=== PATIENT | female | born 1965 | race Two or more races ===

== ENCOUNTER 2024-05-25 10:20 | Emergency (ER) | payer MEDICAID, SELFPAY ==
[2024-05-25 10:21] VITALS: BMI 48.2
[2024-05-25 10:47] VITALS: BP 123/68; PULSE 106; RESP 22; TEMP 37.1; O2SAT 95; BMI 51.4
--- NOTE | 2024-05-25 10:53 | XR_ITS ---
Examination: PA lateral chest 2 views TECHNIQUE: Upright AP lateral chest 2 views Exam date and time: 0.5 2024 1106 hours Comparison June 16, 2023 INDICATIONS: Coughing fever beginning 3 days ago. FINDINGS: Mild accentuation bronchovascular markings. Normal heart size No pneumonia or pulmonary edema IMPRESSION: Mild basilar bronchitis pattern
--- NOTE | 2024-05-25 10:55 | PD.EDURI ---
Upper Respiratory Inf. RME/HPI General Chief Complaint: Flu Like Symptoms Stated Complaint: COUGH/SORE THROAT x 3 DAYS Time Seen by Provider: 05/25/24 10:53 Source: patient Arrival date/time: 05/25/24 10:20 59-year-old female with a history of hyperlipidemia presents to the emergency room with a chief complaint of cough, congestion x 3 days Mode of arrival: ambulatory Limitations: no limitations Related Data Home Medications ?Medication ?Instructions ?Recorded ?Confirmed atorvastatin 40 mg tablet 40 mg PO QDAY 09/08/22 09/08/22 blood pressure test kit-large 09/08/22 09/08/22 ferrous sulfate 325 mg (65 mg 325 mg PO BID 09/08/22 09/08/22 iron) tablet (FeroSul) folic acid 1 mg tablet 1 mg PO QDAY 09/08/22 09/08/22 hydroxyzine pamoate 25 mg capsule See Rx Instructions .Route .COMPLEX 09/08/22 09/08/22 insulin glargine 100 unit/mL (3 50 unit subcut BIDWM 09/08/22 09/08/22 mL) subcutaneous pen (Basaglar KwikPen U-100 Insulin) insulin regular human 100 unit/mL 40 unit subcut TID 09/08/22 09/08/22 (3 mL) subcutaneous pen (Novolin R FlexPen) lancets 33 gauge (TRUEplus Lancets) 09/08/22 09/08/22 losartan 50 mg tablet 50 mg PO BID 09/08/22 09/08/22 metformin 1,000 mg tablet 1,000 mg PO BID 09/08/22 09/08/22 Held on 09/11/22. Instructions: Reconcile with Nephrology and PCP once Renal Function improves or new baseline is established omeprazole 20 mg capsule,delayed 20 mg PO QDAY 09/08/22 09/08/22 release ondansetron 8 mg disintegrating 8 mg PO Q8H PRN Nausea And Vomiting 09/08/22 09/08/22 tablet pen needle, diabetic 31 gauge x 09/08/22 09/08/22 3/16 (BD Ultra-Fine Mini Pen Needle) pen needle, diabetic 32 gauge x 09/08/22 09/08/2232 (BD Ultra-Fine Kalee Pen Needle) semaglutide 2 mg/dose (8 mg/3 mL) 2 mg subcut QWEEK 09/08/22 09/08/22 subcutaneous pen injector (Ozempic) Previous Rx's ?Medication ?Instructions ?Recorded ibuprofen 600 mg tablet 600 mg PO TID PRN pain #30 tabs 03/25/23 albuterol sulfate 90 mcg/actuation 2 puff inhalation Q6H PRN 06/16/23 aerosol inhaler (Ventolin HFA) shortness of breath or wheezing #8.5 grams benzonatate 100 mg capsule 100 mg PO TID #14 caps 06/16/23 cyclobenzaprine 10 mg tablet 10 mg PO BID PRN muscle spasm #28 10/03/23 tabs ibuprofen 200 mg tablet (Motrin IB) 800 mg (4 x 200 mg) PO Q8H PRN 10/03/23 pain #120 tabs ciprofloxacin HCl 500 mg tablet 500 mg PO BID #14 tabs 02/25/24 (Cipro) ibuprofen 800 mg tablet 800 mg PO TID PRN pain #30 tabs 02/25/24 albuterol sulfate 90 mcg/actuation 2 inh inhalation Q6H PRN shortness 05/25/24 breath activated powder inhaler of breath or wheezing #1 ea prednisone 10 mg tablet 30 mg PO BID 3 days #18 tabs 05/25/24 Allergies Allergy/AdvReac Type Severity Reaction Status Date / Time No Known Allergies Allergy Verified 05/25/24 10:23 Review of Systems Review of Systems Systems Reviewed: All systems reviewed, normal except as documented Constitutional Constitutional: Reports system reviewed and no additional complaints, except as documented, Denies fatigue, Denies fever(s), Denies headache(s) and Denies weakness Eyes Eyes: Reports system reviewed and no additional complaints, except as documented, Denies blurry vision and Denies change in vision ENT Ears, Nose, Mouth, and Throat: Reports system reviewed and no additional complaints, except as documented, Denies otalgia, Denies headache(s), Reports nasal congestion, Denies throat swelling and Denies vertigo Cardiovascular Cardiovascular: Reports system reviewed and no additional complaints, except as documented, Denies chest pain, Denies dyspnea and Denies dyspnea on exertion Respiratory Respiratory: Reports system reviewed and no additional complaints, except as documented, Reports chest congestion, Reports cough, Denies dyspnea, Denies dyspnea on exertion and Denies wheezing Gastrointestinal Gastrointestinal: Reports system reviewed and no additional complaints, except as documented, Denies abdominal pain, Denies cramping, Denies nausea and Denies vomiting Genitourinary Genitourinary: Reports system reviewed and no additional complaints, except as documented Musculoskeletal Musculoskeletal: Reports system reviewed and no additional complaints, except as documented and Denies back pain Integumentary/Breasts Skin/Breast: Reports system reviewed and no additional complaints, except as documented and Denies wounds Neurologic Neurologic: Reports system reviewed and no additional complaints, except as documented, Denies confusion, Denies headache(s), Denies lack of coordination, Denies vertigo and Denies weakness Psychiatric Psychiatric: Reports system reviewed and no additional complaints, except as documented, Denies anxiety, Denies confusion, Denies depression, Denies paranoia, Denies suicidal ideation and Denies tactile hallucinations Endocrine Endocrine: Reports system reviewed and no additional complaints, except as documented and Denies fatigue Hematologic/Lymphatic Hematologic/Lymphatic: Reports system reviewed and no additional complaints, except as documented and Denies lymphadenopathy Allergic/Immunologic Allergic/Immunologic: Reports system reviewed and no additional complaints, except as documented, Denies throat swelling, Denies urticaria and Denies wheezing Past Medical History Past Medical History NEUROLOGIC: Negative Neurological Disorders CARDIAC: Positive Cardiac Disorders, Angina, Hypercholesterolemia and Hypertension; Negative Congestive Heart Failure RESPIRATORY: Positive Pneumonia; Negative Chronic Obstructive Pulmonary Disease (COPD) or Asthma GASTROINTESTINAL: Negative Gastrointestinal Disorders GENITOURINARY: Negative Genitourinary Disorders or Renal Disease MUSCULOSKELETAL: Negative Musculoskeletal Disorders or Arthritis ENDOCRINE: Positive Endocrine Disorders, Diabetes Mellitus Type 2 and Hypothyroidism; Negative Diabetes Mellitus Type 1 HEMATOLOGIC: Negative Blood Disorders or Sickle Cell Disease OTHER HISTORY: Positive Hospitalization Family History OTHER FAMILY HX: No relevant past family medical history Surgical History SURGICAL: Positive Amputation (may 2022) OTHER SURGICAL HX: Bilateral toe amputation Social History SOCIAL: Patient is retired, lives with family, able to perform ADLs denies any recreational drug use, alcohol use or tobacco use SMOKING STATUS: Never smoker ED Exam General Limitations: Present no limitations General appearance: Present alert and in no apparent distress Head Head exam: Present atraumatic Eye Eye exam: Present normal appearance, PERRL and EOMI ENT ENT exam: Present normal exam, normal oropharynx and mucous membranes moist Neck Neck exam: Present normal inspection, full ROM and trachea midline Chest Chest inspection: Present normal inspection and symmetric chest wall rise Respiratory Respiratory exam: Present normal lung sounds bilaterally; Absent respiratory distress, wheezes, stridor, accessory muscle use or prolonged expiratory phase Cardiovascular Cardiovascular exam: Present regular rate, normal rhythm and normal heart sounds Abdominal Exam Abdominal exam: Present soft and normal bowel sounds Extremities Exam Extremities exam: Present normal inspection and full ROM Back Exam Back exam: Present normal inspection and full ROM Neurological Exam Neurological exam: Present alert, oriented X3 and CN II-XII intact Psychiatric Psychiatric exam: Present normal affect and normal mood Skin Skin exam: Present warm, dry, intact and normal color Course Quality Measures none Orders Category Date Time Status Bedside COVID-19 Antigen Test NOW Care 05/25/24 10:53 Completed Bedside Influenza A&B Antigen Test NOW Care 05/25/24 10:53 Completed XR chest 2V Stat Exams 05/25/24 10:53 Completed Vital Signs Vital signs: Vital Signs Temperature 98.7 F 05/25/24 10:47 Pulse Rate 106 H 05/25/24 10:47 Respiratory Rate 22 H 05/25/24 10:47 Blood Pressure 123/68 05/25/24 10:47 Pulse Oximetry (%) 95 05/25/24 10:47 Oxygen Delivery Method Room Air 05/25/24 10:47 O2 saturation 95% within normal limits Upper Respiratory Infection MDM Narrative MDM Narrative:: 59-year-old female with a history of hyperlipidemia presents to the emergency room with a chief complaint of cough, congestion x 3 days The patient is hemodynamically stable and in no apparent distress Lung sounds are clear bilaterally with no wheezing stridor or any abnormal breath sounds Chest x-ray was completed and shows a bronchitis pattern COVID-19 and influenza test were both negative. Patient was discharged and educated to follow-up with primary care provider and return to the emergency room for any evidence of worsening signs or symptoms Patient data External records reviewed:: [facility] previous records Clinical information provided by:: patient Social determinants that could affect healthcare access:: none Patient has the following chronic illnesses:: No chronic illness How is presenting disease/condition affected by chronic disease/condition?: no chronic disease Evaluation data The following diagnostics were reviewed and interpreted by me:: lab results and radiology exam(s) Lab and/or radiology exams considered but not ordered:: Labs and radiology exams considered and ordered Interpretation Summary: Chest [id number]: Mild accentuation bronchovascular markings. Normal heart size No pneumonia or pulmonary edema IMPRESSION: Mild basilar bronchitis pattern Medications / Prescriptions Medications or Prescriptions considered but not ordered:: Medication given Medication administrations:: Medication not given Consultations Consultation(s) initiated? (list below): No Diagnosis Upper Respiratory Differential Diagnosis: upper respiratory infection, sinusitis, viral infection, bronchitis, influenza and pharyngitis Most likely diagnosis given after review of the tests above:: Bronchitis Admission Indicated Admission indicated?: not indicated Admission Request Was there a request for admission?: No Disposition Plan Disposition Plan: Discharge Discharge Attestation Discharge Attestation: The patient and all family members were given an opportunity to ask questions and understood the discharge instructions. Discharge instructions specifically effects, indications for sooner follow up or return to the emergency department, and the expected course of current diagnosis. Patient condition: Stable Discharge Plan Plan Patient Disposition: HOME (Self Care) Disposition Comment: Stable Prescriptions/Referrals Prescriptions/Med Rec: New albuterol sulfate 90 mcg/actuation aerosol powdr breath activated 2 inh inhalation Q6H PRN (Reason: shortness of breath or wheezing) Qty: 1 0RF prednisone 10 mg tablet 30 mg PO BID 3 Days Qty: 18 0RF Taper: Prednisone Taper 20 mg DAILY for 2 Days and 0 Hour 10 mg DAILY for 2 Days and 0 Hour 5 mg DAILY for 7 Days and 0 Hour No Action ibuprofen 600 mg tablet 600 mg PO TID PRN (Reason: pain) Qty: 30 0RF benzonatate 100 mg capsule 100 mg PO TID Qty: 14 0RF albuterol sulfate [Ventolin HFA] 90 mcg/actuation HFA aerosol inhaler 2 puff inhalation Q6H PRN (Reason: shortness of breath or wheezing) Qty: 8.5 0RF ciprofloxacin HCl [Cipro] 500 mg tablet 500 mg PO BID Qty: 14 0RF ibuprofen 800 mg tablet 800 mg PO TID PRN (Reason: pain) Qty: 30 0RF losartan 50 mg tablet 50 mg PO BID Patient Comments: TAKE ONE TABLET BY MOUTH TWICE DAILY atorvastatin 40 mg tablet 40 mg PO QDAY ondansetron 8 mg tablet,disintegrating 8 mg PO Q8H PRN (Reason: Nausea And Vomiting) Patient Comments: PLACE ONE TABLET ON TONGUE ALLOW TO DISSOLVE EVERY EIGHT HOURS NEEDED Rx Instructions: PLACE ONE TABLET ON TONGUE ALLOW TO DISSOLVE EVERY EIGHT HOURS NEEDED ferrous sulfate [FeroSul] 325 mg (65 mg iron) tablet 325 mg PO BID metformin 1,000 mg tablet 1,000 mg PO BID omeprazole 20 mg capsule,delayed release(DR/EC) 20 mg PO QDAY Patient Comments: TAKE ONE CAPSULE BY MOUTH ONCE DAILY folic acid 1 mg tablet 1 mg PO QDAY hydroxyzine pamoate 25 mg capsule See Rx Instructions .ROUTE .COMPLEX Patient Comments: TAKE ONE CAPSULE BY MOUTH FOUR TIMES DAILY NEEDED, TAKE TWO CAPSULES BY MOUTH AT BEDTIME Rx Instructions: TAKE ONE CAPSULE BY MOUTH FOUR TIMES DAILY NEEDED, TAKE TWO CAPSULES BY MOUTH AT BEDTIME Novolin R FlexPen 100 unit/mL (3 mL) insulin pen 40 unit SUBCUT TID (DME) pen needle, diabetic [BD Ultra-Fine Mini Pen Needle] 31 gauge x 3/16 needle Patient Comments: use 1 needle subcutaneously once a day insulin glargine [Basaglar KwikPen U-100 Insulin] 100 unit/mL (3 mL) insulin pen 50 unit SUBCUT BIDWM Patient Comments: Inject 50 unit subcutaneously twice a day with meals (DME) blood pressure test kit-large Kit Patient Comments: DIRECTED (DME) pen needle, diabetic [BD Ultra-Fine Kalee Pen Needle] 32 gauge x 5/32 needle (DME) lancets [TRUEplus Lancets] 33 gauge misc Patient Comments: USE DIRECTED DAILY Ozempic 2 mg/dose (8 mg/3 mL) pen injector 2 mg subcut QWEEK cyclobenzaprine 10 mg tablet 10 mg PO BID PRN (Reason: muscle spasm) Qty: 28 0RF ibuprofen [Motrin IB] 200 mg tablet 800 mg PO Q8H PRN (Reason: pain) Qty: 120 0RF Problem List Clinical Impression: Bronchitis Patient/Caregiver Discharge Instructions Education Materials: ED Bronchitis, No Antibiotic (Adult) Additional Instructions: Hailee un seguimiento con haque proveedor de atenci?n primaria en las pr?ximas 24 a 48 horas. Haque radiograf?a de t?rax fue negativa para cualquier neumon?a. Tanto haque COVID-19 tara haque influenza fueron negativos. Le envi? medicamentos para ayudarle con shyla s?ntomas. Si hay evidencia de signos o s?ntomas que empeoran, regrese a la edwin de emergencias de inmediato. Print Language: Belarusian Stand Alone Forms: Elle Award Info., Patient Portal Info Letter PA/TOOTH POLISHER Supervising Physician PA/TOOTH POLISHER Supervising Physician: Dr Steward
[2024-05-25 12:04] VITALS: BP 138/73; PULSE 96; RESP 17; TEMP 36.9; O2SAT 96
== END 2024-05-25 12:08 | disposition home or self-care (01) ==
LOC: SERX 11:55
PROVIDERS: Emergency Provider Emergency Medicine; PCP Nurse Practitioner Family
DX: J40 Bronchitis, not specified as acute or chronic (principal)
CPT/HCPCS: 71046; 87400; 87811; 99283

== ENCOUNTER 2024-09-14 15:54 | Emergency (ER) | payer MEDICAID, SELFPAY ==
[2024-09-14] VITALS (7 sets, daily range): BP systolic 76–120; BP diastolic 43–68; PULSE 98–120; RESP 16–24; TEMP 37.6–38.2; O2SAT 88–97
--- NOTE | 2024-09-14 16:11 | XR_ITS ---
Examination: CT abdomen and pelvis without contrast. Coronal 3-D reconstructions. Sagittal 2-D reconstructions. Date and time of exam:September 14, 2024, 1614 hours Comparison October 03, 2023 INDICATIONS: Onset right-sided flank pain today CTDI: vol (mGy): 18.3 DLP: (mGycm): 1124 Technique: Axial images of the abdomen have been obtained, 3 mm slice thickness Intravenous contrast material has not been administered. Low dose protocols were performed. One or more of the following dose reduction techniques were used; automated exposure control, adjustment of the mA and/or KV according to patient size, use of iterative reconstruction technique. Findings: Liver is mildly irregular in contour Contracted gallbladder Spleen not enlarged. No pancreatic or adrenal mass. Moderate bilateral renal parenchymal scar formation Mild perinephric stranding. No renal or ureteral calculi Renal arterial calcification No bowel obstruction Normal appendix A few loops of distended small bowel in the anterior abdomen No pelvic mass Urinary bladder is intact Significant degenerative disc disease L5-S1, moderate narrowing hip joints IMPRESSION: Moderate bilateral renal parenchymal scar formation Minimal perinephric stranding No renal or ureteral calculi, no hydronephrosis Normal appendix No bowel obstruction or diverticulitis No bladder mass or bladder calculi
--- NOTE | 2024-09-14 16:12 | PD.EDRME ---
Rapid Medical Screening Exam RME Arrival date/time: 09/14/24 15:54 59-year-old female with a history of hyperlipidemia, iron deficiency anemia, hypertension, type 2 diabetes presents to the emergency room with a chief complaint of right sided flank pain and dysuria x 2 days I have greeted and performed a focused initial assessment of this patient. A comprehensive ED assessment and evaluation of the patient, analysis of all test results, and completion of the medical decision making process will be conducted by additional ED providers. Chief Complaint: Back Pain/Injury Time Seen by Provider: 09/14/24 16:09 Vital signs: Vital Signs Temperature 100.7 F H 09/14/24 16:06 Pulse Rate 120 H 09/14/24 16:06 Respiratory Rate 20 09/14/24 16:06 Blood Pressure 84/55 L 09/14/24 16:06 Pulse Oximetry (%) 95 09/14/24 16:06 Oxygen Delivery Method Room Air 09/14/24 16:06 Vital signs reviewed by provider: Yes
[2024-09-14] MEDS: ACETAMINOPHEN 500 MG TABLET 1000 MG PO (16:26)
[2024-09-14 16:34] LABS: Lactate (Lactic Acid) 2.5 mMol/L (0.4-2.0)
[2024-09-14 16:36] LABS: Basophils % (Auto) 0 % (0-2.5); Eosinophils % (Auto) 0 % (0-10); Hematocrit 36.2 % (36.0-46.0); Hemoglobin 11.8 g/dL (12.0-16.0); Immature Granulocytes % (Auto) 1 % (0-0); Immature Granulocytes Auto 0.12 Thou/mm3 (0.00-0.00); Lymphocytes # (Auto) 1.2 Thou/mm3 (1.0-4.8); Lymphocytes % (Auto) 8 % (10-50); Mean Corpuscular HGB Conc 32.6 g/dl (31.0-37.0); Mean Corpuscular Hemoglobin 29.7 pg (25.0-35.0); Mean Corpuscular Volume 91 fL (80-100); Monocytes # (Auto) 0.7 Thou/mm3 (0.0-0.8); Monocytes % (Auto) 4 % (0-12); Neutrophils # (Auto) 13.9 Thou/mm3 (1.8-7.7); Neutrophils % (Auto) 87 % (37-80); Nucleated Red Blood Cell % 0 /100 WBC (0); Platelet Count 189 Thou/mm3 (140-440); RDW Standard Deviation 47.8 fL (36.4-46.3); Red Blood Count 3.97 Miln/mm3 (4.00-5.20)
[2024-09-14] MEDS: SODIUM CHLORIDE 0.9% 1000 ML 1,000 ML 999 ML IV (16:49)
[2024-09-14] MEDS: KETOROLAC INJ 30 MG/ML VIAL IVP (16:57)
[2024-09-14 17:01] LABS: Alanine Aminotransferase 29 U/L (10-49); Albumin, Serum 3.9 gm/dL (3.5-5.0); Albumin/Globulin Ratio 1.7 (1.2-2.2); Alkaline Phosphatase 94 U/L (46-116); Anion Gap 12 (7-16); Aspartate Amino Transferase 21 U/L (0-34); BUN/Creatinine Ratio 21 Ratio (12-20); Bilirubin,Total 0.5 mg/dL (0.3-1.2); Blood Urea Nitrogen 30 mg/dL (9-23); Calcium 9.7 mg/dL (8.3-10.6); Calcium (Corrected) 9.8 mg/dL (8.5-10.1); Carbon Dioxide 23.8 mMol/L (20.0-31.0); Chloride 100 mMol/L (98-107); Creatinine (Component) 1.4 mg/dL (0.6-1.3); Globulin 2.3 gm/dL (2.3-3.5); Glucose 377 mg/dL (74-106); Lipase 46 U/L (12-53); Osmolality,Calculated 293 (275-295); Potassium 4.5 mMol/L (3.4-5.1); Procalcitonin 0.46 ng/ml (0.0-0.49); Sodium 136 mMol/L (136-145); Total Protein 6.2 gm/dL (5.7-8.2); eGFR 44 See Note
[2024-09-14] MEDS: cefTRIAXone/D5w 1gm IV premix 1 GM/50 ML BAG IV (17:28)
[2024-09-14 19:32] LABS: Reflex Lactate? Y
[2024-09-14 20:11] LABS: Lactic Acid, 3 HR 1.2 mMol/L (0.4-2.0)
--- NOTE | 2024-09-14 22:28 | PD.EDFMALE ---
ED Female Urogenital RME/HPI General Chief complaint: Back Pain/Injury Stated complaint: LOWER BACK PAIN X YESTERDAY Time Seen by Provider: 09/14/24 16:09 Arrival date/time: 09/14/24 15:54 RME / HPI RME / HPI Narrative: 09/14/24 15:54 59-year-old female with a history of hyperlipidemia, iron deficiency anemia, hypertension, type 2 diabetes presents to the emergency room with a chief complaint of right sided flank pain and dysuria x 2 days I have greeted and performed a focused initial assessment of this patient. A comprehensive ED assessment and evaluation of the patient, analysis of all test results, and completion of the medical decision making process will be conducted by additional ED providers. This section includes all my notes and documentations, including HPI, PE, and ED course. Dre Murray MD HPI: 59 y/o female with Hx of Type II DM presents to ED c/o bilateral flank pain and dysuria x several days. No fever. No vomiting. No other complaints. ROS: All negative except as documented in HPI. Physical Exam: General: Alert and oriented. No acute distress when remaining still. Eyes: Conjunctivae and lids clear. ENT: No nasal congestion. Neck: Supple. Heart: RRR. Lungs: No respiratory distress. Good air movement. No rhonchi, wheezing, rales. Abdomen: Soft and nontender. Normal bowel sounds. No distension. No rebound or guarding. Back: No CVA tenderness. Skin: Warm and dry. Neuro: Alert and oriented X 3. I reviewed all diagnostic test results. My review of the CT report is perinephric stranding. Blood tests remarkable for WBC 16. At this point, diagnoses include kidney infection. Treatment here included Toradol, Rocephin, IV fluid, Tylenol. Significant improvement noted. Patient requested outpatient treatment. Based on my best medical judgment, made decision no further evaluation or treatment indicated at this time. Patient understands and agrees to the discharge instructions customized and printed, see below. Discharge instructions from Dr. Murray: 1. After evaluation, you have kidney infection (see attached handout).? 2. Take cefdinir to kill the germs causing the infection.? Increase oral fluid to flush it out.? Maintain clear urine.? If dark or yellow, increase oral fluid. 3. Zofran for nausea/vomiting.? Toradol and Tylenol with codeine for pain. 4. See a private doctor next week if not completely better. 5. Seek immediate medical care with worsening, fever, or with any concerns. Dre Murray MD Related Data Home Medications ?Medication ?Instructions ?Recorded ?Confirmed atorvastatin 40 mg tablet 40 mg PO QDAY 09/08/22 09/08/22 blood pressure test kit-large 09/08/22 09/08/22 ferrous sulfate 325 mg (65 mg 325 mg PO BID 09/08/22 09/08/22 iron) tablet (FeroSul) folic acid 1 mg tablet 1 mg PO QDAY 09/08/22 09/08/22 hydroxyzine pamoate 25 mg capsule See Rx Instructions .Route .COMPLEX 09/08/22 09/08/22 insulin glargine 100 unit/mL (3 50 unit subcut BIDWM 09/08/22 09/08/22 mL) subcutaneous pen (Basaglar KwikPen U-100 Insulin) insulin regular human 100 unit/mL 40 unit subcut TID 09/08/22 09/08/22 (3 mL) subcutaneous pen (Novolin R FlexPen) lancets 33 gauge (TRUEplus Lancets) 09/08/22 09/08/22 losartan 50 mg tablet 50 mg PO BID 09/08/22 09/08/22 metformin 1,000 mg tablet 1,000 mg PO BID 09/08/22 09/08/22 Held on 09/11/22. Instructions: Reconcile with Nephrology and PCP once Renal Function improves or new baseline is established omeprazole 20 mg capsule,delayed 20 mg PO QDAY 09/08/22 09/08/22 release ondansetron 8 mg disintegrating 8 mg PO Q8H PRN Nausea And Vomiting 09/08/22 09/08/22 tablet pen needle, diabetic 31 gauge x 09/08/22 09/08/22 3/16 (BD Ultra-Fine Mini Pen Needle) pen needle, diabetic 32 gauge x 09/08/22 09/08/22 (BD Ultra-Fine Kalee Pen Needle) semaglutide 2 mg/dose (8 mg/3 mL) 2 mg subcut QWEEK 09/08/22 09/08/22 subcutaneous pen injector (Ozempic) Previous Rx's ?Medication ?Instructions ?Recorded ibuprofen 600 mg tablet 600 mg PO TID PRN pain #30 tabs 03/25/23 albuterol sulfate 90 mcg/actuation 2 puff inhalation Q6H PRN 06/16/23 aerosol inhaler (Ventolin HFA) shortness of breath or wheezing #8.5 grams benzonatate 100 mg capsule 100 mg PO TID #14 caps 06/16/23 cyclobenzaprine 10 mg tablet 10 mg PO BID PRN muscle spasm #28 10/03/23 tabs ibuprofen 200 mg tablet (Motrin IB) 800 mg (4 x 200 mg) PO Q8H PRN 10/03/23 pain #120 tabs ciprofloxacin HCl 500 mg tablet 500 mg PO BID #14 tabs 02/25/24 (Cipro) ibuprofen 800 mg tablet 800 mg PO TID PRN pain #30 tabs 02/25/24 albuterol sulfate 90 mcg/actuation 2 inh inhalation Q6H PRN shortness 05/25/24 breath activated powder inhaler of breath or wheezing #1 ea acetaminophen 300 mg-codeine 30 mg 2 tab PO Q8H PRN pain #20 tabs 09/14/24 tablet cefdinir 300 mg capsule 300 mg PO BID #14 caps 09/14/24 ketorolac 10 mg tablet 10 mg PO Q8H PRN pain 5 days #10 09/14/24 tabs ondansetron 4 mg disintegrating 4 mg PO TID PRN nausea and 09/14/24 tablet vomiting 30 days #10 tabs Allergies Allergy/AdvReac Type Severity Reaction Status Date / Time No Known Allergies Allergy Verified 09/14/24 15:57 Review of Systems Review of Systems Systems Reviewed: All systems reviewed, normal except as documented Past Medical History Past Medical History CARDIAC: Positive Cardiac Disorders, Angina, Hypercholesterolemia and Hypertension RESPIRATORY: Positive Pneumonia ENDOCRINE: Positive Endocrine Disorders, Diabetes Mellitus Type 2 and Hypothyroidism OTHER HISTORY: Positive Hospitalization Surgical History SURGICAL: Positive Amputation (may 2022) ED Exam Narrative Physical exam: Refer to HPI above Course Quality Measures none Orders Category Date Time Status Bedside Influenza A&B Antigen Test NOW Care 09/14/24 16:12 Active Insert IV STAT Care 09/14/24 16:[address] abdomen pelvis wo con Stat Exams 09/14/24 16:11 Completed Blood Culture (Lab) Stat Lab 09/14/24 16:10 Received CBC Stat Lab 09/14/24 16:10 Completed CMP [Comprehensive Metabolic Panel] Stat Lab 09/14/24 16:10 Completed Lactate (Lactic Acid) Stat Lab 09/14/24 16:17 Completed Lactic Acid, 3 HR Stat Lab 09/14/24 19:55 Completed Lipase Stat Lab 09/14/24 16:10 Completed Procalcitonin Stat Lab 09/14/24 16:10 Completed UA [Urinalysis] Stat Lab 09/14/24 16:11 Ordered Urine Culture Stat Lab 09/14/24 16:11 Ordered Acetaminophen Tab [Tylenol ES Tab] Med 09/14/24 16:13 Discontinued 1,000 mg PO X1 ONE Ketorolac Inj [Toradol Inj] Med 09/14/24 16:30 Discontinued 30 mg IVP X1 ONE Sodium Chloride 0.9% 1000 ml [Ns] 1,000 ml Med 09/14/24 16:13 Discontinued IV 999 mls/hr cefTRIAXone/D5w 1gm IV premix [Rocephin/D5w 1gm IV Med 09/14/24 16:13 Discontinued premix] 1 gm in 50 ml IV X1 Vital Signs Vital signs: Vital Signs Temperature 100.7 F H 09/14/24 16:06 Pulse Rate 120 H 09/14/24 16:06 Respiratory Rate 20 09/14/24 16:06 Blood Pressure 84/55 L 09/14/24 16:06 Pulse Oximetry (%) 95 09/14/24 16:06 Oxygen Delivery Method Room Air 09/14/24 16:06 Urogenital - Female MDM Narrative MDM Narrative:: Scribe Attestation: Roxana Castro am scribing for and in the presence of Dr. Murray. Provider Notation: Although this document has been carefully reviewed, there may still be some phonetic and other typographical errors.? These errors are purely grammatical due to imperfections in the software program and should not be construed in any way to? compromise the substance of the patient's medical care during this visit. 59 y/o female with Hx of Type II DM presents to ED c/o bilateral flank pain and dysuria x several days. No other complaints. Patient data External records reviewed:: [facility] previous records (Reviewed prior ED records from 05/25/24. Patient was seen for Bronchitis.) Clinical information provided by:: patient Social determinants that could affect healthcare access:: none Patient has the following chronic illnesses:: Angina, Hypercholesterolemia, Hypertension, Diabetes Mellitus Type 2 and Hypothyroidism How is presenting disease/condition affected by chronic disease/condition?: exacerbated by Evaluation data The following diagnostics were reviewed and interpreted by me:: lab results and radiology exam(s) Lab and/or radiology exams considered but not ordered:: None Interpretation Summary: I reviewed all diagnostic test results. My review of the CT report is perinephric stranding. Blood tests remarkable for WBC 16. Medications / Prescriptions Medications or Prescriptions considered but not ordered:: None Medication administrations:: Medication Administration History Discontinued Medications Acetaminophen (Acetaminophen 500 Mg Tablet) 1,000 mg PO X1 ONE Stop: 09/14/24 16:14 Last Admin: 09/14/24 16:26 Dose: 1,000 mg Documented By: POLINA Sodium Chloride (Ns) 1,000 mls @ 999 mls/hr IV .Q1H1M ONE Stop: 09/14/24 17:13 Last Admin: 09/14/24 16:49 Dose: 999 mls/hr Documented By: POLINA Ceftriaxone Sodium/Dextrose (Rocephin/D5w 1gm Iv Premix) 1 gm in 50 mls @ 100 mls/hr IV X1 ONE Stop: 09/14/24 16:42 Last Admin: 09/14/24 17:28 Dose: 100 mls/hr Documented By: POLINA Ketorolac Tromethamine (Ketorolac Inj 30 Mg/Ml Vial) 30 mg IVP X1 ONE Stop: 09/14/24 16:31 Last Admin: 09/14/24 16:57 Dose: 30 mg Documented By: POLINA Toradol, Rocephin, IV fluid, Tylenol Consultations Consultation(s) initiated? (list below): No Diagnosis Urogenital Female Differential Diagnosis: urinary tract infection, bacterial vaginosis, trichomoniasis, cervicitis, ovarian cyst, vaginitis, ruptured ovarian cyst, cyst of Bartholin's gland, cystitis, dysmenorrhea and other (Pyelonephritis, Renal Calculi) Most likely diagnosis given after review of the tests above:: Kidney Infection Admission Indicated Admission indicated?: not indicated Explain why admission is indicated or not indicated:: With significant improvement,there was no indication for admission.? Admission Request Was there a request for admission?: No Disposition Plan Disposition Plan: Discharge Discharge Attestation Discharge Attestation: The patient and all family members were given an opportunity to ask questions and understood the discharge instructions. Discharge instructions specifically effects, indications for sooner follow up or return to the emergency department, and the expected course of current diagnosis. Patient condition: Stable Discharge Plan Plan Patient Disposition: HOME (Self Care) Prescriptions/Referrals Prescriptions/Med Rec: New acetaminophen-codeine 300-30 mg tablet 2 tab PO Q8H MDD 6 PRN (Reason: pain) Qty: 20 0RF ketorolac 10 mg tablet 10 mg PO Q8H PRN (Reason: pain) 5 Days Qty: 10 0RF ondansetron 4 mg tablet,disintegrating 4 mg PO TID PRN (Reason: nausea and vomiting) 30 Days Qty: 10 0RF cefdinir 300 mg capsule 300 mg PO BID Qty: 14 0RF No Action ibuprofen 600 mg tablet 600 mg PO TID PRN (Reason: pain) Qty: 30 0RF benzonatate 100 mg capsule 100 mg PO TID Qty: 14 0RF albuterol sulfate [Ventolin HFA] 90 mcg/actuation HFA aerosol inhaler 2 puff inhalation Q6H PRN (Reason: shortness of breath or wheezing) Qty: 8.5 0RF ciprofloxacin HCl [Cipro] 500 mg tablet 500 mg PO BID Qty: 14 0RF ibuprofen 800 mg tablet 800 mg PO TID PRN (Reason: pain) Qty: 30 0RF losartan 50 mg tablet 50 mg PO BID Patient Comments: TAKE ONE TABLET BY MOUTH TWICE DAILY atorvastatin 40 mg tablet 40 mg PO QDAY ondansetron 8 mg tablet,disintegrating 8 mg PO Q8H PRN (Reason: Nausea And Vomiting) Patient Comments: PLACE ONE TABLET ON TONGUE ALLOW TO DISSOLVE EVERY EIGHT HOURS NEEDED Rx Instructions: PLACE ONE TABLET ON TONGUE ALLOW TO DISSOLVE EVERY EIGHT HOURS NEEDED ferrous sulfate [FeroSul] 325 mg (65 mg iron) tablet 325 mg PO BID metformin 1,000 mg tablet 1,000 mg PO BID omeprazole 20 mg capsule,delayed release(DR/EC) 20 mg PO QDAY Patient Comments: TAKE ONE CAPSULE BY MOUTH ONCE DAILY folic acid 1 mg tablet 1 mg PO QDAY hydroxyzine pamoate 25 mg capsule See Rx Instructions .ROUTE .COMPLEX Patient Comments: TAKE ONE CAPSULE BY MOUTH FOUR TIMES DAILY NEEDED, TAKE TWO CAPSULES BY MOUTH AT BEDTIME Rx Instructions: TAKE ONE CAPSULE BY MOUTH FOUR TIMES DAILY NEEDED, TAKE TWO CAPSULES BY MOUTH AT BEDTIME Novolin R FlexPen 100 unit/mL (3 mL) insulin pen 40 unit SUBCUT TID (DME) pen needle, diabetic [BD Ultra-Fine Mini Pen Needle] 31 gauge x 3/16 needle Patient Comments: use 1 needle subcutaneously once a day insulin glargine [Basaglar KwikPen U-100 Insulin] 100 unit/mL (3 mL) insulin pen 50 unit SUBCUT BIDWM Patient Comments: Inject 50 unit subcutaneously twice a day with meals (DME) blood pressure test kit-large Kit Patient Comments: DIRECTED (DME) pen needle, diabetic [BD Ultra-Fine Kalee Pen Needle] 32 gauge x 5/32 needle (DME) lancets [TRUEplus Lancets] 33 gauge misc Patient Comments: USE DIRECTED DAILY Ozempic 2 mg/dose (8 mg/3 mL) pen injector 2 mg subcut QWEEK cyclobenzaprine 10 mg tablet 10 mg PO BID PRN (Reason: muscle spasm) Qty: 28 0RF ibuprofen [Motrin IB] 200 mg tablet 800 mg PO Q8H PRN (Reason: pain) Qty: 120 0RF albuterol sulfate 90 mcg/actuation aerosol powdr breath activated 2 inh inhalation Q6H PRN (Reason: shortness of breath or wheezing) Qty: 1 0RF Referrals: Marga Jeter FNP [Primary Care Provider] - In 1 week Problem List Clinical Impression: Kidney infection Patient/Caregiver Discharge Instructions Discharge Activity: activity as tolerated Education Materials: ED Pyelonephritis, Female (Adult) Additional Instructions: Discharge instructions from Dr. Murray: 1. After evaluation, you have kidney infection (see attached handout).? 2. Take cefdinir to kill the germs causing the infection.? Increase oral fluid to flush it out.? Maintain clear urine.? If dark or yellow, increase oral fluid. 3. Zofran for nausea/vomiting.? Toradol and Tylenol with codeine for pain. 4. See a private doctor next week if not completely better. 5. Seek immediate medical care with worsening, fever, or with any concerns. Instrucciones de august del Dr. Murray: 1. Despu?s de la evaluaci?n, tiene marsha infecci?n renal (devaughn folleto adjunto). 2. [place] cefdinir para eliminar los g?rmenes que causan la infecci?n. Aumente la cantidad de l?quidos por v?a oral para eliminarlos. Mantenga la orina braydon. Si la orina es oscura o amarilla, aumente la cantidad de l?quidos por v?a oral. 3. Zofran para las n?useas y los v?mitos. Toradol y Tylenol con code?na para el dolor. 4. Consulte con un m?dico privado la pr?xima semana si no mejora por completo. 5. Busque atenci?n m?dica inmediata si la condici?n empeora, tiene fiebre o si tiene alguna inquietud. Print Language: [place] Stand Alone Forms: [employer] Award Info., Patient Portal Info Letter
== END 2024-09-14 22:49 | disposition home or self-care (01) ==
PROVIDERS: Nurse Practitioner Family; Emergency Provider Emergency Medicine; PCP Nurse Practitioner Family
DX: N15.9 Renal tubulo-interstitial disease, unspecified (principal); E11.9 Type 2 diabetes mellitus without complications; E78.5 Hyperlipidemia, unspecified; I10 Essential (primary) hypertension
CPT/HCPCS: 36415; 74176; 80053; 81001; 83605; 83690; 84145; 85025; 87040; 87077; 87086; 87186; 96361; 96365; 96375; 99284; J0696; J1885; J7030; A9270

== ENCOUNTER 2024-09-17 09:02 | Inpatient (IN) | payer MEDICAID, SELFPAY ==
[2024-09-17] VITALS (14 sets, daily range): BP systolic 93–156; BP diastolic 58–113; PULSE 99–120; RESP 16–22; TEMP 36.9–38.6; O2SAT 87–100; BMI 51.7
--- NOTE | 2024-09-17 09:31 | PD.EDRME ---
Rapid Medical Screening Exam E Arrival date/time: 09/17/24 09:02 This is a 59-year-old female that is brought in by with complaints of needing different antibiotics. Patient's was under the impression that we would give her antibiotics and send her home. Patient was recently diagnosed with a kidney infection. Patient had some perinephric stranding on CT abdomen pelvis. Looking over patient's labs it appears that patient had a blood culture that grew MRSA. Today in triage patient is lethargic and oxygen saturations ranged from 82-87 on room air. Patient has a history of diabetes, hyperlipidemia. Patient has been denies fever nausea vomiting. I have greeted and performed a focused initial assessment of this patient. Initial appropriate labs ordered at this time. A comprehensive ED assessment and evaluation of the patient and analysis of all test and completion of medical decision making process will be conducted by additional ED provider. Chief Complaint: General Adult/Misc Complain Time Seen by Provider: 09/17/24 09:10 Vital signs: Vital Signs Temperature 98.4 F 09/17/24 09:19 Pulse Rate 99 09/17/24 09:19 Respiratory Rate 22 H 09/17/24 09:19 Blood Pressure 101/61 09/17/24 09:19 Pulse Oximetry (%) 87 L 09/17/24 09:19 Oxygen Delivery Method Room Air 09/17/24 09:19
--- NOTE | 2024-09-17 09:44 | XR_ITS ---
Examination: AP chest single view Technique one AP portable semiupright chest single view Date and time: September 17, 2024 0951 hrs. Comparison May 25, 2024 Indications: Low O2 saturation shortness of breath today. Findings: Mild prominence left ventricle. No pneumonia or pulmonary edema Moderate osteopenia Impression: No pneumonia or pulmonary edema
[2024-09-17 09:53] LABS: Lactate (Lactic Acid) 3.9 mMol/L (0.4-2.0)
[2024-09-17 10:04] LABS: Basophils % (Auto) 0 % (0-2.5); Eosinophils # (Auto) 0.1 Thou/mm3 (0.0-0.5); Eosinophils % (Auto) 1 % (0-10); Hematocrit 36.2 % (36.0-46.0); Immature Granulocytes % (Auto) 1 % (0-0); Immature Granulocytes Auto 0.14 Thou/mm3 (0.00-0.00); Lymphocytes # (Auto) 1.1 Thou/mm3 (1.0-4.8); Lymphocytes % (Auto) 9 % (10-50); Mean Corpuscular HGB Conc 33.1 g/dl (31.0-37.0); Mean Corpuscular Hemoglobin 28.9 pg (25.0-35.0); Mean Corpuscular Volume 87 fL (80-100); Monocytes # (Auto) 0.8 Thou/mm3 (0.0-0.8); Monocytes % (Auto) 6 % (0-12); Neutrophils # (Auto) 10.2 Thou/mm3 (1.8-7.7); Neutrophils % (Auto) 82 % (37-80); Nucleated Red Blood Cell # 0.02 Thou/mm3 (0.00-0.00); Nucleated Red Blood Cell % 0 /100 WBC (0); Platelet Count 167 Thou/mm3 (140-440); RDW Standard Deviation 47.5 fL (36.4-46.3); Red Blood Count 4.15 Miln/mm3 (4.00-5.20); White Blood Count 12.4 Thou/mm3 (3.6-11.0)
[2024-09-17] MEDS: SODIUM CHLORIDE 0.9% 1000 ML 1,000 ML 999 ML IV (10:13)
[2024-09-17] MEDS: PIPER/TAZO 3.375 GM PREMIX 3.375 GM/50 ML BAG IV (10:13)
[2024-09-17 10:30] LABS: Alanine Aminotransferase 57 U/L (10-49); Albumin, Serum 3.9 gm/dL (3.5-5.0); Albumin/Globulin Ratio 1.4 (1.2-2.2); Alkaline Phosphatase 137 U/L (46-116); Anion Gap 15 (7-16); Aspartate Amino Transferase 43 U/L (0-34); BUN/Creatinine Ratio 20 Ratio (12-20); Bilirubin,Total 0.5 mg/dL (0.3-1.2); Blood Urea Nitrogen 34 mg/dL (9-23); Calcium 9.9 mg/dL (8.3-10.6); Chloride 99 mMol/L (98-107); Creatinine (Component) 1.7 mg/dL (0.6-1.3); Estimated Creatinine Clearance 44.6 mL/min (>60); Globulin 2.8 gm/dL (2.3-3.5); Glucose 325 mg/dL (74-106); Osmolality,Calculated 294 (275-295); Potassium 4.3 mMol/L (3.4-5.1); Procalcitonin 7.85 ng/ml (0.0-0.49); Sodium 137 mMol/L (136-145); Total Protein 6.7 gm/dL (5.7-8.2); eGFR 35 See Note
[2024-09-17] MEDS: VANCOMYCIN/NS 1 GM IVPB 200 ML IV ×2 (11:14→16:16)
--- NOTE | 2024-09-17 11:32 | PD.EDADULT ---
ED General RME/HPI General Chief complaint: General Adult/Misc Complain Stated complaint: Called back to ER for growth in cultures Time Seen by Provider: 09/17/24 09:10 Arrival date/time: 09/17/24 09:02 RME / HPI RME / HPI narrative: 09/17/24 09:02 This is a 59-year-old female that is brought in by with complaints of needing different antibiotics. Patient's was under the impression that we would give her antibiotics and send her home. Patient was recently diagnosed with a kidney infection. Patient had some perinephric stranding on CT abdomen pelvis. Looking over patient's labs it appears that patient had a blood culture that grew MRSA. Today in triage patient is lethargic and oxygen saturations ranged from 82-87 on room air. Patient has a history of diabetes, hyperlipidemia. Patient has been denies fever nausea vomiting. I have greeted and performed a focused initial assessment of this patient. Initial appropriate labs ordered at this time. A comprehensive ED assessment and evaluation of the patient and analysis of all test and completion of medical decision making process will be conducted by additional ED provider. DR. ANDRE MAIN ED EVALUATION 59 year old female with history of hypertension, diabetes, hyperlipidemia, hypothyroidism presents to the ED after being contacted regarding positive blood culture results. She was seen here 3 days ago for bilateral flank pain and dysuria. At that time, she was diagnosed with a kidney infection and discharged with prescriptions for Toradol, Zofran, and Cefdinir. Today, she received a phone call from the hospital informing her that her urine culture was positive, and she was advised to return to the ED for further evaluation and treatment. Currently, the patient feels well and reports no acute complaints. She denies fever, chills, night sweats, chest pain, cough, or shortness of breath. She also denies nausea, vomiting, diarrhea, or constipation. EMR review reveals a history of ESBL UTI in 2020. Related Data Home Medications ?Medication ?Instructions ?Recorded ?Confirmed atorvastatin 40 mg tablet 40 mg PO QDAY 09/08/22 09/08/22 blood pressure test kit-large 09/08/22 09/08/22 ferrous sulfate 325 mg (65 mg 325 mg PO BID 09/08/22 09/08/22 iron) tablet (FeroSul) folic acid 1 mg tablet 1 mg PO QDAY 09/08/22 09/08/22 hydroxyzine pamoate 25 mg capsule See Rx Instructions .Route .COMPLEX 09/08/22 09/08/22 insulin glargine 100 unit/mL (3 50 unit subcut BIDWM 09/08/22 09/08/22 mL) subcutaneous pen (Basaglar KwikPen U-100 Insulin) insulin regular human 100 unit/mL 40 unit subcut TID 09/08/22 09/08/22 (3 mL) subcutaneous pen (Novolin R FlexPen) lancets 33 gauge (TRUEplus Lancets) 09/08/22 09/08/22 losartan 50 mg tablet 50 mg PO BID 09/08/22 09/08/22 metformin 1,000 mg tablet 1,000 mg PO BID 09/08/22 09/08/22 Held on 09/11/22. Instructions: Reconcile with Nephrology and PCP once Renal Function improves or new baseline is established omeprazole 20 mg capsule,delayed 20 mg PO QDAY 09/08/22 09/08/22 release ondansetron 8 mg disintegrating 8 mg PO Q8H PRN Nausea And Vomiting 09/08/22 09/08/22 tablet pen needle, diabetic 31 gauge x 09/08/22 09/08/22 3/16 (BD Ultra-Fine Mini Pen Needle) pen needle, diabetic 32 gauge x 09/08/22 09/08/22 5/32 (BD Ultra-Fine Kalee Pen Needle) semaglutide 2 mg/dose (8 mg/3 mL) 2 mg subcut QWEEK 09/08/22 09/08/22 subcutaneous pen injector (Ozempic) Previous Rx's ?Medication ?Instructions ?Recorded ibuprofen 600 mg tablet 600 mg PO TID PRN pain #30 tabs 03/25/23 albuterol sulfate 90 mcg/actuation 2 puff inhalation Q6H PRN 06/16/23 aerosol inhaler (Ventolin HFA) shortness of breath or wheezing #8.5 grams benzonatate 100 mg capsule 100 mg PO TID #14 caps 06/16/23 cyclobenzaprine 10 mg tablet 10 mg PO BID PRN muscle spasm #28 10/03/23 tabs ibuprofen 200 mg tablet (Motrin IB) 800 mg (4 x 200 mg) PO Q8H PRN 10/03/23 pain #120 tabs ciprofloxacin HCl 500 mg tablet 500 mg PO BID #14 tabs 02/25/24 (Cipro) ibuprofen 800 mg tablet 800 mg PO TID PRN pain #30 tabs 02/25/24 albuterol sulfate 90 mcg/actuation 2 inh inhalation Q6H PRN shortness 05/25/24 breath activated powder inhaler of breath or wheezing #1 ea acetaminophen 300 mg-codeine 30 mg 2 tab PO Q8H PRN pain #20 tabs 09/14/24 tablet cefdinir 300 mg capsule 300 mg PO BID #14 caps 09/14/24 ketorolac 10 mg tablet 10 mg PO Q8H PRN pain 5 days #10 09/14/24 tabs ondansetron 4 mg disintegrating 4 mg PO TID PRN nausea and 09/14/24 tablet vomiting 30 days #10 tabs Allergies Allergy/AdvReac Type Severity Reaction Status Date / Time No Known Allergies Allergy Verified 09/17/24 09:05 Review of Systems Review of Systems Narrative Review of Systems: GEN: No fever, no chills, no weight loss EYES: No discharge, no visual changes, no pain HEENT: No ear pain, no congestion, no sore throat PULM: No shortness of breath, no cough, no congestion CV: No chest pain, no dyspnea on exertion, no palpitations GI: No nausea, no vomiting, no diarrhea, no pain, no constipation : No frequency, no urgency, no dysuria MUSC/SKEL: No joint pain, no back pain SKIN: No rash NEURO: No weakness, no headache Past Medical History Past Medical History CARDIAC: Positive Cardiac Disorders, Angina, Hypercholesterolemia and Hypertension RESPIRATORY: Positive Pneumonia ENDOCRINE: Positive Endocrine Disorders, Diabetes Mellitus Type 2 and Hypothyroidism OTHER HISTORY: Positive Hospitalization Surgical History SURGICAL: Positive Amputation Social History SMOKING STATUS: Never smoker ED Exam Narrative Physical exam: GENERAL APPEARANCE: Drowsy but is arousable, oriented x 4, well-developed, well-nourished, flushed appearing HEENT: Normocephalic, atraumatic; pupils equal, round, reactive to light; EOMI; mucous membranes pink, moist; oropharynx clear NECK: Supple LUNGS: CTABL; no wheezes, no rales, no rhonchi HEART: Regular rate, regular rhythm; normal S1, S2; no murmurs ABDOMEN: non distended; normal BS; soft, no tenderness, no guarding, no rebound; no masses, no organomegaly, no hernia BACK: no CVA tenderness EXTREMITIES: atraumatic; no edema NEUROLOGIC:Drowsy but is arousable; oriented x4; cranial nerves II-XII grossly intact; no focal sensory or motor deficits PSYCHIATRIC: appropriate mood and affect SKIN: warm, dry; no rashes Course Quality Measures none Orders Category Date Time Status XR chest 1V portable Stat Exams 09/17/24 09:44 Completed XR chest 2V Stat Exams 09/17/24 09:29 Stop Req Blood Culture (Lab) Stat Lab 09/17/24 09:48 Received CBC Stat Lab 09/17/24 09:45 Completed Comprehensive Metabolic Panel Stat Lab 09/17/24 09:45 Completed Lactate (Lactic Acid) Stat Lab 09/17/24 09:45 Results Procalcitonin Stat Lab 09/17/24 09:45 Completed Urinalysis, C/S if Indicated Stat Lab 09/17/24 10:47 Received Urine Culture Stat Lab 09/17/24 10:47 Received Piper/Tazo 3.375 gm Premix [Zosyn] Med 09/17/24 09:54 Discontinued 3.375 gm in 50 ml IV X1 Sodium Chloride 0.9% 1000 ml [Ns] 1,000 ml Med 09/17/24 10:01 Discontinued IV 999 mls/hr Vancomycin/Ns 1 gm Ivpb 200 ml Med 09/17/24 10:00 Discontinued IV X1 Oxygen Delivery NOW RT 09/17/24 09:31 Active Vital Signs Vital signs: Vital Signs Temperature 98.4 F 09/17/24 09:19 Pulse Rate 99 09/17/24 09:19 Respiratory Rate 22 H 09/17/24 09:19 Blood Pressure 101/61 09/17/24 09:19 Pulse Oximetry (%) 87 L 09/17/24 09:19 Oxygen Delivery Method Room Air 09/17/24 09:19 Critical Care Time Critical Care Time Critical Care Time: Yes Total Critical Care Time (min.): 35 Attestation: The high probability of sudden, clinically significant deterioration in the patient's condition required the highest level of my preparedness to intervene urgently. The services I provided to this patient were to treat and/or prevent clinically significant deterioration. Services included the following: chart data review, reviewing nursing notes and/or old charts, documentation time, [employer] sales consultant collaboration regarding findings and treatment options, medication orders and management, direct patient care, vital sign assessments and ordering, interpreting and reviewing diagnostic studies and lab tests. Aggregate critical care time includes only time during which I was engaged in work directly related to the patient's care, as described above, whether at bedside or elsewhere in the Emergency Department. It did not include time spent performing other reported procedures or the services of residents, students, nurses or physician assistants. Discharge Plan Plan Patient Disposition: Admit Acute Care w/in Hospital Prescriptions/Referrals Prescriptions/Med Rec: No Action ibuprofen 600 mg tablet 600 mg PO TID PRN (Reason: pain) Qty: 30 0RF benzonatate 100 mg capsule 100 mg PO TID Qty: 14 0RF albuterol sulfate [Ventolin HFA] 90 mcg/actuation HFA aerosol inhaler 2 puff inhalation Q6H PRN (Reason: shortness of breath or wheezing) Qty: 8.5 0RF ciprofloxacin HCl [Cipro] 500 mg tablet 500 mg PO BID Qty: 14 0RF ibuprofen 800 mg tablet 800 mg PO TID PRN (Reason: pain) Qty: 30 0RF losartan 50 mg tablet 50 mg PO BID Patient Comments: TAKE ONE TABLET BY MOUTH TWICE DAILY atorvastatin 40 mg tablet 40 mg PO QDAY ondansetron 8 mg tablet,disintegrating 8 mg PO Q8H PRN (Reason: Nausea And Vomiting) Patient Comments: PLACE ONE TABLET ON TONGUE ALLOW TO DISSOLVE EVERY EIGHT HOURS NEEDED Rx Instructions: PLACE ONE TABLET ON TONGUE ALLOW TO DISSOLVE EVERY EIGHT HOURS NEEDED ferrous sulfate [FeroSul] 325 mg (65 mg iron) tablet 325 mg PO BID metformin 1,000 mg tablet 1,000 mg PO BID omeprazole 20 mg capsule,delayed release(DR/EC) 20 mg PO QDAY Patient Comments: TAKE ONE CAPSULE BY MOUTH ONCE DAILY folic acid 1 mg tablet 1 mg PO QDAY hydroxyzine pamoate 25 mg capsule See Rx Instructions .ROUTE .COMPLEX Patient Comments: TAKE ONE CAPSULE BY MOUTH FOUR TIMES DAILY NEEDED, TAKE TWO CAPSULES BY MOUTH AT BEDTIME Rx Instructions: TAKE ONE CAPSULE BY MOUTH FOUR TIMES DAILY NEEDED, TAKE TWO CAPSULES BY MOUTH AT BEDTIME Novolin R FlexPen 100 unit/mL (3 mL) insulin pen 40 unit SUBCUT TID (DME) pen needle, diabetic [BD Ultra-Fine Mini Pen Needle] 31 gauge x 3/16 needle Patient Comments: use 1 needle subcutaneously once a day insulin glargine [Basaglar KwikPen U-100 Insulin] 100 unit/mL (3 mL) insulin pen 50 unit SUBCUT BIDWM Patient Comments: Inject 50 unit subcutaneously twice a day with meals (DME) blood pressure test kit-large Kit Patient Comments: DIRECTED (DME) pen needle, diabetic [BD Ultra-Fine Kalee Pen Needle] 32 gauge x 5/32 needle (DME) lancets [TRUEplus Lancets] [facility] Patient Comments: USE DIRECTED DAILY Ozempic 2 mg/dose (8 mg/3 mL) pen injector 2 mg subcut QWEEK cyclobenzaprine 10 mg tablet 10 mg PO BID PRN (Reason: muscle spasm) Qty: 28 0RF ibuprofen [Motrin IB] 200 mg tablet 800 mg PO Q8H PRN (Reason: pain) Qty: 120 0RF albuterol sulfate 90 mcg/actuation aerosol powdr breath activated 2 inh inhalation Q6H PRN (Reason: shortness of breath or wheezing) Qty: 1 0RF acetaminophen-codeine 300-30 mg tablet 2 tab PO Q8H MDD 6 PRN (Reason: pain) Qty: 20 0RF ketorolac 10 mg tablet 10 mg PO Q8H PRN (Reason: pain) 5 Days Qty: 10 0RF ondansetron 4 mg tablet,disintegrating 4 mg PO TID PRN (Reason: nausea and vomiting) 30 Days Qty: 10 0RF cefdinir 300 mg capsule 300 mg PO BID Qty: 14 0RF Referrals: Marga Jeter FNP [Primary Care Provider] - In 1 week Problem List Clinical Impression: Sepsis, Bacteremia Patient/Caregiver Discharge Instructions Print Language: Citizen Of [place] Stand Alone Forms: Elle Award Info., Patient Portal Info Letter MDM Narrative [facility] hospital course: IGloria am scribing for and in the presence of Dr. Andre. 1005: Sepsis alert initiated. Orders made at this time are congruent with ED Adult Sepsis Order List. 1100: Sepsis reassessment performed consisting of lab review, vitals, physical exam. Patient has been given 1L normal saline. Zosyn IV has been ordered and administered. Clinical Information Provided by patient Medical Records Reviewed [facility] I reviewed ED visit on 09/14/2024, diagnosed with kidney infection and prescribed Cefdinir for 7 days. Urine cultures in 2020 was positive for ESBL UTI. Meds/Rx Considered, not Ordered None Labs/Rad/Tests considered, not Ordered None Chronic Illness/Social Conditions which may negatively complicate care or outcome(s)-explain: None or not applicable Lab Interpretation Labs: interpreted by me Lab(s) interpretation(s): WBC improved from previous visit Lactic acid 3.9 Procalcitonin 7.85 Imaging Imaging interpretation: interpreted by me and see narrative above Radiology reports / interpretation(s): Ordering Physician: Elsa Andre MD Date of Service: 09/17/24 Procedure(s): XR chest 1V portable Accession Number(s): [id number] cc: Taye Palomo MD; Elsa Andre MD~ Examination: AP chest single view Technique one AP portable semiupright chest single view Date and time: September 17, 2024 0951 hrs. Comparison May 25, 2024 Indications: Low O2 saturation shortness of breath today. Findings: Mild prominence left ventricle. No pneumonia or pulmonary edema Moderate osteopenia Impression: No pneumonia or pulmonary edema Dictated By: Taye Palomo MD Signed By: <Electronically signed by Taye Palomo MD in OV> 09/17/24 1014 Medication Administration(s) Medication Administration History Discontinued Medications Piperacillin/Tazobactam/Dextrose (Zosyn) 3.375 gm in 50 mls @ 100 mls/hr IV X1 ONE Stop: 09/17/24 10:23 Last Infusion: 09/17/24 10:50 Dose: Infused Documented By: Admin: 09/17/24 10:13 Dose: 100 mls/hr Documented By: MELISSA Vancomycin/Sodium Chloride (Vancomycin/Ns 1 Gm Ivpb) 200 mls @ 120 mls/hr IV X1 ONE Stop: 09/17/24 11:39 Last Admin: 09/17/24 11:14 Dose: 120 mls/hr Documented By: JOHNNA Sodium Chloride (Ns) 1,000 mls @ 999 mls/hr IV .Q1H1M ONE Stop: 09/17/24 11:01 Last Infusion: 09/17/24 11:14 Dose: Infused Documented By: Admin: 09/17/24 10:13 Dose: 999 mls/hr Documented By: MELISSA See above Consultations/Discussions re: Management Consult #1: Date/time: 09/17/24 12:05 pm Physician, specialty, service, details: I spoke with hospitalist Dr. Segura. Discussed patients PMHx, HPI, ED course, exam findings, labs, and radiology results. The hospitalist agree to accept the patient for admission. Diagnosis Most likely dx, and/or detailed dx discussion: Sepsis Bacteremia Dispositon Disposition: Admit
[2024-09-17 12:08] LABS: Collection Type, Urine Voided
[2024-09-17 12:44] LABS: Amorphous Crystals,Urine Present (Absent); Bilirubin,Urine Negative (Negative); Blood,Urine Negative (Negative); Budding Yeast,Urine Present; Clarity,Urine Turbid (Clear/Hazy); Color,Urine Yellow (Lt Yel-Yel); Culture Indicated,Urine Contaminated; Glucose, Urine 4+ (Negative); Granular Casts,Urine 1 /hpf (0-1); Ketones,Urine Trace (Negative); Leukocyte Esterase,Urine Positive (Negative); Nitrite,Urine Negative (Negative); Protein,Urine 1+ (Neg - Trace); RBC,Urine 3 /hpf (0-3); Specific Gravity,Urine 1.028 (1.001-1.035); Squamous Epithelial Cell,Urine 31 /hpf (0-5); WBC,Urine 17 /hpf (0-5)
[2024-09-17 12:51] LABS: Reflex Lactate? Y
[2024-09-17 13:17] LABS: Lactic Acid, 3 HR 1.4 mMol/L (0.4-2.0)
--- NOTE | 2024-09-17 13:35 | XR_ITS ---
Examination: CT brain head without contrast. 2-D sagittal coronal reconstructions Date and time of exam:September 17, 2024 1400 hrs. Indications: Confusion altered mental status today CTDI: vol (mGy):58 DLP: (mGycm):1134 Technique: Multiple CT axial sections of the brain have been obtained, 5 mm slice thickness. Contrast has not been administered. 2-D sagittal, coronal reconstructions have been obtained Low dose protocols were performed. One or more of the following dose reduction techniques were used; automated exposure control, adjustment of the mA and/or KV according to patient size, use of iterative reconstruction technique. Findings: No significant ventricular enlargement. Intra-axial or extra-axial hemorrhage density is not seen. No mass effect or midline shift Basal cisterns are not remarkable. Fourth ventricle is midline. Cranial vault intact. Impression: Negative for acute hemorrhage, mass effect or midline shift
[2024-09-17] MEDS: RINGERS LACTATED 1000 ML 1,000 ML 999 ML IV ×2 (14:12→16:15)
[2024-09-17] MEDS: RINGERS LACTATED 1000 ML 1,000 ML 100 ML IV (14:13)
[2024-09-17 14:15] LABS: Ammonia < 10 uMol/L (11-32)
--- NOTE | 2024-09-17 14:24 | ESHP_ITS ---
<Statement entered by Rashi Segura MD - 09/21/24 15:46> I reviewed above note and agree with findings and plans. I have also personally examined the patient with medicine team and went over assessment and plan with medical team including real estate intern and resident physician. Documentation for date of: 09/17/24 HPI History of Present Illness Chief complaint: MRSA bacteremia History of present illness: Patient is a 59-year-old female with past medical history significant for bilateral toe amputation, hypertension, hyperlipidemia, ESBL UTI, type 2 diabetes, metabolic syndrome, hypothyroidism, peripheral neuropathy, morbid obesity who presented to the ED with MRSA bacteremia. Patient actually visited the ED 3 days ago for bilateral flank pain and dysuria x 2 days, and discharged with Toradol, cefdinir, and Zofran. Patient received a call from the ED this morning after 2 out of 2 bottles grew GPC, and MRSA grew 1 out of 2 bottles. Patient seen and examined at bedside. Patient is very lethargic, however easily aroused. Patient denies any headache, blurry vision, shortness of breath, chest pain abdominal pain or lower extremity pain at this time. ED course: Patient presented with blood pressure at 1 071/61, respiration rate 22, saturating 87% on room air. Labs significant for leukocytosis of 12.4, creatinine of 1.7, elevated LFTs, and elevated Pro-Rustam 7.85. UA positive for protein, glucose, yeast, and amorphous crystals however dirty urine sample. Patient's blood sugar today was 294. Sepsis alert was called in the ED. Patient started on IV Zosyn x 1 and vancomycin. Patient also received 3 L bolus fluids and started on 100 cc an hour. Patient admitted to telemetry for further management of MRSA bacteremia. Review of Systems Review of Systems Systems Reviewed: All systems reviewed, normal except as documented Past Medical History Past Medical History Comments PMH COMMENT: Past medical history: As mentioned above PSHx: Bilateral toe amputations Allergies: Per external chart review, NKDA Meds: Per external chart review, patient takes albuterol inhaler, atorvastatin 40 mg daily, ferrous sulfate 325 mg p.o. twice daily, folic acid 1 mg daily, ibuprofen 3 times daily as needed, insulin glargine 50 units twice daily with meals, losartan 50 mg p.o. twice daily, metformin 1000 mg p.o. twice daily, Novolin 40 units SQ 3 times daily, omeprazole 20 mg daily, Zofran, Ozempic 2 mg weekly. Social history: Patient denies any alcohol, smoking, illicit drug use Family history: Noncontributory Exam Vital Signs Temp Pulse Resp BP Pulse Ox O2 Del Method O2 Flow Rate 98.5 F 110 H 17 93/60 98 Nasal Cannula 2 09/17/24 14:13 09/17/24 14:13 09/17/24 14:13 09/17/24 14:13 09/17/24 14:13 09/17/24 14:13 09/17/24 14:13 Narrative Exam General Appearance: Pt in mild respiratory distress on nasal cannula, lethargic but easily arousable to name and sternal rub. HEENT: NC/AT, no scleral icterus, no conjunctival pallor, MMM Lungs: CTAB, no wheezes or crackles appreciated CVS: Tachycardic, S1/S2 heard, no murmurs or rubs appreciated ABD: Soft, obese, non-tender, non-distended, BS + in all 4 quadrants EXT: Patient has a gangrenous diabetic wound to his left second toe with pus around site, no erythema noted, warm to touch. B/l toe amputations. Pedal pulses felt bilaterally. SKIN: Skin exam normal without any rashes. Neuro: A&O x [address] No gross neurological deficits. Unable to assess due to patient's current mental condition. Results: Labs 09/17/24 09:45 09/17/24 09:45 Labs: Short CBC 09/17/24 Range/Units 09:45 WBC 12.4 H (3.6-11.0) Thou/mm3 Hgb 12.0 (12.0-16.0) g/dL Hct 36.2 (36.0-46.0) % Plt Count 167 (140-440) Thou/mm3 BMP 09/17/24 09:45 Sodium 137 Potassium 4.3 Chloride 99 Carbon Dioxide 23.0 BUN 34 H Creatinine 1.7 H Glucose 325 H D Calcium 9.9 Liver Function 09/17/24 Range/Units 09:45 Total Bilirubin 0.5 (0.3-1.2) mg/dL AST 43 H (0-34) U/L ALT 57 H (10-49) U/L Alkaline Phosphatase 137 H D (46-116) U/L Albumin 3.9 (3.5-5.0) gm/dL Urine 09/17/24 Range/Units 10:47 Urine Color Yellow (Lt Yel-Yel) Urine Clarity Turbid A (Clear/Hazy) Urine pH 6.0 (5.0-7.0) Ur Specific [place] 1.028 (1.001-1.035) Urine Protein 1+ A (Neg - Trace) Urine Glucose (UA) 4+ A (Negative) Quality Measures Quality Measures none Medications Home Medications and Allergies Home Medications ?Medication ?Instructions ?Recorded ?Confirmed ?Type atorvastatin 40 mg tablet 40 mg PO QDAY 09/08/2209/08 History blood pressure test kit-large 09/08/22 09/08/22 Histo ry ferrous sulfate 325 mg (65 mg 325 mg PO BID 09/08/22 0 09/08/22 History iron) tablet (FeroSul) folic acid 1 mg tablet 1 mg PO QDAY 09/08/22 History hydroxyzine pamoate 25 mg capsule See Rx Instructions .Route .COMPLEX 09/08/22 09/08/22 History insulin glargine 100 unit/mL (3 50 unit subcut BIDWM 0 09/08/22 09/08/22 History mL) subcutaneous pen (Basaglar KwikPen U-100 Insulin) insulin regular human 100 unit/mL 40 unit subcut TID 0 09/08/22 09/08/22 History (3 mL) subcutaneous pen (Novolin R FlexPen) lancets 33 gauge (TRUEplus Lancets) 09/08/22 09/08/22 History losartan 50 mg tablet 50 mg PO BID 09/08/22 History metformin 1,000 mg tablet 1,000 mg PO BID 09/08/22 History Held on 09/11/22. Instructions: Reconcile with Nephrology and PCP once Renal Function improves or new baseline is established omeprazole 20 mg capsule,delayed 20 mg PO QDAY 3 09/08/22 History release ondansetron 8 mg disintegrating 8 mg PO Q8H PRN Nausea And Vomiting 09/08/22 09/08/22 History tablet pen needle, diabetic 31 gauge x 09/08/22 09/08/22 His tory 3/16 (BD Ultra-Fine Mini Pen Needle) pen needle, diabetic 32 gauge x 09/08/22 09/08/22 His tory 5/32 (BD Ultra-Fine Kalee Pen Needle) semaglutide 2 mg/dose (8 mg/3 mL) 2 mg subcut QWEEK 09/08/22 History subcutaneous pen injector (Ozempic) Allergies Allergy/AdvReac Type Severity Reaction Status Date / Time No Known Allergies Allergy Verified 09/17/24 09:05 Visit Medications Acetaminophen (Acetaminophen 325 Mg Tablet) 650 mg PO Q6H PRN PRN Reason: Fever >100.4 or Pain 1-3 Stop: 10/17/24 13:43 Heparin Sodium (Porcine) (Heparin Sod Inj 5000 Unit/Ml Vial) 5,000 unit SC Q12HR [facility] Stop: 10/01/24 20:59 Lactated Ringer's (Lactated Ringers) 1,000 mls @ 100 mls/hr IV .Q10H [facility] Stop: 09/17/24 23:44 Last Admin: 09/17/24 14:13 Dose: 100 mls/hr Lactated Ringer's (Lactated Ringers) 1,000 mls @ 999 mls/hr IV .Q1H1M ONE Stop: 09/17/24 14:59 Last Admin: 09/17/24 14:12 Dose: 999 mls/hr Ondansetron HCl (Ondansetron Inj 2 Mg/Ml Inj 2 Ml) 4 mg IVP Q6H PRN; Protocol PRN Reason: NAUSEA OR VOMITING Stop: 10/17/24 13:43 Sennosides (Senna Tablet) 1 tab PO QDAY [facility]; Protocol Stop: 10/18/24 08:59 Discontinued Medications Piperacillin/Tazobactam/Dextrose (Zosyn) 3.375 gm in 50 mls @ 100 mls/hr IV X1 ONE Stop: 09/17/24 10:23 Last Infusion: 09/17/24 10:50 Dose: Infused Vancomycin/Sodium Chloride (Vancomycin/Ns 1 Gm Ivpb) 200 mls @ 120 mls/hr IV X1 ONE Stop: 09/17/24 11:39 Last Infusion: 09/17/24 12:58 Dose: Infused Sodium Chloride (Ns) 1,000 mls @ 999 mls/hr IV .Q1H1M ONE Stop: 09/17/24 11:01 Last Infusion: 09/17/24 11:14 Dose: Infused Assessment & Plan Plan Patient is a 59-year-old female with past medical history significant for bilateral toe amputation, hypertension, hyperlipidemia, ESBL UTI, type 2 diabetes, metabolic syndrome, hypothyroidism, peripheral neuropathy, morbid obesity who presented to the ED with MRSA bacteremia and admitted to telemetry for further management of MRSA bacteremia. #Acute hypoxic respiratory failure secondary to #MRSA bacteremia secondary to #Left gangrenous second toe Patient received a call from ED today about her blood cultures being positive for MRSA. Unsure when patient presented with gangrenous second toe wound as patient has been difficult to obtain complete history. Patient has a history of bilateral toe amputations. Patient also has a history of uncontrolled diabetes currently on Lantus and Ozempic. Blood sugar today was 300+. Pro-Rustam elevated at 7.85. Patient presented with 87% oxygen saturation on room air. Patient now placed on 2 L nasal cannula saturating well above 98%. Lactic acid initially peaked, down trended now within normal limits. Patient received 3 L bolus. - Admitted to telemetry - Started on IV vancomycin, which is sensitive on antibiogram - Consulted surgery, appreciate recommendations - Repeat blood cultures ordered - Ordered echocardiogram to rule out any vegetations - Ordered x-ray of left foot to rule out osteomyelitis - Ordered Tylenol for fevers greater than 100.4 - Pain regimen: Mild to Moderate (1-3/10) Acetaminophen 650mg Q6H PO PRN, Mod to Severe (4-6/10) Hydrocodone/APAP Q6H PO PRN , Severe (7-10/10) Dilaudid 1mg Q4H IV PRN - Continue with nasal cannula - Wean O2 as tolerated - Follow-up ABG, and if CO2 above 60+ may consider BiPAP which may help with her encephalopathy - Continue maintenance IV fluids #Acute encephalopathy On physical exam, patient is lethargic, but easily arousable. CT head negative for any acute changes. Ammonia level less than 10 - Continue neurochecks every 4 hours - Will order ABG, follow-up - Could be component of OHS/OHA, however bicarb is 23 on chemistry and less likely #Type 2 diabetes #Peripheral neuropathy Last A1c was from 2022, and was 7.3% Patient presented with a blood sugar of 300+. Patient also has a history of bilateral toe amputations most likely in setting of uncontrolled diabetes - Will order A1c in a.m. - ISS - Hypoglycemic protocol in place - Started Lantus insulin 25 mg twice daily - ACHS checks - Consider adding pain meds such as gabapentin or pregabalin if patient expresses lower extremity pain #ALLA Patient presented with a creatinine of 1.7, baseline is around 1.1. - Renally dose medications - Avoid nephrotoxins - Continue to monitor - IV maintenance fluids #Hyperlipidemia Will resume patient's home atorvastatin #Hypertension Patient takes losartan 50 mg p.o. twice daily Will hold and lieu of previous history of hypotension 3 days ago. Patient's blood pressures currently elevated due to receiving about 3 L bolus. - Consider adding an antihypertensive agent in a.m. #Hypothyroidism Ordered TSH in a.m. Unsure if patient takes any levothyroxine as not seen in external med chart review. Health Maintenance: DVT prophylaxis: Heparin subcu Diet: Cardiac Kirby: No Lines: PIV Supplemental O2: Nasal cannula CODE STATUS: Full code Disposition: Patient admitted to telemetry for the management of MRSA bacteremia. Pending echocardiogram, surgery consultation and recs. Patient on IV vancomycin pending repeat cultures. Patient's plan and care discussed with my attending, Dr. Colton Winchester MD PGY-2
[2024-09-17 15:13] LABS: B-Type Natriuretic Peptide 27 pg/mL (0-100)
--- NOTE | 2024-09-17 16:09 | PC.NURSE ---
CALLED PHARMACY TO VERIFY AN ADDITIONAL ORDER OF VANCO. PHARMACIST CLARIFIED THAT PT IS ON THE HEAVERY END AND WANTED A LOADING DOSE.
--- NOTE | 2024-09-17 16:18 | PC.NURSE ---
LEFT FOOT DRESSING CHANGED
--- NOTE | 2024-09-17 16:31 | XR_ITS ---
Examination: Foot, left, 3 views Technique: AP, oblique, lateral views foot, 3 views Date and time of exam: September 17, 2024 1813 hours INDICATIONS: Nonhealing wound this week, diabetic. FINDINGS: Nonstandard views Soft tissue swelling distal to the amputated first digit Dislocation at the second metatarsal phalangeal joint No nicole cortical bone destruction IMPRESSION: Dislocation at the second metatarsophalangeal joint
--- NOTE | 2024-09-17 18:55 | PD.SURCONS ---
HPI Consult details Consult date: 09/17/24 Reason for consultation narrative: Patient was seen in consultation because of positive MRSA and discoloration and abscess over the second toe left foot History of present illness: Patient has numerous problems with diabetes hypertension and kidney injury and hyperlipidemia. She was called back because of positive MRSA Meds Home Medications and Allergies Home Medications ?Medication ?Instructions ?Recorded ?Confirmed ?Type atorvastatin 40 mg tablet 40 mg PO QDAY 09/08/22 09/08/22 History blood pressure test kit-large 09/08/22 09/08/22 History ferrous sulfate 325 mg (65 mg 325 mg PO BID 09/08/22 09/08/22 History iron) tablet (FeroSul) folic acid 1 mg tablet 1 mg PO QDAY 09/08/22 09/08/22 History hydroxyzine pamoate 25 mg capsule See Rx Instructions .Route .COMPLEX 09/08/22 09/08/22 History insulin glargine 100 unit/mL (3 50 unit subcut BIDWM 09/08/22 09/08/22 History mL) subcutaneous pen (Basaglar KwikPen U-100 Insulin) insulin regular human 100 unit/mL 40 unit subcut TID 09/08/22 09/08/22 History (3 mL) subcutaneous pen (Novolin R FlexPen) lancets 33 gauge (TRUEplus Lancets) 09/08/22 09/08/22 History losartan 50 mg tablet 50 mg PO BID 09/08/22 09/08/22 History metformin 1,000 mg tablet 1,000 mg PO BID 09/08/22 09/08/22 History Held on 09/11/22. Instructions: Reconcile with Nephrology and PCP once Renal Function improves or new baseline is established omeprazole 20 mg capsule,delayed 20 mg PO QDAY 09/08/22 09/08/22 History release ondansetron 8 mg disintegrating 8 mg PO Q8H PRN Nausea And Vomiting 09/08/22 09/08/22 History tablet pen needle, diabetic 31 gauge x 09/08/22 09/08/22 History 3/16 (BD Ultra-Fine Mini Pen Needle) pen needle, diabetic 32 gauge x 09/08/22 09/08/22 History / (BD Ultra-Fine Kalee Pen Needle) semaglutide 2 mg/dose (8 mg/3 mL) 2 mg subcut QWEEK 09/08/22 09/08/22 History subcutaneous pen injector (Ozempic) Allergies Allergy/AdvReac Type Severity Reaction Status Date / Time No Known Allergies Allergy Verified 09/17/24 09:05 Exam Vital Signs Temp Pulse Resp BP Pulse Ox O2 Del Method O2 Flow Rate 100.1 F 120 H 19 154/91 H 98 Room Air 2 09/17/24 17:01 09/17/24 17:01 09/17/24 17:01 09/17/24 17:01 09/17/24 17:01 09/17/24 17:01 09/17/24 14:13 Narrative Exam Physical examination revealed a morbidly obese female who is 5 foot 1 inch tall weighing 274 pounds with BMI of 51.8. She is tachycardic with a heart rate around 120 temperature was 100.1 Constitutional Comments: Patient is very difficult to get history from Routine Extremities Exam Comments: Examination of the left foot revealed abscess over the base of the second toe with some cellulitis. Upon compression of the base of the second toe there is purulent material coming over the wound which is located on the dorsal aspect Results Results: Laboratory Laboratory Narrative: Laboratory results show mild leukocytosis with 12,400 Results: Imaging Imaging narrative: X-rays of the left foot revealed disarticulation of the metatarsophalangeal joints of the second toe Assessment & Plan Additional Assessment Additional comments: Impression: Abscess over the left second toe with cellulitis and ischemia Diabetes mellitus Hypertension Hyperlipidemia Morbid obesity Plan Plan: Patient will require incision and drainage and possibly amputation of the second toe left foot. Simple drainage alone will not cause complete resolution of the problem because there is necrosis over the dorsal aspect. When we get the family members consent for the procedure we will schedule her.
--- NOTE | 2024-09-17 19:30 | PC.NURSE ---
Biofuels Operations Manager assumes care of patient at this time, pt lethargic but is able to answer technical document writer questions correctly, no s/s of acute distress noted, pt on 2 L/min and tolerating well. bed in low position and locked with siderails up x 2, call light in reach
[2024-09-17 20:09] LABS: Base Excess -2 (-3-3); HCO3 24 mEq/L (20-26); Inspired Oxygen, FIO2 21 %; O2 Saturation 98 % (91-98); PCO2 46 mmHg (32.0-48.0); PO2 87 mmHg (83-108); pH, Arterial 7.33 (7.35-7.45)
[2024-09-17 20:11] LABS: Allen Test Performed/OK; Puncture Site Left Brachial
[2024-09-17] MEDS: ACETAMINOPHEN 325 MG TABLET 650 MG PO (21:54)
[2024-09-17] MEDS: ATORVASTATIN CALCIUM 20 MG TABLET 40 MG PO (21:56)
[2024-09-17] MEDS: HEPARIN SOD INJ 5000 UNIT/ML VIAL SC (21:57)
[2024-09-17] MEDS: INSULIN LISPRO (AdmeLOG) 1 UNIT/0.01 ML UNIT SC (23:08)
[2024-09-17] MEDS: INSULIN GLARGINE (Lantus) 5 UNIT/0.05 ML (PER 5 UNITS) 25 UNIT SC (23:10)
--- NOTE | 2024-09-17 23:33 | PC.NURSE ---
assisted pt with complete linen change, brief change and added purewick.
[2024-09-18] VITALS (21 sets, daily range): BP systolic 113–187; BP diastolic 55–94; PULSE 87–112; RESP 13–25; TEMP 36.2–36.9; O2SAT 95–100; BMI 51.0
--- NOTE | 2024-09-18 00:11 | PC.NURSE ---
Report given to floor nurse JUNG Castelan
--- NOTE | 2024-09-18 01:00 | PC.NURSE ---
Attempted to do med rec but patient does not know
[2024-09-18] MEDS: MORPHINE SULF INJ 10 MG/ML VIAL IVP ×2 (06:06→11:53)
[2024-09-18 06:08] LABS: Amphetamine/Methamp Scrn,U Negative (Negative); Barbiturate Screen,Urine Negative (Negative); Benzodiazepines Screen,Urine Negative (Negative); Benzoylecgonine Screen, Ur Negative (Negative); Fentanyl Screen,Urine Negative (Negative); Opiate Screen,Urine Positive (Negative); THC Screen,Urine Negative (Negative)
[2024-09-18 06:29] LABS: Basophils % (Auto) 0 % (0-2.5); Eosinophils # (Auto) 0.1 Thou/mm3 (0.0-0.5); Eosinophils % (Auto) 1 % (0-10); Hematocrit 31.4 % (36.0-46.0); Hemoglobin 10.3 g/dL (12.0-16.0); Immature Granulocytes % (Auto) 1 % (0-0); Immature Granulocytes Auto 0.15 Thou/mm3 (0.00-0.00); Lymphocytes # (Auto) 1.8 Thou/mm3 (1.0-4.8); Lymphocytes % (Auto) 15 % (10-50); Mean Corpuscular HGB Conc 32.8 g/dl (31.0-37.0); Mean Corpuscular Hemoglobin 29.5 pg (25.0-35.0); Mean Corpuscular Volume 90 fL (80-100); Monocytes # (Auto) 1.4 Thou/mm3 (0.0-0.8); Monocytes % (Auto) 12 % (0-12); Neutrophils # (Auto) 8.3 Thou/mm3 (1.8-7.7); Neutrophils % (Auto) 70 % (37-80); Nucleated Red Blood Cell % 0 /100 WBC (0); Platelet Count 126 Thou/mm3 (140-440); RDW Standard Deviation 49.7 fL (36.4-46.3); Red Blood Count 3.49 Miln/mm3 (4.00-5.20); White Blood Count 11.8 Thou/mm3 (3.6-11.0)
[2024-09-18 06:57] LABS: Glucose Estimated Average 266 mg/dL (80-131); Hemoglobin A1C 10.9 % Hgb (4.8-6.0)
[2024-09-18 07:07] LABS: Alanine Aminotransferase 40 U/L (10-49); Albumin, Serum 3.4 gm/dL (3.5-5.0); Albumin/Globulin Ratio 1.4 (1.2-2.2); Alkaline Phosphatase 157 U/L (46-116); Anion Gap 12 (7-16); Aspartate Amino Transferase 31 U/L (0-34); BUN/Creatinine Ratio 22 Ratio (12-20); Bilirubin,Total 0.6 mg/dL (0.3-1.2); Blood Urea Nitrogen 29 mg/dL (9-23); Calcium 9.3 mg/dL (8.3-10.6); Calcium (Corrected) 9.8 mg/dL (8.5-10.1); Carbon Dioxide 25.7 mMol/L (20.0-31.0); Chloride 102 mMol/L (98-107); Creatinine (Component) 1.3 mg/dL (0.6-1.3); Estimated Creatinine Clearance 57.9 mL/min (>60); Globulin 2.5 gm/dL (2.3-3.5); Glucose 355 mg/dL (74-106); Magnesium 1.7 mg/dL (1.6-2.6); Osmolality,Calculated 299 (275-295); Potassium 4.4 mMol/L (3.4-5.1); Sodium 140 mMol/L (136-145); Thyroid Stimulating Hormone 5.84 uIU/mL (0.55-4.78); Total Protein 5.9 gm/dL (5.7-8.2); eGFR 48 See Note
[2024-09-18] MEDS: INSULIN LISPRO (AdmeLOG) 1 UNIT/0.01 ML UNIT SC ×3 (07:24→21:11)
[2024-09-18] MEDS: HYDROcodone/APAP 5/325 TABLET 1 TAB PO (09:00)
[2024-09-18] MEDS: HEPARIN SOD INJ 5000 UNIT/ML VIAL SC ×2 (09:05→21:10)
[2024-09-18] MEDS: VANCOMYCIN/NS 1 GM IVPB 200 ML IV ×2 (09:13→21:10)
[2024-09-18] MEDS: SODIUM CHLORIDE 0.9% 1000 ML 1,000 ML 100 ML IV (11:33)
--- NOTE | 2024-09-18 11:52 | ESPR_ITS ---
<Statement entered by Rashi Segura MD - 09/23/24 12:36> I reviewed above note and agree with findings and plans. I have also personally examined the patient with medicine team and went over assessment and plan with medical team including event marketing intern and resident physician. Documentation for date of: 09/18/24 Subjective Subjective Interval history: Patient was examined bedside this morning, she was trying to leave AMA. Waiting for her family to come so that we can get consent for surgery. Her blood glucose was elevated today adjusted the insulin regimen. Dr. Hamm is planning to do amputation pending consent. Repeat blood culture came back positive again 1 out of 2 bottles. Will need to do source control first. We will continue to fluid for her. Exam Vital Signs Temp Pulse Resp BP Pulse Ox O2 Del Method O2 Flow Rate 97.8 F 91 16 120/55 L 95 Nasal Cannula 3 09/18/24 07:30 09/18/24 10:30 09/18/24 10:30 09/18/24 07:30 09/18/24 10:30 09/18/24 07:30 09/18/24 10:30 Narrative Exam General Appearance: Patient was in mild distress, she states he has pain HEENT: NC/AT, no scleral icterus, no conjunctival pallor, MMM Lungs: CTAB, no wheezes or crackles appreciated CVS: Tachycardic, S1/S2 heard, no murmurs or rubs appreciated ABD: Soft, obese, non-tender, non-distended, BS + in all 4 quadrants EXT: Patient has a gangrenous diabetic wound to his left second toe with pus around site, no erythema noted, warm to touch. B/l toe amputations. Pedal pulses felt bilaterally. SKIN: Skin exam normal without any rashes. Neuro: A&O x [address] No gross neurological deficits. Unable to assess due to patient's current mental condition. Objective Labs 09/18/24 05:17 09/18/24 05:17 Labs: Laboratory Results - last 24 hr 09/17/24 09/17/24 09/17/24 10:47 13:09 19:57 WBC RBC Hgb Hct MCV MCH MCHC RDW Std Deviation Plt Count Neut % (Auto) Lymph % (Auto) [place] % (Auto) Eos % (Auto) Baso % (Auto) Neut # (Auto) Lymph # (Auto) [place] # (Auto) Eos # (Auto) Baso # (Auto) Immature Gran # (Auto) Absolute Nucleated RBC Immature Gran % Nucleated RBC % Puncture Site Left Brachial ABG pH 7.33 L ABG pCO2 46 ABG pO2 87 ABG HCO3 24 ABG O2 Saturation 98 ABG Base Excess -2 FiO2 21 Sodium Potassium Chloride Carbon Dioxide Anion Gap BUN Creatinine Estim Creat Clear Calc eGFR BUN/Creatinine Ratio Glucose Estimated Ave Glu mg/dL Hemoglobin A1c Calculated Osmolality Lactic Acid 1.4 Calcium Corrected Calcium Magnesium Total Bilirubin AST ALT Alkaline Phosphatase Ammonia < 10 L B-Natriuretic Peptide 27 Total Protein Albumin Globulin Albumin/Globulin Ratio TSH Ur Collection Type Voided Urine Color Yellow Urine Clarity Turbid A Urine pH 6.0 Ur Specific Friend 1.028 Urine Protein 1+ A Urine Glucose (UA) 4+ A Urine Ketones Trace Urine Blood Negative Urine Nitrite Negative Urine Bilirubin Negative Urine Urobilinogen (Auto) 2.0 Ur Leukocyte Esterase Positive Urine RBC 3 Urine WBC 17 H Ur Squamous Epith Cells 31 H Amorphous Crystals Present A Urine Bacteria None Granular Casts 1 Urine Yeast (Budding) Present A Ur Culture Indicated? Contaminated Urine Opiates Screen Urine Fentanyl Screen Ur Barbiturates Screen U Amphetamin/Meth Scrn U Benzodiazepines Scrn U Cocaine Metab Screen U Marijuana (THC) Screen 09/18/24 09/18/24 05:17 05:30 WBC 11.8 H RBC 3.49 L Hgb 10.3 L Hct 31.4 L MCV 90 MCH 29.5 MCHC 32.8 RDW Std Deviation 49.7 H Plt Count 126 L D Neut % (Auto) 70 Lymph % (Auto) 15 [place] % (Auto) 12 Eos % (Auto) 1 Baso % (Auto) 0 Neut # (Auto) 8.3 H Lymph # (Auto) 1.8 [place] # (Auto) 1.4 H Eos # (Auto) 0.1 Baso # (Auto) 0.0 Immature Gran # (Auto) 0.15 H Absolute Nucleated RBC 0.00 Immature Gran % 1 H Nucleated RBC % 0 Puncture Site ABG pH ABG pCO2 ABG pO2 ABG HCO3 ABG O2 Saturation ABG Base Excess FiO2 Sodium 140 Potassium 4.4 Chloride 102 Carbon Dioxide 25.7 Anion Gap 12 BUN 29 H Creatinine 1.3 Estim Creat Clear Calc 57.9 L eGFR 48 L BUN/Creatinine Ratio 22 H Glucose [address] Glu mg/dL 266 H Hemoglobin A1c 10.9 H Calculated Osmolality 299 H Lactic Acid Calcium 9.3 Corrected Calcium 9.8 Magnesium 1.7 Total Bilirubin 0.6 AST 31 ALT 40 Alkaline Phosphatase 157 H D Ammonia B-Natriuretic Peptide Total Protein 5.9 Albumin 3.4 L D Globulin 2.5 Albumin/Globulin Ratio 1.4 TSH 5.84 H Ur Collection Type Urine Color Urine Clarity Urine pH Ur Specific Friend Urine Protein Urine Glucose (UA) Urine Ketones Urine Blood Urine Nitrite Urine Bilirubin Urine Urobilinogen (Auto) Ur Leukocyte Esterase Urine RBC Urine WBC Ur Squamous Epith Cells Amorphous Crystals Urine Bacteria Granular Casts Urine Yeast (Budding) Ur Culture Indicated? Urine Opiates Screen Positive A Urine Fentanyl Screen Negative Ur Barbiturates Screen Negative U Amphetamin/Meth Scrn Negative U Benzodiazepines Scrn Negative U Cocaine Metab Screen Negative U Marijuana (THC) Screen Negative ABG Interpretation ABG results: 09/17/24 19:57 ABG pH 7.33 L ABG pCO2 46 ABG pO2 87 ABG HCO3 24 ABG O2 Saturation 98 ABG Base Excess -2 Quality Measures Quality Measures none Assessment & Plan Assessment Current Active Medications: Generic Name Dose Route Start Last Admin Trade Name Freq PRN Reason Stop Dose Admin Acetaminophen 650 mg 09/17/24 13:44 09/17/24 21:54 Acetaminophen 325 Mg Tablet PO 10/17/24 13:43 650 mg Q6H PRN Administration Fever >100.4 or Pain 1-3 Hydrocodone Bitart/Acetaminophen 1 tab 09/17/24 18:21 09/18/24 09:00 Hydrocodone/Apap 5/325 Tablet PO 09/22/24 18:20 1 tab Q6HR PRN Administration Pain 4-6 Atorvastatin Calcium 40 mg 09/17/24 21:00 09/17/24 21:56 Atorvastatin Calcium 20 Mg Tablet PO 10/17/24 20:59 40 mg HS [facility] Administration Dextrose 25 ml 09/17/24 18:07 Dextrose 50%-Water Inj 50 Ml Syringe IV 10/17/24 18:06 Q15MIN PRN BG 50-70 responsive npo pt Dextrose 50 ml 09/17/24 18:07 Dextrose 50%-Water Inj 50 Ml Syringe IV 10/17/24 18:06 Q15MIN PRN BG <50 OR BG <70 & pt unresponsive Glucagon 1 mg 09/17/24 18:07 Glucagon Inj 1 Mg Vial IM Q15MIN PRN BG <70, and no IV access Heparin Sodium (Porcine) 5,000 unit 09/17/24 21:00 09/18/24 09:05 Heparin Sod Inj 5000 Unit/Ml Vial SC 10/01/24 20:59 5,000 unit Q12HR [facility] Administration Vancomycin/Sodium Chloride 200 mls @ 120 mls/hr 09/18/24 10:00 09/18/24 09:13 Vancomycin/Ns 1 Gm Ivpb IV 09/25/24 09:59 120 mls/hr Q12H [facility] Administration Sodium Chloride 1,000 mls @ 100 mls/hr 09/18/24 10:14 09/18/24 11:33 Ns IV 10/18/24 10:13 100 mls/hr .Q10H [facility] Administration Insulin Glargine 25 unit 09/17/24 21:00 09/18/24 09:04 Insulin Glargine (Lantus) 5 Unit/0.05 Ml (Per 5 Units) SC 10/17/24 20:59 Not Given BID [facility] Insulin Human Lispro 0 unit 09/17/24 21:00 09/18/24 11:42 Insulin Lispro (Admelog) 1 Unit/0.01 Ml Unit SC 10/17/24 20:59 Not Given ACHS [facility] Protocol Insulin Human Lispro 6 unit 09/18/24 08:00 09/18/24 11:43 Insulin Lispro (Admelog) 1 Unit/0.01 Ml Unit SC 10/18/24 07:59 Not Given TIDWM [facility] Morphine Sulfate 1 mg 09/17/24 18:21 09/18/24 06:06 Morphine Sulf Inj 10 Mg/Ml Vial IVP 09/22/24 18:20 1 mg Q4HR PRN Administration Pain 7-10 Ondansetron HCl 4 mg 09/17/24 13:44 Ondansetron Inj 2 Mg/Ml Inj 2 Ml IVP 10/17/24 13:43 Q6H PRN NAUSEA OR VOMITING Protocol Pharmacy Consult 1 each 09/17/24 15:45 Vancomycin Pharmacy To Dose 1 Each Each IV 10/17/24 15:44 QDAY PRN PROTOCOL Sennosides 1 tab 09/18/24 09:00 09/18/24 09:04 Senna Tablet PO 10/18/24 08:59 Not Given QDAY [facility] Protocol Plan Patient is a 59-year-old female with past medical history significant for bilateral toe amputation, hypertension, hyperlipidemia, ESBL UTI, type 2 diabetes, metabolic syndrome, hypothyroidism, peripheral neuropathy, morbid obesity who presented to the ED with MRSA bacteremia and admitted to telemetry for further management of MRSA bacteremia. #Acute hypoxic respiratory failure secondary to #MRSA bacteremia secondary to #Left gangrenous second toe # Sepsis secondary to left gangrenous second toe Patient received a call from ED today about her blood cultures being positive for MRSA. Unsure when patient presented with gangrenous second toe wound as patient has been difficult to obtain complete history. Patient has a history of bilateral toe amputations. Patient also has a history of uncontrolled diabetes currently on Lantus and Ozempic. Blood sugar today was 300+. Pro-Rustam elevated at 7.85. Patient presented with 87% oxygen saturation on room air. Patient now placed on 2 L nasal cannula saturating well above 98%. Lactic acid initially peaked, down trended now within normal limits. Patient received 3 L bolus. - Admitted to telemetry - Started on IV vancomycin, which is sensitive on antibiogram - Consulted surgery, appreciate recommendations - Repeat blood cultures ordered - Ordered echocardiogram to rule out any vegetations - Ordered x-ray of left foot to rule out osteomyelitis - Ordered Tylenol for fevers greater than 100.4 - Pain regimen: Mild to Moderate (1-3/10) Acetaminophen 650mg Q6H PO PRN, Mod to Severe (4-6/10) Hydrocodone/APAP Q6H PO PRN , Severe (7-10/10) Dilaudid 1mg Q4H IV PRN - Continue with nasal cannula - Wean O2 as tolerated - Follow-up ABG, and if CO2 above 60+ may consider BiPAP which may help with her encephalopathy - Continue maintenance IV fluids 09/18/2024:she was trying to leave AMA. Waiting for her family to come so that we can get consent for surgery. Her blood glucose was elevated today adjusted the insulin regimen. Dr. Hamm is planning to do amputation pending consent. Repeat blood culture came back positive again 1 out of 2 bottles. Will need to do source control first. We will continue to fluid for her. ID consulted appreciate recommendation #Acute encephalopathy-improving On physical exam, patient is lethargic, but easily arousable. CT head negative for any acute changes. Ammonia level less than 10 - Continue neurochecks every 4 hours - Will order ABG, follow-up - Could be component of OHS/OHA, however bicarb is 23 on chemistry and less likely #Type 2 diabetes #Peripheral neuropathy Last A1c was from 2022, and was 7.3% Patient presented with a blood sugar of 300+. Patient also has a history of bilateral toe amputations most likely in setting of uncontrolled diabetes - ISS - Hypoglycemic protocol in place - Started Lantus insulin 25 mg twice daily - ACHS checks - Consider adding pain meds such as gabapentin or pregabalin if patient expresses lower extremity pain - A1c was 10.9, readjusted her insulin regimen. #ALLA Patient presented with a creatinine of 1.7, baseline is around 1.1. - Renally dose medications - Avoid nephrotoxins - Continue to monitor - IV maintenance fluids 09/18/2024: Today his creatinine is 1.7, will continue maintenance fluids. #Hyperlipidemia Will resume patient's home atorvastatin #Hypertension Patient takes losartan 50 mg p.o. twice daily Will hold and lieu of previous history of hypotension 3 days ago. Patient's blood pressures currently elevated due to receiving about 3 L bolus. - Will continue to monitor blood pressure and add home antihypertensive as needed. #Hypothyroidism -TSH was 5.84, follow-up outpatient with PCP Health Maintenance: DVT prophylaxis: Heparin subcu Diet: Cardiac Kirby: No Lines: PIV Supplemental O2: Nasal cannula CODE STATUS: Full code Disposition: Patient admitted to telemetry for the management of MRSA bacteremia. Pending echocardiogram, surgery consultation and recs. IC reccs Patient on IV vancomycin Patient's plan and care discussed with my attending, Dr. Colton Murcia MD,PGY-3
[2024-09-18] MEDS: INSULIN HUM REGULAR 1 UNIT/0.01 ML (PER UNIT) 5 UNIT SC (13:47)
--- NOTE | 2024-09-18 14:36 | SUR.PHASEI ---
1436: Pt. wakes to name then drifts back to sleep, vitals stable, breathing unlabored, no complaint of pain or nausea, dressing to left foot CDI, no active bleed noted, report received from MD Bolaños and Jeyson FENG.
--- NOTE | 2024-09-18 14:43 | PD.SUROPNT ---
Date of Procedure 09/18/24 Pre Op Diagnosis Gangrene second toe left foot with abscess Post Op Diagnosis Same Procedure Amputation of the second toe at the base of the proximal phalanx and drainage of the abscess Findings Patient was found to have abscess at the base of the second toe close to the webspace between the 2nd and 3rd toe. She also had a gangrene on the upper portion of the second toe. Procedure Description Of the patient was brought to the operating room ankle block was given by the anesthesiologist. Wound was then washed with Betadine solution and draped in a sterile manner. Timeout was performed. Then I made a curved incision over the base of the second toe the purulent material was promptly cultured. Then using a bone cutter I divided the proximal phalanx at the midportion and then debrided some of the unhealthy necrotic tissue. Wound was then irrigated with saline solution. The wound could not be closed because of the abscess and the skin was left open and packed with 2 x 2 gauze. Anesthesia regional (Ankle block) Pathology / specimen Other (Amputated toe second) Estimated Blood Loss 30 Surgeon Margaux Saldana MD Surgical Staff Operation Date: 09/18/24 14:15 Case Staff Anesthesiologist: Conrad Bolaños
--- NOTE | 2024-09-18 14:46 | PC.SS ---
SS attempted to meet at bedside to complete initial assessment. Patient appeared confused, disoriented, and declined to meet. Patient mumbled SS to return when her spouse is at bedside. SS attempted to contact patient's spouse Bryce Correa [phone]
--- NOTE | 2024-09-18 14:49 | PC.SS ---
SS attempted to meet at bedside to complete initial assessment. Patient appeared confused, disoriented, and declined to meet. Patient mumbled SS to return when her spouse is at bedside. SS attempted to contact patient's spouse Bryce Correa [phone] to complete intial assessment. However, the [phone] belongs to an unrelated male. SS also tried to connect with patient's daughter Marga Correa [phone], SS unable to leave message. SS to re-attempt to complete initial assessment.
--- NOTE | 2024-09-18 15:02 | SUR.PHASEI ---
1502: Pt. wakes to name, answers questions, then drifts back to sleep, vitals stable, breathing unlabored, no complaint of pain or nausea, dressing to left foot CDI, no active bleed noted, pt. able to wiggle bilateral legs, bilateral posterior tibial pulses strong and regular, report given to Susie FENG prior to transfer to room 354. Family made aware of transfer to room.
--- NOTE | 2024-09-18 15:25 | PD.ANESPROG ---
Documentation for date of: 09/18/24 ANESTHESIA NOTE: Patient had regional anesthesia with L ankle block and monitored sedation for L 2nd toe amputation. Pre-op, she was lethargic and I saw her with her son at bedside. She was on NC O2, tachypneic, abdomen appeared distended which the son reported is her usual and she denied abdominal tenderness and N/V today. She had 2+ pitting edema b/l legs. She did well intra-op and in PACU. She has been tachycardic and hypertesnive pre-op and I gave her IV Metoprolol intra-op and PACU to control her HR. She also has hyperglycemia and she was given 5 units regular Insulin SC pre-op and her glucose post op was 266. Conrad Bolaños MD Anesthesia Progress Note Progress Note Most recent Vital Signs: Last Vital Signs Temp 97.8 F 09/18/24 15:00 Pulse 105 H 09/18/24 15:00 Resp 20 09/18/24 15:00 BP 157/90 H 09/18/24 15:00 Pulse Ox 100 09/18/24 15:00 O2 Del Method Nasal Cannula 09/18/24 12:00 O2 Flow Rate 3 09/18/24 15:00
[2024-09-18] MEDS: INSULIN LISPRO (AdmeLOG) 1 UNIT/0.01 ML UNIT 6 UNIT SC (17:23)
[2024-09-18] MEDS: INSULIN GLARGINE (Lantus) 5 UNIT/0.05 ML (PER 5 UNITS) 25 UNIT SC (21:10)
--- NOTE | 2024-09-18 21:34 | PC.NURSE ---
Addendum entered by Shaylee Devine RN 09/18/24 22:01: DR DAVIDSON IN TO SEE PATIENT, PT WAS ABLE TO AROUSE WITH PAINFUL STIMULI, VS T 100.2 AUX, BP 167/82, RR 28, O2 SATS94%2LNC, P112, MD WILL ORDER IV TYLENOL. WILL CONTINUE TO MONITOR PATIENT. Original Note: CALLED DR DAVIDSON TO INFORM THAT PATIENT IS LETHARGIC IS ABLE TO BE AROUSED WITH STIMULATION AND ANSWERS QUESTIONS YES/NO BUT FALLS BACK ASLEEP. WILL BE IN TO SEE PATIENT.
[2024-09-18] MEDS: ACETAMINOPHEN IVPB 1,000 MG/100 ML VIAL 250 MG IV (22:08)
[2024-09-19] VITALS (12 sets, daily range): BP systolic 146–170; BP diastolic 63–86; PULSE 81–102; RESP 18–28; TEMP 36.1–36.3; O2SAT 90–98; BMI 50.1
[2024-09-19] MEDS: SODIUM CHLORIDE 0.9% 1000 ML 1,000 ML 100 ML IV ×2 (02:58→17:00)
[2024-09-19] MEDS: HYDROcodone/APAP 5/325 TABLET 1 TAB PO ×2 (04:46→18:35)
[2024-09-19 05:37] LABS: Basophils # (Auto) 0.1 Thou/mm3 (0.0-0.2); Basophils % (Auto) 0 % (0-2.5); Eosinophils # (Auto) 0.1 Thou/mm3 (0.0-0.5); Eosinophils % (Auto) 1 % (0-10); Hematocrit 32.7 % (36.0-46.0); Hemoglobin 10.3 g/dL (12.0-16.0); Immature Granulocytes % (Auto) 2 % (0-0); Lymphocytes # (Auto) 2.1 Thou/mm3 (1.0-4.8); Lymphocytes % (Auto) 16 % (10-50); Mean Corpuscular HGB Conc 31.5 g/dl (31.0-37.0); Mean Corpuscular Hemoglobin 29.3 pg (25.0-35.0); Mean Corpuscular Volume 93 fL (80-100); Monocytes # (Auto) 1.7 Thou/mm3 (0.0-0.8); Monocytes % (Auto) 13 % (0-12); Neutrophils # (Auto) 9.2 Thou/mm3 (1.8-7.7); Neutrophils % (Auto) 68 % (37-80); Nucleated Red Blood Cell % 0 /100 WBC (0); Platelet Count 131 Thou/mm3 (140-440); RDW Standard Deviation 53.3 fL (36.4-46.3); Red Blood Count 3.52 Miln/mm3 (4.00-5.20); White Blood Count 13.4 Thou/mm3 (3.6-11.0)
[2024-09-19 06:00] LABS: Alanine Aminotransferase 40 U/L (10-49); Albumin, Serum 3.4 gm/dL (3.5-5.0); Albumin/Globulin Ratio 1.4 (1.2-2.2); Alkaline Phosphatase 196 U/L (46-116); Anion Gap 17 (7-16); Aspartate Amino Transferase 36 U/L (0-34); BUN/Creatinine Ratio 15 Ratio (12-20); Bilirubin,Total 0.7 mg/dL (0.3-1.2); Blood Urea Nitrogen 15 mg/dL (9-23); Calcium 9.5 mg/dL (8.3-10.6); Carbon Dioxide 22.4 mMol/L (20.0-31.0); Chloride 103 mMol/L (98-107); Estimated Creatinine Clearance 75.2 mL/min (>60); Globulin 2.5 gm/dL (2.3-3.5); Glucose 265 mg/dL (74-106); Magnesium 1.4 mg/dL (1.6-2.6); Osmolality,Calculated 292 (275-295); Potassium 4.3 mMol/L (3.4-5.1); Sodium 142 mMol/L (136-145); Total Protein 5.9 gm/dL (5.7-8.2); eGFR > 60 See Note
[2024-09-19] MEDS: INSULIN GLARGINE (Lantus) 5 UNIT/0.05 ML (PER 5 UNITS) 25 UNIT SC (07:49)
[2024-09-19] MEDS: HEPARIN SOD INJ 5000 UNIT/ML VIAL SC ×2 (07:50→20:32)
[2024-09-19] MEDS: INSULIN LISPRO (AdmeLOG) 1 UNIT/0.01 ML UNIT 6 UNIT SC (07:50)
[2024-09-19] MEDS: INSULIN LISPRO (AdmeLOG) 1 UNIT/0.01 ML UNIT SC ×4 (07:50→20:32)
[2024-09-19] MEDS: INSULIN GLARGINE (Lantus) 5 UNIT/0.05 ML (PER 5 UNITS) SC (09:25)
[2024-09-19] MEDS: SENNA TABLET 1 TAB PO (09:25)
[2024-09-19] MEDS: LOSARTAN POTASSIUM 25 MG TABLET 50 MG PO ×2 (09:25→20:26)
[2024-09-19] MEDS: SODIUM CHLORIDE 0.9% 500 ML 500 ML 999 ML IV (09:26)
[2024-09-19] MEDS: Magnesium Sulfate 4 GM Ivpb 4 GM/50 ML BAG IV (09:26)
[2024-09-19 10:56] LABS: Vancomycin,Trough 11.8 mcg/mL (5.0-10.0)
[2024-09-19] MEDS: INSULIN LISPRO (AdmeLOG) 1 UNIT/0.01 ML UNIT 9 UNIT SC ×2 (11:51→16:59)
[2024-09-19] MEDS: VANCOMYCIN/D5W 1,250 MG IVPB 250 ML 120 MG IV ×2 (11:59→21:55)
[2024-09-19] MEDS: ACETAMINOPHEN 325 MG TABLET 650 MG PO (12:29)
--- NOTE | 2024-09-19 14:22 | ESPR_ITS ---
<Statement entered by Rashi Segura MD - 09/23/24 14:49> I reviewed above note and agree with findings and plans. I have also personally examined the patient with medicine team and went over assessment and plan with medical team including international logistics coordinator and resident physician. Documentation for date of: 09/19/24 Subjective Subjective Interval history: Patient examined at bedside. Overnight she was given IV Tylenol due to fever 102. Patient is status postLeft foot second toe amputation. No evidence of obvious bleeding or drainage noticed through Kerlix rolls. She is somnolent but arousable. Has no complaints of pain. Continue [place] and acetaminophen. Blood sugars poorly controlled averaging above 200. Increased glargine from 25 to 30 units. Continue to titrate as needed. Leukocytosis worsened to 13. Continue IV vancomycin in setting of bacteremia. Repeat blood cultures pending. Exam Vital Signs Temp Pulse Resp BP Pulse Ox O2 Del Method O2 Flow Rate 97.0 F 87 24 H 170/86 H 93 L Room Air 1 09/19/24 12:09/19/24 12:09/19/24 12:09/19/24 12:09/19/24 12:09/19/24 12:09/19/24 08:07 Narrative Exam General: Middle age female, obese, somnolent but arousable, No acute distress, cooperative HEENT: NCAT, No JVD noted. Mucosa moist. Pupils are equal and reactive to light bilaterally Cardiovascular: Normal S1 and S2. Regular rate and rhythm. Respiratory: Lungs are clear to auscultation bilaterally. No wheezing or crackles heard. Abdomen: Soft, nontender, not distended, normal bowel sounds. Skin: Warm to touch, dry, no rashes noted Musculoskeletal: No gross injuries. Able to move all 4 extremities. No pitting edema, left toe amputated. Right foot in kerlix roll, no bleeding. Neuro: Alert and oriented x2. No focal neuro deficits. Psych: Normal affect and mood Objective Labs 09/19/24 04:30 09/19/24 04:30 Labs: Laboratory Results - last 24 hr 09/19/24 09/19/24 04:30 09:40 WBC 13.4 H RBC 3.52 L Hgb 10.3 L Hct 32.7 L MCV 93 MCH 29.3 MCHC 31.5 RDW Std Deviation 53.3 H Plt Count 131 L Neut % (Auto) 68 Lymph % (Auto) 16 [place] % (Auto) 13 H Eos % (Auto) 1 Baso % (Auto) 0 Neut # (Auto) 9.2 H Lymph # (Auto) 2.1 [place] # (Auto) 1.7 H Eos # (Auto) 0.1 Baso # (Auto) 0.1 Immature Gran # (Auto) 0.30 H Absolute Nucleated RBC 0.00 Immature Gran % 2 H Nucleated RBC % 0 Sodium 142 Potassium 4.3 Chloride 103 Carbon Dioxide 22.4 Anion Gap 17 H BUN 15 Creatinine 1.0 Estim Creat Clear Calc 75.2 eGFR > 60 BUN/Creatinine Ratio 15 Glucose 265 H D Calculated Osmolality 292 Calcium 9.5 Corrected Calcium 10.0 Magnesium 1.4 L Total Bilirubin 0.7 AST 36 H ALT 40 Alkaline Phosphatase 196 H D Total Protein 5.9 Albumin 3.4 L Globulin 2.5 Albumin/Globulin Ratio 1.4 Vancomycin Trough 11.8 H ABG Interpretation ABG results: 09/17/24 19:57 ABG pH 7.33 L ABG pCO2 46 ABG pO2 87 ABG HCO3 24 ABG O2 Saturation 98 ABG Base Excess -2 Quality Measures Quality Measures none Assessment & Plan Assessment Current Active Medications: Generic Name Dose Route Start Last Admin Trade Name Freq PRN Reason Stop Dose Admin Acetaminophen 650 mg 09/17/24 13:44 09/19/24 12:29 Acetaminophen 325 Mg Tablet PO 10/17/24 13:43 650 mg Q6H PRN Administration Fever >100.4 or Pain 1-3 Hydrocodone Bitart/Acetaminophen 1 tab 09/17/24 18:21 09/19/24 04:46 Hydrocodone/Apap 5/325 Tablet PO 09/22/24 18:20 1 tab Q6HR PRN Administration Pain 4-6 Atorvastatin Calcium 40 mg 09/17/24 21:00 09/18/24 21:53 Atorvastatin Calcium 20 Mg Tablet PO 10/17/24 20:59 Not Given HS [facility] Dextrose 25 ml 09/17/24 18:07 Dextrose 50%-Water Inj 50 Ml Syringe IV 10/17/24 18:06 Q15MIN PRN BG 50-70 responsive npo pt Dextrose 50 ml 09/17/24 18:07 Dextrose 50%-Water Inj 50 Ml Syringe IV 10/17/24 18:06 Q15MIN PRN BG <50 OR BG <70 & pt unresponsive Glucagon 1 mg 09/17/24 18:07 Glucagon Inj 1 Mg Vial IM Q15MIN PRN BG <70, and no IV access Heparin Sodium (Porcine) 5,000 unit 09/17/24 21:00 09/19/24 07:50 Heparin Sod Inj 5000 Unit/Ml Vial SC 10/01/24 20:59 5,000 unit Q12HR [facility] Administration Sodium Chloride 1,000 mls @ 100 mls/hr 09/18/24 10:14 09/19/24 02:58 Ns IV 10/18/24 10:13 100 mls/hr .Q10H [facility] Administration Vancomycin HCl/Dextrose 250 mls @ 120 mls/hr 09/19/24 11:15 09/19/24 11:59 Vancomycin/D5w 1,250 Mg Ivpb IV 09/26/24 11:14 120 mls/hr QDAY@1000,2200 [facility] Administration Insulin Glargine 30 unit 09/19/24 09:00 09/19/24 09:02 Insulin Glargine (Lantus) 5 Unit/0.05 Ml (Per 5 Units) SC 10/19/24 08:59 Not Given BID [facility] Insulin Human Lispro 0 unit 09/17/24 21:00 09/19/24 11:51 Insulin Lispro (Admelog) 1 Unit/0.01 Ml Unit SC 10/17/24 20:59 2 unit ACHS [facility] Administration Protocol Insulin Human Lispro 9 unit 09/19/24 12:00 09/19/24 11:51 Insulin Lispro (Admelog) 1 Unit/0.01 Ml Unit SC 10/19/24 11:59 9 unit TIDWM [facility] Administration Losartan Potassium 50 mg 09/18/24 21:00 09/19/24 09:25 Losartan Potassium 25 Mg Tablet PO 10/18/24 20:59 50 mg BID [facility] Administration Morphine Sulfate 1 mg 09/17/24 18:21 09/18/24 11:53 Morphine Sulf Inj 10 Mg/Ml Vial IVP 09/22/24 18:20 1 mg Q4HR PRN Administration Pain 7-10 Ondansetron HCl 4 mg 09/17/24 13:44 Ondansetron Inj 2 Mg/Ml Inj 2 Ml IVP 10/17/24 13:43 Q6H PRN NAUSEA OR VOMITING Protocol Pharmacy Consult 1 each 09/17/24 15:45 Vancomycin Pharmacy To Dose 1 Each Each IV 10/17/24 15:44 QDAY PRN PROTOCOL Sennosides 1 tab 09/18/24 09:00 09/19/24 09:25 Senna Tablet PO 10/18/24 08:59 1 tab QDAY [facility] Administration Protocol Plan Patient is a 59-year-old female with past medical history significant for bilateral toe amputation, hypertension, hyperlipidemia, ESBL UTI, type 2 diabetes, metabolic syndrome, hypothyroidism, peripheral neuropathy, morbid obesity who presented to the ED with MRSA bacteremia and admitted to telemetry for further management of MRSA bacteremia. #MRSA bacteremia #Left gangrenous second toe s/p amputation day 1 Patient received a call from ED about her blood cultures being positive for MRSA. Unsure when patient presented with gangrenous second toe wound as patient has been difficult to obtain complete history. Patient has a history of bilateral toe amputations. Patient also has a history of uncontrolled diabetes currently on Lantus and Ozempic. Blood sugar today was 300+. Pro-Rustam elevated at 7.85. Patient presented with 87% oxygen saturation on room air. Patient now placed on 2 L nasal cannula saturating well above 98%. Lactic acid initially peaked, down trended now within normal limits. Patient received 3 L bolus. - Started on IV vancomycin, which is sensitive on antibiogram - Consulted surgery, appreciate recommendations--completed Amputation of the second toe on 09/18/24 - Repeat blood cultures pending - echo to rule out any vegetations pending - Continue maintenance IV fluids #Acute encephalopathy-improving Likely metabolic in setting of hyperglycemia, infection. On physical exam, patient is lethargic, but easily arousable. CT head negative for any acute changes. Ammonia level less than 10 - Continue neurochecks every 4 hours -monitor symptoms -CBC, CMP, glucose control #Type 2 diabetes, poorly controlled #Peripheral neuropathy A1c this admission 10.9. Patient presented with a blood sugar of 300+. Patient also has a history of bilateral toe amputations most likely in setting of uncontrolled diabetes - ISS - Hypoglycemic protocol in place - increased Lantus insulin to 30 units BID - ACHS checks #Hyperlipidemia Will resume patient's home atorvastatin #Hypertension Patient takes losartan 50 mg p.o. twice daily -resume #Hypothyroidism -TSH was 5.84, follow-up outpatient with PCP #Acute hypoxic respiratory failure-resolved # Sepsis secondary to left gangrenous second toe-resolved #ALLA-resolved Health Maintenance: DVT prophylaxis: Heparin subcu Diet: Cardiac CODE STATUS: Full code Disposition: Patient admitted to telemetry for the management of MRSA bacteremia. IV vanc Patient's plan and care discussed with my attending, Dr. Colton Blue, PGY1
--- NOTE | 2024-09-19 14:28 | PC.SS ---
Rounding: Pending rpt blood cultures
[2024-09-19] MEDS: ATORVASTATIN CALCIUM 20 MG TABLET 40 MG PO (20:25)
[2024-09-19] MEDS: INSULIN GLARGINE (Lantus) 5 UNIT/0.05 ML (PER 5 UNITS) 30 UNIT SC (20:30)
[2024-09-20] VITALS (14 sets, daily range): BP systolic 131–165; BP diastolic 70–108; PULSE 79–103; RESP 16–97; TEMP 36.1–38; O2SAT 93–99; BMI 51.2
--- NOTE | 2024-09-20 03:37 | PC.NURSE ---
Dr. Armas made aware of the result of blood culture (Gram positive cocci from aerobic bottle). No new orders at this time.
[2024-09-20] MEDS: HYDROcodone/APAP 5/325 TABLET 1 TAB PO ×2 (03:41→15:44)
[2024-09-20 05:36] LABS: Basophils # (Auto) 0.1 Thou/mm3 (0.0-0.2); Basophils % (Auto) 0 % (0-2.5); Eosinophils # (Auto) 0.2 Thou/mm3 (0.0-0.5); Eosinophils % (Auto) 1 % (0-10); Hematocrit 30.6 % (36.0-46.0); Hemoglobin 9.8 g/dL (12.0-16.0); Immature Granulocytes % (Auto) 2 % (0-0); Immature Granulocytes Auto 0.32 Thou/mm3 (0.00-0.00); Lymphocytes # (Auto) 2.2 Thou/mm3 (1.0-4.8); Lymphocytes % (Auto) 16 % (10-50); Mean Corpuscular Hemoglobin 28.9 pg (25.0-35.0); Mean Corpuscular Volume 90 fL (80-100); Monocytes # (Auto) 1.6 Thou/mm3 (0.0-0.8); Monocytes % (Auto) 11 % (0-12); Neutrophils # (Auto) 9.8 Thou/mm3 (1.8-7.7); Neutrophils % (Auto) 69 % (37-80); Nucleated Red Blood Cell # 0.03 Thou/mm3 (0.00-0.00); Nucleated Red Blood Cell % 0 /100 WBC (0); Platelet Count 158 Thou/mm3 (140-440); RDW Standard Deviation 50.7 fL (36.4-46.3); Red Blood Count 3.39 Miln/mm3 (4.00-5.20); White Blood Count 14.1 Thou/mm3 (3.6-11.0)
[2024-09-20 06:05] LABS: Alanine Aminotransferase 33 U/L (10-49); Albumin, Serum 3.3 gm/dL (3.5-5.0); Albumin/Globulin Ratio 1.3 (1.2-2.2); Alkaline Phosphatase 205 U/L (46-116); Anion Gap 16 (7-16); Aspartate Amino Transferase 31 U/L (0-34); BUN/Creatinine Ratio 10 Ratio (12-20); Bilirubin,Total 0.7 mg/dL (0.3-1.2); Blood Urea Nitrogen 9 mg/dL (9-23); Calcium 9.6 mg/dL (8.3-10.6); Calcium (Corrected) 10.2 mg/dL (8.5-10.1); Carbon Dioxide 21.1 mMol/L (20.0-31.0); Chloride 99 mMol/L (98-107); Creatinine (Component) 0.9 mg/dL (0.6-1.3); Estimated Creatinine Clearance 82.6 mL/min (>60); Globulin 2.6 gm/dL (2.3-3.5); Glucose 234 mg/dL (74-106); Magnesium 1.5 mg/dL (1.6-2.6); Osmolality,Calculated 278 (275-295); Potassium 3.1 mMol/L (3.4-5.1); Sodium 136 mMol/L (136-145); Total Protein 5.9 gm/dL (5.7-8.2); eGFR > 60 See Note
--- NOTE | 2024-09-20 09:45 | PC.NURSE ---
chief ophthalmic technician called to notify of ECHO order. states she will be in to complete
[2024-09-20] MEDS: SODIUM CHLORIDE 0.9% 1000 ML 1,000 ML 100 ML IV ×2 (09:49→21:25)
[2024-09-20] MEDS: INSULIN GLARGINE (Lantus) 5 UNIT/0.05 ML (PER 5 UNITS) 35 UNIT SC ×2 (09:49→20:34)
[2024-09-20] MEDS: SENNA TABLET 1 TAB PO (09:50)
[2024-09-20] MEDS: INSULIN LISPRO (AdmeLOG) 1 UNIT/0.01 ML UNIT SC ×4 (09:50→20:33)
[2024-09-20] MEDS: HEPARIN SOD INJ 5000 UNIT/ML VIAL SC ×2 (09:50→20:35)
[2024-09-20] MEDS: POTASSIUM CHLORIDE 20 mEq TABCR 40 MEQ PO (09:51)
[2024-09-20] MEDS: LOSARTAN POTASSIUM 25 MG TABLET 50 MG PO ×2 (09:58→20:37)
[2024-09-20] MEDS: VANCOMYCIN/WATER 1250 MG IVPB 250 ML 120 MG IV (09:58)
--- NOTE | 2024-09-20 10:21 | ECHO_ITS ---
Transthoracic Echo Report Ht (in): 61 Wt (lb): 271 Exam Location: Echo Lab Status: Inpatient Degreaser Operator: Sarah Gallegos Indications: Procedure Performed: BP: 150 / 78 HR: 86 Technical Quality: Technically Difficult Due To Body Habitus MEASUREMENTS (Male / Female) Normal Values 2D ECHO LV Diastolic Diameter PLAX 5.4 cm 4.2 - 5.9 / 3.9 - 5.3 cm LV Systolic Diameter PLAX 2.9 cm IVS Diastolic Thickness 0.9 cm 0.6 - 1.0 / 0.6 - 0.9 cm LVPW Diastolic Thickness 0.9 cm 0.6 - 1.0 / 0.6 - 0.9 cm LV Relative Wall Thickness 0.3 LVOT Diameter 1.8 cm DOPPLER AV Peak Velocity 149.0 cm/s AV Peak Gradient 8.9 mmHg LVOT Peak Velocity 136.0 cm/s LVOT Peak Gradient 7.4 mmHg AV Area Cont Eq pk 2.3 cm? MV Area PHT 4.0 cm? Mitral E Point Velocity 84.9 cm/s Mitral A Point Velocity 81.5 cm/s Mitral E to A Ratio 1.0 LV E' Lateral Velocity 9.0 cm/s Mitral E to LV E' Lateral Ratio 9.4 LV E' Septal Velocity 7.0 cm/s Mitral E to LV E' Septal Ratio 12.2 PV Peak Velocity 146.0 cm/s PV Peak Gradient 8.5 mmHg FINDINGS Left Ventricle Normal left ventricular size, wall thickness, systolic function with no obvious regional wall motion abnormalities. Normal left ventricular diastolic filling pattern for age. The ejection fraction is visually estimated at 65 %. Right Ventricle The right ventricle is not well visualized. Left Atrium The left atrium is normal by two-dimensional, color flow and Doppler imaging with no structural abnormalities, no thrombus formation present. Right Atrium The right atrium is not well visualized. Atrial Septum The interatrial septum appears normal with no evidence of a shunt. Aorta The aorta is normal by two-dimensional, color flow and Doppler interrogation. Mitral Valve The mitral valve is mildly calcified with no significant regurgitation. Aortic Valve The aortic valve is mildly calcified with no significant regurgitation. Tricuspid Valve The tricuspid valve is not well visualized. There is no significant tricuspid valve regurgitation. Pulmonic Valve The pulmonic valve is not well visualized. There is no significant pulmonic valve regurgitation. Vessels The pulmonary artery appears normal. The inferior vena cava pulmonary and hepatic veins are not well visualized. Pericardium The pericardium is normal by two-dimensional imaging. There is no significant pericardial effusion. CONCLUSIONS Indications: MRSA Baceteremia No evidence of any clear valvular vegetations. TTE suboptimal and consider ADRIÁN if high clinical index of suspicion. Normal LV size and function with an estimated EF of 60-65%. Normal diastolic function. Normal RV size and function. Trace TR. RVSP could not be underestimated accurately. Mild aortic valve sclerosis without stenosis and mildly calcified mitral valve with trace MR. No pericardial effusion Philip Viramontes (Electronically Signed) Final Date: 21 September 2024 01:27
--- NOTE | 2024-09-20 11:06 | PC.SS ---
Patient Zita Danielle is a 59 Year old female admitted for MRSA Bacteremia, [facility]. SS met with patient and patient's Bryce Stevensos at bedside. Patient was was lethargic at the time. Patient's reports patient lives at home with and family. Patient's is patient's surrogate decision maker [phone]. Prior to admission patient was able to ambulate and did not utilize any source of DME to assist with ambulation. Patient was able to complete all ADL's independently. Choice of pharmacy is [facility] in [place]. PCP is Marga Larry. At time of discharge patient will discharge back home. Patient's requesting HH for patient. SS will inform patients nurse. Patient's will provide transportation at time of discharge. Next of kin: Bryce Correa Discharge plan: Home
[2024-09-20] MEDS: INSULIN LISPRO (AdmeLOG) 1 UNIT/0.01 ML UNIT 10 UNIT SC ×2 (12:17→17:30)
--- NOTE | 2024-09-20 15:03 | ESPR_ITS ---
<Statement entered by Rashi Segura MD - 09/29/24 13:29> I reviewed above note and agree with findings and plans. I have also personally examined the patient with medicine team and went over assessment and plan with medical team including internal security manager and resident physician. Documentation for date of: 09/20/24 Subjective Subjective Interval history: Patient examined at bedside. No events overnight, complains of pain in lower extremities. Blood sugars poorly controlled greater than 200. Increased Lantus to 35 BID and lispro 10 TID. Repeat blood cultures returned positive GPC. New repeat blood cultures are pending. Will continue IV vancomycin. Morning labs showed hypokalemia 3.1??repleted 40 mEq. WBC up trended 14. Echo is pending to rule out endocarditis. Family requesting HH for patient. Exam Vital Signs Temp Pulse Resp BP Pulse Ox O2 Del Method O2 Flow Rate 98 F 92 20 144/76 H 98 Room Air 1 09/20/24 12:00 09/20/24 12:09/20/24 12:09/20/24 12:09/20/24 12:09/20/24 12:09/19/24 08:07 Narrative Exam General: Middle age female, obese, somnolent but arousable, No acute distress, cooperative HEENT: NCAT, No JVD noted. Mucosa moist. Pupils are equal and reactive to light bilaterally Cardiovascular: Normal S1 and S2. Regular rate and rhythm. Respiratory: Lungs are clear to auscultation bilaterally. No wheezing or crackles heard. Abdomen: Soft, nontender, not distended, normal bowel sounds. Skin: Warm to touch, dry, no rashes noted Musculoskeletal: No gross injuries. Able to move all 4 extremities. No pitting edema, left toe amputated. Right foot in kerlix roll, no bleeding. Neuro: Alert and oriented x2. No focal neuro deficits. Psych: Normal affect and mood Objective Labs 09/20/24 04:52 09/20/24 04:52 Labs: Laboratory Results - last 24 hr 09/20/24 04:52 WBC 14.1 H RBC 3.39 L Hgb 9.8 L Hct 30.6 L MCV 90 MCH 28.9 MCHC 32.0 RDW Std Deviation 50.7 H Plt Count 158 D Neut % (Auto) 69 Lymph % (Auto) 16 Greene % (Auto) 11 Eos % (Auto) 1 Baso % (Auto) 0 Neut # (Auto) 9.8 H Lymph # (Auto) 2.2 Greene # (Auto) 1.6 H Eos # (Auto) 0.2 Baso # (Auto) 0.1 Immature Gran # (Auto) 0.32 H Absolute Nucleated RBC 0.03 H Immature Gran % 2 H Nucleated RBC % 0 Sodium 136 Potassium 3.1 L D Chloride 99 Carbon Dioxide 21.1 Anion Gap 16 BUN 9 Creatinine 0.9 Estim Creat Clear Calc 82.6 eGFR > 60 BUN/Creatinine Ratio 10 L Glucose 234 H Calculated Osmolality 278 Calcium 9.6 Corrected Calcium 10.2 H Magnesium 1.5 L Total Bilirubin 0.7 AST 31 ALT 33 Alkaline Phosphatase 205 H Total Protein 5.9 Albumin 3.3 L Globulin 2.6 Albumin/Globulin Ratio 1.3 ABG Interpretation ABG results: 09/17/24 19:57 ABG pH 7.33 L ABG pCO2 46 ABG pO2 87 ABG HCO3 24 ABG O2 Saturation 98 ABG Base Excess -2 Quality Measures Quality Measures none Assessment & Plan Assessment Current Active Medications: Generic Name Dose Route Start Last Admin Trade Name Freq PRN Reason Stop Dose Admin Acetaminophen 650 mg 09/17/24 13:44 09/19/24 12:29 Acetaminophen 325 Mg Tablet PO 10/17/24 13:43 650 mg Q6H PRN Administration Fever >100.4 or Pain 1-3 Hydrocodone Bitart/Acetaminophen 1 tab 09/17/24 18:21 09/20/24 03:41 Hydrocodone/Apap 5/325 Tablet PO 09/22/24 18:20 1 tab Q6HR PRN Administration Pain 4-6 Atorvastatin Calcium 40 mg 09/17/24 21:00 09/19/24 20:25 Atorvastatin Calcium 20 Mg Tablet PO 10/17/24 20:59 40 mg HS SHUBHAM Administration Dextrose 25 ml 09/17/24 18:07 Dextrose 50%-Water Inj 50 Ml Syringe IV 10/17/24 18:06 Q15MIN PRN BG 50-70 responsive npo pt Dextrose 50 ml 09/17/24 18:07 Dextrose 50%-Water Inj 50 Ml Syringe IV 10/17/24 18:06 Q15MIN PRN BG <50 OR BG <70 & pt unresponsive Glucagon 1 mg 09/17/24 18:07 Glucagon Inj 1 Mg Vial IM Q15MIN PRN BG <70, and no IV access Heparin Sodium (Porcine) 5,000 unit 09/17/24 21:00 09/20/24 09:50 Heparin Sod Inj 5000 Unit/Ml Vial SC 10/01/24 20:59 5,000 unit Q12HR SHUBHAM Administration Sodium Chloride 1,000 mls @ 100 mls/hr 09/18/24 10:14 09/20/24 09:49 Ns IV 10/18/24 10:13 100 mls/hr .Q10H SHUBHAM Administration Vancomycin HCl 250 mls @ 120 mls/hr 09/20/24 10:00 09/20/24 09:58 Vancomycin/Water 1250 Mg Ivpb IV 09/27/24 09:59 120 mls/hr Q12H SHUBHAM Administration Protocol Insulin Glargine 35 unit 09/20/24 09:00 09/20/24 09:49 Insulin Glargine (Lantus) 5 Unit/0.05 Ml (Per 5 Units) SC 10/20/24 08:59 35 unit BID SHUBHAM Administration Insulin Human Lispro 0 unit 09/17/24 21:00 09/20/24 12:18 Insulin Lispro (Admelog) 1 Unit/0.01 Ml Unit SC 10/17/24 20:59 2 unit ACHS SHUBHAM Administration Protocol Insulin Human Lispro 10 unit 09/20/24 12:00 09/20/24 12:17 Insulin Lispro (Admelog) 1 Unit/0.01 Ml Unit SC 10/20/24 11:59 10 unit TIDWM SHUBHAM Administration Losartan Potassium 50 mg 09/18/24 21:00 09/20/24 09:58 Losartan Potassium 25 Mg Tablet PO 10/18/24 20:59 50 mg BID SHUBHAM Administration Morphine Sulfate 1 mg 09/17/24 18:21 09/18/24 11:53 Morphine Sulf Inj 10 Mg/Ml Vial IVP 09/22/24 18:20 1 mg Q4HR PRN Administration Pain 7-10 Ondansetron HCl 4 mg 09/17/24 13:44 Ondansetron Inj 2 Mg/Ml Inj 2 Ml IVP 10/17/24 13:43 Q6H PRN NAUSEA OR VOMITING Protocol Pharmacy Consult 1 each 09/17/24 15:45 Vancomycin Pharmacy To Dose 1 Each Each IV 10/17/24 15:44 QDAY PRN PROTOCOL Sennosides 1 tab 09/18/24 09:00 09/20/24 09:50 Senna Tablet PO 10/18/24 08:59 1 tab QDAY SHUBHAM Administration Protocol Sodium Chloride 1 spray 09/19/24 18:34 Saline Nasal 45 Ml Btl NASAL 10/19/24 18:33 PRN PRN CONGESTION Plan Patient is a 59-year-old female with past medical history significant for bilateral toe amputation, hypertension, hyperlipidemia, ESBL UTI, type 2 diabetes, metabolic syndrome, hypothyroidism, peripheral neuropathy, morbid obesity who presented to the ED with MRSA bacteremia and admitted to telemetry for further management of MRSA bacteremia. #MRSA bacteremia #Left gangrenous second toe s/p amputation day 2 Patient received a call from ED about her blood cultures being positive for MRSA. Unsure when patient presented with gangrenous second toe wound as patient has been difficult to obtain complete history. Patient has a history of bilateral toe amputations. Patient also has a history of uncontrolled diabetes currently on Lantus and Ozempic. Blood sugar today was 300+. Pro-Rustam elevated at 7.85. Patient presented with 87% oxygen saturation on room air. Patient now placed on 2 L nasal cannula saturating well above 98%. Lactic acid initially peaked, down trended now within normal limits. Patient received 3 L bolus. -continue IV vancomycin, which is sensitive on antibiogram - Consulted surgery, appreciate recommendations--completed Amputation of the second toe on 09/18/24 - Repeat blood cultures pending - echo to rule out any vegetations pending - Continue maintenance IV fluids #Acute encephalopathy-improving Likely metabolic in setting of hyperglycemia, infection. On physical exam, patient is lethargic, but easily arousable. CT head negative for any acute changes. Ammonia level less than 10 - Continue neurochecks every 4 hours -monitor symptoms -CBC, CMP, glucose control #Type 2 diabetes, poorly controlled #Peripheral neuropathy A1c this admission 10.9. Patient presented with a blood sugar of 300+. Patient also has a history of bilateral toe amputations most likely in setting of uncontrolled diabetes - ISS - Hypoglycemic protocol in place - increased Lantus insulin to 35 units BID -lispro 10 TID - ACHS checks #Hyperlipidemia Will resume patient's home atorvastatin #Hypertension Patient takes losartan 50 mg p.o. twice daily -resume #Hypothyroidism -TSH was 5.84, follow-up outpatient with PCP #Acute hypoxic respiratory failure-resolved # Sepsis secondary to left gangrenous second toe-resolved #ALLA-resolved Health Maintenance: DVT prophylaxis: Heparin subcu Diet: Cardiac CODE STATUS: Full code Disposition: Patient admitted to telemetry for the management of MRSA bacteremia. IV vancomycin Patient's plan and care discussed with my attending, Dr. Colton Blue, PGY1
[2024-09-20] MEDS: Magnesium Sulfate 4 GM Ivpb 4 GM/50 ML BAG IV (15:44)
[2024-09-20] MEDS: ACETAMINOPHEN 325 MG TABLET 650 MG PO (16:20)
[2024-09-20] MEDS: ATORVASTATIN CALCIUM 20 MG TABLET 40 MG PO (20:37)
[2024-09-21] VITALS (17 sets, daily range): BP systolic 106–186; BP diastolic 47–84; PULSE 100–115; RESP 19–49; TEMP 36.1–37.7; O2SAT 3–99
--- NOTE | 2024-09-21 | XR_ITS ---
Examinations: MRI Brain without intravenous contrast. MRA brain without intravenous contrast. MRA carotids without intravenous contrast 3-D vascular reconstructions Date and time of exam: September 21, 2024 at 1712 hours Comparison March 26, 2007 INDICATIONS: Hypoxia, leukocytosis, bacteremia, altered mental status today Technique: Multiple axial and sagittal images of the brain have been obtained MRA brain carotid images without contrast obtained, including 3-D postprocessing, vascular maximum intensity projection images Findings: Sellaturcica is not enlarged. The optic chiasm and infundibular stalk are not remarkable. Prepontine and interpeduncular cisterns are not enlarged. No localized enlargement of the medulla or brittny. Fourth ventricle and cerebellar tonsils normal in position. Subacute hemorrhage is not seen. Fourth ventricle is midline. Mass in the cerebellopontine angle region is not evident. 7th and 8th nerve complexes exhibits symmetry. Globes are symmetrical with no retro-orbital mass. Increased white matter signal not significant Diffusion-weighted images demonstrate 7 mm focus restricted diffusion right cerebral convexity with signal deficit on the ADC map, diffusion image 22 Mass-effect upon the ventricular system is not identified. MRA brain images moderate cerebral arterial irregularity Impression: Findings suspicious for 7 mm acute infarct right cerebral convexity, the patient should be clinically correlated
[2024-09-21] MEDS: LABETALOL INJ 5 MG/ML VIAL 20 ML 10 MG IVP (01:39)
--- NOTE | 2024-09-21 03:26 | PC.NURSE ---
Dr. Major made aware of the preliminary results of the new repeat blood culture (Gram Positive Cocci from aerobic and anaerobic bottles). No new orders at this time.
[2024-09-21 05:37] LABS: Basophils # (Auto) 0.1 Thou/mm3 (0.0-0.2); Basophils % (Auto) 0 % (0-2.5); Eosinophils # (Auto) 0.2 Thou/mm3 (0.0-0.5); Eosinophils % (Auto) 1 % (0-10); Hematocrit 31.2 % (36.0-46.0); Hemoglobin 10.2 g/dL (12.0-16.0); Immature Granulocytes % (Auto) 2 % (0-0); Immature Granulocytes Auto 0.36 Thou/mm3 (0.00-0.00); Lymphocytes # (Auto) 2.7 Thou/mm3 (1.0-4.8); Lymphocytes % (Auto) 18 % (10-50); Mean Corpuscular HGB Conc 32.7 g/dl (31.0-37.0); Mean Corpuscular Hemoglobin 29.1 pg (25.0-35.0); Mean Corpuscular Volume 89 fL (80-100); Monocytes # (Auto) 1.6 Thou/mm3 (0.0-0.8); Monocytes % (Auto) 11 % (0-12); Neutrophils # (Auto) 10.4 Thou/mm3 (1.8-7.7); Neutrophils % (Auto) 68 % (37-80); Nucleated Red Blood Cell # 0.03 Thou/mm3 (0.00-0.00); Nucleated Red Blood Cell % 0 /100 WBC (0); Platelet Count 181 Thou/mm3 (140-440); RDW Standard Deviation 51.1 fL (36.4-46.3); White Blood Count 15.3 Thou/mm3 (3.6-11.0)
[2024-09-21 06:37] LABS: Alanine Aminotransferase 33 U/L (10-49); Albumin, Serum 3.5 gm/dL (3.5-5.0); Albumin/Globulin Ratio 1.3 (1.2-2.2); Alkaline Phosphatase 227 U/L (46-116); Anion Gap 17 (7-16); Aspartate Amino Transferase 37 U/L (0-34); BUN/Creatinine Ratio 10 Ratio (12-20); Bilirubin,Total 0.7 mg/dL (0.3-1.2); Blood Urea Nitrogen 11 mg/dL (9-23); Calcium 10.1 mg/dL (8.3-10.6); Calcium (Corrected) 10.5 mg/dL (8.5-10.1); Chloride 99 mMol/L (98-107); Creatinine (Component) 1.1 mg/dL (0.6-1.3); Estimated Creatinine Clearance 68.7 mL/min (>60); Globulin 2.7 gm/dL (2.3-3.5); Glucose 246 mg/dL (74-106); Osmolality,Calculated 277 (275-295); Potassium 3.7 mMol/L (3.4-5.1); Sodium 135 mMol/L (136-145); Total Protein 6.2 gm/dL (5.7-8.2); eGFR 58 See Note
[2024-09-21] MEDS: LOSARTAN POTASSIUM 25 MG TABLET 50 MG PO (08:29)
[2024-09-21] MEDS: SENNA TABLET 1 TAB PO (08:29)
[2024-09-21] MEDS: HEPARIN SOD INJ 5000 UNIT/ML VIAL SC ×2 (08:33→21:03)
[2024-09-21] MEDS: INSULIN GLARGINE (Lantus) 5 UNIT/0.05 ML (PER 5 UNITS) 40 UNIT SC ×2 (08:35→21:04)
[2024-09-21] MEDS: POTASSIUM CHLORIDE 20 mEq TABCR PO (08:42)
[2024-09-21 08:49] LABS: Magnesium 1.8 mg/dL (1.6-2.6)
[2024-09-21 09:52] LABS: Lactate (Lactic Acid) 1.2 mMol/L (0.4-2.0)
--- NOTE | 2024-09-21 10:14 | PC.SS ---
SS follow up note; Echo is pending, patient is on IV ABX. Patient will discharge back home when medically cleared.
[2024-09-21] MEDS: VANCOMYCIN/NS 1 GM IVPB 200 ML IV (10:17)
[2024-09-21] MEDS: RINGERS LACTATED 1000 ML 500 ML 999 ML IV (10:22)
--- NOTE | 2024-09-21 11:09 | XR_ITS ---
Examination: CT brain head without contrast. 2-D sagittal coronal reconstructions Date and time of exam:September 21, 2024, 1342 hours Comparison September 17, 2024 INDICATIONS: Altered mental status today CTDI: vol (mGy):57 DLP: (mGycm):1137 Technique: Multiple CT axial sections of the brain have been obtained, 5 mm slice thickness. Contrast has not been administered. 2-D sagittal, coronal reconstructions have been obtained Low dose protocols were performed. One or more of the following dose reduction techniques were used; automated exposure control, adjustment of the mA and/or KV according to patient size, use of iterative reconstruction technique. Findings: No significant ventricular enlargement. Intra-axial or extra-axial hemorrhage density is not seen. No mass effect or midline shift Basal cisterns are not remarkable. Fourth ventricle is midline. Cranial vault intact. Sphenoid retention cyst Significant left maxillary antral and bilateral ethmoid sinusitis Impression: Negative for acute hemorrhage, mass effect or midline shift Advise clinical correlation follow-up accordingly
[2024-09-21 11:34] LABS: Ammonia < 10 uMol/L (11-32)
[2024-09-21 11:35] LABS: Base Excess -6 (-3-3); HCO3 18 mEq/L (20-26); Inspired Oxygen, FIO2 92 %; O2 Saturation 96 % (91-98); PCO2 32 mmHg (32.0-48.0); PO2 72 mmHg (83-108); pH, Arterial 7.37 (7.35-7.45)
[2024-09-21 11:36] LABS: Allen Test Performed/OK; Puncture Site Right Brachial
[2024-09-21 11:54] LABS: Albumin, Serum 3.2 gm/dL (3.5-5.0); Anion Gap 18 (7-16); BUN/Creatinine Ratio 11 Ratio (12-20); Blood Urea Nitrogen 12 mg/dL (9-23); Calcium 9.5 mg/dL (8.3-10.6); Calcium (Corrected) 10.1 mg/dL (8.5-10.1); Carbon Dioxide 18.2 mMol/L (20.0-31.0); Chloride 99 mMol/L (98-107); Creatinine (Component) 1.1 mg/dL (0.6-1.3); Estimated Creatinine Clearance 68.7 mL/min (>60); Free T4 (Free Thyroxine) 1.15 ng/dL (0.89-1.76); Glucose 243 mg/dL (74-106); Osmolality,Calculated 277 (275-295); Phosphorous 3.3 mg/dL (2.4-5.1); Potassium 3.9 mMol/L (3.4-5.1); Sodium 135 mMol/L (136-145); eGFR 58 See Note
[2024-09-21] MEDS: INSULIN LISPRO (AdmeLOG) 1 UNIT/0.01 ML UNIT SC (12:02)
--- NOTE | 2024-09-21 12:08 | PC.NURSE ---
Patient transported to Cathlab.
[2024-09-21 13:14] LABS: Lactate (Lactic Acid) 1.1 mMol/L (0.4-2.0)
--- NOTE | 2024-09-21 13:15 | XR_ITS ---
Examination: AP chest single view Technique : AP semiupright portable chest single view Date and time: September 21, 2024 1419 hours Comparison September 17, 2024 INDICATIONS: Chest pain tachypnea today. FINDINGS: Minor prominence left ventricle Mild ectasia thoracic aorta. No pneumonia or pulmonary edema. Moderate osteopenia IMPRESSION: No pneumonia or pulmonary edema
[2024-09-21 13:17] LABS: Basophils % (Auto) 0 % (0-2.5); Eosinophils # (Auto) 0.2 Thou/mm3 (0.0-0.5); Eosinophils % (Auto) 1 % (0-10); Hematocrit 29.9 % (36.0-46.0); Hemoglobin 9.8 g/dL (12.0-16.0); Immature Granulocytes % (Auto) 3 % (0-0); Immature Granulocytes Auto 0.48 Thou/mm3 (0.00-0.00); Lymphocytes # (Auto) 2.8 Thou/mm3 (1.0-4.8); Lymphocytes % (Auto) 18 % (10-50); Mean Corpuscular HGB Conc 32.8 g/dl (31.0-37.0); Mean Corpuscular Hemoglobin 29.1 pg (25.0-35.0); Mean Corpuscular Volume 89 fL (80-100); Monocytes # (Auto) 1.7 Thou/mm3 (0.0-0.8); Monocytes % (Auto) 11 % (0-12); Neutrophils # (Auto) 10.5 Thou/mm3 (1.8-7.7); Neutrophils % (Auto) 67 % (37-80); Nucleated Red Blood Cell # 0.03 Thou/mm3 (0.00-0.00); Nucleated Red Blood Cell % 0 /100 WBC (0); Platelet Count 197 Thou/mm3 (140-440); RDW Standard Deviation 50.7 fL (36.4-46.3); Red Blood Count 3.37 Miln/mm3 (4.00-5.20); White Blood Count 15.7 Thou/mm3 (3.6-11.0)
[2024-09-21 13:18] LABS: Base Excess -6 (-3-3); HCO3 18 mEq/L (20-26); Inspired O2, VO2 Liters 3 L/min; PCO2 31 mmHg (32.0-48.0); PO2 89 mmHg (83-108); pH, Arterial 7.37 (7.35-7.45)
[2024-09-21 13:19] LABS: Allen Test Not Performed; O2 Saturation 95 % (91-98); Puncture Site Left Brachial
[2024-09-21] MEDS: INSULIN HUM REGULAR 1 UNIT/0.01 ML (PER UNIT) 10 UNIT SC (13:29)
[2024-09-21] MEDS: RINGERS LACTATED 1000 ML 1,000 ML 999 ML IV (13:29)
[2024-09-21 13:37] LABS: Alanine Aminotransferase 27 U/L (10-49); Albumin, Serum 3.2 gm/dL (3.5-5.0); Albumin/Globulin Ratio 1.2 (1.2-2.2); Alkaline Phosphatase 201 U/L (46-116); Anion Gap 16 (7-16); Aspartate Amino Transferase 31 U/L (0-34); BUN/Creatinine Ratio 11 Ratio (12-20); Bilirubin,Total 0.8 mg/dL (0.3-1.2); Blood Urea Nitrogen 13 mg/dL (9-23); Calcium 9.7 mg/dL (8.3-10.6); Calcium (Corrected) 10.3 mg/dL (8.5-10.1); Carbon Dioxide 18.8 mMol/L (20.0-31.0); Chloride 100 mMol/L (98-107); Creatinine (Component) 1.2 mg/dL (0.6-1.3); Estimated Creatinine Clearance 62.9 mL/min (>60); Globulin 2.6 gm/dL (2.3-3.5); Glucose 233 mg/dL (74-106); Osmolality,Calculated 277 (275-295); Phosphorous 3.1 mg/dL (2.4-5.1); Potassium 3.8 mMol/L (3.4-5.1); Sodium 135 mMol/L (136-145); Total Protein 5.8 gm/dL (5.7-8.2); eGFR 52 See Note
--- NOTE | 2024-09-21 14:03 | PC.NURSE ---
Rapid response called on patient per Cathlab RN related to tachypnea. Patient transferred to Telemetry floor per doctors orders.
--- NOTE | 2024-09-21 14:08 | XR_ITS ---
Examination: Left foot 2 views Technique one AP lateral left foot 2 views Date and time: September 21, 2024 1423 hours INDICATIONS: Postop indications first and second digits. FINDINGS: Postop amputation first and second digits Soft tissue vascular calcification No fractures No cortical bone destruction IMPRESSION: Postop amputation first and second digits
--- NOTE | 2024-09-21 14:38 | ESPR_ITS ---
<Statement entered by Rashi Segura MD - 09/29/24 13:33> I reviewed above note and agree with findings and plans. I have also personally examined the patient with medicine team and went over assessment and plan with medical team including pharmacy graduate intern and resident physician. Documentation for date of: 09/21/24 Subjective Subjective Interval history: Patient was seen at bedside this morning. Remains somnolent and difficult to arouse. Will grunt to sternal rub, does not open eyes. BS still >200--increased Lantus to 45 units BID. Continue to titrate to reach goal around 180. Blood cultures positive again for GPC. Repeat are pending. Echo was negative for valve vegetations, EF 60-65%. Labs showed AGMA with bicarb 19, AG 17--BHB was elevated 4.0. ABGs were normal. At 1PM today, there was RR due to tachypnea with resp rate 47. 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 BP was 106/47, HR 108, RR 47, saturating 96% on 2 L NC. Blood sugar 236. She was still somnolent and minimal response to sternal rub. ICU team was consulted. Repeat imaging included, CT head, chest x-ray, foot x- ray were repeated. Repeat labs including ABG, CBC, CMP, lactic acid. She was given 10 units regular insulin,1 bolus of LR and upgraded to telemetry. There was concern for septic emboli due to recurrent blood cultures returning positive for GPC. Full-body exam completed and any external source including wounds appear to be healing well. Will continue to closely monitor . ADRIÁN deferred. Exam Vital Signs Temp Pulse Resp BP Pulse Ox O2 Del Method O2 Flow Rate 99.8 F 108 H 47 H 106/47 L 96 Nasal Cannula 2 09/21/24 12:19 09/21/24 13:47 09/21/24 13:47 09/21/24 13:47 09/21/24 13:47 09/21/24 13:15 09/21/24 13:47 Narrative Exam General: Middle age female, obese, somnolent difficult to arouse HEENT: NCAT, No JVD noted. Mucosa dry. Pupils are equal and reactive to light bilaterally Cardiovascular: Normal S1 and S2. Regular rate and rhythm. Respiratory: Lungs are clear to auscultation bilaterally. No wheezing or crackles heard. Abdomen: Soft, nontender, not distended, normal bowel sounds. Skin: Small dark scab left inner thigh, bruising along left arm Musculoskeletal: No gross injuries. Able to move all 4 extremities. No pitting edema, left toe amputated. Right foot in kerlix roll, no bleeding. Neuro: Alert and oriented x2. No focal neuro deficits. Psych: Normal affect and mood Objective Labs 09/21/24 13:05 09/21/24 13:05 Labs: Laboratory Results - last 24 hr 09/20/24 09/21/24 09/21/24 21:20 04:38 09:46 WBC 15.3 H RBC 3.50 L Hgb 10.2 L Hct 31.2 L MCV 89 MCH 29.1 MCHC 32.7 RDW Std Deviation 51.1 H Plt Count 181 Neut % (Auto) 68 Lymph % (Auto) 18 Wilson % (Auto) 11 Eos % (Auto) 1 Baso % (Auto) 0 Neut # (Auto) 10.4 H Lymph # (Auto) 2.7 Wilson # (Auto) 1.6 H Eos # (Auto) 0.2 Baso # (Auto) 0.1 Immature Gran # (Auto) 0.36 H Absolute Nucleated RBC 0.03 H Immature Gran % 2 H Nucleated RBC % 0 Puncture Site ABG pH ABG pCO2 ABG pO2 ABG HCO3 ABG O2 Saturation ABG Base Excess Oxygen Liter Flow FiO2 Sodium 135 L Potassium 3.7 D Chloride 99 Carbon Dioxide 19.0 L Anion Gap 17 H BUN 11 Creatinine 1.1 Estim Creat Clear Calc 68.7 eGFR 58 L BUN/Creatinine Ratio 10 L Glucose 246 H Calculated Osmolality 277 Lactic Acid 1.2 Calcium 10.1 Corrected Calcium 10.5 H Phosphorus Magnesium 1.8 Total Bilirubin 0.7 AST 37 H ALT 33 Alkaline Phosphatase 227 H D Ammonia Total Protein 6.2 Albumin 3.5 Globulin 2.7 Albumin/Globulin Ratio 1.3 Beta-Hydroxybutyrate/Acetoacetate 4.0 H Free T4 Vancomycin Trough 23.0 H* 09/21/24 09/21/24 09/21/24 11:08 11:23 13:05 WBC 15.7 H RBC 3.37 L Hgb 9.8 L Hct 29.9 L MCV 89 MCH 29.1 MCHC 32.8 RDW Std Deviation 50.7 H Plt Count 197 Neut % (Auto) 67 Lymph % (Auto) 18 Wilson % (Auto) 11 Eos % (Auto) 1 Baso % (Auto) 0 Neut # (Auto) 10.5 H Lymph # (Auto) 2.8 Wilson # (Auto) 1.7 H Eos # (Auto) 0.2 Baso # (Auto) 0.0 Immature Gran # (Auto) 0.48 H Absolute Nucleated RBC 0.03 H Immature Gran % 3 H Nucleated RBC % 0 Puncture Site Right Brachial ABG pH 7.37 ABG pCO2 32 ABG pO2 72 L ABG HCO3 18 L ABG O2 Saturation 96 ABG Base Excess -6 L Oxygen Liter Flow FiO2 92 Sodium 135 L 135 L Potassium 3.9 3.8 Chloride 99 100 Carbon Dioxide 18.2 L 18.8 L Anion Gap 18 H 16 BUN 12 13 Creatinine 1.1 1.2 Estim Creat Clear Calc 68.7 62.9 eGFR 58 L 52 L BUN/Creatinine Ratio 11 L 11 L Glucose 243 H 233 H Calculated Osmolality 277 277 Lactic Acid 1.1 Calcium 9.5 9.7 Corrected Calcium 10.1 10.3 H Phosphorus 3.3 3.1 Magnesium Total Bilirubin 0.8 AST 31 ALT 27 Alkaline Phosphatase 201 H D Ammonia < 10 L Total Protein 5.8 Albumin 3.2 L 3.2 L Globulin 2.6 Albumin/Globulin Ratio 1.2 Beta-Hydroxybutyrate/Acetoacetate Free T4 1.15 Vancomycin Trough 09/21/24 13:15 WBC RBC Hgb Hct MCV MCH MCHC RDW Std Deviation Plt Count Neut % (Auto) Lymph % (Auto) Wilson % (Auto) Eos % (Auto) Baso % (Auto) Neut # (Auto) Lymph # (Auto) Wilson # (Auto) Eos # (Auto) Baso # (Auto) Immature Gran # (Auto) Absolute Nucleated RBC Immature Gran % Nucleated RBC % Puncture Site Left Brachial ABG pH 7.37 ABG pCO2 31 L ABG pO2 89 ABG HCO3 18 L ABG O2 Saturation 95 ABG Base Excess -6 L Oxygen Liter Flow 3 FiO2 Sodium Potassium Chloride Carbon Dioxide Anion Gap BUN Creatinine Estim Creat Clear Calc eGFR BUN/Creatinine Ratio Glucose Calculated Osmolality Lactic Acid Calcium Corrected Calcium Phosphorus Magnesium Total Bilirubin AST ALT Alkaline Phosphatase Ammonia Total Protein Albumin Globulin Albumin/Globulin Ratio Beta-Hydroxybutyrate/Acetoacetate Free T4 Vancomycin Trough ABG Interpretation ABG results: 09/17/24 09/21/24 09/21/24 19:57 11:23 13:15 ABG pH 7.33 L 7.37 7.37 ABG pCO2 46 32 31 L ABG pO2 87 72 L 89 ABG HCO3 24 18 L 18 L ABG O2 Saturation 98 96 95 ABG Base Excess -2 -6 L -6 L Quality Measures Quality Measures none Assessment & Plan Assessment Current Active Medications: Generic Name Dose Route Start Last Admin Trade Name Freq PRN Reason Stop Dose Admin Acetaminophen 650 mg 09/17/24 13:44 09/20/24 16:20 Acetaminophen 325 Mg Tablet PO 10/17/24 13:43 650 mg Q6H PRN Administration Fever >100.4 or Pain 1-3 Atorvastatin Calcium 40 mg 09/17/24 21:00 09/20/24 20:37 Atorvastatin Calcium 20 Mg Tablet PO 10/17/24 20:59 40 mg HS SHUBHAM Administration Dextrose 25 ml 09/17/24 18:07 Dextrose 50%-Water Inj 50 Ml Syringe IV 10/17/24 18:06 Q15MIN PRN BG 50-70 responsive npo pt Dextrose 50 ml 09/17/24 18:07 Dextrose 50%-Water Inj 50 Ml Syringe IV 10/17/24 18:06 Q15MIN PRN BG <50 OR BG <70 & pt unresponsive Glucagon 1 mg 09/17/24 18:07 Glucagon Inj 1 Mg Vial IM Q15MIN PRN BG <70, and no IV access Heparin Sodium (Porcine) 5,000 unit 09/21/24 22:00 Heparin Sod Inj 5000 Unit/Ml Vial SC 10/05/24 21:59 Q8HR SHUBHAM Sodium Chloride 1,000 mls @ 100 mls/hr 09/18/24 10:14 09/20/24 21:25 Ns IV 10/18/24 10:13 100 mls/hr .Q10H SHUBHAM Administration Vancomycin/Sodium Chloride 200 mls @ 120 mls/hr 09/21/24 10:00 09/21/24 10:17 Vancomycin/Ns 1 Gm Ivpb IV 09/28/24 09:59 120 mls/hr Q12H SHUBHAM Administration Protocol Ceftriaxone Sodium/Dextrose 2 gm in 50 mls @ 100 mls/hr 09/21/24 14:10 Rocephin/D5w 2gm IV 09/28/24 14:09 QDAY SHUBHAM Insulin Glargine 40 unit 09/21/24 09:00 09/21/24 08:35 Insulin Glargine (Lantus) 5 Unit/0.05 Ml (Per 5 Units) SC 10/21/24 08:59 40 unit BID SHUBHAM Administration Insulin Human Lispro 10 unit 09/20/24 12:00 09/21/24 11:47 Insulin Lispro (Admelog) 1 Unit/0.01 Ml Unit SC 10/20/24 11:59 Not Given TIDWM SHUBHAM Insulin Human Lispro 0 unit 09/21/24 12:00 09/21/24 12:02 Insulin Lispro (Admelog) 1 Unit/0.01 Ml Unit SC 10/21/24 11:59 3 unit Q6HR SHUBHAM Administration Protocol Losartan Potassium 50 mg 09/18/24 21:00 09/21/24 08:29 Losartan Potassium 25 Mg Tablet PO 10/18/24 20:59 50 mg BID SHUBHAM Administration Ondansetron HCl 4 mg 09/17/24 13:44 Ondansetron Inj 2 Mg/Ml Inj 2 Ml IVP 10/17/24 13:43 Q6H PRN NAUSEA OR VOMITING Protocol Pharmacy Consult 1 each 09/17/24 15:45 Vancomycin Pharmacy To Dose 1 Each Each IV 10/17/24 15:44 QDAY PRN PROTOCOL Sennosides 1 tab 09/18/24 09:00 09/21/24 08:29 Senna Tablet PO 10/18/24 08:59 1 tab QDAY SHUBHAM Administration Protocol Sodium Chloride 1 spray 09/19/24 18:34 Saline Nasal 45 Ml Btl NASAL 10/19/24 18:33 PRN PRN CONGESTION Plan Patient is a 59-year-old female with past medical history significant for bilateral toe amputation, hypertension, hyperlipidemia, ESBL UTI, type 2 diabetes, metabolic syndrome, hypothyroidism, peripheral neuropathy, morbid obesity who presented to the ED with MRSA bacteremia and admitted to telemetry for further management of MRSA bacteremia. #Acute encephalopathy Ddx: Likely metabolic in setting of hyperglycemia, bacteremia, septic emboli, medication induced CT head negative for any acute changes. Ammonia level less than 10 - Continue neurochecks every 4 hours -monitor symptoms -repeat CT head, CXR, xray foot pending -CBC, CMP, glucose control -Neurology consulted, appreciate recs #HAGMA Bicarb 19, AG 17, delta gap 1. Possibly due to DKA, elevated LA worsening bacteremia. -BHB elevated 4.0 -Lactic acid normal -escalate antibiotics #MRSA bacteremia #Left gangrenous second toe s/p amputation day 3 Patient received a call from ED about her blood cultures being positive for MRSA. Unsure when patient presented with gangrenous second toe wound as patient has been difficult to obtain complete history. Patient has a history of bilateral toe amputations. Patient also has a history of uncontrolled diabetes currently on Lantus and Ozempic. Blood sugar today was 300+. Pro-Rustam elevated at 7.85. Patient presented with 87% oxygen saturation on room air. Patient now placed on 2 L nasal cannula saturating well above 98%. Lactic acid initially peaked, down trended now within normal limits. Patient received 3 L bolus. Echo was negative for valve vegetations, EF 60-65%. -continue IV vancomycin, which is sensitive on antibiogram -start IV ceftriaxone for added coverage (09/21- - Consulted surgery, appreciate recommendations--completed Amputation of the second toe on 09/18/24 - Repeat blood cultures pending - Continue maintenance IV fluids -ADRIÁN deferred -wound care sonsulted #Type 2 diabetes, poorly controlled #Peripheral neuropathy A1c this admission 10.9. Patient presented with a blood sugar of 300+. Patient also has a history of bilateral toe amputations most likely in setting of uncontrolled diabetes - ISS - Hypoglycemic protocol in place - increased Lantus insulin to 40 units BID -lispro 10 TID - ACHS checks #Hyperlipidemia Will resume patient's home atorvastatin #Hypertension Patient takes losartan 50 mg p.o. twice daily -resume #Hypothyroidism -TSH was 5.84, follow-up outpatient with PCP #Acute hypoxic respiratory failure-resolved # Sepsis secondary to left gangrenous second toe-resolved #ALLA-resolved Health Maintenance: DVT prophylaxis: Heparin subcu Diet: Cardiac CODE STATUS: Full code Disposition: Patient admitted to telemetry for the management of MRSA bacteremia. IV vancomycin and starte IV ceftriaxone. Patient's plan and care discussed with my attending, Dr. Colton Blue, PGY1
[2024-09-21 15:10] LABS: C-Reactive Protein 39.2 mg/dL (0.0-0.9); Procalcitonin 1.54 ng/ml (0.0-0.49)
[2024-09-21 15:16] LABS: Sed Rate (ESR) 121 mm/hr (0-30)
[2024-09-21] MEDS: SODIUM CHLORIDE 0.9% 1000 ML 1,000 ML 100 ML IV (15:24)
--- NOTE | 2024-09-21 16:10 | PD.RESCONSUL ---
HPI Data of Consult Requesting Physician: Rashi Segura MD Admitting Provider: Rashi Segura MD Attending Provider: Rashi Segura MD Primary Care Provider: ZOË Muñoz Consult Narrative History of present illness: CC: altered mental status, Blood Cultures MRSA bacteremia from ER Patient is a 59-year-old female with past medical history Hypertension, Hyperlipidemia, Diabetes Mellitus type 2 insulin dependent, ESBL UTI, hypothyroidism, bilateral toe amputation, metabolic syndrome, peripheral neuropathy, morbid obesity who was admitted on 09/17/2024 after positive blood cultures collected by ER on (09/14/2024) positive for MRSA (sensitive for Vancomycin). During this admission s/p second toe left foot amputation. Wound culture MRSA (09/18/2024). Urine culture on 09/17/2024 No growth. Blood cutlures positive on 09/14/2024, 09/17/2024, 09/19/2024 ([facility]), 09/20/2024 ([facility]), and repeat 09/21/2024 Cardiology consulted for ADRIÁN given MRSA bacteremia, prior to procedure patient experienced rapid response secondary to acute altered mental status and dyspnea. 09/21/2024: Limited history as patient is alert but not orientated. NO ADRIÁN planned given altered mental status. Infectious disease, Dr. Olguin, following. PMH: Hypertension Hyperlipidemia Diabetes Mellitus type 2 insulin dependent ESBL UTI, hypothyroidism bilateral toe amputation metabolic syndrome peripheral neuropathy Past Surgical History: s/p second left foot digit amputation (09/18/2024) s/p bilateral toe amputation Past Family History: Altered, patient unable to provided information Home Medication: Atorvastatin 40 mg HS Glargine 50 units BIDWM Regular 40 units TID Glipizide 10 mg PO Qday Levothyroxine 50 mcg Lisinopril 2.5 mg PO Qday Metformin 1000 mg BID Omeprazole 20 mg PO Qday Montelukast 10 mg Qday Cefdinir 300 mg PO BID Gabapentin 600 mg TID Social History: None Allergies: None Code Status: Full Code cc:: cc: Rashi Segura MD Review of Systems Review of Systems Narrative Review of Systems: ALTERED General appearance: NO weight change, NO fatigue, NO weakness, NO fever, NO chills, NO night sweats, No cough Skin: NO rash, NO itching, NO sores, NO moles HEENT: NO Trauma, NO nausea, NO vomiting, NO visual changes, NO blurry vision, NO double vision, NO tinnitus, NO vertigo, NO ear discharge, NO rhinorrhea, NO stuffiness, NO sneezing, NO allergy, NO epistaxis. NO Hoarseness, NO sore throat, NO swollen neck. Cardiac: NO Palpitations, NO dyspnea on exertion, NO orthopnea, NO paroxysmal nocturnal dyspnea, NO edema Respiratory: NO Shortness of Breath, NO Wheezing, NO Cough, NO Sputum, NO hemoptysis GI:NO appetite, NO nausea, NO vomiting, NO dysphagia, NO changes in bowel frequency, NO stool color, NO diarrhea, NO constipation, NO hemetemesis, NO hemorrhoids, NO melena, NO hematechezia, NO abdominal pain, NO jaundice Renal: NO frequency, NO hesitancy, NO urgency, NO hematuria, NO nocturia, NO incontinence MSK: NO muscle weakness, NO gout, NO arthritis, NO muscle stiffness Neuro: NO headaches, NO tremors, NO weakness, NO paralysis, NO seizures, NO loss of consciousness, NO numbness. Hem: NO anemia, NO easy bruising/bleeding, NO petechiae, NO purpura Endo: NO heat/cold intolerance, NO excessive sweating, NO polyuria, NO polydipsia, NO polyphagia, NO thyroid problems, NO diabetes Pysch: NO mood, NO anxiety, NO depression Exam Vital Signs Temp Pulse Resp BP Pulse Ox O2 Del Method O2 Flow Rate 98.3 F 108 H 23 H 114/82 98 Nasal Cannula 3 09/21/24 14:15 09/21/24 14:15 09/21/24 14:15 09/21/24 14:15 09/21/24 14:15 09/21/24 14:15 09/21/24 14:15 Narrative Exam General Appearance: Alert & Oriented X1, obese female who is lying in bed in difficult to arouse HEENT: Skull symmetrical and atraumatic. Conjunctivae pink and moist. Pupils equal, round, reactive to light and accommodation (PERRL). External ear without lesion or discharge. Straight, nares patient, mucosa pink, no discharge. Cardio: Normal Rate and Rhythm with S1 and S2 heart sounds. No murmurs appreciated but difficult to determine given body habitus. No bruits on carotid auscultation. No peripheral edema or cyanosis. Lungs: Symmetric with good expansion. Chest and back non-tender. Breath sounds vesicular without crackles, wheezing or rhonchi Abdomen: Non-tender, Non-distended, Normal Reactive Bowel Sounds Neuro: Yes Alert, Yes cooperative, Yes oriented to person, NO place, and NO time. Speech clear. CN grossly intact. Upper motor strength 5/5 and Lower motor strength 5/5. Sensation intact. Results Labs 09/21/24 13:05 09/21/24 13:05 Labs: Short CBC 09/21/24 09/21/24 Range/Units 04:38 13:05 WBC 15.3 H 15.7 H (3.6-11.0) Thou/mm3 Hgb 10.2 L 9.8 L (12.0-16.0) g/dL Hct 31.2 L 29.9 L (36.0-46.0) % Plt Count 181 197 (140-440) Thou/mm3 BMP 09/21/24 09/21/24 09/21/24 04:38 11:08 13:05 Sodium 135 L 135 L 135 L Potassium 3.7 D 3.9 3.8 Chloride 99 99 100 Carbon Dioxide 19.0 L 18.2 L 18.8 L BUN 11 12 13 Creatinine 1.1 1.1 1.2 Glucose 246 H 243 H 233 H Calcium 10.1 9.5 9.7 Liver Function 09/21/24 09/21/24 09/21/24 Range/Units 04:38 11:08 13:05 Total Bilirubin 0.7 0.8 (0.3-1.2) mg/dL AST 37 H 31 (0-34) U/L ALT 33 27 (10-49) U/L Alkaline Phosphatase 227 H D 201 H D (46-116) U/L Albumin 3.5 3.2 L 3.2 L (3.5-5.0) gm/dL ABG Interpretation ABG results: 09/17/24 09/21/24 09/21/24 19:57 11:23 13:15 ABG pH 7.33 L 7.37 7.37 ABG pCO2 46 32 31 L ABG pO2 87 72 L 89 ABG HCO3 24 18 L 18 L ABG O2 Saturation 98 96 95 ABG Base Excess -2 -6 L -6 L Quality Measures Quality Measures none Medications Home Medications and Allergies Home Medications ?Medication ?Instructions ?Recorded ?Confirmed ?Type atorvastatin 40 mg tablet 40 mg PO QDAY 09/08/22 09/18/24 History blood pressure test kit-large 09/08/22 09/18/24 History insulin glargine 100 unit/mL (3 50 unit subcut BIDWM 09/08/22 09/18/24 History mL) subcutaneous pen (Basaglar KwikPen U-100 Insulin) insulin regular human 100 unit/mL 40 unit subcut TID 09/08/22 09/18/24 History (3 mL) subcutaneous pen (Novolin R FlexPen) lancets 33 gauge (TRUEplus Lancets) 09/08/22 09/18/24 History metformin 1,000 mg tablet 1,000 mg PO BID 09/08/22 09/18/24 History Held on 09/11/22. Instructions: Reconcile with Nephrology and PCP once Renal Function improves or new baseline is established omeprazole 20 mg capsule,delayed 20 mg PO QDAY 09/08/22 09/18/24 History release pen needle, diabetic 31 gauge x 09/08/22 09/18/24 History 3/16 (BD Ultra-Fine Mini Pen Needle) pen needle, diabetic 32 gauge x 09/08/22 09/18/24 History 5/32 (BD Ultra-Fine Kalee Pen Needle) semaglutide 2 mg/dose (8 mg/3 mL) 2 mg subcut QWEEK 09/08/22 09/18/24 History subcutaneous pen injector (Ozempic) gabapentin 300 mg capsule 600 mg PO TID 09/18/24 09/18/24 History glipizide 10 mg tablet 10 mg PO QDAY 09/18/24 09/18/24 History levothyroxine 50 mcg tablet 50 mcg PO QDAY 09/18/24 09/18/24 History (Euthyrox) lisinopril 2.5 mg tablet 2.5 mg PO QDAY 09/18/24 09/18/24 History montelukast 10 mg tablet 10 mg PO QDAY 09/18/24 09/18/24 History Allergies Allergy/AdvReac Type Severity Reaction Status Date / Time No Known Allergies Allergy Verified 09/17/24 09:05 Visit Medications Acetaminophen (Acetaminophen 325 Mg Tablet) 650 mg PO Q6H PRN PRN Reason: Fever >100.4 or Pain 1-3 Stop: 10/17/24 13:43 Last Admin: 09/20/24 16:20 Dose: 650 mg Atorvastatin Calcium (Atorvastatin Calcium 20 Mg Tablet) 40 mg PO HS [facility] Stop: 10/17/24 20:59 Last Admin: 09/20/24 20:37 Dose: 40 mg Dextrose (Dextrose 50%-Water Inj 50 Ml Syringe) 25 ml IV Q15MIN PRN PRN Reason: BG 50-70 responsive npo pt Stop: 10/17/24 18:06 Dextrose (Dextrose 50%-Water Inj 50 Ml Syringe) 50 ml IV Q15MIN PRN PRN Reason: BG <50 OR BG <70 & pt unresponsive Stop: 10/17/24 18:06 Glucagon (Glucagon Inj 1 Mg Vial) 1 mg IM Q15MIN PRN PRN Reason: BG <70, and no IV access Heparin Sodium (Porcine) (Heparin Sod Inj 5000 Unit/Ml Vial) 5,000 unit SC Q8HR [facility] Stop: 10/05/24 21:59 Sodium Chloride (Ns) 1,000 mls @ 100 mls/hr IV .Q10H [facility] Stop: 10/18/24 10:13 Last Admin: 09/21/24 15:24 Dose: 100 mls/hr Vancomycin/Sodium Chloride (Vancomycin/Ns 1 Gm Ivpb) 200 mls @ 120 mls/hr IV Q12H [facility]; Protocol Stop: 09/28/24 09:59 Last Admin: 09/21/24 10:17 Dose: 120 mls/hr Insulin Glargine (Insulin Glargine (Lantus) 5 Unit/0.05 Ml (Per 5 Units)) 40 unit SC BID [facility] Stop: 10/21/24 08:59 Last Admin: 09/21/24 08:35 Dose: 40 unit Insulin Human Lispro (Insulin Lispro (Admelog) 1 Unit/0.01 Ml Unit) 10 unit SC TIDWM [facility] Stop: 10/20/24 11:59 Last Admin: 09/21/24 11:47 Dose: Not Given Insulin Human Lispro (Insulin Lispro (Admelog) 1 Unit/0.01 Ml Unit) 0 unit SC Q6HR [facility]; Protocol Stop: 10/21/24 11:59 Last Admin: 09/21/24 12:02 Dose: 3 unit Losartan Potassium (Losartan Potassium 25 Mg Tablet) 50 mg PO BID [facility] Stop: 10/18/24 20:59 Last Admin: 09/21/24 08:29 Dose: 50 mg Ondansetron HCl (Ondansetron Inj 2 Mg/Ml Inj 2 Ml) 4 mg IVP Q6H PRN; Protocol PRN Reason: NAUSEA OR VOMITING Stop: 10/17/24 13:43 Pharmacy Consult (Vancomycin Pharmacy To Dose 1 Each Each) 1 each IV QDAY PRN PRN Reason: PROTOCOL Stop: 10/17/24 15:44 Sennosides (Senna Tablet) 1 tab PO QDAY [facility]; Protocol Stop: 10/18/24 08:59 Last Admin: 09/21/24 08:29 Dose: 1 tab Sodium Chloride (Saline Nasal 45 Ml Btl) 1 spray NASAL PRN PRN PRN Reason: CONGESTION Stop: 10/19/24 18:33 Discontinued Medications Hydrocodone Bitart/Acetaminophen (Hydrocodone/Apap 5/325 Tablet) 1 tab PO Q6HR PRN PRN Reason: Pain 4-6 Stop: 09/22/24 18:20 Last Admin: 09/20/24 03:41 Dose: 1 tab Hydrocodone Bitart/Acetaminophen (Hydrocodone/Apap 5/325 Tablet) 1 tab PO Q6HR PRN PRN Reason: Pain 6-10 Stop: 09/22/24 18:20 Last Admin: 09/20/24 15:44 Dose: 1 tab Fentanyl Citrate (Fentanyl Cit Inj 50 Mcg/Ml Amp 2ml) 50 mcg IVP Q5MIN PRN PRN Reason: PAIN SCALE 4-10(Mod-Sev Stop: 09/18/24 17:02 Heparin Sodium (Porcine) (Heparin Sod Inj 5000 Unit/Ml Vial) 5,000 unit SC Q12HR [facility] Stop: 10/01/24 20:59 Last Admin: 09/21/24 08:33 Dose: 5,000 unit Piperacillin/Tazobactam/Dextrose (Zosyn) 3.375 gm in 50 mls @ 100 mls/hr IV X1 ONE Stop: 09/17/24 10:23 Last Infusion: 09/17/24 10:50 Dose: Infused Vancomycin/Sodium Chloride (Vancomycin/Ns 1 Gm Ivpb) 200 mls @ 120 mls/hr IV X1 ONE Stop: 09/17/24 11:39 Last Infusion: 09/17/24 12:58 Dose: Infused Sodium Chloride (Ns) 1,000 mls @ 999 mls/hr IV .Q1H1M ONE Stop: 09/17/24 11:01 Last Infusion: 09/17/24 11:14 Dose: Infused Lactated Ringer's (Lactated Ringers) 1,000 mls @ 100 mls/hr IV .Q10H [facility] Stop: 09/17/24 23:44 Last Admin: 09/17/24 14:13 Dose: 100 mls/hr Lactated Ringer's (Lactated Ringers) 1,000 mls @ 999 mls/hr IV .Q1H1M ONE Stop: 09/17/24 14:59 Last Infusion: 09/17/24 16:00 Dose: Infused Lactated Ringer's (Lactated Ringers) 1,000 mls @ 999 mls/hr IV .Q1H1M ONE Stop: 09/17/24 16:35 Last Infusion: 09/17/24 17:47 Dose: Infused Vancomycin/Sodium Chloride (Vancomycin/Ns 1 Gm Ivpb) 200 mls @ 120 mls/hr IV X1 ONE Stop: 09/17/24 17:24 Last Infusion: 09/17/24 18:05 Dose: Infused Vancomycin/Sodium Chloride (Vancomycin/Ns 1 Gm Ivpb) 200 mls @ 120 mls/hr IV Q12H [facility]; Protocol Stop: 09/25/24 09:59 Last Admin: 09/19/24 11:28 Dose: Not Given Acetaminophen (Ofirmev Inj) 1,000 mg in 100 mls @ 250 mls/hr IV X1 ONE Stop: 09/18/24 22:17 Last Admin: 09/18/24 22:08 Dose: 250 mls/hr Magnesium Sulfate (Magnesium Sulfate Ivpb) 4 gm in 50 mls @ 12.5 mls/hr IV X1 ONE Stop: 09/19/24 12:36 Last Admin: 09/19/24 09:26 Dose: 12.5 mls/hr Sodium Chloride (Ns) 500 mls @ 999 mls/hr IV .Q31M ONE Stop: 09/19/24 09:08 Last Admin: 09/19/24 09:26 Dose: 999 mls/hr Vancomycin HCl/Dextrose (Vancomycin/D5w 1,250 Mg Ivpb) 250 mls @ 120 mls/hr IV QDAY@1000,2200 [facility]; Protocol Stop: 09/26/24 11:14 Last Admin: 09/19/24 21:55 Dose: 120 mls/hr Vancomycin HCl (Vancomycin/Water 1250 Mg Ivpb) 250 mls @ 120 mls/hr IV Q12H [facility]; Protocol Stop: 09/27/24 09:59 Last Admin: 09/20/24 22:05 Dose: Not Given Magnesium Sulfate (Magnesium Sulfate Ivpb) 4 gm in 50 mls @ 12.5 mls/hr IV X1 ONE Stop: 09/20/24 19:19 Last Admin: 09/20/24 15:44 Dose: 12.5 mls/hr Lactated Ringer's (Lactated Ringers) 500 mls @ 999 mls/hr IV .Q31M ONE Stop: 09/21/24 10:03 Last Admin: 09/21/24 10:27 Dose: Not Given Lactated Ringer's (Lactated Ringers) 500 mls @ 999 mls/hr IV .Q31M ONE Stop: 09/21/24 11:00 Last Admin: 09/21/24 10:22 Dose: 999 mls/hr Lactated Ringer's (Lactated Ringers) 1,000 mls @ 999 mls/hr IV .Q1H1M ONE Stop: 09/21/24 14:13 Last Admin: 09/21/24 13:29 Dose: 999 mls/hr Ceftriaxone Sodium/Dextrose (Rocephin/D5w 2gm) 2 gm in 50 mls @ 100 mls/hr IV QDAY [facility] Stop: 09/28/24 14:09 Insulin Glargine (Insulin Glargine (Lantus) 5 Unit/0.05 Ml (Per 5 Units)) 25 unit SC BID [facility] Stop: 10/17/24 20:59 Last Admin: 09/19/24 07:49 Dose: 25 unit Insulin Glargine (Insulin Glargine (Lantus) 5 Unit/0.05 Ml (Per 5 Units)) 30 unit SC BID [facility] Stop: 10/19/24 08:59 Last Admin: 09/19/24 20:30 Dose: 30 unit Insulin Glargine (Insulin Glargine (Lantus) 5 Unit/0.05 Ml (Per 5 Units)) 5 unit SC X1 ONE Stop: 09/19/24 09:05 Last Admin: 09/19/24 09:25 Dose: 5 unit Insulin Glargine (Insulin Glargine (Lantus) 5 Unit/0.05 Ml (Per 5 Units)) 35 unit SC BID [facility] Stop: 10/20/24 08:59 Last Admin: 09/20/24 20:34 Dose: 35 unit Insulin Human Lispro (Insulin Lispro (Admelog) 1 Unit/0.01 Ml Unit) 0 unit SC ACHS [facility]; Protocol Stop: 10/17/24 20:59 Last Admin: 09/21/24 11:47 Dose: Not Given Insulin Human Lispro (Insulin Lispro (Admelog) 1 Unit/0.01 Ml Unit) 6 unit SC TIDWM [facility] Stop: 10/18/24 07:59 Last Admin: 09/19/24 07:50 Dose: 6 unit Insulin Human Lispro (Insulin Lispro (Admelog) 1 Unit/0.01 Ml Unit) 9 unit SC TIDWM [facility] Stop: 10/19/24 11:59 Last Admin: 09/19/24 16:59 Dose: 9 unit Insulin Human Lispro (Insulin Lispro (Admelog) 1 Unit/0.01 Ml Unit) 10 unit SC X1 ONE Stop: 09/21/24 13:13 Insulin Human Regular (Insulin Hum Regular 1 Unit/0.01 Ml (Per Unit)) 5 unit SC X1 ONE Stop: 09/18/24 13:42 Last Admin: 09/18/24 13:47 Dose: 5 unit Insulin Human Regular (Insulin Hum Regular 1 Unit/0.01 Ml (Per Unit)) 10 unit SC X1 ONE Stop: 09/21/24 13:13 Last Admin: 09/21/24 13:29 Dose: 10 unit Labetalol HCl (Labetalol Inj 5 Mg/Ml Vial 20 Ml) 10 mg IVP X1 ONE Stop: 09/21/24 01:18 Last Admin: 09/21/24 01:39 Dose: 10 mg Metoprolol Tartrate (Metoprolol Tartrate Inj 1 Mg/Ml Amp 5 Ml) 1 mg IVP Q5MIN PRN PRN Reason: TACHYCARDIA Stop: 09/18/24 17:03 Morphine Sulfate (Morphine Sulf Inj 10 Mg/Ml Vial) 1 mg IVP Q4HR PRN PRN Reason: Pain 7-10 Stop: 09/22/24 18:20 Last Admin: 09/18/24 11:53 Dose: 1 mg Morphine Sulfate (Morphine Sulf Inj 10 Mg/Ml Vial) 1 mg IVP Q4HR PRN PRN Reason: BREAKTHROUGH PAIN (SEVERE) Stop: 09/22/24 18:20 Potassium Chloride (Potassium Chloride 20 Meq Tabcr) 40 meq PO X1 ONE Stop: 09/20/24 08:15 Last Admin: 09/20/24 09:51 Dose: 40 meq Potassium Chloride (Potassium Chloride 20 Meq Tabcr) 20 meq PO X1 ONE Stop: 09/21/24 08:30 Last Admin: 09/21/24 08:42 Dose: 20 meq Assessment & Plan Plan Patient is a 59-year-old female with past medical history Hypertension, Hyperlipidemia, Diabetes Mellitus type 2 insulin dependent, ESBL UTI, hypothyroidism, bilateral toe amputation, metabolic syndrome, peripheral neuropathy, morbid obesity who was admitted on 09/17/2024 for MRSA bacteremia, now s/p second digit left foot amputation. Cardiology consulted for ADRIÁN given MRSA bacteremia, rule out endocarditits. #MRSA bacteremia #Left gangrenous second digit s/p amputation (09/18/2024) day 3 Cardiology consulted for ADRIÁN to rule out endocarditis as repeat blood cultures positive for MRSA bacteremia. Wound culture s/p amputation of left second digit positive for MRSA. Echo (09/21/2024): No evidence of any clear valvular vegetations. TTE suboptimal and consider ADRIÁN if high clinical index of suspicion. Normal LV size and function with an estimated EF of 60-65%. Normal diastolic function. Normal RV size and function. Trace TR. RVSP could not be underestimated accurately.Mild aortic valve sclerosis without stenosis and mildly calcified mitral valve with trace MR.No pericardial effusion. Pro-Rustam elevated at 7.85 Blood cultures positive on 09/14/2024, 09/17/2024, 09/19/2024 ([facility]), 09/20/2024 ([facility]), and repeat 09/21/2024 Plan: -[id number] altered mental status -Pending Cultures -Ceftaroline 600 mg (09/21/2024--) -Daptomycin 500 mg IV (09/21/2024--) -Ceftriazone (09/21/2024/STOPPED) & Vancomycin (09/17/2024-09/21/2024) #Acute encephalopathy Ddx: Likely metabolic in setting of hyperglycemia VS bacteremia vs septic emboli CT head negative for any acute changes. Ammonia level less than 10 Plan - Continue neurochecks every 4 hours -repeat CT head, CXR, xray foot pending -Neurology consulted, appreciate recs #Metabolic Acidosis, anion gap Bicarb 19, AG 17, delta gap 1. DKA and worsened by bacteremia. -BHB elevated 4.0, Lactic Acid 1.1 Plan -Treat DKA -Monitor renal panel -Repeat BHB #Diabetes Type 2, insulin dependent A1c this admission 10.9 with glucose of 325. Patient also has a history of bilateral toe amputations likely secondary to uncontrolled hyperglycemia. Home medicaiton: Glargine 50 units BIDWM, Regular insulin 40 units TID, glipizide, and Metformin 1000 mg BID. Plan: - ISS - Lantus insulin to 40 units BID -lispro 10 TID - Hypoglycemic protocol in place - ACHS checks #Hyperlipidemia Past medical history of hyperlipidemia. Previous Lipid Panel (09/07/2022): Triglycerides 130, Cholesterol 72, LDL 14, HDL 32 Plan -Atorvastatin 40 mg PO HS #Hypertension Patient takes losartan 50 mg p.o. twice daily Plan -Consider holding Losartan given soft blood pressure and concern for shock. #Hypothyroidism -TSH was 5.84 on admission, home dose Levothyroxine 50 mcg PO Qday #History of Peripheral Neuropathy -given altered mental status hold gabepentin 600 mg PO TID (home medication) #Acute hypoxic respiratory failure-resolved #Sepsis secondary to left gangrenous second toe-resolved #ALLA-resolved Additional Plan: Patient denies any kind of swallowing problems or any kind of esophageal interventions or previous surgeries. Patient denies any kind of gastric ulcers bleeding and any other hematemesis or hematochezia. Patient denies any issues with anesthesia previously. Patient explained all the risks, benefits and alternatives of ADRIÁN including the risk of perforation, bleeding, respiratory failure secondary to sedation, injury to teeth gums esophagus and stomach. Patient understands all risks and benefits and provided consent for the procedure. We will keep him n.p.o. overnight and plan for ADRIÁN in the morning. Health Maintenance: Disp: Pt is currently admitted to floors for further management of MRSA bacteremia, awaiting ADRIÁN FEN: NPO DVT: on subQ heparin q8hr GI: None Code: Full Code - The patient's plan was discussed with attending Dr. Charlene Malhotra MD PGY1 Internal Medicine
--- NOTE | 2024-09-21 17:00 | ESCONSULT_ITS ---
<Statement entered by Alex Olguin MD - 09/23/24 09:32> pt seen with resident. all findings confirmed. HPI Data of Consult Requesting Physician: Rashi Segura MD Admitting Provider: Rashi Segura MD Attending Provider: Rashi Segura MD Primary Care Provider: ZOË Muñoz Consult Narrative History of present illness: Patient is a 59-year-old female with past medical history significant for bilateral toe amputation, hypertension, hyperlipidemia, ESBL UTI, type 2 diabetes, metabolic syndrome, hypothyroidism, peripheral neuropathy, morbid obesity who presented to the ED with MRSA bacteremia. ID consulted for management of persistent MRSA bacteremia. Patient failed ADRIÁN today due to altered mentation and dyspnea prior to procedure. Patient assessed at bedside, continues to be somnolent and somewhat lethargic. Easily arousable but will quickly fall back asleep. cc:: cc: Rashi Segura MD Exam Vital Signs Temp Pulse Resp BP Pulse Ox O2 Del Method O2 Flow Rate 98.3 F 100 23 H 114/82 98 Nasal Cannula 3 09/21/24 14:15 09/21/24 16:00 09/21/24 14:15 09/21/24 14:15 09/21/24 14:15 09/21/24 14:15 09/21/24 14:15 Narrative Exam General: Middle age female, obese, somnolent, but easy to arouse but will fall back asleep. Cardiovascular: Regular rate and rhythm. Respiratory: Lungs are clear to auscultation bilaterally. No wheezing or crackles heard. Abdomen: Obese, soft, nontender, not distended, normal bowel sounds. Skin: Small dark scab left inner thigh, bruising along left arm Musculoskeletal: No gross injuries. Able to move all 4 extremities. No pitting edema, left toe amputated. Right foot bandaged. Neuro: Alert and oriented x2. Able to move upper extremities at will. Unable to fully assess as patient is somnolent. Results Labs 09/21/24 13:05 09/21/24 13:05 Labs: Short CBC 09/21/24 09/21/24 Range/Units 04:38 13:05 WBC 15.3 H 15.7 H (3.6-11.0) Thou/mm3 Hgb 10.2 L 9.8 L (12.0-16.0) g/dL Hct 31.2 L 29.9 L (36.0-46.0) % Plt Count 181 197 (140-440) Thou/mm3 BMP 09/21/24 09/21/24 09/21/24 04:38 11:08 13:05 Sodium 135 L 135 L 135 L Potassium 3.7 D 3.9 3.8 Chloride 99 99 100 Carbon Dioxide 19.0 L 18.2 L 18.8 L BUN 11 12 13 Creatinine 1.1 1.1 1.2 Glucose 246 H 243 H 233 H Calcium 10.1 9.5 9.7 Liver Function 09/21/24 09/21/24 09/21/24 Range/Units 04:38 11:08 13:05 Total Bilirubin 0.7 0.8 (0.3-1.2) mg/dL AST 37 H 31 (0-34) U/L ALT 33 27 (10-49) U/L Alkaline Phosphatase 227 H D 201 H D (46-116) U/L Albumin 3.5 3.2 L 3.2 L (3.5-5.0) gm/dL ABG Interpretation ABG results: 09/17/24 09/21/24 09/21/24 19:57 11:23 13:15 ABG pH 7.33 L 7.37 7.37 ABG pCO2 46 32 31 L ABG pO2 87 72 L 89 ABG HCO3 24 18 L 18 L ABG O2 Saturation 98 96 95 ABG Base Excess -2 -6 L -6 L Quality Measures Quality Measures none Medications Home Medications and Allergies Home Medications ?Medication ?Instructions ?Recorded ?Confirmed ?Type atorvastatin 40 mg tablet 40 mg PO QDAY 09/08/2209/18 History blood pressure test kit-large 09/08/22 09/18/24 Histo ry insulin glargine 100 unit/mL (3 50 unit subcut BIDWM 0 09/08/22 09/18/24 History mL) subcutaneous pen (Basaglar KwikPen U-100 Insulin) insulin regular human 100 unit/mL 40 unit subcut TID 0 09/08/22 09/18/24 History (3 mL) subcutaneous pen (Novolin R FlexPen) lancets 33 gauge (TRUEplus Lancets) 09/08/22 09/18/24 History metformin 1,000 mg tablet 1,000 mg PO BID 09/08/2205/14 History Held on 09/11/22. Instructions: Reconcile with Nephrology and PCP once Renal Function improves or new baseline is established omeprazole 20 mg capsule,delayed 20 mg PO QDAY 3 09/18/24 History release pen needle, diabetic 31 gauge x 09/08/22 09/18/24 His tory 3/16 (BD Ultra-Fine Mini Pen Needle) pen needle, diabetic 32 gauge x 09/08/22 09/18/24 His tory 5/32 (BD Ultra-Fine Kalee Pen Needle) semaglutide 2 mg/dose (8 mg/3 mL) 2 mg subcut QWEEK 09/18/24 History subcutaneous pen injector (Ozempic) gabapentin 300 mg capsule 600 mg PO TID 09/18/2409/18 History glipizide 10 mg tablet 10 mg PO QDAY 09/18/2409/18 History levothyroxine 50 mcg tablet 50 mcg PO QDAY 09/18/24 History (Euthyrox) lisinopril 2.5 mg tablet 2.5 mg PO QDAY 09/18/2405/14 History montelukast 10 mg tablet 10 mg PO QDAY 09/18/2409/18 History Allergies Allergy/AdvReac Type Severity Reaction Status Date / Time No Known Allergies Allergy Verified 09/17/24 09:05 Visit Medications Acetaminophen (Acetaminophen 325 Mg Tablet) 650 mg PO Q6H PRN PRN Reason: Fever >100.4 or Pain 1-3 Stop: 10/17/24 13:43 Last Admin: 09/20/24 16:20 Dose: 650 mg Atorvastatin Calcium (Atorvastatin Calcium 20 Mg Tablet) 40 mg PO HS [facility] Stop: 10/17/24 20:59 Last Admin: 09/20/24 20:37 Dose: 40 mg Dextrose (Dextrose 50%-Water Inj 50 Ml Syringe) 25 ml IV Q15MIN PRN PRN Reason: BG 50-70 responsive npo pt Stop: 10/17/24 18:06 Dextrose (Dextrose 50%-Water Inj 50 Ml Syringe) 50 ml IV Q15MIN PRN PRN Reason: BG <50 OR BG <70 & pt unresponsive Stop: 10/17/24 18:06 Glucagon (Glucagon Inj 1 Mg Vial) 1 mg IM Q15MIN PRN PRN Reason: BG <70, and no IV access Heparin Sodium (Porcine) (Heparin Sod Inj 5000 Unit/Ml Vial) 5,000 unit SC Q8HR [facility] Stop: 10/05/24 21:59 Sodium Chloride (Ns) 1,000 mls @ 100 mls/hr IV .Q10H [facility] Stop: 10/18/24 10:13 Last Admin: 09/21/24 15:24 Dose: 100 mls/hr Vancomycin/Sodium Chloride (Vancomycin/Ns 1 Gm Ivpb) 200 mls @ 120 mls/hr IV Q12H [facility]; Protocol Stop: 09/28/24 09:59 Last Admin: 09/21/24 10:17 Dose: 120 mls/hr Insulin Glargine (Insulin Glargine (Lantus) 5 Unit/0.05 Ml (Per 5 Units)) 40 unit SC BID [facility] Stop: 10/21/24 08:59 Last Admin: 09/21/24 08:35 Dose: 40 unit Insulin Human Lispro (Insulin Lispro (Admelog) 1 Unit/0.01 Ml Unit) 10 unit SC TIDWM [facility] Stop: 10/20/24 11:59 Last Admin: 09/21/24 11:47 Dose: Not Given Insulin Human Lispro (Insulin Lispro (Admelog) 1 Unit/0.01 Ml Unit) 0 unit SC Q6HR [facility]; Protocol Stop: 10/21/24 11:59 Last Admin: 09/21/24 12:02 Dose: 3 unit Losartan Potassium (Losartan Potassium 25 Mg Tablet) 50 mg PO BID [facility] Stop: 10/18/24 20:59 Last Admin: 09/21/24 08:29 Dose: 50 mg Ondansetron HCl (Ondansetron Inj 2 Mg/Ml Inj 2 Ml) 4 mg IVP Q6H PRN; Protocol PRN Reason: NAUSEA OR VOMITING Stop: 10/17/24 13:43 Pharmacy Consult (Vancomycin Pharmacy To Dose 1 Each Each) 1 each IV QDAY PRN PRN Reason: PROTOCOL Stop: 10/17/24 15:44 Sennosides (Senna Tablet) 1 tab PO QDAY [facility]; Protocol Stop: 10/18/24 08:59 Last Admin: 09/21/24 08:29 Dose: 1 tab Sodium Chloride (Saline Nasal 45 Ml Btl) 1 spray NASAL PRN PRN PRN Reason: CONGESTION Stop: 10/19/24 18:33 Discontinued Medications Hydrocodone Bitart/Acetaminophen (Hydrocodone/Apap 5/325 Tablet) 1 tab PO Q6HR PRN PRN Reason: Pain 4-6 Stop: 09/22/24 18:20 Last Admin: 09/20/24 03:41 Dose: 1 tab Hydrocodone Bitart/Acetaminophen (Hydrocodone/Apap 5/325 Tablet) 1 tab PO Q6HR PRN PRN Reason: Pain 6-10 Stop: 09/22/24 18:20 Last Admin: 09/20/24 15:44 Dose: 1 tab Fentanyl Citrate (Fentanyl Cit Inj 50 Mcg/Ml Amp 2ml) 50 mcg IVP Q5MIN PRN PRN Reason: PAIN SCALE 4-10(Mod-Sev Stop: 09/18/24 17:02 Heparin Sodium (Porcine) (Heparin Sod Inj 5000 Unit/Ml Vial) 5,000 unit SC Q12HR [facility] Stop: 10/01/24 20:59 Last Admin: 09/21/24 08:33 Dose: 5,000 unit Piperacillin/Tazobactam/Dextrose (Zosyn) 3.375 gm in 50 mls @ 100 mls/hr IV X1 ONE Stop: 09/17/24 10:23 Last Infusion: 09/17/24 10:50 Dose: Infused Vancomycin/Sodium Chloride (Vancomycin/Ns 1 Gm Ivpb) 200 mls @ 120 mls/hr IV X1 ONE Stop: 09/17/24 11:39 Last Infusion: 09/17/24 12:58 Dose: Infused Sodium Chloride (Ns) 1,000 mls @ 999 mls/hr IV .Q1H1M ONE Stop: 09/17/24 11:01 Last Infusion: 09/17/24 11:14 Dose: Infused Lactated Ringer's (Lactated Ringers) 1,000 mls @ 100 mls/hr IV .Q10H [facility] Stop: 09/17/24 23:44 Last Admin: 09/17/24 14:13 Dose: 100 mls/hr Lactated Ringer's (Lactated Ringers) 1,000 mls @ 999 mls/hr IV .Q1H1M ONE Stop: 09/17/24 14:59 Last Infusion: 09/17/24 16:00 Dose: Infused Lactated Ringer's (Lactated Ringers) 1,000 mls @ 999 mls/hr IV .Q1H1M ONE Stop: 09/17/24 16:35 Last Infusion: 09/17/24 17:47 Dose: Infused Vancomycin/Sodium Chloride (Vancomycin/Ns 1 Gm Ivpb) 200 mls @ 120 mls/hr IV X1 ONE Stop: 09/17/24 17:24 Last Infusion: 09/17/24 18:05 Dose: Infused Vancomycin/Sodium Chloride (Vancomycin/Ns 1 Gm Ivpb) 200 mls @ 120 mls/hr IV Q12H [facility]; Protocol Stop: 09/25/24 09:59 Last Admin: 09/19/24 11:28 Dose: Not Given Acetaminophen (Ofirmev Inj) 1,000 mg in 100 mls @ 250 mls/hr IV X1 ONE Stop: 09/18/24 22:17 Last Admin: 09/18/24 22:08 Dose: 250 mls/hr Magnesium Sulfate (Magnesium Sulfate Ivpb) 4 gm in 50 mls @ 12.5 mls/hr IV X1 ONE Stop: 09/19/24 12:36 Last Admin: 09/19/24 09:26 Dose: 12.5 mls/hr Sodium Chloride (Ns) 500 mls @ 999 mls/hr IV .Q31M ONE Stop: 09/19/24 09:08 Last Admin: 09/19/24 09:26 Dose: 999 mls/hr Vancomycin HCl/Dextrose (Vancomycin/D5w 1,250 Mg Ivpb) 250 mls @ 120 mls/hr IV QDAY@1000,2200 [facility]; Protocol Stop: 09/26/24 11:14 Last Admin: 09/19/24 21:55 Dose: 120 mls/hr Vancomycin HCl (Vancomycin/Water 1250 Mg Ivpb) 250 mls @ 120 mls/hr IV Q12H [facility]; Protocol Stop: 09/27/24 09:59 Last Admin: 09/20/24 22:05 Dose: Not Given Magnesium Sulfate (Magnesium Sulfate Ivpb) 4 gm in 50 mls @ 12.5 mls/hr IV X1 ONE Stop: 09/20/24 19:19 Last Admin: 09/20/24 15:44 Dose: 12.5 mls/hr Lactated Ringer's (Lactated Ringers) 500 mls @ 999 mls/hr IV .Q31M ONE Stop: 09/21/24 10:03 Last Admin: 09/21/24 10:27 Dose: Not Given Lactated Ringer's (Lactated Ringers) 500 mls @ 999 mls/hr IV .Q31M ONE Stop: 09/21/24 11:00 Last Admin: 09/21/24 10:22 Dose: 999 mls/hr Lactated Ringer's (Lactated Ringers) 1,000 mls @ 999 mls/hr IV .Q1H1M ONE Stop: 09/21/24 14:13 Last Admin: 09/21/24 13:29 Dose: 999 mls/hr Ceftriaxone Sodium/Dextrose (Rocephin/D5w 2gm) 2 gm in 50 mls @ 100 mls/hr IV QDAY [facility] Stop: 09/28/24 14:09 Insulin Glargine (Insulin Glargine (Lantus) 5 Unit/0.05 Ml (Per 5 Units)) 25 unit SC BID [facility] Stop: 10/17/24 20:59 Last Admin: 09/19/24 07:49 Dose: 25 unit Insulin Glargine (Insulin Glargine (Lantus) 5 Unit/0.05 Ml (Per 5 Units)) 30 unit SC BID [facility] Stop: 10/19/24 08:59 Last Admin: 09/19/24 20:30 Dose: 30 unit Insulin Glargine (Insulin Glargine (Lantus) 5 Unit/0.05 Ml (Per 5 Units)) 5 unit SC X1 ONE Stop: 09/19/24 09:05 Last Admin: 09/19/24 09:25 Dose: 5 unit Insulin Glargine (Insulin Glargine (Lantus) 5 Unit/0.05 Ml (Per 5 Units)) 35 unit SC BID [facility] Stop: 10/20/24 08:59 Last Admin: 09/20/24 20:34 Dose: 35 unit Insulin Human Lispro (Insulin Lispro (Admelog) 1 Unit/0.01 Ml Unit) 0 unit SC ACHS [facility]; Protocol Stop: 10/17/24 20:59 Last Admin: 09/21/24 11:47 Dose: Not Given Insulin Human Lispro (Insulin Lispro (Admelog) 1 Unit/0.01 Ml Unit) 6 unit SC TIDWM [facility] Stop: 10/18/24 07:59 Last Admin: 09/19/24 07:50 Dose: 6 unit Insulin Human Lispro (Insulin Lispro (Admelog) 1 Unit/0.01 Ml Unit) 9 unit SC TIDWM [facility] Stop: 10/19/24 11:59 Last Admin: 09/19/24 16:59 Dose: 9 unit Insulin Human Lispro (Insulin Lispro (Admelog) 1 Unit/0.01 Ml Unit) 10 unit SC X1 ONE Stop: 09/21/24 13:13 Insulin Human Regular (Insulin Hum Regular 1 Unit/0.01 Ml (Per Unit)) 5 unit SC X1 ONE Stop: 09/18/24 13:42 Last Admin: 09/18/24 13:47 Dose: 5 unit Insulin Human Regular (Insulin Hum Regular 1 Unit/0.01 Ml (Per Unit)) 10 unit SC X1 ONE Stop: 09/21/24 13:13 Last Admin: 09/21/24 13:29 Dose: 10 unit Labetalol HCl (Labetalol Inj 5 Mg/Ml Vial 20 Ml) 10 mg IVP X1 ONE Stop: 09/21/24 01:18 Last Admin: 09/21/24 01:39 Dose: 10 mg Metoprolol Tartrate (Metoprolol Tartrate Inj 1 Mg/Ml Amp 5 Ml) 1 mg IVP Q5MIN PRN PRN Reason: TACHYCARDIA Stop: 09/18/24 17:03 Morphine Sulfate (Morphine Sulf Inj 10 Mg/Ml Vial) 1 mg IVP Q4HR PRN PRN Reason: Pain 7-10 Stop: 09/22/24 18:20 Last Admin: 09/18/24 11:53 Dose: 1 mg Morphine Sulfate (Morphine Sulf Inj 10 Mg/Ml Vial) 1 mg IVP Q4HR PRN PRN Reason: BREAKTHROUGH PAIN (SEVERE) Stop: 09/22/24 18:20 Potassium Chloride (Potassium Chloride 20 Meq Tabcr) 40 meq PO X1 ONE Stop: 09/20/24 08:15 Last Admin: 09/20/24 09:51 Dose: 40 meq Potassium Chloride (Potassium Chloride 20 Meq Tabcr) 20 meq PO X1 ONE Stop: 09/21/24 08:30 Last Admin: 09/21/24 08:42 Dose: 20 meq Assessment & Plan Plan Patient is a 59-year-old female with past medical history significant for bilateral toe amputation, hypertension, hyperlipidemia, ESBL UTI, type 2 diabetes, metabolic syndrome, hypothyroidism, peripheral neuropathy, morbid obesity who presented to the ED with MRSA bacteremia. ID consulted for management of persistent MRSA bacteremia. #MRSA bacteremia Multiple blood cultures showing MRSA bacteremia Patient on IV antibiotic vancomycin Patient to continue on vancomycin unless kidney functions worsens. Ideally patient should obtain ADRIÁN as bacterial endocarditis treatment is different from bacteremia. If patient's kidneys worsen okay to switch over to daptomycin or ceftaroline. #Acute encephalopathy #HAGMA #Left gangrenous second toe s/p amputation day 3 #Type 2 diabetes, poorly controlled #Peripheral neuropathy #Hyperlipidemia #Hypertension #Hypothyroidism Continue management per primary team Case discussed with attending Dr Sharif Yates MD PGY3
--- NOTE | 2024-09-21 17:03 | ESPR_ITS ---
Subjective Subjective Interval history: pt seen. did not do a telemed visit. system added another note for me to sign. not a great historian . heavy set. bc from this am pending. bc pos from 09/17 09/19, 09/20, and 09/21. no obvious emboli. some missing toes noted. no other source. susan cancelled with dyspnea. hx from the record. even in [place]. can not get a good history. Exam Vital Signs Temp Pulse Resp BP Pulse Ox O2 Del Method O2 Flow Rate 98.3 F 100 23 H 114/82 98 Nasal Cannula 3 09/21/24 14:15 09/21/24 16:00 09/21/24 14:15 09/21/24 14:15 09/21/24 14:15 09/21/24 14:15 09/21/24 14:15 Narrative Exam L foot wrapped. edema noted. generalized. met acidosis noted. somnolent. Objective - Internal Medicine Labs 09/21/24 13:05 09/21/24 13:05 Labs: Laboratory Results - last 24 hr 09/20/24 09/21/24 09/21/24 21:20 04:38 09:46 WBC 15.3 H RBC 3.50 L Hgb 10.2 L Hct 31.2 L MCV 89 MCH 29.1 MCHC 32.7 RDW Std Deviation 51.1 H Plt Count 181 Neut % (Auto) 68 Lymph % (Auto) 18 [place] % (Auto) 11 Eos % (Auto) 1 Baso % (Auto) 0 Neut # (Auto) 10.4 H Lymph # (Auto) 2.7 [place] # (Auto) 1.6 H Eos # (Auto) 0.2 Baso # (Auto) 0.1 Immature Gran # (Auto) 0.36 H Absolute Nucleated RBC 0.03 H Immature Gran % 2 H Nucleated RBC % 0 ESR Puncture Site ABG pH ABG pCO2 ABG pO2 ABG HCO3 ABG O2 Saturation ABG Base Excess Oxygen Liter Flow FiO2 Sodium 135 L Potassium 3.7 D Chloride 99 Carbon Dioxide 19.0 L Anion Gap 17 H BUN 11 Creatinine 1.1 Estim Creat Clear Calc 68.7 eGFR 58 L BUN/Creatinine Ratio 10 L Glucose 246 H Calculated Osmolality 277 Lactic Acid 1.2 Calcium 10.1 Corrected Calcium 10.5 H Phosphorus Magnesium 1.8 Total Bilirubin 0.7 AST 37 H ALT 33 Alkaline Phosphatase 227 H D Ammonia C-Reactive Prot, Quant Total Protein 6.2 Albumin 3.5 Globulin 2.7 Albumin/Globulin Ratio 1.3 Beta-Hydroxybutyrate/Acetoacetate 4.0 H Procalcitonin Free T4 Vancomycin Trough 23.0 H* 09/21/24 09/21/24 09/21/24 11:08 11:23 13:05 WBC 15.7 H RBC 3.37 L Hgb 9.8 L Hct 29.9 L MCV 89 MCH 29.1 MCHC 32.8 RDW Std Deviation 50.7 H Plt Count 197 Neut % (Auto) 67 Lymph % (Auto) 18 [place] % (Auto) 11 Eos % (Auto) 1 Baso % (Auto) 0 Neut # (Auto) 10.5 H Lymph # (Auto) 2.8 [place] # (Auto) 1.7 H Eos # (Auto) 0.2 Baso # (Auto) 0.0 Immature Gran # (Auto) 0.48 H Absolute Nucleated RBC 0.03 H Immature Gran % 3 H Nucleated RBC % 0 ESR 121 H Puncture Site Right Brachial ABG pH 7.37 ABG pCO2 32 ABG pO2 72 L ABG HCO3 18 L ABG O2 Saturation 96 ABG Base Excess -6 L Oxygen Liter Flow FiO2 92 Sodium 135 L 135 L Potassium 3.9 3.8 Chloride 99 100 Carbon Dioxide 18.2 L 18.8 L Anion Gap 18 H 16 BUN 12 13 Creatinine 1.1 1.2 Estim Creat Clear Calc 68.7 62.9 eGFR 58 L 52 L BUN/Creatinine Ratio 11 L 11 L Glucose 243 H 233 H Calculated Osmolality 277 277 Lactic Acid 1.1 Calcium 9.5 9.7 Corrected Calcium 10.1 10.3 H Phosphorus 3.3 3.1 Magnesium Total Bilirubin 0.8 AST 31 ALT 27 Alkaline Phosphatase 201 H D Ammonia < 10 L C-Reactive Prot, Quant 39.2 H Total Protein 5.8 Albumin 3.2 L 3.2 L Globulin 2.6 Albumin/Globulin Ratio 1.2 Beta-Hydroxybutyrate/Acetoacetate Procalcitonin 1.54 H Free T4 1.15 Vancomycin Trough 09/21/24 13:15 WBC RBC Hgb Hct MCV MCH MCHC RDW Std Deviation Plt Count Neut % (Auto) Lymph % (Auto) [place] % (Auto) Eos % (Auto) Baso % (Auto) Neut # (Auto) Lymph # (Auto) [place] # (Auto) Eos # (Auto) Baso # (Auto) Immature Gran # (Auto) Absolute Nucleated RBC Immature Gran % Nucleated RBC % ESR Puncture Site Left Brachial ABG pH 7.37 ABG pCO2 31 L ABG pO2 89 ABG HCO3 18 L ABG O2 Saturation 95 ABG Base Excess -6 L Oxygen Liter Flow 3 FiO2 Sodium Potassium Chloride Carbon Dioxide Anion Gap BUN Creatinine Estim Creat Clear Calc eGFR BUN/Creatinine Ratio Glucose Calculated Osmolality Lactic Acid Calcium Corrected Calcium Phosphorus Magnesium Total Bilirubin AST ALT Alkaline Phosphatase Ammonia C-Reactive Prot, Quant Total Protein Albumin Globulin Albumin/Globulin Ratio Beta-Hydroxybutyrate/Acetoacetate Procalcitonin Free T4 Vancomycin Trough ABG Interpretation ABG results: 09/17/24 09/21/24 09/21/24 19:57 11:23 13:15 ABG pH 7.33 L 7.37 7.37 ABG pCO2 46 32 31 L ABG pO2 87 72 L 89 ABG HCO3 24 18 L 18 L ABG O2 Saturation 98 96 95 ABG Base Excess -2 -6 L -6 L Assessment & Plan A&P Narrative persistent bacteremia with presumptive mrsa from 09/19 and 09/20 and bc from 09/21 pending abscess L foot. drained. echo may be needed to help determine duration of rx, but with persistent bacteremia, if she improves and bc clear, we can treat her for be if bc do not clear, some would change to dapto and ceftaroline and if renal function becomes impaired, ok to move to dapto if germ is s I will check in on her on thursday regardless as we need a better hx if we can get it from her Time Spent With Patient Time: Total time spent is greater than 50% in coordination of care (as documented) at patient's floor/unit and/or counseling patient:
--- NOTE | 2024-09-21 17:03 | PD.VCONSULT1 ---
Telemedicine visit statement This visit was conducted with the use of interactive audio and video telecommunications system that permits real time communication between the patient and the provider. Patient's verbal consent for virtual visit was obtained on 09/21/24 at 1703. Meds Home Medications and Allergies Home Medications ?Medication ?Instructions ?Recorded ?Confirmed ?Type atorvastatin 40 mg tablet 40 mg PO QDAY 09/08/22 09/18/24 History blood pressure test kit-large 09/08/22 09/18/24 History insulin glargine 100 unit/mL (3 50 unit subcut BIDWM 09/08/22 09/18/24 History mL) subcutaneous pen (Basaglar KwikPen U-100 Insulin) insulin regular human 100 unit/mL 40 unit subcut TID 09/08/22 09/18/24 History (3 mL) subcutaneous pen (Novolin R FlexPen) lancets 33 gauge (TRUEplus Lancets) 09/08/22 09/18/24 History metformin 1,000 mg tablet 1,000 mg PO BID 09/08/22 09/18/24 History Held on 09/11/22. Instructions: Reconcile with Nephrology and PCP once Renal Function improves or new baseline is established omeprazole 20 mg capsule,delayed 20 mg PO QDAY 09/08/22 09/18/24 History release pen needle, diabetic 31 gauge x 09/08/22 09/18/24 History 3/16 (BD Ultra-Fine Mini Pen Needle) pen needle, diabetic 32 gauge x 09/08/22 09/18/24 History 5/32 (BD Ultra-Fine Kalee Pen Needle) semaglutide 2 mg/dose (8 mg/3 mL) 2 mg subcut QWEEK 09/08/22 09/18/24 History subcutaneous pen injector (Ozempic) gabapentin 300 mg capsule 600 mg PO TID 09/18/24 09/18/24 History glipizide 10 mg tablet 10 mg PO QDAY 09/18/24 09/18/24 History levothyroxine 50 mcg tablet 50 mcg PO QDAY 09/18/24 09/18/24 History (Euthyrox) lisinopril 2.5 mg tablet 2.5 mg PO QDAY 09/18/24 09/18/24 History montelukast 10 mg tablet 10 mg PO QDAY 09/18/24 09/18/24 History Allergies Allergy/AdvReac Type Severity Reaction Status Date / Time No Known Allergies Allergy Verified 09/17/24 09:05 Virtual exam Vital Signs Temp Pulse Resp BP Pulse Ox O2 Del Method O2 Flow Rate 98.3 F 100 23 H 114/82 98 Nasal Cannula 3 09/21/24 14:15 09/21/24 16:00 09/21/24 14:15 09/21/24 14:15 09/21/24 14:15 09/21/24 14:15 09/21/24 14:15 Results Labs 09/21/24 13:05 09/21/24 13:05 Labs: Short CBC 09/21/24 09/21/24 Range/Units 04:38 13:05 WBC 15.3 H 15.7 H (3.6-11.0) Thou/mm3 Hgb 10.2 L 9.8 L (12.0-16.0) g/dL Hct 31.2 L 29.9 L (36.0-46.0) % Plt Count 181 197 (140-440) Thou/mm3 BMP 09/21/24 09/21/24 09/21/24 04:38 11:08 13:05 Sodium 135 L 135 L 135 L Potassium 3.7 D 3.9 3.8 Chloride 99 99 100 Carbon Dioxide 19.0 L 18.2 L 18.8 L BUN 11 12 13 Creatinine 1.1 1.1 1.2 Glucose 246 H 243 H 233 H Calcium 10.1 9.5 9.7 Liver Function 09/21/24 09/21/24 09/21/24 Range/Units 04:38 11:08 13:05 Total Bilirubin 0.7 0.8 (0.3-1.2) mg/dL AST 37 H 31 (0-34) U/L ALT 33 27 (10-49) U/L Alkaline Phosphatase 227 H D 201 H D (46-116) U/L Albumin 3.5 3.2 L 3.2 L (3.5-5.0) gm/dL ABG Interpretation ABG results: 09/17/24 09/21/24 09/21/24 19:57 11:23 13:15 ABG pH 7.33 L 7.37 7.37 ABG pCO2 46 32 31 L ABG pO2 87 72 L 89 ABG HCO3 24 18 L 18 L ABG O2 Saturation 98 96 95 ABG Base Excess -2 -6 L -6 L
[2024-09-21] MEDS: DAPTOMYCIN IV (19:05)
[2024-09-21] MEDS: [UNRECOGNIZED DRUG - OTHER] IV (19:05)
[2024-09-21] MEDS: SODIUM CHLORIDE 0.9% IV ×2 (19:05→21:03)
--- NOTE | 2024-09-21 19:58 | ESCONSULT_ITS ---
RE: ROSA CROOK : 1965 DATE OF CONSULTATION: 09/21/2024 REFERRING PHYSICIAN: [facility]. REASON FOR CONSULTATION: Bacteremia with MRSA, persistent despite drainage of infection on the left foot. HISTORY OF PRESENT ILLNESS: The patient is an unfortunate 59-year-old woman, who is heavyset and uncontrolled diabetic presumably. Her glucose was rather high. A1c was 10.9 on admission. She is a poor historian. Her medical problems include diabetes, recurrent respiratory failure, chronic kidney disease in the past, which she did not undergo dialysis previously, but she had renal impairment and saw Dr. Muniz. She has had prior testing for hepatitis and HIV that were negative. Her surgical history includes limited information on file. There does appear to have been some surgeries on her feet in the past and she had abscess drainage of the left foot this admission. Despite drainage of the infection, vancomycin remains on board. The patient's blood cultures remained positive for gram positive cocci. MRSA was found initially and again she is a rather big lady, so the blood cultures that are not yet identified could be quite pechanga Staph, but that is hard to say. The patient has metabolic acidosis and other problems. She is not a great historian. Allergies are limited information on file. There is no listed allergies. MEDICAL PROBLEMS: Include hyperlipidemia, diabetes, hypothyroidism, hypertension as mentioned. A1c is rather high. SURGICAL HISTORY: as listed previously. ALLERGIES: None known. IMMUNIZATIONS: Unavailable. FAMILY HISTORY: Noncontributory and unavailable. SOCIAL HISTORY: Unavailable. PHYSICAL EXAMINATION: The patient is a heavyset lady at age 59 and BMI of 51.4. HEENT, heart, and lungs were benign. The patient is unable to answer simple questions at any length of time and stay awake, long enough to answer any questions, so even in [place]. She is a [place]-speaking primarily but even with resident who tried to speak to her in [place] and was unsuccessful. My [place] did not arouse her either. ASSESSMENT: Bacteremia with MRSA, recurrent and persistent. RECOMMENDATIONS: I am going to await blood cultures from today. If they are positive, we should check sensitivity to daptomycin. I will ask for labs to do that as a precaution, but we should know whether the Staph is sensitive. If it is not MRSA, then we have to worry, but if blood cultures are negative, we are in good shape. I will look forward to seeing her on Thursday. DT: 17:16:31 TT: 18:59:00 Ref: [id number] - TID: [id number] MTDD
[2024-09-21] MEDS: CEFTAROLINE FOSAMIL IV (21:03)
[2024-09-21] MEDS: [UNRECOGNIZED DRUG - OTHER] IV (21:03)
--- NOTE | 2024-09-21 23:31 | PD.NEUROCONS ---
History of Present Illness Data of Consult Requesting Physician: Rashi Segura MD Primary Care Provider: ZOË Muñoz Consult Narrative History of present illness: Patient is a 59-year-old female with past medical history significant for bilateral toe amputation, hypertension, hyperlipidemia, ESBL UTI, type 2 diabetes, metabolic syndrome, hypothyroidism, peripheral neuropathy, morbid obesity got admitted on 09/17/24 with MRSA bacteremia. Patient actually visited the ER 3 days ago for bilateral flank pain and dysuria x 2 days, and discharged with Toradol, cefdinir, and Zofran. Patient had rapid response called today for worsening altered mental status and hypoxia. Did undergo workup including echocardiogram to rule out vegetation. ID is on board for management of sepsis. Neurology was consulted to evaluate further. No witnessed seizures or myoclonic jerks cc:: cc: Rashi Segura MD Review of Systems Review of Systems ROS Unobtainable: unobtainable due to mental status Past Medical History Past Medical History Comments PMH COMMENT: Past medical history: As mentioned above PSHx: Bilateral toe amputations Allergies: Per external chart review, NKDA Meds: Per external chart review, patient takes albuterol inhaler, atorvastatin 40 mg daily, ferrous sulfate 325 mg p.o. twice daily, folic acid 1 mg daily, ibuprofen 3 times daily as needed, insulin glargine 50 units twice daily with meals, losartan 50 mg p.o. twice daily, metformin 1000 mg p.o. twice daily, Novolin 40 units SQ 3 times daily, omeprazole 20 mg daily, Zofran, Ozempic 2 mg weekly. Social history: Patient denies any alcohol, smoking, illicit drug use Family history: Noncontributory Meds Home Medications and Allergies Home Medications ?Medication ?Instructions ?Recorded ?Confirmed ?Type atorvastatin 40 mg tablet 40 mg PO QDAY 09/08/22 09/18/24 History blood pressure test kit-large 09/08/22 09/18/24 History insulin glargine 100 unit/mL (3 50 unit subcut BIDWM 09/08/22 09/18/24 History mL) subcutaneous pen (Basaglar KwikPen U-100 Insulin) insulin regular human 100 unit/mL 40 unit subcut TID 09/08/22 09/18/24 History (3 mL) subcutaneous pen (Novolin R FlexPen) lancets 33 gauge (TRUEplus Lancets) 09/08/22 09/18/24 History metformin 1,000 mg tablet 1,000 mg PO BID 09/08/22 09/18/24 History Held on 09/11/22. Instructions: Reconcile with Nephrology and PCP once Renal Function improves or new baseline is established omeprazole 20 mg capsule,delayed 20 mg PO QDAY 09/08/22 09/18/24 History release pen needle, diabetic 31 gauge x 09/08/22 09/18/24 History 3/16 (BD Ultra-Fine Mini Pen Needle) pen needle, diabetic 32 gauge x 09/08/22 09/18/24 History 5/32 (BD Ultra-Fine Kalee Pen Needle) semaglutide 2 mg/dose (8 mg/3 mL) 2 mg subcut QWEEK 09/08/22 09/18/24 History subcutaneous pen injector (Ozempic) gabapentin 300 mg capsule 600 mg PO TID 09/18/24 09/18/24 History glipizide 10 mg tablet 10 mg PO QDAY 09/18/24 09/18/24 History levothyroxine 50 mcg tablet 50 mcg PO QDAY 09/18/24 09/18/24 History (Euthyrox) lisinopril 2.5 mg tablet 2.5 mg PO QDAY 09/18/24 09/18/24 History montelukast 10 mg tablet 10 mg PO QDAY 09/18/24 09/18/24 History Allergies Allergy/AdvReac Type Severity Reaction Status Date / Time No Known Allergies Allergy Verified 09/17/24 09:05 Exam - Neurology Vital Signs Temp Pulse Resp BP Pulse Ox O2 Del Method O2 Flow Rate 97.9 F 108 H 36 H 157/78 H 98 Nasal Cannula 3 09/21/24 20:00 09/21/24 20:00 09/21/24 20:00 09/21/24 20:00 09/21/24 20:09/21/24 20:09/21/24 20:00 Narrative Exam GENERAL APPEARANCE: Well-developed, obese built female in mild distress. HEENT: Normocephalic, atraumatic, Pupils: Equal reacting to light NECK: Supple, no JVD or bruits. CARDIOVASULAR: Heart: S1, S2 heard, regular without S3-S4 or murmur no rubs or gallops. LUNGS/CHEST: Bilateral Rales and rhonchi heard ABDOMEN: Soft, nontender, with normal bowel sounds. No pulsatile masses. No rebound, rigidity, or guarding. Normal inspection and palpation. EXTREMITIES: Normal inspection and palpation. 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 SKIN: Warm and dry without rashes. Normal inspection. MUSCULOSKELETAL: No cervical, thoracic, lumbar or midline bony tenderness. Normal inspection. NEURO: Somnolent, hard to arouse, occasional purposeful movements noted in the extremities, barely follows commands on the left upper extremity. PSYCHIATRIC: Limited Results Labs 09/22/24 04:10 09/22/24 04:10 Labs: Short CBC 09/21/24 09/21/24 Range/Units 04:38 13:05 WBC 15.3 H 15.7 H (3.6-11.0) Thou/mm3 Hgb 10.2 L 9.8 L (12.0-16.0) g/dL Hct 31.2 L 29.9 L (36.0-46.0) % Plt Count 181 197 (140-440) Thou/mm3 BMP 09/21/24 09/21/24 09/21/24 04:38 11:08 13:05 Sodium 135 L 135 L 135 L Potassium 3.7 D 3.9 3.8 Chloride 99 99 100 Carbon Dioxide 19.0 L 18.2 L 18.8 L BUN 11 12 13 Creatinine 1.1 1.1 1.2 Glucose 246 H 243 H 233 H Calcium 10.1 9.5 9.7 Liver Function 09/21/24 09/21/24 09/21/24 Range/Units 04:38 11:08 13:05 Total Bilirubin 0.7 0.8 (0.3-1.2) mg/dL AST 37 H 31 (0-34) U/L ALT 33 27 (10-49) U/L Alkaline Phosphatase 227 H D 201 H D (46-116) U/L Albumin 3.5 3.2 L 3.2 L (3.5-5.0) gm/dL ABG Interpretation ABG results: 09/17/24 09/21/24 09/21/24 19:57 11:23 13:15 ABG pH 7.33 L 7.37 7.37 ABG pCO2 46 32 31 L ABG pO2 87 72 L 89 ABG HCO3 24 18 L 18 L ABG O2 Saturation 98 96 95 ABG Base Excess -2 -6 L -6 L Assessment & Plan Assessment and plan (1) Altered mental status: Status: Acute Assessment and plan: secondary to metaolic encephalopathy FU with MRI brain if possible and EEG ordered continue to correct metabolic factors (2) Diabetes mellitus: Status: Chronic (3) ALLA (acute kidney injury): Status: Acute Assessment and plan: with underlying chronic renal failure on dialysis (4) Sepsis: Status: Acute Assessment and plan: ID on board continue with current antibiotics
[2024-09-22] VITALS (97 sets, daily range): BP systolic 87–169; BP diastolic 43–110; PULSE 82–128; RESP 11–90; TEMP 36.7–38.2; O2SAT 94–100; BMI 51.0
[2024-09-22] MEDS: SODIUM CHLORIDE 0.9% IV ×4 (05:27→21:29)
[2024-09-22] MEDS: CEFTAROLINE FOSAMIL IV ×3 (05:27→21:29)
[2024-09-22] MEDS: [UNRECOGNIZED DRUG - OTHER] IV ×3 (05:27→21:29)
[2024-09-22] MEDS: HEPARIN SOD INJ 5000 UNIT/ML VIAL SC ×2 (05:27→21:30)
[2024-09-22] MEDS: INSULIN LISPRO (AdmeLOG) 1 UNIT/0.01 ML UNIT SC ×4 (05:29→23:43)
[2024-09-22 06:43] LABS: Basophils # (Auto) 0.1 Thou/mm3 (0.0-0.2); Basophils % (Auto) 0 % (0-2.5); Eosinophils # (Auto) 0.2 Thou/mm3 (0.0-0.5); Eosinophils % (Auto) 1 % (0-10); Hematocrit 29.4 % (36.0-46.0); Hemoglobin 9.6 g/dL (12.0-16.0); Immature Granulocytes % (Auto) 3 % (0-0); Immature Granulocytes Auto 0.62 Thou/mm3 (0.00-0.00); Lymphocytes # (Auto) 2.7 Thou/mm3 (1.0-4.8); Lymphocytes % (Auto) 14 % (10-50); Mean Corpuscular HGB Conc 32.7 g/dl (31.0-37.0); Mean Corpuscular Volume 89 fL (80-100); Monocytes # (Auto) 1.7 Thou/mm3 (0.0-0.8); Monocytes % (Auto) 9 % (0-12); Neutrophils # (Auto) 13.5 Thou/mm3 (1.8-7.7); Neutrophils % (Auto) 72 % (37-80); Nucleated Red Blood Cell # 0.05 Thou/mm3 (0.00-0.00); Nucleated Red Blood Cell % 0 /100 WBC (0); Platelet Count 228 Thou/mm3 (140-440); RDW Standard Deviation 50.1 fL (36.4-46.3); Red Blood Count 3.31 Miln/mm3 (4.00-5.20); White Blood Count 18.8 Thou/mm3 (3.6-11.0)
[2024-09-22 06:51] LABS: Alanine Aminotransferase 22 U/L (10-49); Albumin, Serum 3.3 gm/dL (3.5-5.0); Albumin/Globulin Ratio 1.2 (1.2-2.2); Alkaline Phosphatase 192 U/L (46-116); Anion Gap 20 (7-16); Aspartate Amino Transferase 30 U/L (0-34); BUN/Creatinine Ratio 10 Ratio (12-20); Bilirubin,Total 0.8 mg/dL (0.3-1.2); Blood Urea Nitrogen 11 mg/dL (9-23); Calcium 9.9 mg/dL (8.3-10.6); Calcium (Corrected) 10.5 mg/dL (8.5-10.1); Carbon Dioxide 17.5 mMol/L (20.0-31.0); Chloride 100 mMol/L (98-107); Creatinine (Component) 1.1 mg/dL (0.6-1.3); Estimated Creatinine Clearance 68.4 mL/min (>60); Globulin 2.7 gm/dL (2.3-3.5); Glucose 232 mg/dL (74-106); Magnesium 1.5 mg/dL (1.6-2.6); Osmolality,Calculated 280 (275-295); Potassium 3.7 mMol/L (3.4-5.1); Sodium 137 mMol/L (136-145); eGFR 58 See Note
[2024-09-22] MEDS: RINGERS LACTATED 1000 ML 1,000 ML 999 ML IV ×2 (08:07→20:20)
--- NOTE | 2024-09-22 08:10 | EKG_ITS ---
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
[2024-09-22 08:18] LABS: Base Excess -7 (-3-3); HCO3 17 mEq/L (20-26); Inspired O2, VO2 Liters 3 L/min; O2 Saturation 98 % (91-98); PCO2 31 mmHg (32.0-48.0); PO2 90 mmHg (83-108); pH, Arterial 7.35 (7.35-7.45)
[2024-09-22 08:19] LABS: Allen Test Performed/OK; Puncture Site Right Radial
[2024-09-22 08:20] LABS: Lactate (Lactic Acid) 1.2 mMol/L (0.4-2.0)
[2024-09-22 08:37] LABS: Basophils # (Auto) 0.1 Thou/mm3 (0.0-0.2); Basophils % (Auto) 0 % (0-2.5); Eosinophils # (Auto) 0.2 Thou/mm3 (0.0-0.5); Eosinophils % (Auto) 1 % (0-10); Hematocrit 29.8 % (36.0-46.0); Hemoglobin 9.7 g/dL (12.0-16.0); Immature Granulocytes % (Auto) 3 % (0-0); Immature Granulocytes Auto 0.59 Thou/mm3 (0.00-0.00); Lymphocytes # (Auto) 2.7 Thou/mm3 (1.0-4.8); Lymphocytes % (Auto) 15 % (10-50); Mean Corpuscular HGB Conc 32.6 g/dl (31.0-37.0); Mean Corpuscular Volume 89 fL (80-100); Monocytes # (Auto) 1.8 Thou/mm3 (0.0-0.8); Monocytes % (Auto) 10 % (0-12); Neutrophils # (Auto) 12.9 Thou/mm3 (1.8-7.7); Neutrophils % (Auto) 71 % (37-80); Nucleated Red Blood Cell # 0.04 Thou/mm3 (0.00-0.00); Nucleated Red Blood Cell % 0 /100 WBC (0); Platelet Count 219 Thou/mm3 (140-440); RDW Standard Deviation 50.5 fL (36.4-46.3); Red Blood Count 3.34 Miln/mm3 (4.00-5.20); White Blood Count 18.1 Thou/mm3 (3.6-11.0)
[2024-09-22 08:42] LABS: Alanine Aminotransferase 22 U/L (10-49); Albumin, Serum 3.2 gm/dL (3.5-5.0); Albumin/Globulin Ratio 1.2 (1.2-2.2); Alkaline Phosphatase 187 U/L (46-116); Anion Gap 17 (7-16); Aspartate Amino Transferase 28 U/L (0-34); BUN/Creatinine Ratio 9 Ratio (12-20); Bilirubin,Total 0.8 mg/dL (0.3-1.2); Blood Urea Nitrogen 11 mg/dL (9-23); Calcium 9.8 mg/dL (8.3-10.6); Calcium (Corrected) 10.4 mg/dL (8.5-10.1); Carbon Dioxide 18.6 mMol/L (20.0-31.0); Chloride 101 mMol/L (98-107); Creatinine (Component) 1.2 mg/dL (0.6-1.3); Estimated Creatinine Clearance 62.7 mL/min (>60); Globulin 2.7 gm/dL (2.3-3.5); Glucose 240 mg/dL (74-106); Osmolality,Calculated 281 (275-295); Potassium 3.7 mMol/L (3.4-5.1); Sodium 137 mMol/L (136-145); Total Protein 5.9 gm/dL (5.7-8.2); eGFR 52 See Note
[2024-09-22] MEDS: ACETAMINOPHEN IVPB 1,000 MG/100 ML VIAL 250 MG IV ×2 (09:03→20:47)
[2024-09-22] MEDS: Magnesium Sulfate 4 GM Ivpb 4 GM/50 ML BAG IV (09:05)
[2024-09-22] MEDS: [UNRECOGNIZED DRUG - OTHER] IV (09:10)
[2024-09-22] MEDS: DAPTOMYCIN IV (09:10)
--- NOTE | 2024-09-22 10:36 | PD.RESCONSUL ---
HPI Data of Consult Requesting Physician: Stephania Gallardo MD Admitting Provider: Rashi Segura MD Attending Provider: Stephania Gallardo MD Primary Care Provider: ZOË Muñoz Consult Narrative Reason for consult: Worsening encephalopathy History of present illness: Chief complaint: Acute encephalopathy, concern re: ability to protect airway HPI: Ms Fuentes is a 59-year-old female who was admitted on 09/17/2024 for MRSA bacteremia. Patient was found to have positive blood cultures in the ER on 09/14/2024, cultures sensitive to Vancomycin. During this admission patient is s/p second toe left foot amputation. Wound cultures as well grew MRSA on 09/18/2024. Urine culture on 09/17/2024 showed no growth. Neurology consulted during this admission for encephalopathy who recommended stroke work up. Initial Head CT negative, but follow up MRIB showed 7mm acute RT cerebral infarct. ICU was consulted for worsening encephalopathy, concern for ability to protect airway and need for possible intubation to perform ADRIÁN safely. Past medical history: - Primary Hypertension - Hyperlipidemia - Bilateral toe amputation and peripheral neuropathy due to - Type 2 IDDM - ESBL UTI - Hypothyroidism - Metabolic syndrome w/ morbid obesity Home Medication: Atorvastatin 40 mg HS Glargine 50 units BIDWM Regular 40 units TID Glipizide 10 mg PO Qday Levothyroxine 50 mcg Lisinopril 2.5 mg PO Qday Metformin 1000 mg BID Omeprazole 20 mg PO Qday Montelukast 10 mg Qday Cefdinir 300 mg PO BID Gabapentin 600 mg TID Past Surgical History: s/p second left foot digit amputation (09/18/2024) s/p bilateral toe amputation Social history: Marital?Status:? Tobacco?Use:?Denies ETOH?Use:?Socially Drug?Note:?Denies Social?History?Note:?Lives?with? Family history: Denies any fam hx of sudden cardiac , anesthesia reactions, stroke or cancers. Positive for T2DM and HTN. cc:: cc: Stephania Gallardo MD Review of Systems Review of Systems ROS Unobtainable: unobtainable due to mental status Exam Vital Signs Temp Pulse Resp BP Pulse Ox O2 Del Method O2 Flow Rate 100.7 F H 115 H 48 H 146/72 H 97 Nasal Cannula 3 09/22/24 08:00 09/22/24 08:00 09/22/24 08:00 09/22/24 08:00 09/22/24 08:00 09/22/24 08:00 09/22/24 08:00 Narrative Exam Constitutional Oriented x2, drowsy but responsive to stimuli. Obese BMI 51 HEENT Vision grossly intact. Patent nares. Trachea midline. On 2L oxygen via NC, sats 96-98% Respiratory Chest normal on inspection and clear to auscultation bilaterally. Cardiovascular S1 and S2 audible, RRR. No murmurs or carotid bruit. No gross JVD. Abdominal Soft, distended and BS + ; non tender to palpation in all quadrants. Genitourinary No bladder tenderness, no flank pain. Normal to palpation. Musculoskeletal Extremities tone within normal limits. No LE edema. Left toe amputated. Right foot bandaged. Neurological CN II - XII grossly intact. Extremities grossly intact, unable to fully assess function as patient is somnolent. Skin Warm, dry and intact. No apparent lesions. LT phalanx healed amputation scar. Psychiatric Patient has a good affect, is cooperative. Results Labs 09/23/24 04:44 09/23/24 04:44 Labs: Short CBC 09/21/24 09/22/24 09/22/24 Range/Units 13:05 04:10 08:10 WBC 15.7 H 18.8 H 18.1 H (3.6-11.0) Thou/mm3 Hgb 9.8 L 9.6 L 9.7 L (12.0-16.0) g/dL Hct 29.9 L 29.4 L 29.8 L (36.0-46.0) % Plt Count 197 228 D 219 (140-440) Thou/mm3 [facility] 09/21/24 09/21/24 09/22/24 11:08 13:05 04:10 Sodium 135 L 135 L 137 Potassium 3.9 3.8 3.7 Chloride 99 100 100 Carbon Dioxide 18.2 L 18.8 L 17.5 L BUN 12 13 11 Creatinine 1.1 1.2 1.1 Glucose 243 H 233 H 232 H Calcium 9.5 9.7 9.9 09/22/24 08:10 Sodium 137 Potassium 3.7 Chloride 101 Carbon Dioxide 18.6 L BUN 11 Creatinine 1.2 Glucose 240 H Calcium 9.8 Liver Function 09/21/24 09/21/24 09/22/24 Range/Units 11:08 13:05 04:10 Total Bilirubin 0.8 0.8 (0.3-1.2) mg/dL AST 31 30 (0-34) U/L ALT 27 22 (10-49) U/L Alkaline Phosphatase 201 H D 192 H (46-116) U/L Albumin 3.2 L 3.2 L 3.3 L (3.5-5.0) gm/dL 09/22/24 Range/Units 08:10 Total Bilirubin 0.8 (0.3-1.2) mg/dL AST 28 (0-34) U/L ALT 22 (10-49) U/L Alkaline Phosphatase 187 H (46-116) U/L Albumin 3.2 L (3.5-5.0) gm/dL ABG Interpretation ABG results: 09/17/24 09/21/24 09/21/24 19:57 11:23 13:15 ABG pH 7.33 L 7.37 7.37 ABG pCO2 46 32 31 L ABG pO2 87 72 L 89 ABG HCO3 24 18 L 18 L ABG O2 Saturation 98 96 95 ABG Base Excess -2 -6 L -6 L 09/22/24 08:05 ABG pH 7.35 ABG pCO2 31 L ABG pO2 90 ABG HCO3 17 L ABG O2 Saturation 98 ABG Base Excess -7 L Quality Measures Quality Measures none Medications Home Medications and Allergies Home Medications ?Medication ?Instructions ?Recorded ?Confirmed ?Type atorvastatin 40 mg tablet 40 mg PO QDAY 09/08/22 09/18/24 History blood pressure test kit-large 09/08/22 09/18/24 History insulin glargine 100 unit/mL (3 50 unit subcut BIDWM 09/08/22 09/18/24 History mL) subcutaneous pen (Basaglar KwikPen U-100 Insulin) insulin regular human 100 unit/mL 40 unit subcut TID 09/08/22 09/18/24 History (3 mL) subcutaneous pen (Novolin R FlexPen) lancets 33 gauge (TRUEplus Lancets) 09/08/22 09/18/24 History metformin 1,000 mg tablet 1,000 mg PO BID 09/08/22 09/18/24 History Held on 09/11/22. Instructions: Reconcile with Nephrology and PCP once Renal Function improves or new baseline is established omeprazole 20 mg capsule,delayed 20 mg PO QDAY 09/08/22 09/18/24 History release pen needle, diabetic 31 gauge x 09/08/22 09/18/24 History 3/16 (BD Ultra-Fine Mini Pen Needle) pen needle, diabetic 32 gauge x 09/08/22 09/18/24 History 5/32 (BD Ultra-Fine Kalee Pen Needle) semaglutide 2 mg/dose (8 mg/3 mL) 2 mg subcut QWEEK 09/08/22 09/18/24 History subcutaneous pen injector (Ozempic) gabapentin 300 mg capsule 600 mg PO TID 09/18/24 09/18/24 History glipizide 10 mg tablet 10 mg PO QDAY 09/18/24 09/18/24 History levothyroxine 50 mcg tablet 50 mcg PO QDAY 09/18/24 09/18/24 History (Euthyrox) lisinopril 2.5 mg tablet 2.5 mg PO QDAY 09/18/24 09/18/24 History montelukast 10 mg tablet 10 mg PO QDAY 09/18/24 09/18/24 History Allergies Allergy/AdvReac Type Severity Reaction Status Date / Time No Known Allergies Allergy Verified 09/17/24 09:05 Visit Medications Acetaminophen (Acetaminophen 325 Mg Tablet) 650 mg PO Q6H PRN PRN Reason: Fever >100.4 or Pain 1-3 Stop: 10/17/24 13:43 Last Admin: 09/20/24 16:20 Dose: 650 mg Atorvastatin Calcium (Atorvastatin Calcium 20 Mg Tablet) 40 mg PO HS [place] Stop: 10/17/24 20:59 Last Admin: 09/21/24 23:12 Dose: Not Given Dextrose (Dextrose 50%-Water Inj 50 Ml Syringe) 25 ml IV Q15MIN PRN PRN Reason: BG 50-70 responsive npo pt Stop: 10/17/24 18:06 Dextrose (Dextrose 50%-Water Inj 50 Ml Syringe) 50 ml IV Q15MIN PRN PRN Reason: BG <50 OR BG <70 & pt unresponsive Stop: 10/17/24 18:06 Glucagon (Glucagon Inj 1 Mg Vial) 1 mg IM Q15MIN PRN PRN Reason: BG <70, and no IV access Heparin Sodium (Porcine) (Heparin Sod Inj 5000 Unit/Ml Vial) 5,000 unit SC Q8HR [place] Stop: 10/05/24 21:59 Last Admin: 09/22/24 05:27 Dose: 5,000 unit Sodium Chloride (Ns) 1,000 mls @ 100 mls/hr IV .Q10H [facility] Stop: 10/18/24 10:13 Last Admin: 09/21/24 21:24 Dose: Not Given Daptomycin 500 mg/ Sodium Chloride 10 ml/ Sodium Chloride 60 mls @ 120 mls/hr IV QDAY [facility] Stop: 09/28/24 17:44 Last Admin: 09/22/24 09:10 Dose: 120 mls/hr Ceftaroline Fosamil 600 mg/Sodium Chloride 20 ml/ Sodium Chloride 120 mls @ 120 mls/hr IV Q8HR [facility] Stop: 09/28/24 21:59 Last Admin: 09/22/24 05:27 Dose: 120 mls/hr Magnesium Sulfate (Magnesium Sulfate Ivpb) 4 gm in 50 mls @ 12.5 mls/hr IV X1 ONE Stop: 09/22/24 11:32 Last Admin: 09/22/24 09:05 Dose: 12.5 mls/hr Acetaminophen (Ofirmev Inj) 1,000 mg in 100 mls @ 250 mls/hr IV Q6H [facility] Stop: 09/23/24 02:23 Last Admin: 09/22/24 09:03 Dose: 250 mls/hr Norepinephrine/Dextrose (Levophed In D5w 8mg/250ml) 8 mg in 250 mls @ 11.482 mls/hr IV .[id number] PRN; Protocol PRN Reason: PER PROTOCOL Stop: 10/22/24 09:53 Lactated Ringer's (Lactated Ringers) 1,000 mls @ 999 mls/hr IV .Q1H1M ONE Stop: 09/22/24 10:55 Propofol (Diprivan Ivpb) 1,000 mg in 100 mls @ 3.674 mls/hr IV .Q24H PRN; Protocol PRN Reason: PER PROTOCOL Stop: 10/22/24 09:56 Fentanyl Citrate (Sublimaze Inj 2,500 Mcg/250 Ml Bag) 2,500 mcg in 250 mls @ 2.5 mls/hr IV .Q24H PRN; Protocol PRN Reason: PER PROTOCOL Stop: 09/27/24 09:56 Dexmedetomidine/Sodium Chloride (Precedex Ivpb) 400 mcg in 100 mls @ 6.124 mls/hr IV .[id number] PRN; Protocol PRN Reason: Per PROTOCOL Stop: 10/22/24 10:21 Insulin Glargine (Insulin Glargine (Lantus) 5 Unit/0.05 Ml (Per 5 Units)) 40 unit SC BID [facility] Stop: 10/21/24 08:59 Last Admin: 09/21/24 21:04 Dose: 40 unit Insulin Human Lispro (Insulin Lispro (Admelog) 1 Unit/0.01 Ml Unit) 10 unit SC TIDWM [facility] Stop: 10/20/24 11:59 Last Admin: 09/22/24 08:41 Dose: Not Given Insulin Human Lispro (Insulin Lispro (Admelog) 1 Unit/0.01 Ml Unit) 0 unit SC Q6HR [facility]; Protocol Stop: 10/21/24 11:59 Last Admin: 09/22/24 05:29 Dose: 2 unit Losartan Potassium (Losartan Potassium 25 Mg Tablet) 50 mg PO BID [facility] Stop: 10/18/24 20:59 Last Admin: 09/22/24 10:29 Dose: Not Given Ondansetron HCl (Ondansetron Inj 2 Mg/Ml Inj 2 Ml) 4 mg IVP Q6H PRN; Protocol PRN Reason: NAUSEA OR VOMITING Stop: 10/17/24 13:43 Sennosides (Senna Tablet) 1 tab PO QDAY [facility]; Protocol Stop: 10/18/24 08:59 Last Admin: 09/22/24 10:29 Dose: Not Given Sodium Chloride (Saline Nasal 45 Ml Btl) 1 spray NASAL PRN PRN PRN Reason: CONGESTION Stop: 10/19/24 18:33 Discontinued Medications Hydrocodone Bitart/Acetaminophen (Hydrocodone/Apap 5/325 Tablet) 1 tab PO Q6HR PRN PRN Reason: Pain 4-6 Stop: 09/22/24 18:20 Last Admin: 09/20/24 03:41 Dose: 1 tab Hydrocodone Bitart/Acetaminophen (Hydrocodone/Apap 5/325 Tablet) 1 tab PO Q6HR PRN PRN Reason: Pain 6-10 Stop: 09/22/24 18:20 Last Admin: 09/20/24 15:44 Dose: 1 tab Fentanyl Citrate (Fentanyl Cit Inj 50 Mcg/Ml Amp 2ml) 50 mcg IVP Q5MIN PRN PRN Reason: PAIN SCALE 4-10(Mod-Sev Stop: 09/18/24 17:02 Fentanyl Citrate (Fentanyl Cit Inj 50 Mcg/Ml Amp 2ml) 100 mcg IVP X1 ONE Stop: 09/22/24 09:53 Heparin Sodium (Porcine) (Heparin Sod Inj 5000 Unit/Ml Vial) 5,000 unit SC Q12HR [facility] Stop: 10/01/24 20:59 Last Admin: 09/21/24 08:33 Dose: 5,000 unit Piperacillin/Tazobactam/Dextrose (Zosyn) 3.375 gm in 50 mls @ 100 mls/hr IV X1 ONE Stop: 09/17/24 10:23 Last Infusion: 09/17/24 10:50 Dose: Infused Vancomycin/Sodium Chloride (Vancomycin/Ns 1 Gm Ivpb) 200 mls @ 120 mls/hr IV X1 ONE Stop: 09/17/24 11:39 Last Infusion: 09/17/24 12:58 Dose: Infused Sodium Chloride (Ns) 1,000 mls @ 999 mls/hr IV .Q1H1M ONE Stop: 09/17/24 11:01 Last Infusion: 09/17/24 11:14 Dose: Infused Lactated Ringer's (Lactated Ringers) 1,000 mls @ 100 mls/hr IV .Q10H [facility] Stop: 09/17/24 23:44 Last Admin: 09/17/24 14:13 Dose: 100 mls/hr Lactated Ringer's (Lactated Ringers) 1,000 mls @ 999 mls/hr IV .Q1H1M ONE Stop: 09/17/24 14:59 Last Infusion: 09/17/24 16:00 Dose: Infused Lactated Ringer's (Lactated Ringers) 1,000 mls @ 999 mls/hr IV .Q1H1M ONE Stop: 09/17/24 16:35 Last Infusion: 09/17/24 17:47 Dose: Infused Vancomycin/Sodium Chloride (Vancomycin/Ns 1 Gm Ivpb) 200 mls @ 120 mls/hr IV X1 ONE Stop: 09/17/24 17:24 Last Infusion: 09/17/24 18:05 Dose: Infused Vancomycin/Sodium Chloride (Vancomycin/Ns 1 Gm Ivpb) 200 mls @ 120 mls/hr IV Q12H [facility]; Protocol Stop: 09/25/24 09:59 Last Admin: 09/19/24 11:28 Dose: Not Given Acetaminophen (Ofirmev Inj) 1,000 mg in 100 mls @ 250 mls/hr IV X1 ONE Stop: 09/18/24 22:17 Last Admin: 09/18/24 22:08 Dose: 250 mls/hr Magnesium Sulfate (Magnesium Sulfate Ivpb) 4 gm in 50 mls @ 12.5 mls/hr IV X1 ONE Stop: 09/19/24 12:36 Last Admin: 09/19/24 09:26 Dose: 12.5 mls/hr Sodium Chloride (Ns) 500 mls @ 999 mls/hr IV .Q31M ONE Stop: 09/19/24 09:08 Last Admin: 09/19/24 09:26 Dose: 999 mls/hr Vancomycin HCl/Dextrose (Vancomycin/D5w 1,250 Mg Ivpb) 250 mls @ 120 mls/hr IV QDAY@1000,2200 [place]; Protocol Stop: 09/26/24 11:14 Last Admin: 09/19/24 21:55 Dose: 120 mls/hr Vancomycin HCl (Vancomycin/Water 1250 Mg Ivpb) 250 mls @ 120 mls/hr IV Q12H [facility]; Protocol Stop: 09/27/24 09:59 Last Admin: 09/20/24 22:05 Dose: Not Given Magnesium Sulfate (Magnesium Sulfate Ivpb) 4 gm in 50 mls @ 12.5 mls/hr IV X1 ONE Stop: 09/20/24 19:19 Last Admin: 09/20/24 15:44 Dose: 12.5 mls/hr Vancomycin/Sodium Chloride (Vancomycin/Ns 1 Gm Ivpb) 200 mls @ 120 mls/hr IV Q12H [facility]; Protocol Stop: 09/28/24 09:59 Last Admin: 09/21/24 10:17 Dose: 120 mls/hr Lactated Ringer's (Lactated Ringers) 500 mls @ 999 mls/hr IV .Q31M ONE Stop: 09/21/24 10:03 Last Admin: 09/21/24 10:27 Dose: Not Given Lactated Ringer's (Lactated Ringers) 500 mls @ 999 mls/hr IV .Q31M ONE Stop: 09/21/24 11:00 Last Admin: 09/21/24 10:22 Dose: 999 mls/hr Lactated Ringer's (Lactated Ringers) 1,000 mls @ 999 mls/hr IV .Q1H1M ONE Stop: 09/21/24 14:13 Last Admin: 09/21/24 13:29 Dose: 999 mls/hr Ceftriaxone Sodium/Dextrose (Rocephin/D5w 2gm) 2 gm in 50 mls @ 100 mls/hr IV QDAY [facility] Stop: 09/28/24 14:09 Ceftaroline Fosamil 600 mg/ (Sodium Chloride) 250 mls @ 250 mls/hr IV Q8HR [facility] Stop: 09/28/24 21:59 Lactated Ringer's (Lactated Ringers) 500 mls @ 999 mls/hr IV .Q31M ONE Stop: 09/22/24 08:35 Last Admin: 09/22/24 09:12 Dose: Not Given Lactated Ringer's (Lactated Ringers) 1,000 mls @ 999 mls/hr IV .Q1H1M ONE Stop: 09/22/24 09:06 Last Admin: 09/22/24 08:07 Dose: 999 mls/hr Insulin Glargine (Insulin Glargine (Lantus) 5 Unit/0.05 Ml (Per 5 Units)) 25 unit SC BID [facility] Stop: 10/17/24 20:59 Last Admin: 09/19/24 07:49 Dose: 25 unit Insulin Glargine (Insulin Glargine (Lantus) 5 Unit/0.05 Ml (Per 5 Units)) 30 unit SC BID [facility] Stop: 10/19/24 08:59 Last Admin: 09/19/24 20:30 Dose: 30 unit Insulin Glargine (Insulin Glargine (Lantus) 5 Unit/0.05 Ml (Per 5 Units)) 5 unit SC X1 ONE Stop: 09/19/24 09:05 Last Admin: 09/19/24 09:25 Dose: 5 unit Insulin Glargine (Insulin Glargine (Lantus) 5 Unit/0.05 Ml (Per 5 Units)) 35 unit SC BID [facility] Stop: 10/20/24 08:59 Last Admin: 09/20/24 20:34 Dose: 35 unit Insulin Human Lispro (Insulin Lispro (Admelog) 1 Unit/0.01 Ml Unit) 0 unit SC ACHS [facility]; Protocol Stop: 10/17/24 20:59 Last Admin: 09/21/24 11:47 Dose: Not Given Insulin Human Lispro (Insulin Lispro (Admelog) 1 Unit/0.01 Ml Unit) 6 unit SC TIDWM [facility] Stop: 10/18/24 07:59 Last Admin: 09/19/24 07:50 Dose: 6 unit Insulin Human Lispro (Insulin Lispro (Admelog) 1 Unit/0.01 Ml Unit) 9 unit SC TIDWM [facility] Stop: 10/19/24 11:59 Last Admin: 09/19/24 16:59 Dose: 9 unit Insulin Human Lispro (Insulin Lispro (Admelog) 1 Unit/0.01 Ml Unit) 10 unit SC X1 ONE Stop: 09/21/24 13:13 Insulin Human Regular (Insulin Hum Regular 1 Unit/0.01 Ml (Per Unit)) 5 unit SC X1 ONE Stop: 09/18/24 13:42 Last Admin: 09/18/24 13:47 Dose: 5 unit Insulin Human Regular (Insulin Hum Regular 1 Unit/0.01 Ml (Per Unit)) 10 unit SC X1 ONE Stop: 09/21/24 13:13 Last Admin: 09/21/24 13:29 Dose: 10 unit Labetalol HCl (Labetalol Inj 5 Mg/Ml Vial 20 Ml) 10 mg IVP X1 ONE Stop: 09/21/24 01:18 Last Admin: 09/21/24 01:39 Dose: 10 mg Lorazepam (Lorazepam 2 Mg/Ml Vial) 4 mg IVP X1 ONE Stop: 09/22/24 09:53 Metoprolol Tartrate (Metoprolol Tartrate Inj 1 Mg/Ml Amp 5 Ml) 1 mg IVP Q5MIN PRN PRN Reason: TACHYCARDIA Stop: 09/18/24 17:03 Morphine Sulfate (Morphine Sulf Inj 10 Mg/Ml Vial) 1 mg IVP Q4HR PRN PRN Reason: Pain 7-10 Stop: 09/22/24 18:20 Last Admin: 09/18/24 11:53 Dose: 1 mg Morphine Sulfate (Morphine Sulf Inj 10 Mg/Ml Vial) 1 mg IVP Q4HR PRN PRN Reason: BREAKTHROUGH PAIN (SEVERE) Stop: 09/22/24 18:20 Pharmacy Consult (Vancomycin Pharmacy To Dose 1 Each Each) 1 each IV QDAY PRN PRN Reason: PROTOCOL Stop: 10/17/24 15:44 Potassium Chloride (Potassium Chloride 20 Meq Tabcr) 40 meq PO X1 ONE Stop: 09/20/24 08:15 Last Admin: 09/20/24 09:51 Dose: 40 meq Potassium Chloride (Potassium Chloride 20 Meq Tabcr) 20 meq PO X1 ONE Stop: 09/21/24 08:30 Last Admin: 09/21/24 08:42 Dose: 20 meq Rocuronium [place] (Rocuronium Inj 10 Mg/Ml Vial 10 Ml) 120 mg IV X1 ONE Stop: 09/22/24 09:53 Assessment & Plan Plan Ms Leroy is a 59-year-old female with past medical history significant for bilateral toe amputation, hypertension, hyperlipidemia, ESBL UTI, type 2 diabetes, metabolic syndrome, hypothyroidism, peripheral neuropathy, morbid obesity who presented to the ED with MRSA bacteremia and admitted to telemetry for further management of MRSA bacteremia and acute stroke. NEURO Acute encephalopathy CVA - Acute RT cerebral infarct Dx: metabolic in setting of bacteremia, septic emboli and new ischemic stroke - CT head : negative for any acute changes. - Ammonia <10 - MRIB : 7mm acute RT cerebral infarct Rx: - Neurology consulted, appreciate recs - Continue neuro checks every 4 hours - Neuro recommended IR Lumbar puncture. Will perform in ICU - EEG to follow, as per Neurologist's request CVS MRSA bacteremia Possible Infective Endocarditis, pending r/o Dx: - Echo was negative for valve vegetations, EF 60-65%. Rx: - Initially on IV vancomycin, sensitive on antibiogram - Switched to Daptomycin + Ceftaroline (09/22 - - Transferred from medical floors to ICU - Cardiology consulted, appreciate input. ADRIÁN will be scheduled for later today. PULM Acute respiratory distress, risk of not maintaining airway patency Possible need for intubation if worsening encephalopathy Dx: DDx: Patient presented with 87% oxygen saturation on room air. Patient now placed on 2 L nasal cannula saturating well above 98%. Rx: - Maintaining airway patency at this time, sats wnl - Will intubate in ICU if needed GI/Hep No active problems RENAL AGMA Hx of UTI Dx: Bicarb 17.5, AG 20 --> Biacarb 18.6, AG 17, Co2 31 and pH 7.35 DDx: due to DKA, and elevated LA consistent with worsening bacteremia. - BHB elevated 4.0 - Lactic acid normal - escalate antibiotics Rx: - AG closing alowly - Daily CMP - anticipate improvement with hyperglycemia treatment and IV antibiotics HEME/ONC Leukocytosis Dx: WBC 15.7 --> 18.1 Rx: - On IV antibiotics for bacteremia - Daily CBC ENDO T2 IDDM, uncontrolled Dx: A1c this admission 10.9. Patient presented with a blood sugar of 300+. Patient also has a history of bilateral toe amputations most likely in setting of uncontrolled diabetes Rx: - ISS - Hypoglycemic protocol in place - Increased Lantus insulin to 40 units BID - AC Lispro 10 TID - ACHS checks HLD Dx: chronic Rx: - Lipid panel : TG wnl, low cholesterol and HDL - Continue home statin Hypothyroidism - TSH was 5.84 Rx Follow-up outpatient with PCP INFECTIOUS DISEASE MRSA bacteremia Left gangrenous second toe s/p amputation day 4 Dx: - Blood cultures : positive for MRSA - history of bilateral toe amputations. - history of uncontrolled diabetes currently on Lantus and Ozempic. - Blood sugar on admission >300 - Lactic acid initially peaked, down trended now within normal limits. Patient received 3 L bolus. DDx: Rx: - Consulted surgery, appreciate recommendations - s/p Amputation of the second toe on 09/18/24 - Pro-Rustam elevated at 7.85 --> 1.54 (09/22) ICU Health maintenance: Dispo: Admit to ICU for worsening encephalopathy in the setting of CVA and MRSA bacteremia Diet: Cardiac DVT ppx: Heparin 5000 q8H currently. Will transition to Enoxaparin 40mg SC daily post ADRIÁN GI ppx: Famotidine 20mg q12H Sedation: Yes, Precedex 0.2 mch/kg/hr PRN IV lines: 2 pIV Kirby: Yes (started 06/18/23 - Code status: FULL CODE Plan of care discussed with chemistry intern Dr Gallardo and (PGY3) Dr Phillip, Sukh Vu MD PGY 2 This document was compiled using speech recognition software. Any formal questions or concerns about the content of this body of dictation should be directly addressed to the provider. Attending Provider Attestation/Addendum pt seen and examined, d/w resident team. in brief this is a 59yo F with MRSA bacteremia who has had fluctuating mental status. On eval in tele pt had a GCS of 9 and the decision was made to transfer to ICU for intubation for airway protection however on arrival to the ICU she was awake and knew her name and able to respond to simple questions like pain. Intubation was held and the pt monitored. On exam she had a GCS of 11, LCTAB, HRRR, PERRL, abd s/nt/bs+. LP had been requested by neuro and attempt was made for LP however this was unsuccessful. A ADRIÁN was performed which did not show any vegetations or perivalvular abscess. A CT with IV contrast was then ordered to eval for occult abscess. pts abx were changed per ID recs. case d/w ICU team' labs, imaging, records reviewed ~65min required for eval, exam, review, intervention, discussion and formulation of POC for this complex pt at risk for ongoing decompensation
[2024-09-22] MEDS: DEXMEDETOMIDINE 400 MCG IVPB 400 MCG/100 ML BAG 6.124 MCG IV (10:55)
[2024-09-22] MEDS: INSULIN LISPRO (AdmeLOG) 1 UNIT/0.01 ML UNIT 10 UNIT SC ×2 (11:38→18:09)
--- NOTE | 2024-09-22 12:20 | ESOP_ITS ---
Procedures Procedure Date / Time 09/22/24 1221 Procedural Time Out Time out performed: Yes Lumbar Puncture Indication(s): Rule out meningitis Informed consent obtained: obtained from surrogate decision maker Time out done, and the following verified: correct patient, side and site, procedure and patient position Patient position: left lateral decubitus Skin prep: Povidone-Iodine 1% Local anesthetic used: Lidocaine 1% Amount of anesthesia used (mL): 5 Spinal needle gauge: 22G Interspace used: L4-L5 Fluid initially obtained: other (None) EBL(ml): 1 Complications: unable to obtain CSF Additional comments: Attempted x 3. Patient unable to fully flex her spine and access was limited. Procedure was supervised by my attending physician Dr. Sami Mcclain MD PGY 1 Disclaimer: This note was dictated by speech recognition. Minor errors in machine stoppage frequency checker may be present due to voice recognition software.
[2024-09-22 13:02] LABS: Amphetamine/Methamp Scrn,U Negative (Negative); Barbiturate Screen,Urine Negative (Negative); Benzodiazepines Screen,Urine Negative (Negative); Benzoylecgonine Screen, Ur Negative (Negative); Fentanyl Screen,Urine Negative (Negative); Opiate Screen,Urine Positive (Negative); THC Screen,Urine Negative (Negative)
--- NOTE | 2024-09-22 14:38 | PD.RESEVENT ---
Documentation for date of: 09/22/24 Event Note Event Note: Patient was seen and examined at bedside this morning after rapid response was called due to tachypnea with rate in 40s. This morning she had temperature of 100.7 was on 3 L NC saturating 90-92%. Continues to be somnolent but arousable some improvement fromyesterday. WBCs this morning showed worsening leukocytosis of 18, hemoglobin stable 9?10, magnesium 1.5 (repleated with 4g). Yesterday imaging including brain MRI that showed new 7 mm acute infarct of the right cerebrum. Cause of patient's acute encephalopathy unknown at this time. However, high suspicion of septic emboli versus stroke as she continues to grow GPC in blood culture. Antibiotics were changed to ceftaroline and daptomycin from IV vancomycin. ICU was consulted for worsening encephalopathy, concern for ability to protect airway and need for possible intubation to perform ADRIÁN safely.
--- NOTE | 2024-09-22 15:13 | PCS.ST ---
DC speech referral. Pt transferred to ICU. Await new orders as needed.
--- NOTE | 2024-09-22 15:17 | ECHO_ITS ---
Transesophageal Echo Report Ht (in): 61 Wt (lb): 269 Exam Location: Echo Lab Status: Inpatient Fiber Optics Engineer: Sarah Gallegos Indications: Procedure Performed: BP: 120 / 70 HR: 65 Technical Quality: Adequate FINDINGS Left Ventricle Normal left ventricular size and function. Estimated EF at 60&. Right Ventricle The right ventricle is normal in size and systolic function. Left Atrium The left atrium is normal by two-dimensional, color flow and Doppler imaging with no structural abnormalities, no thrombus formation present. Right Atrium The right atrium is normal by two-dimensional imaging, color flow and Doppler imaging with no structural abnormalities, no thrombus formation present. Atrial Appendages The left atrial appendage appears normal with no evidence for thrombus. Atrial Septum The interatrial septum appears normal with no evidence of a shunt. Agitated saline bubble study negative for PFO/ASD. Aorta The aorta is normal by two-dimensional, color flow and Doppler interrogation. Mitral Valve The mitral valve is normal by two-dimensional, color flow and Doppler interrogation. There is mild mitral regurgitation. Aortic Valve The aortic valve is trileaflet and normal by two-dimensional, color flow and Doppler interrogation. There is no significant aortic valve regurgitation. Tricuspid Valve The tricuspid valve is normal by two-dimensional, color flow and Doppler interrogation. There is trace TR. Pulmonic Valve The pulmonic valve is normal by two-dimensional, color flow and Doppler interrogation. There is no significant pulmonic valve regurgitation. Vessels The pulmonary artery appears normal. The inferior vena cava pulmonary and hepatic veins appear normal. Pericardium The pericardium is normal by two-dimensional imaging. There is no significant pericardial effusion. CONCLUSIONS Indications: MRSA Bacteremia No evidence of any valvular vegetation or endocarditis. Bubble study negative for PFO and ASD. No LA or TOMEKA thrombus Normal LV size and function with an EF of around 60 to 65%. Normal RV size and function. Trace MR, TR and PI No pericardial effusion Philip Viramontes (Electronically Signed) Final Date: 22 September 2024 18:20
--- NOTE | 2024-09-22 15:47 | ESPR_ITS ---
Documentation for date of: 09/22/24 Subjective Subjective Interval history: CC: altered mental status, Blood Cultures MRSA bacteremia from ER Patient is a 59-year-old female with past medical history Hypertension, Hyperlipidemia, Diabetes Mellitus type 2 insulin dependent, ESBL UTI, hypothyroidism, bilateral toe amputation, metabolic syndrome, peripheral neuropathy, morbid obesity who was admitted on 09/17/2024 after positive blood cultures collected by ER on (09/14/2024) positive for MRSA (sensitive for Vancomycin). During this admission s/p second toe left foot amputation. Wound culture MRSA (09/18/2024). Urine culture on 09/17/2024 No growth. Blood cutlures positive on 09/14/2024, 09/17/2024, 09/19/2024 ([facility]), 09/20/2024 ([facility]), and repeat 09/21/2024 Cardiology consulted for ADRIÁN given MRSA bacteremia, prior to procedure patient experienced rapid response secondary to acute altered mental status and dyspnea. 09/21/2024: Limited history as patient is alert but not orientated. NO ADRIÁN planned given altered mental status. Infectious disease, Dr. Olguin, following. 09/22/2024: Patient examined at bedside. GCS 9. MRI ischemic stroke. ADRIÁN: Negative for endocarditis and NO PFO. Exam Vital Signs Temp Pulse Resp BP Pulse Ox O2 Del Method O2 Flow Rate 100.7 F H 99 32 H 129/50 L 99 Nasal Cannula 3 09/22/24 08:00 09/22/24 15:15 09/22/24 15:15 09/22/24 15:15 09/22/24 15:15 09/22/24 08:00 09/22/24 08:00 Narrative Exam General Appearance: Alert & Oriented X1, obese female who is lying in bed in difficult to arouse. GCS 10. HEENT: Skull symmetrical and atraumatic. Conjunctivae pink and moist. Pupils equal, round, reactive to light and accommodation (PERRL). External ear without lesion or discharge. Straight, nares patient, mucosa pink, no discharge. Cardio: Normal Rate and Rhythm with S1 and S2 heart sounds. No murmurs appreciated but difficult to determine given body habitus. No bruits on carotid auscultation. No peripheral edema or cyanosis. Lungs: Symmetric with good expansion. Chest and back non-tender. Breath sounds vesicular without crackles, wheezing or rhonchi Abdomen: Non-tender, Non-distended, Normal Reactive Bowel Sounds Neuro: Yes Alert, Yes cooperative, Yes oriented to person, NO place, and NO time. Speech clear. CN grossly intact. Upper motor strength 5/5 and Lower motor strength 5/5. Sensation intact. Objective Labs 09/23/24 04:44 09/23/24 04:44 Labs: Laboratory Results - last 24 hr 09/22/24 09/22/24 09/22/24 04:10 07:59 08:05 WBC 18.8 H RBC 3.31 L Hgb 9.6 L Hct 29.4 L MCV 89 MCH 29.0 MCHC 32.7 RDW Std Deviation 50.1 H Plt Count 228 D Neut % (Auto) 72 Lymph % (Auto) 14 [place] % (Auto) 9 Eos % (Auto) 1 Baso % (Auto) 0 Neut # (Auto) 13.5 H Lymph # (Auto) 2.7 [place] # (Auto) 1.7 H Eos # (Auto) 0.2 Baso # (Auto) 0.1 Immature Gran # (Auto) 0.62 H Absolute Nucleated RBC 0.05 H Immature Gran % 3 H Nucleated RBC % 0 Puncture Site Right Radial ABG pH 7.35 ABG pCO2 31 L ABG pO2 90 ABG HCO3 17 L ABG O2 Saturation 98 ABG Base Excess -7 L Oxygen Liter Flow 3 Sodium 137 Potassium 3.7 Chloride 100 Carbon Dioxide 17.5 L Anion Gap 20 H BUN 11 Creatinine 1.1 Estim Creat Clear Calc 68.4 eGFR 58 L BUN/Creatinine Ratio 10 L Glucose 232 H Calculated Osmolality 280 Lactic Acid 1.2 Calcium 9.9 Corrected Calcium 10.5 H Phosphorus 3.0 Magnesium 1.5 L Total Bilirubin 0.8 AST 30 ALT 22 Alkaline Phosphatase 192 H Total Protein 6.0 Albumin 3.3 L Globulin 2.7 Albumin/Globulin Ratio 1.2 Urine Opiates Screen Urine Fentanyl Screen Ur Barbiturates Screen U Amphetamin/Meth Scrn U Benzodiazepines Scrn U Cocaine Metab Screen U Marijuana (THC) Screen 09/22/24 09/22/24 08:10 11:25 WBC 18.1 H RBC 3.34 L Hgb 9.7 L Hct 29.8 L MCV 89 MCH 29.0 MCHC 32.6 RDW Std Deviation 50.5 H Plt Count 219 Neut % (Auto) 71 Lymph % (Auto) 15 [place] % (Auto) 10 Eos % (Auto) 1 Baso % (Auto) 0 Neut # (Auto) 12.9 H Lymph # (Auto) 2.7 [place] # (Auto) 1.8 H Eos # (Auto) 0.2 Baso # (Auto) 0.1 Immature Gran # (Auto) 0.59 H Absolute Nucleated RBC 0.04 H Immature Gran % 3 H Nucleated RBC % 0 Puncture Site ABG pH ABG pCO2 ABG pO2 ABG HCO3 ABG O2 Saturation ABG Base Excess Oxygen Liter Flow Sodium 137 Potassium 3.7 Chloride 101 Carbon Dioxide 18.6 L Anion Gap 17 H BUN 11 Creatinine 1.2 Estim Creat Clear Calc 62.7 eGFR 52 L BUN/Creatinine Ratio 9 L Glucose 240 H Calculated Osmolality 281 Lactic Acid Calcium 9.8 Corrected Calcium 10.4 H Phosphorus Magnesium Total Bilirubin 0.8 AST 28 ALT 22 Alkaline Phosphatase 187 H Total Protein 5.9 Albumin 3.2 L Globulin 2.7 Albumin/Globulin Ratio 1.2 Urine Opiates Screen Positive A Urine Fentanyl Screen Negative Ur Barbiturates Screen Negative U Amphetamin/Meth Scrn Negative U Benzodiazepines Scrn Negative U Cocaine Metab Screen Negative U Marijuana (THC) Screen Negative ABG Interpretation ABG results: 09/17/24 09/21/24 09/21/24 19:57 11:23 13:15 ABG pH 7.33 L 7.37 7.37 ABG pCO2 46 32 31 L ABG pO2 87 72 L 89 ABG HCO3 24 18 L 18 L ABG O2 Saturation 98 96 95 ABG Base Excess -2 -6 L -6 L 09/22/24 08:05 ABG pH 7.35 ABG pCO2 31 L ABG pO2 90 ABG HCO3 17 L ABG O2 Saturation 98 ABG Base Excess -7 L Quality Measures Quality Measures none Assessment & Plan Assessment Current Active Medications: Generic Name Dose Route Start Last Admin Trade Name Freq PRN Reason Stop Dose Admin Acetaminophen 650 mg 09/17/24 13:44 09/20/24 16:20 Acetaminophen 325 Mg Tablet PO 10/17/24 13:43 650 mg Q6H PRN Administration Fever >100.4 or Pain 1-3 Atorvastatin Calcium 40 mg 09/17/24 21:00 09/21/24 23:12 Atorvastatin Calcium 20 Mg Tablet PO 10/17/24 20:59 Not Given HS SHUBHAM Dextrose 25 ml 09/17/24 18:07 Dextrose 50%-Water Inj 50 Ml Syringe IV 10/17/24 18:06 Q15MIN PRN BG 50-70 responsive npo pt Dextrose 50 ml 09/17/24 18:07 Dextrose 50%-Water Inj 50 Ml Syringe IV 10/17/24 18:06 Q15MIN PRN BG <50 OR BG <70 & pt unresponsive Glucagon 1 mg 09/17/24 18:07 Glucagon Inj 1 Mg Vial IM Q15MIN PRN BG <70, and no IV access Heparin Sodium (Porcine) 5,000 unit 09/21/24 22:00 09/22/24 15:05 Heparin Sod Inj 5000 Unit/Ml Vial SC 10/05/24 21:59 Not Given Q8HR SHUBHAM Sodium Chloride 1,000 mls @ 100 mls/hr 09/18/24 10:14 09/22/24 14:57 Ns IV 10/18/24 10:13 Not Given .Q10H SHUBHAM Daptomycin 500 mg/ Sodium 60 mls @ 120 mls/hr 09/21/24 17:45 09/22/24 09:10 Chloride 10 ml/ Sodium IV 09/28/24 17:44 120 mls/hr Chloride QDAY SHUBHAM Administration Ceftaroline Fosamil 600 mg/ 120 mls @ 120 mls/hr 09/21/24 22:00 09/22/24 15:05 Sodium Chloride 20 ml/ Sodium IV 09/28/24 21:59 120 mls/hr Chloride Q8HR SHUBHAM Administration Acetaminophen 1,000 mg in 100 mls @ 250 mls/hr 09/22/24 08:00 09/22/24 14:53 Ofirmev Inj IV 09/23/24 02:23 Not Given Q6H SHUBHAM Norepinephrine/Dextrose 8 mg in 250 mls @ 11.482 mls/hr 09/22/24 09:54 Levophed In D5w 8mg/250ml IV 10/22/24 09:53 .[id number] PRN PER PROTOCOL Protocol 0.05 MCG/KG/MIN Propofol 1,000 mg in 100 mls @ 3.674 mls/hr 09/22/24 09:57 Diprivan Ivpb IV 10/22/24 09:56 .Q24H PRN PER PROTOCOL Protocol 5 MCG/KG/MIN Fentanyl Citrate 2,500 mcg in 250 mls @ 2.5 mls/hr 09/22/24 09:57 Sublimaze Inj 2,500 Mcg/250 Ml Bag IV 09/27/24 09:56 .Q24H PRN PER PROTOCOL Protocol 25 MCG/HR Dexmedetomidine/Sodium Chloride 400 mcg in 100 mls @ 6.124 mls/hr 09/22/24 10:22 09/22/24 13:00 Precedex Ivpb IV 10/22/24 10:21 0 mcg/kg/hr .[id number] PRN 0 mls/hr Per PROTOCOL Titration Protocol 0.2 MCG/KG/HR Insulin Glargine 40 unit 09/21/24 09:00 09/22/24 11:05 Insulin Glargine (Lantus) 5 Unit/0.05 Ml (Per 5 Units) SC 10/21/24 08:59 Not Given BID SHUBHAM Insulin Human Lispro 10 unit 09/20/24 12:00 09/22/24 11:38 Insulin Lispro (Admelog) 1 Unit/0.01 Ml Unit SC 10/20/24 11:59 10 unit TIDWM SHUBHAM Administration Insulin Human Lispro 0 unit 09/21/24 12:00 09/22/24 11:39 Insulin Lispro (Admelog) 1 Unit/0.01 Ml Unit SC 10/21/24 11:59 2 unit Q6HR SHUBHAM Administration Protocol Losartan Potassium 50 mg 09/18/24 21:00 09/22/24 10:29 Losartan Potassium 25 Mg Tablet PO 10/18/24 20:59 Not Given BID SHUBHAM Ondansetron HCl 4 mg 09/17/24 13:44 Ondansetron Inj 2 Mg/Ml Inj 2 Ml IVP 10/17/24 13:43 Q6H PRN NAUSEA OR VOMITING Protocol Sennosides 1 tab 09/18/24 09:00 09/22/24 10:29 Senna Tablet PO 10/18/24 08:59 Not Given QDAY [facility] Protocol Sodium Chloride 1 spray 09/19/24 18:34 Saline Nasal 45 Ml Btl NASAL 10/19/24 18:33 PRN PRN CONGESTION Plan Patient is a 59-year-old female with past medical history Hypertension, Hyperlipidemia, Diabetes Mellitus type 2 insulin dependent, ESBL UTI, hypothyroidism, bilateral toe amputation, metabolic syndrome, peripheral neuropathy, morbid obesity who was admitted on 09/17/2024 for MRSA bacteremia, now s/p second digit left foot amputation. Cardiology consulted for ADRIÁN given MRSA bacteremia, rule out endocarditits. #MRSA bacteremia #Left gangrenous second digit s/p amputation (09/18/2024) day 4 Cardiology consulted for ADRIÁN to rule out endocarditis as repeat blood cultures positive for MRSA bacteremia. Wound culture s/p amputation of left second digit positive for MRSA. Infective Endocarditis unlikely source of MRSA as no evidence on ADRIÁN. (09/22/2024). Echo (09/21/2024): No evidence of any clear valvular vegetations. TTE suboptimal and consider ADRIÁN if high clinical index of suspicion. Normal LV size and function with an estimated EF of 60-65%. Normal diastolic function. Normal RV size and function. Trace TR. RVSP could not be underestimated accurately.Mild aortic valve sclerosis without stenosis and mildly calcified mitral valve with trace MR.No pericardial effusion. Pro-Rustam elevated at 7.85 Blood cultures positive on 09/14/2024, 09/17/2024, 09/19/2024 (MRSA positive), 09/20/2024 ([facility]), and repeat 09/21/2024 09/22/2024: ADRIÁN Negative for endocarditis and NO PFO noted. No complications. Fentanyl 125 mcg and Versed 1 mg IVP. Plan: -ADRIÁN Negative -Pending Cultures -Ceftaroline 600 mg (09/21/2024--) -Daptomycin 500 mg IV (09/21/2024--) -Ceftriazone (09/21/2024/STOPPED) & Vancomycin (09/17/2024-09/21/2024) #Acute encephalopathy, likely secondary to ischemic infarct Ddx: Likely metabolic in setting of stroke vs hyperglycemia VS bacteremia CT head negative for any acute changes. Ammonia level less than 10 MRI: Findings suspicious for 7 mm acute infarct right cerebral convexity, the patient should be clinically correlated Plan -Neurology consulted, appreciate recs #Metabolic Acidosis, anion gap, improving Bicarb 19, AG 17, delta gap 1. DKA and worsened by bacteremia. -BHB elevated 4.0, Lactic Acid 1.2 Plan -Treat DKA -Monitor renal panel -Repeat BHB #Diabetes Type 2, insulin dependent A1c this admission 10.9 with glucose of 325. Patient also has a history of bilateral toe amputations likely secondary to uncontrolled hyperglycemia. Home medicaiton: Glargine 50 units BIDWM, Regular insulin 40 units TID, glipizide, and Metformin 1000 mg BID. Plan: - ISS - Lantus insulin to 40 units BID -lispro 10 TID - Hypoglycemic protocol in place - ACHS checks #Hyperlipidemia Past medical history of hyperlipidemia. Previous Lipid Panel (09/07/2022): Triglycerides 130, Cholesterol 72, LDL 14, HDL 32 Plan -Atorvastatin 40 mg PO HS #Hypertension Patient takes losartan 50 mg p.o. twice daily Plan -Consider holding Losartan given soft blood pressure and concern for shock. #Hypothyroidism -TSH was 5.84 on admission, home dose Levothyroxine 50 mcg PO Qday #History of Peripheral Neuropathy -given altered mental status hold gabepentin 600 mg PO TID (home medication) #Acute hypoxic respiratory failure-resolved #Sepsis secondary to left gangrenous second toe-resolved #ALLA-resolved Health Maintenance: Disp: Pt is currently admitted to floors for further management of MRSA bacteremia, cardiology will continue to follow. FEN: NPO DVT: on subQ heparin q8hr GI: None Code: Full Code - The patient's plan was discussed with attending Dr. Charlene Malhotra MD PGY1 Internal Medicine Additional Plan: Patient denies any kind of swallowing problems or any kind of esophageal interventions or previous surgeries. Patient denies any kind of gastric ulcers bleeding and any other hematemesis or hematochezia. Patient denies any issues with anesthesia previously. Patient explained all the risks, benefits and alternatives of ADRIÁN including the risk of perforation, bleeding, respiratory failure secondary to sedation, injury to teeth gums esophagus and stomach. Patient understands all risks and benefits and provided consent for the procedure. We will keep him n.p.o. overnight and plan for ADRIÁN in the morning.
[2024-09-22] MEDS: MIDAZOLAM INJ 1 MG/ML VIAL 2 ML IVP (16:02)
[2024-09-22] MEDS: fentaNYL CIT INJ 50 mCg/ML AMP 2ML 125 MCG IVP (16:02)
--- NOTE | 2024-09-22 16:25 | PD.RESEVENT ---
Documentation for date of: 09/22/24 Event Note Event Note: ADRIÁN by [employer] Creasing Machine Operator Dr Viramontes at 1600 hours Patient was given 1mg versed and 125mcg fentanyl around 4:10 pm Successful ADRIÁN performed. No PFO observed. Will follow up report once uploaded. - Sukh Vu M.D. PGY2 Disclaimer: Minor errors in loss prevention associate may be present as this note was dictated using voice recognition software.
[2024-09-22] MEDS: BENZOCAINE 20% (Hurricaine) SPRAY 1 DOSE TOP (16:32)
[2024-09-22 20:39] LABS: Glucose,CSF 116 mg/dL (40-70); Protein Total,CSF 214 mg/dL (8-32)
[2024-09-22 20:40] LABS: CSF Cell Count Tube # Tube #2; CSF Color Colorless (Colorless)
[2024-09-22 20:41] LABS: CSF Mononuclear 23 %; CSF Polynuclear WBC 77 %; CSF Red Blood Cell 1000 /cmm; CSF White Blood Cell 1283 /cmm; CSF, Appearance Hazy (Clear)
[2024-09-22 20:48] LABS: Lactate (Lactic Acid) 1.6 mMol/L (0.4-2.0)
[2024-09-22 21:15] LABS: Ag, Group B Strep Negative (Negative); Ag, H Influenza B Negative (Negative); Ag, N Mening B/Ecoli K1 Negative (Negative); Ag, N Meningitidis ACY W135 Negative (Negative); Ag, Strep Pneumonia Negative (Negative)
[2024-09-22 21:23] LABS: Alanine Aminotransferase 19 U/L (10-49); Albumin, Serum 3.1 gm/dL (3.5-5.0); Albumin/Globulin Ratio 1.3 (1.2-2.2); Alkaline Phosphatase 181 U/L (46-116); Anion Gap 14 (7-16); Aspartate Amino Transferase 29 U/L (0-34); BUN/Creatinine Ratio 8 Ratio (12-20); Bilirubin,Total 0.6 mg/dL (0.3-1.2); Blood Urea Nitrogen 11 mg/dL (9-23); Calcium 10.6 mg/dL (8.3-10.6); Calcium (Corrected) 11.3 mg/dL (8.5-10.1); Carbon Dioxide 20.2 mMol/L (20.0-31.0); Chloride 102 mMol/L (98-107); Creatinine (Component) 1.3 mg/dL (0.6-1.3); Estimated Creatinine Clearance 57.8 mL/min (>60); Globulin 2.3 gm/dL (2.3-3.5); Glucose 242 mg/dL (74-106); Osmolality,Calculated 279 (275-295); Potassium 3.4 mMol/L (3.4-5.1); Sodium 136 mMol/L (136-145); Total Protein 5.4 gm/dL (5.7-8.2); eGFR 48 See Note
[2024-09-22] MEDS: INSULIN GLARGINE (Lantus) 5 UNIT/0.05 ML (PER 5 UNITS) 40 UNIT SC (21:29)
[2024-09-22] MEDS: POTASSIUM CHL 10 mEq IVPB 10 MEQ/100 ML BAG 100 MEQ IV ×2 (21:45→22:38)
[2024-09-22 22:07] LABS: Vancomycin,Trough 8.6 mcg/mL (5.0-10.0)
--- NOTE | 2024-09-22 23:17 | PD.NEUROPROG ---
Documentation for date of: 09/22/24 Subjective Subjective Interval history: Patient is a 59-year-old female with past medical history significant for bilateral toe amputation, hypertension, hyperlipidemia, ESBL UTI, type 2 diabetes, metabolic syndrome, hypothyroidism, peripheral neuropathy, morbid obesity got admitted on 09/17/24 with MRSA bacteremia. Patient actually visited the ER 3 days ago for bilateral flank pain and dysuria x 2 days, and discharged with Toradol, cefdinir, and Zofran. Patient had rapid response called today for worsening altered mental status and hypoxia. Did undergo workup including echocardiogram to rule out vegetation. ID is on board for management of sepsis. Neurology was consulted to evaluate further. No witnessed seizures or myoclonic jerks. Rapid response was called again today and patient was transferred to ICU for further close monitoring and management. LP was attempted but was unsuccessful. Patient did have the MRI brain that showed an insignificant infarction which does not explain her mental status changes Exam - Neurology Vital Signs Temp Pulse Resp BP Pulse Ox O2 Del Method O2 Flow Rate 99.2 F 102 H 21 H 112/77 96 Nasal Cannula 2 09/22/24 21:01 09/22/24 22:45 09/22/24 22:45 09/22/24 22:45 09/22/24 22:45 09/22/24 18:01 09/22/24 18:01 Narrative Exam GENERAL APPEARANCE: Well-developed, obese built female in mild distress. HEENT: Normocephalic, atraumatic, Pupils: Equal reacting to light NECK: Supple, no JVD or bruits. CARDIOVASULAR: Heart: S1, S2 heard, regular without S3-S4 or murmur no rubs or gallops. LUNGS/CHEST: Bilateral Rales and rhonchi heard ABDOMEN: Soft, nontender, with normal bowel sounds. No pulsatile masses. No rebound, rigidity, or guarding. Normal inspection and palpation. EXTREMITIES: Normal inspection and palpation. 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 SKIN: Warm and dry without rashes. Normal inspection. MUSCULOSKELETAL: No cervical, thoracic, lumbar or midline bony tenderness. Normal inspection. NEURO: Somnolent, hard to arouse, purposeful movements noted in the extremities, barely follows commands on the left upper extremity. PSYCHIATRIC: Limited Objective Labs 09/23/24 04:44 09/23/24 04:44 Labs: Laboratory Results - last 24 hr 09/22/24 09/22/24 09/22/24 04:10 07:59 08:05 WBC 18.8 H RBC 3.31 L Hgb 9.6 L Hct 29.4 L MCV 89 MCH 29.0 MCHC 32.7 RDW Std Deviation 50.1 H Plt Count 228 D Neut % (Auto) 72 Lymph % (Auto) 14 [place] % (Auto) 9 Eos % (Auto) 1 Baso % (Auto) 0 Neut # (Auto) 13.5 H Lymph # (Auto) 2.7 [place] # (Auto) 1.7 H Eos # (Auto) 0.2 Baso # (Auto) 0.1 Immature Gran # (Auto) 0.62 H Absolute Nucleated RBC 0.05 H Immature Gran % 3 H Nucleated RBC % 0 Puncture Site Right Radial ABG pH 7.35 ABG pCO2 31 L ABG pO2 90 ABG HCO3 17 L ABG O2 Saturation 98 ABG Base Excess -7 L Oxygen Liter Flow 3 Sodium 137 Potassium 3.7 Chloride 100 Carbon Dioxide 17.5 L Anion Gap 20 H BUN 11 Creatinine 1.1 Estim Creat Clear Calc 68.4 eGFR 58 L BUN/Creatinine Ratio 10 L Glucose 232 H Calculated Osmolality 280 Lactic Acid 1.2 Calcium 9.9 Corrected Calcium 10.5 H Phosphorus 3.0 Magnesium 1.5 L Total Bilirubin 0.8 AST 30 ALT 22 Alkaline Phosphatase 192 H Total Protein 6.0 Albumin 3.3 L Globulin 2.7 Albumin/Globulin Ratio 1.2 CSF Appearance CSF Color CSF WBC CSF RBC CSF Cell Count Tube # CSF Mononuclear WBCs CSF Polynuclear WBCs CSF Glucose CSF Total Protein CSF H.influenzae B Ag CSF N.meningit ACY/W135 CSF N.mening B/E.coli K1 CSF Strep B Antigen CSF Strep pneumoniae Ag Vancomycin Trough Urine Opiates Screen Urine Fentanyl Screen Ur Barbiturates Screen U Amphetamin/Meth Scrn U Benzodiazepines Scrn U Cocaine Metab Screen U Marijuana (THC) Screen 09/22/24 09/22/24 09/22/24 08:10 11:25 19:55 WBC 18.1 H RBC 3.34 L Hgb 9.7 L Hct 29.8 L MCV 89 MCH 29.0 MCHC 32.6 RDW Std Deviation 50.5 H Plt Count 219 Neut % (Auto) 71 Lymph % (Auto) 15 [place] % (Auto) 10 Eos % (Auto) 1 Baso % (Auto) 0 Neut # (Auto) 12.9 H Lymph # (Auto) 2.7 [place] # (Auto) 1.8 H Eos # (Auto) 0.2 Baso # (Auto) 0.1 Immature Gran # (Auto) 0.59 H Absolute Nucleated RBC 0.04 H Immature Gran % 3 H Nucleated RBC % 0 Puncture Site ABG pH ABG pCO2 ABG pO2 ABG HCO3 ABG O2 Saturation ABG Base Excess Oxygen Liter Flow Sodium 137 Potassium 3.7 Chloride 101 Carbon Dioxide 18.6 L Anion Gap 17 H BUN 11 Creatinine 1.2 Estim Creat Clear Calc 62.7 eGFR 52 L BUN/Creatinine Ratio 9 L Glucose 240 H Calculated Osmolality 281 Lactic Acid Calcium 9.8 Corrected Calcium 10.4 H Phosphorus Magnesium Total Bilirubin 0.8 AST 28 ALT 22 Alkaline Phosphatase 187 H Total Protein 5.9 Albumin 3.2 L Globulin 2.7 Albumin/Globulin Ratio 1.2 CSF Appearance Hazy A CSF Color Colorless CSF WBC 1283 CSF RBC 1000 CSF Cell Count Tube # Tube #2 CSF Mononuclear WBCs 23 CSF Polynuclear WBCs 77 CSF Glucose 116 H CSF Total Protein 214 H CSF H.influenzae B Ag Negative CSF N.meningit ACY/W135 Negative CSF N.mening B/E.coli K1 Negative CSF Strep B Antigen Negative CSF Strep pneumoniae Ag Negative Vancomycin Trough Urine Opiates Screen Positive A Urine Fentanyl Screen Negative Ur Barbiturates Screen Negative U Amphetamin/Meth Scrn Negative U Benzodiazepines Scrn Negative U Cocaine Metab Screen Negative U Marijuana (THC) Screen Negative 09/22/24 20:31 WBC RBC Hgb Hct MCV MCH MCHC RDW Std Deviation Plt Count Neut % (Auto) Lymph % (Auto) [place] % (Auto) Eos % (Auto) Baso % (Auto) Neut # (Auto) Lymph # (Auto) [place] # (Auto) Eos # (Auto) Baso # (Auto) Immature Gran # (Auto) Absolute Nucleated RBC Immature Gran % Nucleated RBC % Puncture Site ABG pH ABG pCO2 ABG pO2 ABG HCO3 ABG O2 Saturation ABG Base Excess Oxygen Liter Flow Sodium 136 Potassium 3.4 Chloride 102 Carbon Dioxide 20.2 Anion Gap 14 BUN 11 Creatinine 1.3 Estim Creat Clear Calc 57.8 L eGFR 48 L BUN/Creatinine Ratio 8 L Glucose 242 H Calculated Osmolality 279 Lactic Acid 1.6 Calcium 10.6 Corrected Calcium 11.3 H Phosphorus Magnesium Total Bilirubin 0.6 AST 29 ALT 19 Alkaline Phosphatase 181 H Total Protein 5.4 L Albumin 3.1 L Globulin 2.3 Albumin/Globulin Ratio 1.3 CSF Appearance CSF Color CSF WBC CSF RBC CSF Cell Count Tube # CSF Mononuclear WBCs CSF Polynuclear WBCs CSF Glucose CSF Total Protein CSF H.influenzae B Ag CSF N.meningit ACY/W135 CSF N.mening B/E.coli K1 CSF Strep B Antigen CSF Strep pneumoniae Ag Vancomycin Trough 8.6 Urine Opiates Screen Urine Fentanyl Screen Ur Barbiturates Screen U Amphetamin/Meth Scrn U Benzodiazepines Scrn U Cocaine Metab Screen U Marijuana (THC) Screen ABG Interpretation ABG results: 09/17/24 09/21/24 09/21/24 19:57 11:23 13:15 ABG pH 7.33 L 7.37 7.37 ABG pCO2 46 32 31 L ABG pO2 87 72 L 89 ABG HCO3 24 18 L 18 L ABG O2 Saturation 98 96 95 ABG Base Excess -2 -6 L -6 L 09/22/24 08:05 ABG pH 7.35 ABG pCO2 31 L ABG pO2 90 ABG HCO3 17 L ABG O2 Saturation 98 ABG Base Excess -7 L Assessment & Plan Assessment and plan (1) Altered mental status: Status: Acute Assessment and plan: secondary to metaolic encephalopathy FU with EEG LP by interventional radiology (2) Diabetes mellitus: Status: Chronic (3) ALLA (acute kidney injury): Status: Acute Assessment and plan: with underlying chronic renal failure on dialysis (4) Sepsis: Status: Acute Assessment and plan: ID on board continue with current antibiotics
[2024-09-22] MEDS: KETOROLAC INJ 30 MG/ML VIAL 15 MG IVP (23:19)
[2024-09-22] MEDS: Magnesium Sulfate 2 GM Ivpb 2 GM/50 ML BAG IV (23:20)
[2024-09-22] MEDS: SODIUM CHLORIDE 0.9% 1000 ML 1,000 ML 100 ML IV (23:44)
[2024-09-23] VITALS (126 sets, daily range): BP systolic 44–181; BP diastolic 26–87; PULSE 46–146; RESP 13–38; TEMP 36.2–40.1; O2SAT 89–100; BMI 50.3
[2024-09-23] MEDS: ACETAMINOPHEN IVPB 1,000 MG/100 ML VIAL 250 MG IV (02:14)
--- NOTE | 2024-09-23 02:30 | PC.NURSE ---
Called CT to verify that they know about pt requiring CT. integrated pest management technician clarified that she knows but is currently very busy with ED patient and will call when ready for patient. MD and non acoustic operator made aware
[2024-09-23] MEDS: INSULIN LISPRO (AdmeLOG) 1 UNIT/0.01 ML UNIT SC ×2 (05:27→12:48)
[2024-09-23] MEDS: HEPARIN SOD INJ 5000 UNIT/ML VIAL SC (05:27)
[2024-09-23] MEDS: SODIUM CHLORIDE 0.9% IV ×5 (05:28→23:00)
[2024-09-23] MEDS: CEFTAROLINE FOSAMIL IV ×3 (05:28→21:31)
[2024-09-23] MEDS: [UNRECOGNIZED DRUG - OTHER] IV ×3 (05:28→21:31)
[2024-09-23 05:40] LABS: Basophils # (Auto) 0.1 Thou/mm3 (0.0-0.2); Basophils % (Auto) 0 % (0-2.5); Eosinophils # (Auto) 0.2 Thou/mm3 (0.0-0.5); Eosinophils % (Auto) 1 % (0-10); Hematocrit 28.5 % (36.0-46.0); Immature Granulocytes % (Auto) 4 % (0-0); Lymphocytes # (Auto) 1.9 Thou/mm3 (1.0-4.8); Lymphocytes % (Auto) 11 % (10-50); Mean Corpuscular HGB Conc 30.9 g/dl (31.0-37.0); Mean Corpuscular Volume 94 fL (80-100); Monocytes # (Auto) 1.5 Thou/mm3 (0.0-0.8); Monocytes % (Auto) 9 % (0-12); Neutrophils # (Auto) 13.1 Thou/mm3 (1.8-7.7); Neutrophils % (Auto) 75 % (37-80); Nucleated Red Blood Cell # 0.04 Thou/mm3 (0.00-0.00); Nucleated Red Blood Cell % 0 /100 WBC (0); Platelet Count 219 Thou/mm3 (140-440); RDW Standard Deviation 53.5 fL (36.4-46.3); Red Blood Count 3.03 Miln/mm3 (4.00-5.20); White Blood Count 17.4 Thou/mm3 (3.6-11.0)
[2024-09-23 05:46] LABS: Hemoglobin 8.8 g/dL (12.0-16.0)
[2024-09-23 06:06] LABS: Alanine Aminotransferase 18 U/L (10-49); Albumin, Serum 2.9 gm/dL (3.5-5.0); Albumin/Globulin Ratio 1.3 (1.2-2.2); Alkaline Phosphatase 175 U/L (46-116); Anion Gap 13 (7-16); Aspartate Amino Transferase 23 U/L (0-34); BUN/Creatinine Ratio 10 Ratio (12-20); Bilirubin,Total 0.6 mg/dL (0.3-1.2); Blood Urea Nitrogen 12 mg/dL (9-23); Calcium 10.6 mg/dL (8.3-10.6); Calcium (Corrected) 11.5 mg/dL (8.5-10.1); Carbon Dioxide 19.6 mMol/L (20.0-31.0); Chloride 102 mMol/L (98-107); Creatine Kinase 80 U/L (34-171); Creatinine (Component) 1.2 mg/dL (0.6-1.3); Estimated Creatinine Clearance 62.1 mL/min (>60); Globulin 2.2 gm/dL (2.3-3.5); Glucose 256 mg/dL (74-106); Osmolality,Calculated 278 (275-295); Potassium 3.5 mMol/L (3.4-5.1); Sodium 135 mMol/L (136-145); Total Protein 5.1 gm/dL (5.7-8.2); eGFR 52 See Note
--- NOTE | 2024-09-23 07:07 | PD.EVENT ---
Documentation for date of: 09/22/24 Date of procedure: 09/22/24 Pre-op diagnosis: Altered mental status to rule out encephalitis Post-op diagnosis: Same Consent signed by: Family Position: lateral decubitus Prep: betadine Anesthesia: 1 % Lidocaine Sedation: none Needle size: 22ga Needle length: other (5) Interspace: L3-4 Number of attempts: 5 Opening pressure: # cm H2O (27) Fluids mLs collected: 4 Fluid description: cloudy Complications: No Procedure performed by: Wilton Winchester Condition: Stable
[2024-09-23] MEDS: INSULIN GLARGINE (Lantus) 5 UNIT/0.05 ML (PER 5 UNITS) 40 UNIT SC ×2 (08:25→21:33)
[2024-09-23] MEDS: INSULIN LISPRO (AdmeLOG) 1 UNIT/0.01 ML UNIT 10 UNIT SC ×2 (08:29→12:47)
[2024-09-23] MEDS: bisacodyL 10 MG SUPP PR (09:25)
--- NOTE | 2024-09-23 09:36 | XR_ITS ---
Examination: CT chest with intravenous contrast CT abdomen with intravenous contrast CT pelvis with intravenous contrast 2-D coronal and sagittal reconstructions Time of exam: September 23, 2024 1154 hours INDICATIONS: Bacteremia, today unknown site, shortness of breath chest and abdominal pain type 2 diabetes CTDI: vol (mGy) : 18.3 DLP: (mGycm): 1357 Technique: Multiple axial images of the chest, abdomen and pelvis with intravenous contrast, 3.0 mm slice thickness. Images obtained post intravenous injection Isovue 370 60 cc. 2-D sagittal and coronal reconstructions. Low dose protocols were performed. One or more of the following dose reduction techniques were used; automated exposure control, adjustment of the mA and/or KV according to patient size, use of iterative reconstruction technique. Findings: No thoracic aortic aneurysm dilatation No pulmonary artery filling defects on this non-CTA study No paratracheal tracheobronchial or bronchopulmonary adenopathy No pneumonia or pulmonary edema or pleural disease Diffuse fatty infiltration throughout the liver no focal liver or splenic lesions Suspicious for gallbladder sludge No pancreatic or adrenal mass Perinephric stranding Moderate renal parenchymal scar formation No hydronephrosis or ureteral calculi Aorta normal size No bowel obstruction Trace free fluid in the pelvis Normal appendix Atrophic anteverted uterus No diverticulitis Urinary bladder contracted around a Kirby catheter No perianal abscess Advanced disc narrowing L5-S1 IMPRESSION: No pneumonia or pulmonary edema Diffuse fatty infiltration throughout the liver Recommend hepatobiliary sonography follow-up to exclude gallbladder sludge Moderate renal parenchymal scar formation with perinephric stranding, consider urinary tract infection Normal appendix No bowel obstruction or diverticulitis No abdominal or pelvic abscess
[2024-09-23] MEDS: [UNRECOGNIZED DRUG - OTHER] IV (09:40)
[2024-09-23] MEDS: DAPTOMYCIN IV (09:40)
--- NOTE | 2024-09-23 09:40 | PD.IDPROG ---
Subjective Subjective Interval history: repeat bc neg. csf benign. she may have viral csf process so tests pending there. but may have dementia too. she is 59 yoa Exam Vital Signs Temp Pulse Resp BP Pulse Ox O2 Del Method O2 Flow Rate 97.4 F 79 33 H 124/63 98 Nasal Cannula 2 09/23/24 04:01 09/23/24 08:23 09/23/24 06:00 09/23/24 08:23 09/23/24 06:00 09/22/24 18:01 09/22/24 19:00 Narrative Exam moved to icu. met acidosis more or less static. may move out of icu. having eeg at the moment Objective - Internal Medicine Labs 09/23/24 04:44 09/23/24 04:44 Labs: Laboratory Results - last 24 hr 09/22/24 09/22/24 09/22/24 11:25 19:55 20:31 WBC RBC Hgb Hct MCV MCH MCHC RDW Std Deviation Plt Count Neut % (Auto) Lymph % (Auto) [place] % (Auto) Eos % (Auto) Baso % (Auto) Neut # (Auto) Lymph # (Auto) [place] # (Auto) Eos # (Auto) Baso # (Auto) Immature Gran # (Auto) Absolute Nucleated RBC Immature Gran % Nucleated RBC % Sodium 136 Potassium 3.4 Chloride 102 Carbon Dioxide 20.2 Anion Gap 14 BUN 11 Creatinine 1.3 Estim Creat Clear Calc 57.8 L eGFR 48 L BUN/Creatinine Ratio 8 L Glucose 242 H Calculated Osmolality 279 Lactic Acid 1.6 Calcium 10.6 Corrected Calcium 11.3 H Total Bilirubin 0.6 AST 29 ALT 19 Alkaline Phosphatase 181 H Total Creatine Kinase Total Protein 5.4 L Albumin 3.1 L Globulin 2.3 Albumin/Globulin Ratio 1.3 CSF Appearance Hazy A CSF Color Colorless CSF WBC 1283 CSF RBC 1000 CSF Cell Count Tube # Tube #2 CSF Mononuclear WBCs 23 CSF Polynuclear WBCs 77 CSF Glucose 116 H CSF Total Protein 214 H CSF H.influenzae B Ag Negative CSF N.meningit ACY/W135 Negative CSF N.mening B/E.coli K1 Negative CSF Strep B Antigen Negative CSF Strep pneumoniae Ag Negative Vancomycin Trough 8.6 Urine Opiates Screen Positive A Urine Fentanyl Screen Negative Ur Barbiturates Screen Negative U Amphetamin/Meth Scrn Negative U Benzodiazepines Scrn Negative U Cocaine Metab Screen Negative U Marijuana (THC) Screen Negative 06/06/25 04:44 WBC 17.4 H RBC 3.03 L Hgb 8.8 L Hct 28.5 L MCV 94 MCH 29.0 MCHC 30.9 L RDW Std Deviation 53.5 H Plt Count 219 Neut % (Auto) 75 Lymph % (Auto) 11 [place] % (Auto) 9 Eos % (Auto) 1 Baso % (Auto) 0 Neut # (Auto) 13.1 H Lymph # (Auto) 1.9 [place] # (Auto) 1.5 H Eos # (Auto) 0.2 Baso # (Auto) 0.1 Immature Gran # (Auto) 0.70 H Absolute Nucleated RBC 0.04 H Immature Gran % 4 H Nucleated RBC % 0 Sodium 135 L Potassium 3.5 Chloride 102 Carbon Dioxide 19.6 L Anion Gap 13 BUN 12 Creatinine 1.2 Estim Creat Clear Calc 62.1 eGFR 52 L BUN/Creatinine Ratio 10 L Glucose 256 H Calculated Osmolality 278 Lactic Acid Calcium 10.6 Corrected Calcium 11.5 H Total Bilirubin 0.6 AST 23 ALT 18 Alkaline Phosphatase 175 H Total Creatine Kinase 80 Total Protein 5.1 L Albumin 2.9 L Globulin 2.2 L Albumin/Globulin Ratio 1.3 CSF Appearance CSF Color CSF WBC CSF RBC CSF Cell Count Tube # CSF Mononuclear WBCs CSF Polynuclear WBCs CSF Glucose CSF Total Protein CSF H.influenzae B Ag CSF N.meningit ACY/W135 CSF N.mening B/E.coli K1 CSF Strep B Antigen CSF Strep pneumoniae Ag Vancomycin Trough Urine Opiates Screen Urine Fentanyl Screen Ur Barbiturates Screen U Amphetamin/Meth Scrn U Benzodiazepines Scrn U Cocaine Metab Screen U Marijuana (THC) Screen ABG Interpretation ABG results: 09/17/24 09/21/24 09/21/24 19:57 11:23 13:15 ABG pH 7.33 L 7.37 7.37 ABG pCO2 46 32 31 L ABG pO2 87 72 L 89 ABG HCO3 24 18 L 18 L ABG O2 Saturation 98 96 95 ABG Base Excess -2 -6 L -6 L 09/22/24 08:05 ABG pH 7.35 ABG pCO2 31 L ABG pO2 90 ABG HCO3 17 L ABG O2 Saturation 98 ABG Base Excess -7 L Assessment & Plan A&P Narrative persistent bacteremia with presumptive mrsa from 09/19 and 09/20 and 09/21 bc from 09/23 pending neg so far abscess L foot. drained. echo noted. susan neg dapto and ceftaroline ok and if renal function becomes impaired, ok to move to dapto if germ is s (and it is) will see again on Thursday no new hx as eeg underway. Time Spent With Patient Time: Total time spent is greater than 50% in coordination of care (as documented) at patient's floor/unit and/or counseling patient:
--- NOTE | 2024-09-23 09:48 | PD.RESPRO ---
Documentation for date of: 09/23/24 Subjective Subjective Interval history: CC: altered mental status, Blood Cultures MRSA bacteremia from ER Patient is a 59-year-old female with past medical history Hypertension, Hyperlipidemia, Diabetes Mellitus type 2 insulin dependent, ESBL UTI, hypothyroidism, bilateral toe amputation, metabolic syndrome, peripheral neuropathy, morbid obesity who was admitted on 09/17/2024 after positive blood cultures collected by ER on (09/14/2024) positive for MRSA (sensitive for Vancomycin). During this admission s/p second toe left foot amputation. Wound culture MRSA (09/18/2024). Urine culture on 09/17/2024 No growth. Blood cutlures positive on 09/14/2024, 09/17/2024, 09/19/2024 ([facility]), 09/20/2024 ([facility]), and repeat 09/21/2024 Cardiology consulted for ADRIÁN given MRSA bacteremia, prior to procedure patient experienced rapid response secondary to acute altered mental status and dyspnea. 09/21/2024: Limited history as patient is alert but not orientated. NO ADRIÁN planned given altered mental status. Infectious disease, Dr. Olguin, following. 09/22/2024: Patient examined at bedside. GCS 9. MRI ischemic stroke. ADRIÁN: Negative for endocarditis and NO PFO. 09/23/2024: Patient examined at bedside. Alert but NOT orientated X3. Per nursing staff, patinet has been waxing and waning overnight. GCS 12. Patient able to follow commands. Exam Vital Signs Temp Pulse Resp BP Pulse Ox O2 Del Method O2 Flow Rate 97.4 F 79 33 H 124/63 98 Nasal Cannula 2 09/23/24 04:01 09/23/24 08:23 09/23/24 06:00 09/23/24 08:23 09/23/24 06:00 09/22/24 18:01 09/22/24 19:00 Narrative Exam General Appearance: Alert & Oriented X1, obese female who is lying in bed in difficult to arouse. GCS 10. HEENT: Skull symmetrical and atraumatic. Conjunctivae pink and moist. Pupils equal, round, reactive to light and accommodation (PERRL). Oral cavity dry. Cardio: Normal Rate and Rhythm with S1 and S2 heart sounds. . No bruits on carotid auscultation. No peripheral edema or cyanosis. Lungs: Symmetric with good expansion. Chest and back non-tender. Breath sounds vesicular without crackles, wheezing or rhonchi Abdomen: Non-tender, Non-distended, Normal Reactive Bowel Sounds Neuro: Yes Alert, Yes cooperative, Yes oriented to person, NO place, and NO time. Speech NOT clear. Upper motor strength 4/5 and Lower motor strength 2/5. Sensation intact. Objective Labs 09/23/24 04:44 09/23/24 04:44 Labs: Laboratory Results - last 24 hr 09/22/24 09/22/24 09/22/24 11:25 19:55 20:31 WBC RBC Hgb Hct MCV MCH MCHC RDW Std Deviation Plt Count Neut % (Auto) Lymph % (Auto) [place] % (Auto) Eos % (Auto) Baso % (Auto) Neut # (Auto) Lymph # (Auto) [place] # (Auto) Eos # (Auto) Baso # (Auto) Immature Gran # (Auto) Absolute Nucleated RBC Immature Gran % Nucleated RBC % Sodium 136 Potassium 3.4 Chloride 102 Carbon Dioxide 20.2 Anion Gap 14 BUN 11 Creatinine 1.3 Estim Creat Clear Calc 57.8 L eGFR 48 L BUN/Creatinine Ratio 8 L Glucose 242 H Calculated Osmolality 279 Lactic Acid 1.6 Calcium 10.6 Corrected Calcium 11.3 H Total Bilirubin 0.6 AST 29 ALT 19 Alkaline Phosphatase 181 H Total Creatine Kinase Total Protein 5.4 L Albumin 3.1 L Globulin 2.3 Albumin/Globulin Ratio 1.3 CSF Appearance Hazy A CSF Color Colorless CSF WBC 1283 CSF RBC 1000 CSF Cell Count Tube # Tube #2 CSF Mononuclear WBCs 23 CSF Polynuclear WBCs 77 CSF Glucose 116 H CSF Total Protein 214 H CSF H.influenzae B Ag Negative CSF N.meningit ACY/W135 Negative CSF N.mening B/E.coli K1 Negative CSF Strep B Antigen Negative CSF Strep pneumoniae Ag Negative Vancomycin Trough 8.6 Urine Opiates Screen Positive A Urine Fentanyl Screen Negative Ur Barbiturates Screen Negative U Amphetamin/Meth Scrn Negative U Benzodiazepines Scrn Negative U Cocaine Metab Screen Negative U Marijuana (THC) Screen Negative 09/23/24 04:44 WBC 17.4 H RBC 3.03 L Hgb 8.8 L Hct 28.5 L MCV 94 MCH 29.0 MCHC 30.9 L RDW Std Deviation 53.5 H Plt Count 219 Neut % (Auto) 75 Lymph % (Auto) 11 [place] % (Auto) 9 Eos % (Auto) 1 Baso % (Auto) 0 Neut # (Auto) 13.1 H Lymph # (Auto) 1.9 [place] # (Auto) 1.5 H Eos # (Auto) 0.2 Baso # (Auto) 0.1 Immature Gran # (Auto) 0.70 H Absolute Nucleated RBC 0.04 H Immature Gran % 4 H Nucleated RBC % 0 Sodium 135 L Potassium 3.5 Chloride 102 Carbon Dioxide 19.6 L Anion Gap 13 BUN 12 Creatinine 1.2 Estim Creat Clear Calc 62.1 eGFR 52 L BUN/Creatinine Ratio 10 L Glucose 256 H Calculated Osmolality 278 Lactic Acid Calcium 10.6 Corrected Calcium 11.5 H Total Bilirubin 0.6 AST 23 ALT 18 Alkaline Phosphatase 175 H Total Creatine Kinase 80 Total Protein 5.1 L Albumin 2.9 L Globulin 2.2 L Albumin/Globulin Ratio 1.3 CSF Appearance CSF Color CSF WBC CSF RBC CSF Cell Count Tube # CSF Mononuclear WBCs CSF Polynuclear WBCs CSF Glucose CSF Total Protein CSF H.influenzae B Ag CSF N.meningit ACY/W135 CSF N.mening B/E.coli K1 CSF Strep B Antigen CSF Strep pneumoniae Ag Vancomycin Trough Urine Opiates Screen Urine Fentanyl Screen Ur Barbiturates Screen U Amphetamin/Meth Scrn U Benzodiazepines Scrn U Cocaine Metab Screen U Marijuana (THC) Screen ABG Interpretation ABG results: 09/17/24 09/21/24 09/21/24 19:57 11:23 13:15 ABG pH 7.33 L 7.37 7.37 ABG pCO2 46 32 31 L ABG pO2 87 72 L 89 ABG HCO3 24 18 L 18 L ABG O2 Saturation 98 96 95 ABG Base Excess -2 -6 L -6 L 09/22/24 08:05 ABG pH 7.35 ABG pCO2 31 L ABG pO2 90 ABG HCO3 17 L ABG O2 Saturation 98 ABG Base Excess -7 L Quality Measures Quality Measures none Assessment & Plan Assessment Current Active Medications: Generic Name Dose Route Start Last Admin Trade Name Freq PRN Reason Stop Dose Admin Acetaminophen 650 mg 09/17/24 13:44 09/20/24 16:20 Acetaminophen 325 Mg Tablet PO 10/17/24 13:43 650 mg Q6H PRN Administration Fever >100.4 or Pain 1-3 Atorvastatin Calcium 40 mg 09/17/24 21:00 09/22/24 21:40 Atorvastatin Calcium 20 Mg Tablet PO 10/17/24 20:59 Not Given HS SHUBHAM Bisacodyl 10 mg 09/23/24 08:22 09/23/24 09:25 Bisacodyl 10 Mg Supp VA 10/23/24 08:21 10 mg QDAY PRN Administration CONSTIPATION Protocol Dextrose 25 ml 09/17/24 18:07 Dextrose 50%-Water Inj 50 Ml Syringe IV 10/17/24 18:06 Q15MIN PRN BG 50-70 responsive npo pt Dextrose 50 ml 09/17/24 18:07 Dextrose 50%-Water Inj 50 Ml Syringe IV 10/17/24 18:06 Q15MIN PRN BG <50 OR BG <70 & pt unresponsive Glucagon 1 mg 09/17/24 18:07 Glucagon Inj 1 Mg Vial IM Q15MIN PRN BG <70, and no IV access Heparin Sodium (Porcine) 5,000 unit 09/21/24 22:00 09/23/24 05:27 Heparin Sod Inj 5000 Unit/Ml Vial SC 10/05/24 21:59 5,000 unit Q8HR SHUBHAM Administration Daptomycin 500 mg/ Sodium 60 mls @ 120 mls/hr 09/21/24 17:45 09/23/24 09:40 Chloride 10 ml/ Sodium IV 09/28/24 17:44 120 mls/hr Chloride QDAY SHUBHAM Administration Ceftaroline Fosamil 600 mg/ 120 mls @ 120 mls/hr 09/21/24 22:00 09/23/24 05:28 Sodium Chloride 20 ml/ Sodium IV 09/28/24 21:59 120 mls/hr Chloride Q8HR SHUBHAM Administration Norepinephrine/Dextrose 8 mg in 250 mls @ 11.482 mls/hr 09/22/24 09:54 Levophed In D5w 8mg/250ml IV 10/22/24 09:53 .[id number] PRN PER PROTOCOL Protocol 0.05 MCG/KG/MIN Propofol 1,000 mg in 100 mls @ 3.674 mls/hr 09/22/24 09:57 Diprivan Ivpb IV 10/22/24 09:56 .Q24H PRN PER PROTOCOL Protocol 5 MCG/KG/MIN Fentanyl Citrate 2,500 mcg in 250 mls @ 2.5 mls/hr 09/22/24 09:57 Sublimaze Inj 2,500 Mcg/250 Ml Bag IV 09/27/24 09:56 .Q24H PRN PER PROTOCOL Protocol 25 MCG/HR Dexmedetomidine/Sodium Chloride 400 mcg in 100 mls @ 6.124 mls/hr 09/22/24 10:22 09/22/24 13:00 Precedex Ivpb IV 10/22/24 10:21 0 mcg/kg/hr .[id number] PRN 0 mls/hr Per PROTOCOL Titration Protocol 0.2 MCG/KG/HR Insulin Glargine 40 unit 09/21/24 09:00 09/23/24 08:25 Insulin Glargine (Lantus) 5 Unit/0.05 Ml (Per 5 Units) SC 10/21/24 08:59 40 unit BID SHUBHAM Administration Insulin Human Lispro 10 unit 09/20/24 12:00 09/23/24 08:29 Insulin Lispro (Admelog) 1 Unit/0.01 Ml Unit SC 10/20/24 11:59 10 unit TIDWM SHUBHAM Administration Insulin Human Lispro 0 unit 09/21/24 12:00 09/23/24 05:27 Insulin Lispro (Admelog) 1 Unit/0.01 Ml Unit SC 10/21/24 11:59 3 unit Q6HR SHUBHAM Administration Protocol Losartan Potassium 50 mg 09/18/24 21:00 09/23/24 08:23 Losartan Potassium 25 Mg Tablet PO 10/18/24 20:59 Not Given BID SHUBHAM Ondansetron HCl 4 mg 09/17/24 13:44 Ondansetron Inj 2 Mg/Ml Inj 2 Ml IVP 10/17/24 13:43 Q6H PRN NAUSEA OR VOMITING Protocol Sennosides 1 tab 09/18/24 09:00 09/23/24 08:24 Senna Tablet PO 10/18/24 08:59 Not Given QDAY SHUBHAM Protocol Sodium Chloride 1 spray 09/19/24 18:34 Saline Nasal 45 Ml Btl NASAL 10/19/24 18:33 PRN PRN CONGESTION Plan Patient is a 59-year-old female with past medical history Hypertension, Hyperlipidemia, Diabetes Mellitus type 2 insulin dependent, ESBL UTI, hypothyroidism, bilateral toe amputation, metabolic syndrome, peripheral neuropathy, morbid obesity who was admitted on 09/17/2024 for MRSA bacteremia, now s/p second digit left foot amputation. Cardiology consulted for ADRIÁN given MRSA bacteremia, rule out endocarditits. #MRSA bacteremia #Left gangrenous second digit s/p amputation (09/18/2024) day 5 Cardiology consulted for ADRIÁN to rule out endocarditis as repeat blood cultures positive for MRSA bacteremia. Wound culture s/p amputation of left second digit positive for MRSA. Infective Endocarditis unlikely source of MRSA as no evidence on ADRIÁN. (09/22/2024). Echo (09/21/2024): No evidence of any clear valvular vegetations. TTE suboptimal and consider ADRIÁN if high clinical index of suspicion. Normal LV size and function with an estimated EF of 60-65%. Normal diastolic function. Normal RV size and function. Trace TR. RVSP could not be underestimated accurately.Mild aortic valve sclerosis without stenosis and mildly calcified mitral valve with trace MR.No pericardial effusion. Pro-Rustam elevated at 7.85 Blood cultures positive on 09/14/2024, 09/17/2024, 09/19/2024 (MRSA positive), 09/20/2024 ([facility]), 09/21/2024 (pending), REPEAT 09/22/2024 09/22/2024: ADRIÁN Negative for endocarditis and NO PFO noted. No complications. Fentanyl 125 mcg and Versed 1 mg IVP. 09/23/2024: Patient continues to be altered. WBC downtrending. Plan: -ADRIÁN Negative -Pending Cultures -Ceftaroline 600 mg (09/21/2024--) -Daptomycin 500 mg IV (09/21/2024--) -Ceftriazone (09/21/2024/STOPPED) & Vancomycin (09/17/2024-09/21/2024) #Acute encephalopathy, likely secondary to ischemic infarct Ddx: Likely metabolic in setting of stroke vs hyperglycemia VS bacteremia CT head negative for any acute changes. Ammonia level less than 10 MRI: Findings suspicious for 7 mm acute infarct right cerebral convexity, the patient should be clinically correlated CSF Gram Stain No organism and CSF Culture Pending CSF: Hazy, WBC 1283, RBC 1000, CSF mononuclear WBC 23, Glucose 116, Total Protein 214, penidng remaining serology Plan -Neurology consulted, appreciate recs #Diabetes Type 2, insulin dependent A1c this admission 10.9 with glucose of 325. Patient also has a history of bilateral toe amputations likely secondary to uncontrolled hyperglycemia. Home medicaiton: Glargine 50 units BIDWM, Regular insulin 40 units TID, glipizide, and Metformin 1000 mg BID. Plan: - ISS - Lantus insulin to 40 units BID -lispro 10 TID - Hypoglycemic protocol in place - ACHS checks #Hyperlipidemia Past medical history of hyperlipidemia. Previous Lipid Panel (09/07/2022): Triglycerides 130, Cholesterol 72, LDL 14, HDL 32 Plan -Atorvastatin 40 mg PO HS #Hypertension Patient takes losartan 50 mg p.o. twice daily Plan -Consider holding Losartan given soft blood pressure and concern for shock. #Hypothyroidism -TSH was 5.84 on admission, home dose Levothyroxine 50 mcg PO Qday #History of Peripheral Neuropathy -given altered mental status hold gabepentin 600 mg PO TID (home medication) #Acute hypoxic respiratory failure-resolved #Sepsis secondary to left gangrenous second toe-resolved #ALLA-resolved #Metabolic Acidosis, anion gap, resolved. Health Maintenance: Disp: Pt is currently admitted to floors for further management of MRSA bacteremia, cardiology signing off, no further recommendations. FEN: NPO DVT: on subQ heparin q8hr GI: None Code: Full Code - The patient's plan was discussed with attending Dr. Charlene Malhotra MD PGY1 Internal Medicine Attending Provider Attestation/Addendum I have personally seen and examined the patient separately on the above date of service and discussed the plan of care with the resident. I reviewed the resident Dr. Nettie Malhotra consultation progress note and agree with the resident findings and plan in the note above and have also edited the documentation to reflect my findings and plan. Philip Viramontes M.D. Interventional Cardiology
--- NOTE | 2024-09-23 10:12 | PD.RESPRO ---
Documentation for date of: 09/23/24 Subjective Subjective Interval history: Ms Fuentes is a 59-year-old female who was admitted on 09/17/2024 for MRSA bacteremia. Patient was found to have positive blood cultures in the ER on 09/14/2024, cultures sensitive to Vancomycin. During this admission patient is s/p second toe left foot amputation. Wound cultures as well grew MRSA on 09/18/2024. Urine culture on 09/17/2024 showed no growth. Neurology consulted during this admission for encephalopathy who recommended stroke work up. Initial Head CT negative, but follow up MRIB showed 7mm acute RT cerebral infarct. ICU was consulted for worsening encephalopathy, concern for ability to protect airway and need for possible intubation to perform ADRIÁN safely. 09/23/2024: Patient was seen and examined at bedside this AM. Continues to be intermittently lethargic, but is responsive to stimulus. Successful ADRIÁN on 09/[address] Viramontes, no PFO or ASD noted, infective endocarditis ruled out. Overnight, patient underwent LP by Dr Winchester, she also got IV Keterolac 15mg x1 for back pain. Patient has good urine output, but garry consumed meals when alert, blood glucose continues to trend >240. Consider NGT for tube feeding if unable to have PO intake. Dulcolax given, no BM in >72 hours. Exam Vital Signs Temp Pulse Resp BP Pulse Ox O2 Del Method O2 Flow Rate 97.1 F 94 26 H 115/58 L 96 Nasal Cannula 2 09/23/24 08:00 09/23/24 10:01 09/23/24 10:01 09/23/24 10:09/23/24 10:09/23/24 08:00 09/23/24 08:00 Narrative Exam Constitutional Oriented x2, drowsy but responsive to stimuli. Obese BMI 51 HEENT Vision grossly intact. Patent nares. Trachea midline. On 2L oxygen via NC, sats 96-98% Respiratory Chest normal on inspection and clear to auscultation bilaterally. Cardiovascular S1 and S2 audible, RRR. No murmurs or carotid bruit. No gross JVD. Abdominal Soft, distended and BS + ; RUQ mildly tender to palpation. Stool palpable on the LT side. Genitourinary No bladder tenderness, no flank pain. Normal to palpation. Musculoskeletal Extremities tone within normal limits. No LE edema. Left toe amputated. Right foot bandaged. Neurological CN II - XII grossly intact. Extremities grossly intact, unable to fully assess function as patient is somnolent. Skin Warm, dry and intact. No apparent lesions. LT phalanx healed amputation scar. Psychiatric Patient has a good affect, is cooperative. Objective Labs 09/23/24 04:44 09/23/24 04:44 Labs: Laboratory Results - last 24 hr 09/22/24 09/22/24 09/22/24 11:25 19:55 20:31 WBC RBC Hgb Hct MCV MCH MCHC RDW Std Deviation Plt Count Neut % (Auto) Lymph % (Auto) [place] % (Auto) Eos % (Auto) Baso % (Auto) Neut # (Auto) Lymph # (Auto) [place] # (Auto) Eos # (Auto) Baso # (Auto) Immature Gran # (Auto) Absolute Nucleated RBC Immature Gran % Nucleated RBC % Sodium 136 Potassium 3.4 Chloride 102 Carbon Dioxide 20.2 Anion Gap 14 BUN 11 Creatinine 1.3 Estim Creat Clear Calc 57.8 L eGFR 48 L BUN/Creatinine Ratio 8 L Glucose 242 H Calculated Osmolality 279 Lactic Acid 1.6 Calcium 10.6 Corrected Calcium 11.3 H Total Bilirubin 0.6 AST 29 ALT 19 Alkaline Phosphatase 181 H Total Creatine Kinase Total Protein 5.4 L Albumin 3.1 L Globulin 2.3 Albumin/Globulin Ratio 1.3 CSF Appearance Hazy A CSF Color Colorless CSF WBC 1283 CSF RBC 1000 CSF Cell Count Tube # Tube #2 CSF Mononuclear WBCs 23 CSF Polynuclear WBCs 77 CSF Glucose 116 H CSF Total Protein 214 H CSF H.influenzae B Ag Negative CSF N.meningit ACY/W135 Negative CSF N.mening B/E.coli K1 Negative CSF Strep B Antigen Negative CSF Strep pneumoniae Ag Negative Vancomycin Trough 8.6 Urine Opiates Screen Positive A Urine Fentanyl Screen Negative Ur Barbiturates Screen Negative U Amphetamin/Meth Scrn Negative U Benzodiazepines Scrn Negative U Cocaine Metab Screen Negative U Marijuana (THC) Screen Negative 09/23/24 04:44 WBC 17.4 H RBC 3.03 L Hgb 8.8 L Hct 28.5 L MCV 94 MCH 29.0 MCHC 30.9 L RDW Std Deviation 53.5 H Plt Count 219 Neut % (Auto) 75 Lymph % (Auto) 11 [place] % (Auto) 9 Eos % (Auto) 1 Baso % (Auto) 0 Neut # (Auto) 13.1 H Lymph # (Auto) 1.9 [place] # (Auto) 1.5 H Eos # (Auto) 0.2 Baso # (Auto) 0.1 Immature Gran # (Auto) 0.70 H Absolute Nucleated RBC 0.04 H Immature Gran % 4 H Nucleated RBC % 0 Sodium 135 L Potassium 3.5 Chloride 102 Carbon Dioxide 19.6 L Anion Gap 13 BUN 12 Creatinine 1.2 Estim Creat Clear Calc 62.1 eGFR 52 L BUN/Creatinine Ratio 10 L Glucose 256 H Calculated Osmolality 278 Lactic Acid Calcium 10.6 Corrected Calcium 11.5 H Total Bilirubin 0.6 AST 23 ALT 18 Alkaline Phosphatase 175 H Total Creatine Kinase 80 Total Protein 5.1 L Albumin 2.9 L Globulin 2.2 L Albumin/Globulin Ratio 1.3 CSF Appearance CSF Color CSF WBC CSF RBC CSF Cell Count Tube # CSF Mononuclear WBCs CSF Polynuclear WBCs CSF Glucose CSF Total Protein CSF H.influenzae B Ag CSF N.meningit ACY/W135 CSF N.mening B/E.coli K1 CSF Strep B Antigen CSF Strep pneumoniae Ag Vancomycin Trough Urine Opiates Screen Urine Fentanyl Screen Ur Barbiturates Screen U Amphetamin/Meth Scrn U Benzodiazepines Scrn U Cocaine Metab Screen U Marijuana (THC) Screen ABG Interpretation ABG results: 09/17/24 09/21/24 09/21/24 19:57 11:23 13:15 ABG pH 7.33 L 7.37 7.37 ABG pCO2 46 32 31 L ABG pO2 87 72 L 89 ABG HCO3 24 18 L 18 L ABG O2 Saturation 98 96 95 ABG Base Excess -2 -6 L -6 L 09/22/24 08:05 ABG pH 7.35 ABG pCO2 31 L ABG pO2 90 ABG HCO3 17 L ABG O2 Saturation 98 ABG Base Excess -7 L Quality Measures Quality Measures none Assessment & Plan Assessment Current Active Medications: Generic Name Dose Route Start Last Admin Trade Name Freq PRN Reason Stop Dose Admin Acetaminophen 650 mg 09/17/24 13:44 09/20/24 16:20 Acetaminophen 325 Mg Tablet PO 10/17/24 13:43 650 mg Q6H PRN Administration Fever >100.4 or Pain 1-3 Atorvastatin Calcium 40 mg 09/17/24 21:00 09/22/24 21:40 Atorvastatin Calcium 20 Mg Tablet PO 10/17/24 20:59 Not Given HS SHUBHAM Bisacodyl 10 mg 09/23/24 08:22 09/23/24 09:25 Bisacodyl 10 Mg Supp AR 10/23/24 08:21 10 mg QDAY PRN Administration CONSTIPATION Protocol Dextrose 25 ml 09/17/24 18:07 Dextrose 50%-Water Inj 50 Ml Syringe IV 10/17/24 18:06 Q15MIN PRN BG 50-70 responsive npo pt Dextrose 50 ml 09/17/24 18:07 Dextrose 50%-Water Inj 50 Ml Syringe IV 10/17/24 18:06 Q15MIN PRN BG <50 OR BG <70 & pt unresponsive Enoxaparin Sodium 40 mg 09/23/24 10:00 Enoxaparin Sod Inj 40 Mg/0.4 Ml Syringe SC 10/07/24 09:59 BID SHUBHAM Glucagon 1 mg 09/17/24 18:07 Glucagon Inj 1 Mg Vial IM Q15MIN PRN BG <70, and no IV access Daptomycin 500 mg/ Sodium 60 mls @ 120 mls/hr 09/21/24 17:45 09/23/24 09:40 Chloride 10 ml/ Sodium IV 09/28/24 17:44 120 mls/hr Chloride QDAY SHUBHAM Administration Ceftaroline Fosamil 600 mg/ 120 mls @ 120 mls/hr 09/21/24 22:00 09/23/24 05:28 Sodium Chloride 20 ml/ Sodium IV 09/28/24 21:59 120 mls/hr Chloride Q8HR SHUBHAM Administration Norepinephrine/Dextrose 8 mg in 250 mls @ 11.482 mls/hr 09/22/24 09:54 Levophed In D5w 8mg/250ml IV 10/22/24 09:53 .[id number] PRN PER PROTOCOL Protocol 0.05 MCG/KG/MIN Propofol 1,000 mg in 100 mls @ 3.674 mls/hr 09/22/24 09:57 Diprivan Ivpb IV 10/22/24 09:56 .Q24H PRN PER PROTOCOL Protocol 5 MCG/KG/MIN Fentanyl Citrate 2,500 mcg in 250 mls @ 2.5 mls/hr 09/22/24 09:57 Sublimaze Inj 2,500 Mcg/250 Ml Bag IV 09/27/24 09:56 .Q24H PRN PER PROTOCOL Protocol 25 MCG/HR Dexmedetomidine/Sodium Chloride 400 mcg in 100 mls @ 6.124 mls/hr 09/22/24 10:22 09/22/24 13:00 Precedex Ivpb IV 10/22/24 10:21 0 mcg/kg/hr .[id number] PRN 0 mls/hr Per PROTOCOL Titration Protocol 0.2 MCG/KG/HR Insulin Glargine 40 unit 09/21/24 09:00 09/23/24 08:25 Insulin Glargine (Lantus) 5 Unit/0.05 Ml (Per 5 Units) SC 10/21/24 08:59 40 unit BID SHUBHAM Administration Insulin Human Lispro 10 unit 09/20/24 12:00 09/23/24 08:29 Insulin Lispro (Admelog) 1 Unit/0.01 Ml Unit SC 10/20/24 11:59 10 unit TIDWM SHUBHAM Administration Insulin Human Lispro 0 unit 09/21/24 12:00 09/23/24 05:27 Insulin Lispro (Admelog) 1 Unit/0.01 Ml Unit SC 10/21/24 11:59 3 unit Q6HR SHUBHAM Administration Protocol Losartan Potassium 50 mg 09/18/24 21:00 09/23/24 08:23 Losartan Potassium 25 Mg Tablet PO 10/18/24 20:59 Not Given BID SHUBHAM Ondansetron HCl 4 mg 09/17/24 13:44 Ondansetron Inj 2 Mg/Ml Inj 2 Ml IVP 10/17/24 13:43 Q6H PRN NAUSEA OR VOMITING Protocol Sennosides 1 tab 09/18/24 09:00 09/23/24 08:24 Senna Tablet PO 10/18/24 08:59 Not Given QDAY SHUBHAM Protocol Sodium Chloride 1 spray 09/19/24 18:34 Saline Nasal 45 Ml Btl NASAL 10/19/24 18:33 PRN PRN CONGESTION Plan Ms Leroy is a 59-year-old female with past medical history significant for bilateral toe amputation, hypertension, hyperlipidemia, ESBL UTI, type 2 diabetes, metabolic syndrome, hypothyroidism, peripheral neuropathy, morbid obesity who presented to the ED with MRSA bacteremia and admitted to telemetry for further management of MRSA bacteremia and acute stroke. NEURO Acute encephalopathy CVA - Acute RT cerebral infarct Dx: metabolic in setting of bacteremia, septic emboli and new ischemic stroke - CT head : negative for any acute changes. - Ammonia <10 - MRIB : 7mm acute RT cerebral infarct - CSF : Hazy, elevated glucose (116) and elevated protein (214) Rx: - Neurology consulted, appreciate recs - Continue neuro checks every 4 hours - Neuro recommended IR Lumbar puncture - 05/23 of CSF : serum glucose <0.4, consider bacterial - EEG to follow, as per Neurologist's request - Pending CSF infectious panel results CVS No active problems. Infective Endocarditis, ruled out on ADRIÁN. PULM No active problems. Oxygen sats >95% on NC. Unlikely to require intubation at this time. GI/Hep RUQ tenderness Constipation - Abdomen exam showed palpable LT sided stools - 09/14 CT A/P : contracted GB Rx: - Consider RUQ US. Patient is NPO, possible stasis - Patient is obese, may have fatty infiltrates or other etiology for pain - Ordered Dulcolax suppository AR x1 - Consider NGT if no PO intake - Feather Separator consult for TF recs, consider concentrated TF as risk of aspiration remains. RENAL No active problems. AGMA resolved. HEME/ONC Leukocytosis Dx: WBC 15.7 --> 18.1 --> 17 Rx: - On IV antibiotics for bacteremia - Daily CBC ENDO T2 IDDM, uncontrolled Dx: A1c this admission 10.9. Patient presented with a blood sugar of 300+. Patient also has a history of bilateral toe amputations most likely in setting of uncontrolled diabetes Rx: - ISS w/ Lispro q6H while NPO - Hypoglycemic protocol in place - Lantus 40 units BID - Lispro 10 TIDWM HLD Dx: chronic Rx: - Lipid panel : TG wnl, low cholesterol and HDL - Continue home statin Hypothyroidism - TSH was 5.84 Rx Follow-up outpatient with PCP INFECTIOUS DISEASE MRSA bacteremia Left gangrenous second toe s/p amputation day 4 Elevated pro-disha Dx: - Blood cultures : positive for MRSA - s/p Amputation of the second toe on 09/18/24 - history of uncontrolled diabetes currently on Lantus and Ozempic. - Blood sugar on admission >300 - Lactic acid initially peaked, down trended after 3 L bolus - Pro-Disha elevated at 7.85 --> 1.54 (09/22) Rx: - Consulted surgery, appreciate recommendations - Abs switched to Daptomycin + Ceftaroline (09/22 - - Diana CT ordered to locate source of MRSA bacteremia. Follow up results. ICU Health maintenance: Dispo: Admit to ICU for worsening encephalopathy s/p LP --> downgrade back to medical floors on 09/23/2024 Diet: NPO DVT ppx: Enoxaparin 40mg SC BID GI ppx: Famotidine 20mg q12H IV lines: 4 pIVs Kirby: Yes Code status: FULL CODE Plan of care discussed with new car sales manager Dr Gallardo and (PGY3) Dr Phillip, Sukh Vu MD PGY 1 This document was compiled using speech recognition software. Any formal questions or concerns about the content of this body of dictation should be directly addressed to the provider.
[2024-09-23 10:26] LABS: Parathyroid Hormone Intact 2.8 pg/ml (18.5-88.0)
--- NOTE | 2024-09-23 10:27 | ESPR_ITS ---
Documentation for date of: 09/23/24 Subjective Subjective Interval history: This is a 59-year-old female admitted to the hospital 17 September. She has had MRSA bacteremia with multiple positive blood cultures. She has had a mental status that waxes and wanes. On 21 September she had a rapid response called and Oceanography Professor for altered mentation. She was being evaluated for endocarditis but due to the rep response was unable to get her ADRIÁN done at that moment in time. An MRI was obtained she was found to have an acute stroke. On the fifth in the morning she had another rapid response and there was concern for altered mentation once more. She was seen and evaluated by the ICU team and she appeared to have a GCS of around 8. Decision was made to transfer to the ICU for intubation and airway protection. The ADRIÁN could also be performed. However on arrival to the ICU she was awake and talking therefore plans for intubation were aborted. 09/23-no acute overnight events, patient's mentation continues to fluctuate. A bedside LP was attempted yesterday at around noon was unsuccessful. Neurology came by in the evening and successfully completed an LP for the patient. A ADRIÁN was also performed without any evidence of vegetations or perivalvular abscess noted. The patient received a liter bolus of fluids overnight. She has a good urinary output. Critical Care Note Critical care time (min.): 0 Exam Vital Signs Temp Pulse Resp BP Pulse Ox O2 Del Method O2 Flow Rate 97.1 F 94 26 H 115/58 L 96 Nasal Cannula 2 09/23/24 08:00 09/23/24 10:01 09/23/24 10:01 09/23/24 10:01 09/23/24 10:01 09/23/24 08:00 09/23/24 08:00 Narrative Exam General-no acute distress, encephalopathic, GCS 11, obese HEENT- NC/AT, mucosa dry, sclera anicteric, PERRL Chest- LCTAB, diminished, HRRR, no increase in WOB Abd- obese, s/nt/bs+ Ext- no edema, pulses palp, no clubbig, no mottling, dressing in place over LLE to cover recent surgical resection of toe Physical Exam Completion Physical Exam Complete?: Yes Objective - Laundry Or Dry Cleaners Counter Clerk Labs 09/24/24 04:46 09/24/24 04:46 Labs: Laboratory Results - last 24 hr 09/22/24 09/22/24 09/22/24 11:25 19:55 20:31 WBC RBC Hgb Hct MCV MCH MCHC RDW Std Deviation Plt Count Neut % (Auto) Lymph % (Auto) [place] % (Auto) Eos % (Auto) Baso % (Auto) Neut # (Auto) Lymph # (Auto) [place] # (Auto) Eos # (Auto) Baso # (Auto) Immature Gran # (Auto) Absolute Nucleated RBC Immature Gran % Nucleated RBC % Sodium 136 Potassium 3.4 Chloride 102 Carbon Dioxide 20.2 Anion Gap 14 BUN 11 Creatinine 1.3 Estim Creat Clear Calc 57.8 L eGFR 48 L BUN/Creatinine Ratio 8 L Glucose 242 H Calculated Osmolality 279 Lactic Acid 1.6 Calcium 10.6 Corrected Calcium 11.3 H Total Bilirubin 0.6 AST 29 ALT 19 Alkaline Phosphatase 181 H Total Creatine Kinase Total Protein 5.4 L Albumin 3.1 L Globulin 2.3 Albumin/Globulin Ratio 1.3 PTH Intact CSF Appearance Hazy A CSF Color Colorless CSF WBC 1283 CSF RBC 1000 CSF Cell Count Tube # Tube #2 CSF Mononuclear WBCs 23 CSF Polynuclear WBCs 77 CSF Glucose 116 H CSF Total Protein 214 H CSF H.influenzae B Ag Negative CSF N.meningit ACY/W135 Negative CSF N.mening B/E.coli K1 Negative CSF Strep B Antigen Negative CSF Strep pneumoniae Ag Negative Vancomycin Trough 8.6 Urine Opiates Screen Positive A Urine Fentanyl Screen Negative Ur Barbiturates Screen Negative U Amphetamin/Meth Scrn Negative U Benzodiazepines Scrn Negative U Cocaine Metab Screen Negative U Marijuana (THC) Screen Negative 09/23/24 04:44 WBC 17.4 H RBC 3.03 L Hgb 8.8 L Hct 28.5 L MCV 94 MCH 29.0 MCHC 30.9 L RDW Std Deviation 53.5 H Plt Count 219 Neut % (Auto) 75 Lymph % (Auto) 11 [place] % (Auto) 9 Eos % (Auto) 1 Baso % (Auto) 0 Neut # (Auto) 13.1 H Lymph # (Auto) 1.9 [place] # (Auto) 1.5 H Eos # (Auto) 0.2 Baso # (Auto) 0.1 Immature Gran # (Auto) 0.70 H Absolute Nucleated RBC 0.04 H Immature Gran % 4 H Nucleated RBC % 0 Sodium 135 L Potassium 3.5 Chloride 102 Carbon Dioxide 19.6 L Anion Gap 13 BUN 12 Creatinine 1.2 Estim Creat Clear Calc 62.1 eGFR 52 L BUN/Creatinine Ratio 10 L Glucose 256 H Calculated Osmolality 278 Lactic Acid Calcium 10.6 Corrected Calcium 11.5 H Total Bilirubin 0.6 AST 23 ALT 18 Alkaline Phosphatase 175 H Total Creatine Kinase 80 Total Protein 5.1 L Albumin 2.9 L Globulin 2.2 L Albumin/Globulin Ratio 1.3 PTH Intact 2.8 L CSF Appearance CSF Color CSF WBC CSF RBC CSF Cell Count Tube # CSF Mononuclear WBCs CSF Polynuclear WBCs CSF Glucose CSF Total Protein CSF H.influenzae B Ag CSF N.meningit ACY/W135 CSF N.mening B/E.coli K1 CSF Strep B Antigen CSF Strep pneumoniae Ag Vancomycin Trough Urine Opiates Screen Urine Fentanyl Screen Ur Barbiturates Screen U Amphetamin/Meth Scrn U Benzodiazepines Scrn U Cocaine Metab Screen U Marijuana (THC) Screen Assessment & Plan Problem List (1) Altered mental status: Status: Acute (2) Diabetes mellitus: Status: Chronic (3) ALLA (acute kidney injury): Status: Acute (4) Sepsis: Status: Acute Additional Plan Additional Plan: In summary this is a 59-year-old female with MRSA bacteremia and sepsis admitted to the ICU for encephalopathy and concern for airway protection 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 embolic and related to her MRSA bacteremia CV stable Resp stable Renal Hyponatremia- mild, monitor Hypercalcemia- PTH checked and noted to be low metabolic acidosis with respiratory compensation noted on ABG GI Nutrition- NGT to be placed Endo DM- on SSI and lantus Heme Anemia- no active bleeding, h/h stable - small decrease, given IVF overnight ? dilutional Leukocytosis- 2/2 MRSA bacteremia ID MRSA bacteremia-this has been persistent with multiple positive blood cultures. Patient's blood cultures from yesterday continued to show GPC's in both bottles. Patient had a ADRIÁN performed on September 22 which was negative for any vegetations or perivalvular abscess. Unclear where patient's primary sources. She will have a chest abdomen pelvis CT performed today with contrast to evaluate for an occult abscess. case d/w ICU team ok to return to floor team labs, imaging, records reviewed ~39min required for eval, exam, review, intervention, discussion and formulation of POC for this pt Provider Notation Provider Notation: Although this document has been carefully reviewed, there may still be some phonetic and other typographical errors. These errors are purely grammatical due to imperfections in the software program and should not be construed in any way to compromise the substance of the patient's medical care during this visit. Thank you for the opportunity and privilege in assisting you with this patient's care and management.
--- NOTE | 2024-09-23 10:49 | RESP.EEG ---
eeg completed and ready for review. will let t know
[2024-09-23] MEDS: ENOXAPARIN SOD INJ 40 MG/0.4 ML SYRINGE SC (13:28)
--- NOTE | 2024-09-23 14:44 | EKG_ITS ---
[facility] Test Date: 2024-09-23 Pat Name: ROSA CROOKDepartment: Room: [facility] Gender: Female Inside Sales Assistant: HUMAIRA : 1965 Requested By: Navid Phillip Order Number: [id number] Reading MD: Navid Phillip Measurements Intervals [place] Rate: 131 P: 92 IL: 203 QRS: 29 QRSD: 82 T: 42 QT: 348 QTc: 515 Interpretive Statements SINUS TACHYCARDIA NONSPECIFIC ST & T-WAVE ABNORMALITY ABNORMAL RHYTHM ECG Compared to ECG 09/22/2024 08:14:17 T-wave abnormality now present /store/S0/[id number]
--- NOTE | 2024-09-23 15:02 | ESPR_ITS ---
<Statement entered by Rashi Segura MD - 10/07/24 14:03> I reviewed above note and agree with findings and plans. I have also personally examined the patient with medicine team and went over assessment and plan with medical team including direct marketing intern and resident physician. Documentation for date of: 09/23/24 Subjective Subjective Interval history: Patient has been admitted since 09/17/24 for MRSA bacteremia. During this admission patient is s/p second toe left foot amputation. Wound cultures as well grew MRSA on 09/18/2024. Urine culture on 09/17/2024 showed no growth. Neurology consulted during this admission for encephalopathy who recommended stroke work up. Initial Head CT negative, but follow up MRI brain showed 7mm acute RT cerebral infarct. ICU was consulted for worsening encephalopathy, concern for ability to protect airway and need for possible intubation to perform ADRIÁN safely. Intubation deferred as patient was able to protect airway. ADRIÁN on 09/[address] Viramontes, no PFO or ASD noted, infective endocarditis ruled out. Patient also underwent LP by Dr Winchester and had NG tube placed. LP showed WBCs 1200, RBC 1000 glucose elevated 116, elevated protein to 14. CSF culture pending. She was downgraded from ICU today. Exam Vital Signs Temp Pulse Resp BP Pulse Ox O2 Del Method O2 Flow Rate 97.1 F 102 H 33 H 143/60 H 98 Nasal Cannula 1 09/23/24 12:08 09/23/24 13:01 09/23/24 13:01 09/23/24 13:01 09/23/24 13:01 09/23/24 12:08 09/23/24 12:08 Narrative Exam General: Middle age female, obese, somnolent difficult to arouse HEENT: NCAT, No JVD noted. Mucosa dry. NG tube. Pupils are equal and reactive to light bilaterally Cardiovascular: Normal S1 and S2. Regular rate and rhythm. Respiratory: Lungs are clear to auscultation bilaterally. No wheezing or crackles heard. Abdomen: Soft, nontender, not distended, normal bowel sounds. Skin: Small dark scab left inner thigh, bruising along left arm Musculoskeletal: No gross injuries. Able to move all 4 extremities. No pitting edema, left toe amputated. Right foot in kerlix roll, no bleeding. Neuro: Alert and oriented x2. No focal neuro deficits. Psych: Normal affect and mood Objective Labs 09/23/24 04:44 09/23/24 04:44 Labs: Laboratory Results - last 24 hr 09/22/24 09/22/24 09/23/24 19:55 20:31 04:44 WBC 17.4 H RBC 3.03 L Hgb 8.8 L Hct 28.5 L MCV 94 MCH 29.0 MCHC 30.9 L RDW Std Deviation 53.5 H Plt Count 219 Neut % (Auto) 75 Lymph % (Auto) 11 Miller % (Auto) 9 Eos % (Auto) 1 Baso % (Auto) 0 Neut # (Auto) 13.1 H Lymph # (Auto) 1.9 Miller # (Auto) 1.5 H Eos # (Auto) 0.2 Baso # (Auto) 0.1 Immature Gran # (Auto) 0.70 H Absolute Nucleated RBC 0.04 H Immature Gran % 4 H Nucleated RBC % 0 Sodium 136 135 L Potassium 3.4 3.5 Chloride 102 102 Carbon Dioxide 20.2 19.6 L Anion Gap 14 13 BUN 11 12 Creatinine 1.3 1.2 Estim Creat Clear Calc 57.8 L 62.1 eGFR 48 L 52 L BUN/Creatinine Ratio 8 L 10 L Glucose 242 H 256 H Calculated Osmolality 279 278 Lactic Acid 1.6 Calcium 10.6 10.6 Corrected Calcium 11.3 H 11.5 H Total Bilirubin 0.6 0.6 AST 29 23 ALT 19 18 Alkaline Phosphatase 181 H 175 H Total Creatine Kinase 80 Total Protein 5.4 L 5.1 L Albumin 3.1 L 2.9 L Globulin 2.3 2.2 L Albumin/Globulin Ratio 1.3 1.3 PTH Intact 2.8 L CSF Appearance Hazy A CSF Color Colorless CSF WBC 1283 CSF RBC 1000 CSF Cell Count Tube # Tube #2 CSF Mononuclear WBCs 23 CSF Polynuclear WBCs 77 CSF Glucose 116 H CSF Total Protein 214 H CSF H.influenzae B Ag Negative CSF N.meningit ACY/W135 Negative CSF N.mening B/E.coli K1 Negative CSF Strep B Antigen Negative CSF Strep pneumoniae Ag Negative Vancomycin Trough 8.6 ABG Interpretation ABG results: 09/17/24 09/21/24 09/21/24 19:57 11:23 13:15 ABG pH 7.33 L 7.37 7.37 ABG pCO2 46 32 31 L ABG pO2 87 72 L 89 ABG HCO3 24 18 L 18 L ABG O2 Saturation 98 96 95 ABG Base Excess -2 -6 L -6 L 09/22/24 08:05 ABG pH 7.35 ABG pCO2 31 L ABG pO2 90 ABG HCO3 17 L ABG O2 Saturation 98 ABG Base Excess -7 L Quality Measures Quality Measures none Assessment & Plan Assessment Current Active Medications: Generic Name Dose Route Start Last Admin Trade Name Freq PRN Reason Stop Dose Admin Atorvastatin Calcium 40 mg 09/17/24 21:00 09/22/24 21:40 Atorvastatin Calcium 20 Mg Tablet PO 10/17/24 20:59 Not Given HS SHUBHAM Bisacodyl 10 mg 09/23/24 08:22 09/23/24 09:25 Bisacodyl 10 Mg Supp NV 10/23/24 08:21 10 mg QDAY PRN Administration CONSTIPATION Protocol Dextrose 25 ml 09/17/24 18:07 Dextrose 50%-Water Inj 50 Ml Syringe IV 10/17/24 18:06 Q15MIN PRN BG 50-70 responsive npo pt Dextrose 50 ml 09/17/24 18:07 Dextrose 50%-Water Inj 50 Ml Syringe IV 10/17/24 18:06 Q15MIN PRN BG <50 OR BG <70 & pt unresponsive Enoxaparin Sodium 40 mg 09/23/24 13:15 09/23/24 13:28 Enoxaparin Sod Inj 40 Mg/0.4 Ml Syringe SC 10/07/24 13:14 40 mg BID SHUBHAM Administration Glucagon 1 mg 09/17/24 18:07 Glucagon Inj 1 Mg Vial IM Q15MIN PRN BG <70, and no IV access Daptomycin 500 mg/ Sodium 60 mls @ 120 mls/hr 09/21/24 17:45 09/23/24 09:40 Chloride 10 ml/ Sodium IV 09/28/24 17:44 120 mls/hr Chloride QDAY SHUBHAM Administration Ceftaroline Fosamil 600 mg/ 120 mls @ 120 mls/hr 09/21/24 22:00 09/23/24 14:34 Sodium Chloride 20 ml/ Sodium IV 09/28/24 21:59 120 mls/hr Chloride Q8HR SHUBHAM Administration Insulin Glargine 40 unit 09/21/24 09:00 09/23/24 08:25 Insulin Glargine (Lantus) 5 Unit/0.05 Ml (Per 5 Units) SC 10/21/24 08:59 40 unit BID SHUBHAM Administration Insulin Human Lispro 10 unit 09/20/24 12:00 09/23/24 12:47 Insulin Lispro (Admelog) 1 Unit/0.01 Ml Unit SC 10/20/24 11:59 10 unit TIDWM SHUBHAM Administration Insulin Human Lispro 0 unit 09/21/24 12:00 09/23/24 12:48 Insulin Lispro (Admelog) 1 Unit/0.01 Ml Unit SC 10/21/24 11:59 2 unit Q6HR SHUBHAM Administration Protocol Losartan Potassium 50 mg 09/18/24 21:00 09/23/24 08:23 Losartan Potassium 25 Mg Tablet PO 10/18/24 20:59 Not Given BID SHUBHAM Ondansetron HCl 4 mg 09/17/24 13:44 Ondansetron Inj 2 Mg/Ml Inj 2 Ml IVP 10/17/24 13:43 Q6H PRN NAUSEA OR VOMITING Protocol Sennosides 1 tab 09/18/24 09:00 09/23/24 08:24 Senna Tablet PO 10/18/24 08:59 Not Given QDAY SHUBHAM Protocol Sodium Chloride 1 spray 09/19/24 18:34 Saline Nasal 45 Ml Btl NASAL 10/19/24 18:33 PRN PRN CONGESTION Plan Patient is a 59-year-old female with past medical history significant for bilateral toe amputation, hypertension, hyperlipidemia, ESBL UTI, type 2 diabetes, metabolic syndrome, hypothyroidism, peripheral neuropathy, morbid obesity who presented to the ED with MRSA bacteremia and admitted to telemetry for further management of MRSA bacteremia. #Acute encephalopathy Ddx: Likely metabolic in setting of hyperglycemia, bacteremia, septic emboli, medication induced CT head negative for any acute changes. MRI brain showed 7mm acute RT cerebral infarct. ADRIÁN on 09/22 no PFO or ASD noted, infective endocarditis ruled out. LP LP showed WBCs 1200, RBC 1000 glucose elevated 116, elevated protein to 14. Ammonia level less than 10 - Continue neurochecks every 4 hours -monitor symptoms -CBC, CMP, glucose control -Neurology consulted, appreciate recs -LP culture pending #MRSA bacteremia #Left gangrenous second toe s/p amputation Patient received a call from ED about her blood cultures being positive for MRSA. Unsure when patient presented with gangrenous second toe wound as patient has been difficult to obtain complete history. Patient has a history of bilateral toe amputations. Patient also has a history of uncontrolled diabetes currently on Lantus and Ozempic. Blood sugar today was 300+. Pro-Rustam elevated at 7.85. Patient presented with 87% oxygen saturation on room air. Patient now placed on 2 L nasal cannula saturating well above 98%. Lactic acid initially peaked, down trended now within normal limits. Patient received 3 L bolus. Echo was negative for valve vegetations, EF 60-65%. ADRIÁN negative. -continue IV vancomycin, which is sensitive on antibiogram -start IV ceftriaxone for added coverage (09/21- - Consulted surgery, appreciate recommendations--completed Amputation of the second toe on 09/18/24 - Repeat blood cultures pending - Continue maintenance IV fluids -wound care consulted #JANKI Bicarb 19, AG 17 Possibly due to DKA, elevated LA worsening bacteremia. -BHB elevated 4.0 -Lactic acid normal -continue antibiotics -daily CMP #Type 2 diabetes, poorly controlled #Peripheral neuropathy A1c this admission 10.9. Patient presented with a blood sugar of 300+. Patient also has a history of bilateral toe amputations most likely in setting of uncontrolled diabetes - ISS - Hypoglycemic protocol in place - increased Lantus insulin to 40 units BID -lispro 10 TID - ACHS checks #Hyperlipidemia Will resume patient's home atorvastatin #Hypertension Patient takes losartan 50 mg p.o. twice daily -resume #Hypothyroidism -TSH was 5.84, follow-up outpatient with PCP #Acute hypoxic respiratory failure-resolved # Sepsis secondary to left gangrenous second toe-resolved #ALLA-resolved Health Maintenance: DVT prophylaxis: Lovenox 40 BID Diet: Cardiac CODE STATUS: Full code Disposition: Patient admitted to telemetry for the management of MRSA bacteremia and AE. Patient's plan and care discussed with my attending, Dr. Colton Blue, PGY1
--- NOTE | 2024-09-23 15:07 | PC.NURSE ---
Addendum entered by Mary Earl RN 09/23/24 19:29: tachycardic in 110's, respiratory rate at 42 at this time Original Note: at 1430, pt began throwing up, Antoinette Fraga and made aware, per Dr. Gallardo, NG set to Low Intermit. suction, at 1445, pt more lethargic and incompressible noise with sternal rub, tachycardic, tachypenic, temp 98.5 pupils Bebeto DOUGLAS, CN at bedside, Dr. Curry made aware. order for EKG and ABG received and completed.
--- NOTE | 2024-09-23 15:12 | PC.SS ---
Rounding note: Patient had a chest abdomen pelvis CT performed today. Patient continues in the ICU.
[2024-09-23 15:50] LABS: Base Excess -3 (-3-3); HCO3 22 mEq/L (20-26); Inspired O2, VO2 Liters 1 L/min; Inspired Oxygen, FIO2 21 %; O2 Saturation 96 % (91-98); PCO2 35 mmHg (32.0-48.0); PO2 68 mmHg (83-108)
[2024-09-23 15:51] LABS: Allen Test Performed/OK; Puncture Site Right Brachial
[2024-09-23] MEDS: LACTULOSE SYRUP 20 GM/30 ML UDC NG ×2 (15:54→21:31)
--- NOTE | 2024-09-23 17:37 | PC.NURSE ---
Addendum entered by Mary Earl RN 09/23/24 19:35: incorrect time of 1530, Dr. Marshall notified at 1730, at this time suction turned off for about 15 seconds for MRI, pt had no vomiting from mouth, clear breath sounds, Dr. Marshall at bedside at 1800 Original Note: at 1530 Dr. Marshall notified of patient tachypenic at 42, and vomiting clear yellow, B, and patient solemnt, only grunts to sternal rub, suction still set to LIS, also notified of MRI, suction turned off to go to MRI and patient dry heaving, oxygen desaturating to 90%, per Dr. Marshall, hold on MRI and continue LIS to NG, no other orders received at this time
[2024-09-23] MEDS: Norepinephrine/D5W 8mg/250ml 8 MG/250 ML BAG 11.325 MG IV (18:10)
--- NOTE | 2024-09-23 18:14 | XR_ITS ---
Examination: AP chest single view TECHNIQUE: AP portable supine chest single view Date and time: September 23, 2024 1838 hours Comparison September 21, 2024 INDICATIONS: Hypoxic respiratory failure, postintubation FINDINGS: Normal heart size No lobar pneumonia or pulmonary edema. Endotracheal tube tip 5.3 cm above gabriel The orogastric tube is in the stomach, the tip is below the level of the film IMPRESSION: Negative for aspiration pneumonia Endotracheal tube tip 5.3 cm above Gabriel
--- NOTE | 2024-09-23 18:14 | XR_ITS ---
Examination: CT brain head without contrast. 2-D sagittal coronal reconstructions Date and time of exam:September 23, 2024 1154 hrs. Comparison September 21, 2024 Indications: Bacteremia, hypoxia Technique: Multiple CT axial sections of the brain have been obtained, 5 mm slice thickness. Contrast has not been administered. 2-D sagittal, coronal reconstructions have been obtained Low dose protocols were performed. One or more of the following dose reduction techniques were used; automated exposure control, adjustment of the mA and/or KV according to patient size, use of iterative reconstruction technique. Findings: Low density throughout the brain consistent with severe generalized cerebral edema Ventricles are small with no definite midline shift Cranial vault intact No cranial vault fracture Cerebellar tonsils are poorly visualized on the lateral view Impression: Severe generalized cerebral edema
[2024-09-23] MEDS: fentaNYL 2,500 MCG/250 ML BAG 2,500 MCG/250 ML BAG IV (18:30)
[2024-09-23] MEDS: ACETAMINOPHEN SOL 325 MG/10 ML UDC 1000 MG PO (18:58)
[2024-09-23] MEDS: MIDAZOLAM INJ 1 MG/ML VIAL 2 ML 4 MG IVP (18:59)
[2024-09-23] MEDS: Magnesium Sulfate 2 GM Ivpb 2 GM/50 ML BAG IV (18:59)
[2024-09-23] MEDS: POTASSIUM CHL 10 mEq IVPB 10 MEQ/100 ML BAG 100 MEQ IV ×3 (19:00→22:40)
[2024-09-23 19:04] LABS: Basophils # (Auto) 0.1 Thou/mm3 (0.0-0.2); Basophils % (Auto) 0 % (0-2.5); Eosinophils # (Auto) 0.2 Thou/mm3 (0.0-0.5); Eosinophils % (Auto) 1 % (0-10); Hematocrit 26.8 % (36.0-46.0); Immature Granulocytes % (Auto) 6 % (0-0); Lymphocytes % (Auto) 37 % (10-50); Mean Corpuscular HGB Conc 31.7 g/dl (31.0-37.0); Mean Corpuscular Hemoglobin 28.7 pg (25.0-35.0); Mean Corpuscular Volume 91 fL (80-100); Monocytes # (Auto) 1.7 Thou/mm3 (0.0-0.8); Monocytes % (Auto) 8 % (0-12); Neutrophils # (Auto) 10.3 Thou/mm3 (1.8-7.7); Neutrophils % (Auto) 48 % (37-80); Nucleated Red Blood Cell # 0.36 Thou/mm3 (0.00-0.00); Nucleated Red Blood Cell % 2 /100 WBC (0); Platelet Count 248 Thou/mm3 (140-440); Red Blood Count 2.96 Miln/mm3 (4.00-5.20); White Blood Count 21.6 Thou/mm3 (3.6-11.0)
[2024-09-23] MEDS: DEXMEDETOMIDINE 400 MCG IVPB 400 MCG/100 ML BAG 6.04 MCG IV (19:04)
[2024-09-23 19:15] LABS: Alanine Aminotransferase 25 U/L (10-49); Albumin, Serum 2.7 gm/dL (3.5-5.0); Albumin/Globulin Ratio 1.1 (1.2-2.2); Alkaline Phosphatase 162 U/L (46-116); Anion Gap 16 (7-16); BUN/Creatinine Ratio 8 Ratio (12-20); Bilirubin,Total 0.4 mg/dL (0.3-1.2); Blood Urea Nitrogen 14 mg/dL (9-23); Calcium 10.4 mg/dL (8.3-10.6); Calcium (Corrected) 11.4 mg/dL (8.5-10.1); Carbon Dioxide 21.8 mMol/L (20.0-31.0); Chloride 105 mMol/L (98-107); Creatinine (Component) 1.8 mg/dL (0.6-1.3); Estimated Creatinine Clearance 41.4 mL/min (>60); Globulin 2.4 gm/dL (2.3-3.5); Glucose 215 mg/dL (74-106); Osmolality,Calculated 291 (275-295); Potassium 3.3 mMol/L (3.4-5.1); Sodium 143 mMol/L (136-145); Total Protein 5.1 gm/dL (5.7-8.2); Troponin I < 0.020 ng/mL (0.0-0.045); eGFR 32 See Note
[2024-09-23 19:23] LABS: Hemoglobin 8.5 g/dL (12.0-16.0)
[2024-09-23] MEDS: PROPOFOL 1,000 MG IVPB 1,000 MG/100 ML VIAL 3.624 MG IV (19:30)
--- NOTE | 2024-09-23 19:35 | PD.RESEVENT ---
Documentation for date of: 09/24/24 Event Note Event Note: CODE BLUE: Approximately 6:00 nurse at bedside started to notice patient becoming hypoxic and bradycardic in the 50s. Once I went at bedside and examined the patient patient was not protecting her airway did not have a gag reflex. RT was called at bedside. We called the ER doctor for RSI. Dr. Daugherty came from the ED in a rapidly fashion. Patient was given etomidate 20 mg. Patient had a GCS score of 3 at the time. Patient was intubated successfully. After intubation positive telemetry was done. Bilateral breath sounds were present. Her respiratory effort is improved and her heart rate improved. Chest x-ray show confirmed good placement ET tube with OG tube. Her blood pressure also improved however 2 minutes afterwards patient started to become bradycardic again afterwards she developed PEA no pulse CODE BLUE was started. Patient was given epinephrine 1 mg, 1 of bicarb. After 2 minutes of chest compressions and pulse checked patient went into ventricular tachycardia polymorphic. Patient was shocked 150 J and received 150 amiodarone heart rate went down to the 120s. EKG was done shows sinus tach. Started cooling measures since the patient had a fever of 104. Labs were taken. Family was notified at bedside. We started a norepinephrine drip, sedation with fentanyl and propofol. - Patient's care was discussed with my attending physician, Dr. Kenji Phillip MD Internal Medicine PGY-3
--- NOTE | 2024-09-23 19:44 | PC.NURSE ---
at 1440, Dr. Phillip at bedside and notified of patient respiratory rate and lethargy and pt dry heaving, order received for ABG and EKG no other orders at this time
--- NOTE | 2024-09-23 20:05 | XR_ITS ---
Examination: AP chest single view TECHNIQUE: Portable supine AP chest single view Date and time: September 23, 20242024 hours Comparison September 23, 2024 INDICATIONS: Post central line placement FINDINGS: Right internal central line tip right atrium No pneumothorax Endotracheal tube tip 5 cm above gabriel On this study suspicious for mild pneumonia left base Orogastric tube in the stomach IMPRESSION: Right internal jugular central line tip right atrium, no pneumothorax Suspicious for mild pneumonia left base
--- NOTE | 2024-09-23 20:09 | PC.NURSE ---
1950 ER Doc called for Central line placement
--- NOTE | 2024-09-23 20:21 | PD.EDADDENDU ---
Emergency Room Addendum Addendum Narrative: 1950: I was called to ICU room 256 for placement of central line. Arrived to room at 1955 to supervise successful placement of central line by resident. Refer to resident's note for full procedure details.
[2024-09-23 20:49] LABS: Lactate (Lactic Acid) 4.3 mMol/L (0.4-2.0)
[2024-09-23] MEDS: RINGERS LACTATED 1000 ML 1,000 ML 999 ML IV (21:00)
--- NOTE | 2024-09-23 21:11 | PD.NEUROPROG ---
Documentation for date of: 09/23/24 Subjective Subjective Interval history: Patient was seen in Icu at the bedside. continues to be lethargic with no response to verbal commands unlike this morning. Exam - Neurology Vital Signs Temp Pulse Resp BP Pulse Ox O2 Del Method O2 Flow Rate 104.1 F H 115 H 33 H 122/64 98 Nasal Cannula 1 09/23/24 18:58 09/23/24 19:20 09/23/24 19:20 09/23/24 19:20 09/23/24 19:20 09/23/24 16:01 09/23/24 16:01 Narrative Exam GENERAL APPEARANCE: Well-developed, obese built female in mild distress. HEENT: Normocephalic, atraumatic, Pupils: Equal reacting to light NECK: Supple, no JVD or bruits. CARDIOVASULAR: Heart: S1, S2 heard, regular without S3-S4 or murmur no rubs or gallops. LUNGS/CHEST: Bilateral Rales and rhonchi heard ABDOMEN: Soft, nontender, with normal bowel sounds. No pulsatile masses. No rebound, rigidity, or guarding. Normal inspection and palpation. EXTREMITIES: Normal inspection and palpation. 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 SKIN: Warm and dry without rashes. Normal inspection. MUSCULOSKELETAL: No cervical, thoracic, lumbar or midline bony tenderness. Normal inspection. NEURO: Somnolent, hard to arouse, occasional purposeful movements noted in the extremities PSYCHIATRIC: Limited Objective Labs 09/25/24 05:04 09/25/24 17:41 Labs: Laboratory Results - last 24 hr 09/22/24 09/22/24 09/23/24 19:55 20:31 04:44 WBC 17.4 H RBC 3.03 L Hgb 8.8 L Hct 28.5 L MCV 94 MCH 29.0 MCHC 30.9 L RDW Std Deviation 53.5 H Plt Count 219 Neut % (Auto) 75 Lymph % (Auto) 11 Glasscock % (Auto) 9 Eos % (Auto) 1 Baso % (Auto) 0 Neut # (Auto) 13.1 H Lymph # (Auto) 1.9 Glasscock # (Auto) 1.5 H Eos # (Auto) 0.2 Baso # (Auto) 0.1 Immature Gran # (Auto) 0.70 H Absolute Nucleated RBC 0.04 H Immature Gran % 4 H Nucleated RBC % 0 Puncture Site ABG pH ABG pCO2 ABG pO2 ABG HCO3 ABG O2 Saturation ABG Base Excess Oxygen Liter Flow FiO2 Sodium 136 135 L Potassium 3.4 3.5 Chloride 102 102 Carbon Dioxide 20.2 19.6 L Anion Gap 14 13 BUN 11 12 Creatinine 1.3 1.2 Estim Creat Clear Calc 57.8 L 62.1 eGFR 48 L 52 L BUN/Creatinine Ratio 8 L 10 L Glucose 242 H 256 H Calculated Osmolality 279 278 Lactic Acid Calcium 10.6 10.6 Corrected Calcium 11.3 H 11.5 H Total Bilirubin 0.6 0.6 AST 29 23 ALT 19 18 Alkaline Phosphatase 181 H 175 H Total Creatine Kinase 80 Troponin I Total Protein 5.4 L 5.1 L Albumin 3.1 L 2.9 L Globulin 2.3 2.2 L Albumin/Globulin Ratio 1.3 1.3 PTH Intact 2.8 L CSF H.influenzae B Ag Negative CSF N.meningit ACY/W135 Negative CSF N.mening B/E.coli K1 Negative CSF Strep B Antigen Negative CSF Strep pneumoniae Ag Negative Vancomycin Trough 8.6 09/23/24 09/23/24 09/23/24 15:40 18:36 20:31 WBC 21.6 H RBC 2.96 L Hgb 8.5 L Hct 26.8 L MCV 91 MCH 28.7 MCHC 31.7 RDW Std Deviation 52.0 H Plt Count 248 Neut % (Auto) 48 Lymph % (Auto) 37 Glasscock % (Auto) 8 Eos % (Auto) 1 Baso % (Auto) 0 Neut # (Auto) 10.3 H Lymph # (Auto) 8.0 H Glasscock # (Auto) 1.7 H Eos # (Auto) 0.2 Baso # (Auto) 0.1 Immature Gran # (Auto) 1.30 H Absolute Nucleated RBC 0.36 H Immature Gran % 6 H Nucleated RBC % 2 H Puncture Site Right Brachial ABG pH 7.40 ABG pCO2 35 ABG pO2 68 L D ABG HCO3 22 ABG O2 Saturation 96 ABG Base Excess -3 Oxygen Liter Flow 1 FiO2 21 Sodium 143 Potassium 3.3 L Chloride 105 Carbon Dioxide 21.8 Anion Gap 16 BUN 14 Creatinine 1.8 H D Estim Creat Clear Calc 41.4 L eGFR 32 L BUN/Creatinine Ratio 8 L Glucose 215 H Calculated Osmolality 291 Lactic Acid 4.3 H* Calcium 10.4 Corrected Calcium 11.4 H Total Bilirubin 0.4 AST ALT 25 Alkaline Phosphatase 162 H Total Creatine Kinase Troponin I < 0.020 Total Protein 5.1 L Albumin 2.7 L Globulin 2.4 Albumin/Globulin Ratio 1.1 L PTH Intact CSF H.influenzae B Ag CSF N.meningit ACY/W135 CSF N.mening B/E.coli K1 CSF Strep B Antigen CSF Strep pneumoniae Ag Vancomycin Trough ABG Interpretation ABG results: 09/17/24 09/21/24 09/21/24 19:57 11:23 13:15 ABG pH 7.33 L 7.37 7.37 ABG pCO2 46 32 31 L ABG pO2 87 72 L 89 ABG HCO3 24 18 L 18 L ABG O2 Saturation 98 96 95 ABG Base Excess -2 -6 L -6 L 09/22/24 09/23/24 08:05 15:40 ABG pH 7.35 7.40 ABG pCO2 31 L 35 ABG pO2 90 68 L D ABG HCO3 17 L 22 ABG O2 Saturation 98 96 ABG Base Excess -7 L -3 Assessment & Plan Assessment and plan (1) Altered mental status: Status: Acute Assessment and plan: secondary to metaolic encephalopathy EEG showed diffuse slowing CSF analysis: showed leucocytosis, PMN, with RBCs. Gram stain negative. Add Acyclovir and check HSV serology and PCR (2) Diabetes mellitus: Status: Chronic Assessment and plan: continue with FSG Checking and follow sliding scale insulin per protocol (3) ALLA (acute kidney injury): Status: Acute Assessment and plan: with underlying chronic renal failure on dialysis (4) Sepsis: Status: Acute Assessment and plan: ID on board continue with current antibiotics (5) MRSA bacteremia: Status: Acute Assessment and plan: continue with antibiotics and contract precautions
[2024-09-23 21:12] LABS: Allen Test Not Performed; Base Excess -4 (-3-3); HCO3 21 mEq/L (20-26); Inspired Oxygen, FIO2 21 %; O2 Saturation 100 % (91-98); PCO2 38 mmHg (32.0-48.0); PO2 206 mmHg (83-108); Puncture Site Arterial Line; pH, Arterial 7.35 (7.35-7.45)
--- NOTE | 2024-09-23 21:14 | EVENTNT_ITS ---
Documentation for date of: 09/23/24
--- NOTE | 2024-09-23 21:14 | PD.RESEVENT ---
Documentation for date of: 09/23/24
[2024-09-23] MEDS: ATORVASTATIN CALCIUM 20 MG TABLET 40 MG PO (21:30)
--- NOTE | 2024-09-23 22:18 | PD.RESPROC ---
Procedures Procedure Date / Time 09/23/24 5051 Central Line Placement Right IJ: Indication(s): shock and poor, or inadequate peripheral venous access Informed consent obtained: obtained from surrogate decision maker and procedure done urgently Time out done, and the following verified: correct patient, side and site, procedure, patient position and implants and/or equipment Patient placed on monitor/pulse ox: Yes Hand Hygiene: soap & water and alcohol-based hand rub Max Sterile Barrier Techniques used: cap, mask, sterile gown, sterile gloves and sterile full body drape Central line prep: Chlorhexidine scrub Local anesthesia used: lidocaine 1% Amount of anesthesia used (mL): 5 Ultrasound used for placement: Yes Sterile Technique if Ultrasound used, including sterile gel: yes Central line lumen inserted: triple Post procedure: sutured in place, good blood return, all ports aspirated, flushed, capped and sterile dressing applied Post procedure x-ray: tip of catheter in good position Patient tolerated procedure: well EBL(ml): 0 Complications: none
[2024-09-23] MEDS: ACYCLOVIR IV (23:00)
[2024-09-23] MEDS: VASOPRESSIN IN NS IVPB 20 UNIT/100 ML BAG 9 UNIT IV (23:22)
[2024-09-23] MEDS: Norepinephrine/D5W 8mg/250ml 8 MG/250 ML BAG 61.155 MG IV (23:39)
[2024-09-23] MEDS: HYDROCORTISONE SOD SUCC INJ 100 MG VIAL IV (23:42)
[2024-09-23 23:45] LABS: Reflex Lactate? Y
[2024-09-24] VITALS (124 sets, daily range): BP systolic 44–270; BP diastolic 37–256; PULSE 60–138; RESP 0–32; TEMP 37.4–38.2; O2SAT 88–100; BMI 51.5
[2024-09-24] MEDS: Norepinephrine/NS 16mg/250ml 16 MG/250 ML BAG 48.698 MG IV (02:50)
--- NOTE | 2024-09-24 03:54 | PD.RESPROC ---
Procedures Procedure Date / Time 09/24/24 0126 Arterial Line Indication(s): inability to monitor non-invasive BP Informed consent obtained: obtained from surrogate decision maker Time out done, and the following verified: correct patient, side and site, procedure, patient position and implants and/or equipment Technique used: guide wire technique Post-Procedure: line sutured into place and dry sterile dressing placed Patient tolerated procedure: well and no complications EBL(ml): 10 Complications: none Site: left and radial Procedure comment: Procedure was performed under supervision of Dr. Mims. Gaston Mckinney MD, PGY 2. Disclaimer: This note was dictated by speech recognition. Minor errors in clerical clerk may be present due to voice recognition software.
[2024-09-24 04:52] LABS: Base Excess -10 (-3-3); HCO3 18 mEq/L (20-26); Inspired Oxygen, FIO2 60 %; O2 Saturation 93 % (91-98); PCO2 47 mmHg (32.0-48.0); PO2 74 mmHg (83-108)
[2024-09-24 04:54] LABS: pH, Arterial 7.19 (7.35-7.45)
[2024-09-24 04:55] LABS: Allen Test Not Performed; Puncture Site Arterial Line
[2024-09-24] MEDS: Sodium Bicarb Inj 8.4% SYR 50 ML SYRINGE IV (05:13)
[2024-09-24] MEDS: SODIUM CHLORIDE 0.9% IV ×6 (05:37→21:40)
[2024-09-24] MEDS: HYDROCORTISONE SOD SUCC INJ 100 MG VIAL 50 MG IV ×3 (05:37→18:31)
[2024-09-24] MEDS: CEFTAROLINE FOSAMIL IV ×3 (05:37→21:40)
[2024-09-24] MEDS: LACTULOSE SYRUP 20 GM/30 ML UDC NG ×3 (05:37→21:40)
[2024-09-24] MEDS: [UNRECOGNIZED DRUG - OTHER] IV ×3 (05:37→21:40)
[2024-09-24 05:42] LABS: Lactate (Lactic Acid) 2.4 mMol/L (0.4-2.0)
[2024-09-24] MEDS: INSULIN LISPRO (AdmeLOG) 1 UNIT/0.01 ML UNIT SC ×3 (05:45→18:33)
[2024-09-24 05:49] LABS: Basophils # (Auto) 0.1 Thou/mm3 (0.0-0.2); Basophils % (Auto) 0 % (0-2.5); Eosinophils % (Auto) 0 % (0-10); Hematocrit 30.9 % (36.0-46.0); Hemoglobin 9.6 g/dL (12.0-16.0); Immature Granulocytes % (Auto) 9 % (0-0); Immature Granulocytes Auto 2.95 Thou/mm3 (0.00-0.00); Lymphocytes # (Auto) 3.2 Thou/mm3 (1.0-4.8); Lymphocytes % (Auto) 9 % (10-50); Mean Corpuscular HGB Conc 31.1 g/dl (31.0-37.0); Mean Corpuscular Hemoglobin 29.5 pg (25.0-35.0); Mean Corpuscular Volume 95 fL (80-100); Monocytes # (Auto) 1.3 Thou/mm3 (0.0-0.8); Monocytes % (Auto) 4 % (0-12); Neutrophils # (Auto) 26.9 Thou/mm3 (1.8-7.7); Neutrophils % (Auto) 78 % (37-80); Nucleated Red Blood Cell # 0.42 Thou/mm3 (0.00-0.00); Nucleated Red Blood Cell % 1 /100 WBC (0); Platelet Count 358 Thou/mm3 (140-440); Red Blood Count 3.25 Miln/mm3 (4.00-5.20); White Blood Count 34.4 Thou/mm3 (3.6-11.0)
[2024-09-24] MEDS: ACYCLOVIR IV ×2 (06:34→21:37)
[2024-09-24 06:37] LABS: Alanine Aminotransferase 31 U/L (10-49); Albumin, Serum 3.1 gm/dL (3.5-5.0); Albumin/Globulin Ratio 1.1 (1.2-2.2); Alkaline Phosphatase 198 U/L (46-116); Anion Gap 17 (7-16); BUN/Creatinine Ratio 7 Ratio (12-20); Bilirubin,Total 0.5 mg/dL (0.3-1.2); Blood Urea Nitrogen 15 mg/dL (9-23); Calcium 10.7 mg/dL (8.3-10.6); Calcium (Corrected) 11.4 mg/dL (8.5-10.1); Carbon Dioxide 16.9 mMol/L (20.0-31.0); Chloride 99 mMol/L (98-107); Creatinine (Component) 2.3 mg/dL (0.6-1.3); Estimated Creatinine Clearance 32.9 mL/min (>60); Globulin 2.7 gm/dL (2.3-3.5); Glucose 392 mg/dL (74-106); Osmolality,Calculated 283 (275-295); Potassium 4.6 mMol/L (3.4-5.1); Sodium 133 mMol/L (136-145); Total Protein 5.8 gm/dL (5.7-8.2); eGFR 24 See Note
[2024-09-24 06:43] LABS: Base Excess -10 (-3-3); HCO3 17 mEq/L (20-26); Inspired Oxygen, FIO2 70 %; O2 Saturation 98 % (91-98); PCO2 39 mmHg (32.0-48.0); PO2 100 mmHg (83-108); pH, Arterial 7.24 (7.35-7.45)
[2024-09-24 06:45] LABS: Allen Test Not Performed; Puncture Site Arterial Line
[2024-09-24 07:18] LABS: Syphilis Nonreactive (Nonreactive)
[2024-09-24] MEDS: Norepinephrine/NS 16mg/250ml 16 MG/250 ML BAG 46.433 MG IV (08:14)
[2024-09-24 08:42] LABS: Reflex Lactate? Y
[2024-09-24 09:53] LABS: Lactic Acid, 3 HR 2.3 mMol/L (0.4-2.0)
--- NOTE | 2024-09-24 09:55 | PD.INTPROG ---
Documentation for date of: 09/24/24 Subjective Subjective Interval history: This is a 59-year-old female admitted to the hospital 17 September. She has had MRSA bacteremia with multiple positive blood cultures. She has had a mental status that waxes and wanes. On 21 September she had a rapid response called and Brand Representative for altered mentation. She was being evaluated for endocarditis but due to the rep response was unable to get her ADRIÁN done at that moment in time. An MRI was obtained she was found to have an acute stroke. On the fifth in the morning she had another rapid response and there was concern for altered mentation once more. She was seen and evaluated by the ICU team and she appeared to have a GCS of around 8. Decision was made to transfer to the ICU for intubation and airway protection. The ADRIÁN could also be performed. However on arrival to the ICU she was awake and talking therefore plans for intubation were aborted. 09/23-no acute overnight events, patient's mentation continues to fluctuate. A bedside LP was attempted yesterday at around noon was unsuccessful. Neurology came by in the evening and successfully completed an LP for the patient. A ADRIÁN was also performed without any evidence of vegetations or perivalvular abscess noted. The patient received a liter bolus of fluids overnight. She has a good urinary output. 09/24- pt coded overnight and ROSC was achieved, she was started on fent/prop, she was febrile to 104, net pos overnight, she was hypotensive and started on vasopressors, she was given IVF and volume status was rechecked throughout the night. I discussed the case several times over the night with the resident team and adjustments made to vent and management. She was started on hydrocortisone for refractory septic shock when vasopressin was added Critical Care Note Critical care time (min.): 45 Exam Vital Signs Temp Pulse Resp BP Pulse Ox O2 Del Method O2 Flow Rate 99.4 F 128 H 30 H 118/47 L 91 L Mechanical Ventilation 1 09/24/24 04:01 09/24/24 08:14 09/24/24 07:30 09/24/24 08:14 09/24/24 07:30 09/23/24 20:00 09/23/24 16:01 FiO2 70 09/24/24 06:23 Narrative Exam Gen- NAD, intubated, off sedation from 730am, GCS 3T, morbidly obese HEENT- NC/AT, mucosa hydrated, sclera anicteric, pupils fixed and midsize, ETT/OGT in place, no cough, no gag, no corneal reflex Chest- LCTAB, HRRR, no increase in WOB (no spontaneous resp effort when vent dialled down to RR 5) Abd- s/nt/bs+, obese Ext- mult bruises, pulses palp, no clubbing, L foot with gauze over surgical site, no withdrawal to pain Vent AC VC Drips levo vaso Physical Exam Completion Physical Exam Complete?: Yes Objective - Field Applications Specialist Labs 09/24/24 04:46 09/24/24 04:46 Labs: Laboratory Results - last 24 hr 09/23/24 09/23/24 09/23/24 04:44 15:40 18:36 WBC 21.6 H RBC 2.96 L Hgb 8.5 L Hct 26.8 L MCV 91 MCH 28.7 MCHC 31.7 RDW Std Deviation 52.0 H Plt Count 248 Neut % (Auto) 48 Lymph % (Auto) 37 [place] % (Auto) 8 Eos % (Auto) 1 Baso % (Auto) 0 Neut # (Auto) 10.3 H Lymph # (Auto) 8.0 H [place] # (Auto) 1.7 H Eos # (Auto) 0.2 Baso # (Auto) 0.1 Immature Gran # (Auto) 1.30 H Absolute Nucleated RBC 0.36 H Immature Gran % 6 H Nucleated RBC % 2 H Puncture Site Right Brachial ABG pH 7.40 ABG pCO2 35 ABG pO2 68 L D ABG HCO3 22 ABG O2 Saturation 96 ABG Base Excess -3 Oxygen Liter Flow 1 FiO2 21 Sodium 143 Potassium 3.3 L Chloride 105 Carbon Dioxide 21.8 Anion Gap 16 BUN 14 Creatinine 1.8 H D Estim Creat Clear Calc 41.4 L eGFR 32 L BUN/Creatinine Ratio 8 L Glucose 215 H Calculated Osmolality 291 Lactic Acid Calcium 10.4 Corrected Calcium 11.4 H Total Bilirubin 0.4 ALT 25 Alkaline Phosphatase 162 H Troponin I < 0.020 Total Protein 5.1 L Albumin 2.7 L Globulin 2.4 Albumin/Globulin Ratio 1.1 L PTH Intact 2.8 L Syphilis Serology 09/23/24 09/23/24 09/24/24 20:31 21:04 00:01 WBC RBC Hgb Hct MCV MCH MCHC RDW Std Deviation Plt Count Neut % (Auto) Lymph % (Auto) [place] % (Auto) Eos % (Auto) Baso % (Auto) Neut # (Auto) Lymph # (Auto) [place] # (Auto) Eos # (Auto) Baso # (Auto) Immature Gran # (Auto) Absolute Nucleated RBC Immature Gran % Nucleated RBC % Puncture Site Arterial Line ABG pH 7.35 ABG pCO2 38 ABG pO2 206 H D ABG HCO3 21 ABG O2 Saturation 100 H ABG Base Excess -4 L Oxygen Liter Flow FiO2 21 Sodium Potassium Chloride Carbon Dioxide Anion Gap BUN Creatinine Estim Creat Clear Calc eGFR BUN/Creatinine Ratio Glucose Calculated Osmolality Lactic Acid 4.3 H* 5.0 H* Calcium Corrected Calcium Total Bilirubin ALT Alkaline Phosphatase Troponin I Total Protein Albumin Globulin Albumin/Globulin Ratio PTH Intact Syphilis Serology 09/24/24 09/24/24 09/24/24 04:35 04:46 05:35 WBC 34.4 H D RBC 3.25 L Hgb 9.6 L Hct 30.9 L MCV 95 MCH 29.5 MCHC 31.1 RDW Std Deviation 55.0 H Plt Count 358 D Neut % (Auto) 78 Lymph % (Auto) 9 L [place] % (Auto) 4 Eos % (Auto) 0 Baso % (Auto) 0 Neut # (Auto) 26.9 H Lymph # (Auto) 3.2 [place] # (Auto) 1.3 H Eos # (Auto) 0.0 Baso # (Auto) 0.1 Immature Gran # (Auto) 2.95 H Absolute Nucleated RBC 0.42 H Immature Gran % 9 H Nucleated RBC % 1 H Puncture Site Arterial Line ABG pH 7.19 L* D ABG pCO2 47 ABG pO2 74 L D ABG HCO3 18 L ABG O2 Saturation 93 ABG Base Excess -10 L Oxygen Liter Flow FiO2 60 Sodium 133 L D Potassium 4.6 D Chloride 99 Carbon Dioxide 16.9 L Anion Gap 17 H BUN 15 Creatinine 2.3 H D Estim Creat Clear Calc 32.9 L eGFR 24 L BUN/Creatinine Ratio 7 L Glucose 392 H D Calculated Osmolality 283 Lactic Acid 2.4 H Calcium 10.7 H Corrected Calcium 11.4 H Total Bilirubin 0.5 ALT 31 Alkaline Phosphatase 198 H D Troponin I Total Protein 5.8 Albumin 3.1 L Globulin 2.7 Albumin/Globulin Ratio 1.1 L PTH Intact Syphilis Serology Nonreactive 09/24/24 06:33 WBC RBC Hgb Hct MCV MCH MCHC RDW Std Deviation Plt Count Neut % (Auto) Lymph % (Auto) [place] % (Auto) Eos % (Auto) Baso % (Auto) Neut # (Auto) Lymph # (Auto) [place] # (Auto) Eos # (Auto) Baso # (Auto) Immature Gran # (Auto) Absolute Nucleated RBC Immature Gran % Nucleated RBC % Puncture Site Arterial Line ABG pH 7.24 L ABG pCO2 39 ABG pO2 100 D ABG HCO3 17 L ABG O2 Saturation 98 ABG Base Excess -10 L Oxygen Liter Flow FiO2 70 Sodium Potassium Chloride Carbon Dioxide Anion Gap BUN Creatinine Estim Creat Clear Calc eGFR BUN/Creatinine Ratio Glucose Calculated Osmolality Lactic Acid Calcium Corrected Calcium Total Bilirubin ALT Alkaline Phosphatase Troponin I Total Protein Albumin Globulin Albumin/Globulin Ratio PTH Intact Syphilis Serology Assessment & Plan Problem List (1) Altered mental status: Status: Acute (2) Diabetes mellitus: Status: Chronic (3) ALLA (acute kidney injury): Status: Acute (4) Sepsis: Status: Acute Additional Plan Additional Plan: In summary this is a 59-year-old female with MRSA bacteremia and sepsis admitted to the ICU for encephalopathy and concern for airway protection a/p THERAPY MANAGER Encephalopathy- seen by neuro - EEG done on 09/23 shows diffuse slowing - LP done 09/22 and CSF shows abundant WBCs - today pt is unresponsive to noxious stimuli with a GCS of 3 and a prelim clinical exam suggestive of brain - Head CT checked this AM shows diffuse global cerebral edema however official read is still pending - started on HTS 250cc bolus with 40cc/hr gtt - Na checks q4hr Meningitis- CSF shows 1200 WBC and 1000 RBC with an elevated total protein - gram stain was neg - seen by neuro - on abx - viral studies sent on CSF Acute stroke-MRI performed on September 21 showed a 7 mm right cerebral infarct - ? embolic and related to her MRSA bacteremia CV Shock- pt developed septic shock after code yesterday evening, given IVF and started on vasopressors along with hydrocortisone. a central line and a line were placed overnight. bedside US showed collapsable IVC. she remains on abx. LA now trending back down Resp Acute hypoxic resp failure- intubated and on MV, fu with ABG and CXR - adjust as needed, resp acidosis with metabolic acidosis noted on ABG this AM Renal Hyponatremia- started on HTS for cerebral edema ALLA- worsening post code - cont with good UOP GI Nutrition- NPO Endo DM- on SSI and lantus Heme Anemia- no active bleeding, h/h stable - small decrease, given IVF overnight ? dilutional Leukocytosis- 2/2 MRSA bacteremia - increasing ID MRSA bacteremia-this has been persistent with multiple positive blood cultures. Patient's blood cultures from yesterday continued to show GPC's in both bottles. Patient had a ADRIÁN performed on September 22 which was negative for any vegetations or perivalvular abscess. Unclear where patient's primary sources. - CT chest/abd/pelvis did not show source of bacteremia - Bcx remain positive case d/w ICU team and family at bedside labs, imaging, records reviewed ~45ccmin required for eval, exam, review, intervention, discussion and formulation of POC for this critically ill pt with resp failure and shock at high risk for further and ongoing decompensation Provider Notation Provider Notation: Although this document has been carefully reviewed, there may still be some phonetic and other typographical errors. These errors are purely grammatical due to imperfections in the software program and should not be construed in any way to compromise the substance of the patient's medical care during this visit. Thank you for the opportunity and privilege in assisting you with this patient's care and management.
[2024-09-24] MEDS: INSULIN LISPRO (AdmeLOG) 1 UNIT/0.01 ML UNIT 10 UNIT SC ×3 (10:06→18:32)
[2024-09-24] MEDS: INSULIN GLARGINE (Lantus) 5 UNIT/0.05 ML (PER 5 UNITS) 40 UNIT SC ×2 (10:06→21:47)
[2024-09-24] MEDS: DAPTOMYCIN IV (10:59)
[2024-09-24] MEDS: [UNRECOGNIZED DRUG - OTHER] IV (10:59)
[2024-09-24] MEDS: Norepinephrine/NS 16mg/250ml 16 MG/250 ML BAG 52.095 MG IV ×2 (11:57→15:58)
[2024-09-24] MEDS: VASOPRESSIN IN NS IVPB 20 UNIT/100 ML BAG 9 UNIT IV ×2 (11:58→20:35)
[2024-09-24 12:30] LABS: Sodium 140 mMol/L (136-145)
[2024-09-24] MEDS: ACETAMINOPHEN SOL 325 MG/10 ML UDC 975 MG PO (13:23)
[2024-09-24 14:15] LABS: Sodium 141 mMol/L (136-145)
[2024-09-24] MEDS: Norepinephrine/NS 16mg/250ml 16 MG/250 ML BAG 47.565 MG IV (20:35)
[2024-09-24] MEDS: ATORVASTATIN CALCIUM 20 MG TABLET 40 MG PO (21:37)
[2024-09-24] MEDS: ENOXAPARIN SOD INJ 40 MG/0.4 ML SYRINGE SC (21:46)
[2024-09-25] VITALS (151 sets, daily range): BP systolic 69–137; BP diastolic 33–78; PULSE 117–135; RESP 0–53; TEMP 36.4–37.5; O2SAT 93–97; BMI 54.3
[2024-09-25] MEDS: HYDROCORTISONE SOD SUCC INJ 100 MG VIAL 50 MG IV ×2 (00:36→05:56)
[2024-09-25] MEDS: INSULIN LISPRO (AdmeLOG) 1 UNIT/0.01 ML UNIT SC ×3 (00:37→11:23)
[2024-09-25] MEDS: Norepinephrine/NS 16mg/250ml 16 MG/250 ML BAG 47.565 MG IV (01:56)
[2024-09-25 04:11] LABS: Base Excess -20 (-3-3); HCO3 9 mEq/L (20-26); Inspired Oxygen, FIO2 65 %; O2 Saturation 97 % (91-98); PCO2 37 mmHg (32.0-48.0); PO2 93 mmHg (83-108)
[2024-09-25 04:14] LABS: Allen Test Not Performed; Puncture Site Arterial Line; pH, Arterial 7.02 (7.35-7.45)
[2024-09-25] MEDS: Sodium Bicarb Inj 8.4% SYR 50 ML SYRINGE IV ×2 (04:30→04:38)
[2024-09-25 05:25] LABS: Basophils % (Auto) 0 % (0-2.5); Eosinophils % (Auto) 0 % (0-10); Hematocrit 29.3 % (36.0-46.0); Hemoglobin 8.7 g/dL (12.0-16.0); Immature Granulocytes % (Auto) 8 % (0-0); Immature Granulocytes Auto 2.72 Thou/mm3 (0.00-0.00); Lymphocytes # (Auto) 2.7 Thou/mm3 (1.0-4.8); Lymphocytes % (Auto) 8 % (10-50); Mean Corpuscular HGB Conc 29.7 g/dl (31.0-37.0); Mean Corpuscular Hemoglobin 29.1 pg (25.0-35.0); Mean Corpuscular Volume 98 fL (80-100); Monocytes # (Auto) 1.8 Thou/mm3 (0.0-0.8); Monocytes % (Auto) 5 % (0-12); Neutrophils # (Auto) 27.8 Thou/mm3 (1.8-7.7); Neutrophils % (Auto) 79 % (37-80); Nucleated Red Blood Cell # 0.28 Thou/mm3 (0.00-0.00); Nucleated Red Blood Cell % 1 /100 WBC (0); Platelet Count 338 Thou/mm3 (140-440); RDW Standard Deviation 60.4 fL (36.4-46.3); Red Blood Count 2.99 Miln/mm3 (4.00-5.20)
[2024-09-25] MEDS: SODIUM CHLORIDE 0.9% IV ×4 (05:54→14:17)
[2024-09-25] MEDS: [UNRECOGNIZED DRUG - OTHER] IV ×2 (05:54→14:17)
[2024-09-25] MEDS: LACTULOSE SYRUP 20 GM/30 ML UDC NG (05:54)
[2024-09-25] MEDS: CEFTAROLINE FOSAMIL IV ×2 (05:54→14:17)
[2024-09-25 06:00] LABS: Path Review Blood Smear Sent to Pathologist
[2024-09-25] MEDS: Norepinephrine/NS 16mg/250ml 16 MG/250 ML BAG 49.83 MG IV (07:12)
--- NOTE | 2024-09-25 07:46 | ESPR_ITS ---
Subjective Subjective Interval history: csf with lots of rbc's as well as wbc's. make note of that. on rx in case this is hsv. note that rpr and hiv are neg as is hep c. Exam Vital Signs Temp Pulse Resp BP Pulse Ox O2 Del Method O2 Flow Rate 98.4 F 119 H 30 H 122/62 97 Mechanical Ventilation 1 09/25/24 04:00 09/25/24 07:24 09/25/24 07:15 09/25/24 07:24 09/25/24 07:24 09/24/24 16:00 09/23/24 16:01 FiO2 55 09/25/24 07:24 Narrative Exam it is early summer, so ev and wnv less likely. the abundance of rbc's notedin csf I am away at a graduation so will see her in person on thu Objective - Internal Medicine Labs 09/25/24 05:04 09/24/24 13:50 Labs: Laboratory Results - last 24 hr 09/24/24 09/24/24 09/24/24 09:25 12:05 13:50 WBC RBC Hgb Hct MCV MCH MCHC RDW Std Deviation Plt Count Neut % (Auto) Lymph % (Auto) [place] % (Auto) Eos % (Auto) Baso % (Auto) Neut # (Auto) Lymph # (Auto) [place] # (Auto) Eos # (Auto) Baso # (Auto) Immature Gran # (Auto) Absolute Nucleated RBC Immature Gran % Nucleated RBC % Smear Path Review Puncture Site ABG pH ABG pCO2 ABG pO2 ABG HCO3 ABG O2 Saturation ABG Base Excess FiO2 Sodium 140 141 Lactic Acid 2.3 H 09/25/24 09/25/24 04:00 05:04 WBC 35.0 H RBC 2.99 L Hgb 8.7 L Hct 29.3 L MCV 98 MCH 29.1 MCHC 29.7 L RDW Std Deviation 60.4 H Plt Count 338 Neut % (Auto) 79 Lymph % (Auto) 8 L [place] % (Auto) 5 Eos % (Auto) 0 Baso % (Auto) 0 Neut # (Auto) 27.8 H Lymph # (Auto) 2.7 [place] # (Auto) 1.8 H Eos # (Auto) 0.0 Baso # (Auto) 0.0 Immature Gran # (Auto) 2.72 H Absolute Nucleated RBC 0.28 H Immature Gran % 8 H Nucleated RBC % 1 H Smear Path Review Sent to Pathologist Puncture Site Arterial Line ABG pH 7.02 L* D ABG pCO2 37 ABG pO2 93 ABG HCO3 9 L* ABG O2 Saturation 97 ABG Base Excess -20 L FiO2 65 Sodium Lactic Acid ABG Interpretation ABG results: 09/17/24 09/21/24 09/21/24 19:57 11:23 13:15 ABG pH 7.33 L 7.37 7.37 ABG pCO2 46 32 31 L ABG pO2 87 72 L 89 ABG HCO3 24 18 L 18 L ABG O2 Saturation 98 96 95 ABG Base Excess -2 -6 L -6 L 09/22/24 09/23/24 09/23/24 08:05 15:40 21:04 ABG pH 7.35 7.40 7.35 ABG pCO2 31 L 35 38 ABG pO2 90 68 L D 206 H D ABG HCO3 17 L 22 21 ABG O2 Saturation 98 96 100 H ABG Base Excess -7 L -3 -4 L 09/24/24 09/24/24 09/25/24 04:35 06:33 04:00 ABG pH 7.19 L* D 7.24 L 7.02 L* D ABG pCO2 47 39 37 ABG pO2 74 L D 100 D 93 ABG HCO3 18 L 17 L 9 L* ABG O2 Saturation 93 98 97 ABG Base Excess -10 L -10 L -20 L Assessment & Plan A&P Narrative persistent bacteremia with presumptive mrsa from 09/19 and 09/20 and 09/21 bc from 09/23 pending neg so far abscess L foot. drained. echo noted. susan neg dapto and ceftaroline ok and if renal function becomes impaired, ok to move to dapto if germ is s (and it is) will see again on Thursday no new hx as eeg underway. Time Spent With Patient Time: Total time spent is greater than 50% in coordination of care (as documented) at patient's floor/unit and/or counseling patient:
[2024-09-25] MEDS: VASOPRESSIN IN NS IVPB 20 UNIT/100 ML BAG 9 UNIT IV (07:54)
[2024-09-25 07:55] LABS: Alanine Aminotransferase 27 U/L (10-49); Albumin, Serum 2.9 gm/dL (3.5-5.0); Albumin/Globulin Ratio 1.1 (1.2-2.2); Alkaline Phosphatase 182 U/L (46-116); Anion Gap 30 (7-16); BUN/Creatinine Ratio 9 Ratio (12-20); Bilirubin,Total 0.3 mg/dL (0.3-1.2); Blood Urea Nitrogen 24 mg/dL (9-23); Calcium 10.2 mg/dL (8.3-10.6); Calcium (Corrected) 11.1 mg/dL (8.5-10.1); Chloride 107 mMol/L (98-107); Creatinine (Component) 2.6 mg/dL (0.6-1.3); Estimated Creatinine Clearance 30.1 mL/min (>60); Globulin 2.7 gm/dL (2.3-3.5); Osmolality,Calculated 322 (275-295); Potassium 5.1 mMol/L (3.4-5.1); Sodium 147 mMol/L (136-145); Total Protein 5.6 gm/dL (5.7-8.2); eGFR 21 See Note
[2024-09-25 08:16] LABS: Carbon Dioxide < 10.0 mMol/L (20.0-31.0); Glucose 562 mg/dL (74-106)
[2024-09-25] MEDS: INSULIN LISPRO (AdmeLOG) 1 UNIT/0.01 ML UNIT 25 UNIT SC (09:05)
[2024-09-25] MEDS: ACYCLOVIR IV (09:06)
[2024-09-25] MEDS: [UNRECOGNIZED DRUG - OTHER] IV (09:09)
[2024-09-25] MEDS: DAPTOMYCIN IV (09:09)
[2024-09-25] MEDS: ENOXAPARIN SOD INJ 40 MG/0.4 ML SYRINGE SC (09:09)
[2024-09-25 09:11] LABS: Base Excess -21 (-3-3); HCO3 8 mEq/L (20-26); Inspired Oxygen, FIO2 50 %; O2 Saturation 95 % (91-98); PCO2 32 mmHg (32.0-48.0); PO2 80 mmHg (83-108)
[2024-09-25] MEDS: INSULIN GLARGINE (Lantus) 5 UNIT/0.05 ML (PER 5 UNITS) 40 UNIT SC (09:11)
[2024-09-25 09:12] LABS: pH, Arterial 7.02 (7.35-7.45)
[2024-09-25 09:13] LABS: Allen Test Performed/OK; Puncture Site Arterial Line
--- NOTE | 2024-09-25 10:03 | PD.INTPROG ---
Documentation for date of: 09/25/24 Subjective Subjective Interval history: This is a 59-year-old female admitted to the hospital 17 September. She has had MRSA bacteremia with multiple positive blood cultures. She has had a mental status that waxes and wanes. On 21 September she had a rapid response called and Content Curator for altered mentation. She was being evaluated for endocarditis but due to the rep response was unable to get her ADRIÁN done at that moment in time. An MRI was obtained she was found to have an acute stroke. On the fifth in the morning she had another rapid response and there was concern for altered mentation once more. She was seen and evaluated by the ICU team and she appeared to have a GCS of around 8. Decision was made to transfer to the ICU for intubation and airway protection. The ADRIÁN could also be performed. However on arrival to the ICU she was awake and talking therefore plans for intubation were aborted. 09/23-no acute overnight events, patient's mentation continues to fluctuate. A bedside LP was attempted yesterday at around noon was unsuccessful. Neurology came by in the evening and successfully completed an LP for the patient. A ADRIÁN was also performed without any evidence of vegetations or perivalvular abscess noted. The patient received a liter bolus of fluids overnight. She has a good urinary output. 09/24- pt coded overnight and ROSC was achieved, she was started on fent/prop, she was febrile to 104, net pos overnight, she was hypotensive and started on vasopressors, she was given IVF and volume status was rechecked throughout the night. I discussed the case several times over the night with the resident team and adjustments made to vent and management. She was started on hydrocortisone for refractory septic shock when vasopressin was added 09/25- yesterday pt appears to have progressed to brain , sedation was stopped at 730am. has had increasing needs on vasopressors, UOP at ~100cc/hr overnight however has started to decline this AM, on a cooling blanket and is euthermic this AM Critical Care Note Critical care time (min.): 47 Exam Vital Signs Temp Pulse Resp BP Pulse Ox O2 Del Method O2 Flow Rate 98.4 F 119 H 30 H 122/62 97 Mechanical Ventilation 1 09/25/24 04:00 09/25/24 07:24 09/25/24 07:15 09/25/24 07:24 09/25/24 07:24 09/24/24 16:00 09/23/24 16:01 FiO2 55 09/25/24 07:24 Narrative Exam Gen- intubated, off sedation, GCS 3T, morbidly obese HEENT- NC/AT, mucosa hydrated, sclera anicteric, pupils fixed and non reactive, ETT in place no cough, OGT in place no gag, no corneal reflex Chest- LCTAB, HRRR, no increase in WOB Abd- s/nt/bs+ Ext- min edema, pulses palp, no clubbing, no mottling, mult bruises, no movement to noxious stimuli Drips levo vaso Vent AC VC Brain exam: 0812hrs HCT with massive cerebral edema EEG- read as isoelectric pt is unresponsive to verbal and noxious stimuli, off of sedation for 24hrs GCS3T no cough reflex with suction no gag reflex with suction no corneal reflex pupils are fixed and non reactive to light cold caloric produced no reflex no movement of the eyes Oculocephalic reflex absent Physical Exam Completion Physical Exam Complete?: Yes Objective - Experience Planning Strategist Labs 09/25/24 05:04 09/25/24 12:00 Labs: Laboratory Results - last 24 hr 09/24/24 09/24/24 09/24/24 09:25 12:05 13:50 WBC RBC Hgb Hct MCV MCH MCHC RDW Std Deviation Plt Count Neut % (Auto) Lymph % (Auto) [place] % (Auto) Eos % (Auto) Baso % (Auto) Neut # (Auto) Lymph # (Auto) [place] # (Auto) Eos # (Auto) Baso # (Auto) Immature Gran # (Auto) Absolute Nucleated RBC Immature Gran % Nucleated RBC % Smear Path Review Puncture Site ABG pH ABG pCO2 ABG pO2 ABG HCO3 ABG O2 Saturation ABG Base Excess FiO2 Sodium 140 141 Potassium Chloride Carbon Dioxide Anion Gap BUN Creatinine Estim Creat Clear Calc eGFR BUN/Creatinine Ratio Glucose Calculated Osmolality Lactic Acid 2.3 H Calcium Corrected Calcium Total Bilirubin ALT Alkaline Phosphatase Total Protein Albumin Globulin Albumin/Globulin Ratio 09/25/24 09/25/24 09/25/24 04:00 05:04 09:01 WBC 35.0 H RBC 2.99 L Hgb 8.7 L Hct 29.3 L MCV 98 MCH 29.1 MCHC 29.7 L RDW Std Deviation 60.4 H Plt Count 338 Neut % (Auto) 79 Lymph % (Auto) 8 L [place] % (Auto) 5 Eos % (Auto) 0 Baso % (Auto) 0 Neut # (Auto) 27.8 H Lymph # (Auto) 2.7 [place] # (Auto) 1.8 H Eos # (Auto) 0.0 Baso # (Auto) 0.0 Immature Gran # (Auto) 2.72 H Absolute Nucleated RBC 0.28 H Immature Gran % 8 H Nucleated RBC % 1 H Smear Path Review Sent to Pathologist Puncture Site Arterial Line Arterial Line ABG pH 7.02 L* D 7.02 L* ABG pCO2 37 32 ABG pO2 93 80 L ABG HCO3 9 L* 8 L* ABG O2 Saturation 97 95 ABG Base Excess -20 L -21 L FiO2 65 50 Sodium 147 H Potassium 5.1 D Chloride 107 Carbon Dioxide < 10.0 L* Anion Gap 30 H BUN 24 H Creatinine 2.6 H Estim Creat Clear Calc 30.1 L eGFR 21 L BUN/Creatinine Ratio 9 L Glucose 562 H* D Calculated Osmolality 322 H Lactic Acid Calcium 10.2 Corrected Calcium 11.1 H Total Bilirubin 0.3 ALT 27 Alkaline Phosphatase 182 H Total Protein 5.6 L Albumin 2.9 L Globulin 2.7 Albumin/Globulin Ratio 1.1 L Assessment & Plan Problem List (1) Altered mental status: Status: Acute (2) Diabetes mellitus: Status: Chronic (3) ALLA (acute kidney injury): Status: Acute (4) Sepsis: Status: Acute Additional Plan Additional Plan: In summary this is a 59-year-old female with MRSA bacteremia and sepsis admitted to the ICU for encephalopathy and concern for airway protection 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 FOOD 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 Encephalopathy- d/w neuro - EEG done on 09/23 shows diffuse slowing - LP done 09/22 and CSF shows abundant WBCs - today pt is unresponsive to noxious stimuli with a GCS of 3 and a prelim clinical exam suggestive of brain - Head CT checked this AM shows diffuse global cerebral edema however official read is still pending - started on HTS 250cc bolus with 40cc/hr gtt - Na checks q4hr - HTS fell off overnight and is restarted - EEG from 09/24 shows an isoelectric line - brain exam performed at 0812hr today Meningitis- CSF shows 1200 WBC and 1000 RBC with an elevated total protein - gram stain was neg - seen by neuro - on abx - viral studies sent on CSF Acute stroke-MRI performed on September 21 showed a 7 mm right cerebral infarct - ? embolic and related to her MRSA bacteremia CV Shock- pt developed septic shock after code 09/23 , given IVF and started on vasopressors along with hydrocortisone. a central line and a line were placed overnight. bedside US showed collapsable IVC. she remains on abx. LA now trending back down - today her requirements are increasing once more - give bolus IVF - check PPV Resp Acute hypoxic resp failure- intubated and on MV, fu with ABG and CXR - mixed acidosis noted on ABG - vent adjusted Renal HyperNa- cont HTS ALLA- worsening post code - cont with good UOP AGMA- check a LA and beta hydroxy -> AG up to 30 today HyperCa- IVF GI Nutrition- NPO Endo DM- on SSI and lantus - uncontrolled - increased lispro and lantus - steroids stopped Heme Anemia- no active bleeding, h/h stable - small decrease, given IVF overnight ? dilutional Leukocytosis- 2/2 MRSA bacteremia - increasing ID MRSA bacteremia-this has been persistent with multiple positive blood cultures. Patient's blood cultures from yesterday continued to show GPC's in both bottles. Patient had a ADRIÁN performed on September 22 which was negative for any vegetations or perivalvular abscess. Unclear where patient's primary sources. - CT chest/abd/pelvis did not show source of bacteremia - Bcx remain positive case d/w ICU team and family at bedside d/w neurology pt will need 2nd brain exam later today d/w family resulted in change of code status to DNR, discussion held by resident team pt has progressed to brain labs, imaging, records reviewed ~47ccmin required for eval, exam, review, intervention, discussion and formulation of POC for this critically ill pt with resp failure and shock at high risk for further and ongoing decompensation Provider Notation Provider Notation: Although this document has been carefully reviewed, there may still be some phonetic and other typographical errors. These errors are purely grammatical due to imperfections in the software program and should not be construed in any way to compromise the substance of the patient's medical care during this visit. Thank you for the opportunity and privilege in assisting you with this patient's care and management.
--- NOTE | 2024-09-25 10:43 | PD.RESPRO ---
Documentation for date of: 09/25/24 Subjective Subjective Interval history: This is a 59-year-old female admitted to the hospital 17 September. She has had MRSA bacteremia with multiple positive blood cultures. She has had a mental status that waxes and wanes. On 21 September she had a rapid response called and Hematology Specialist for altered mentation. She was being evaluated for endocarditis but due to the rep response was unable to get her ADRIÁN done at that moment in time. An MRI was obtained she was found to have an acute stroke. On the fifth in the morning she had another rapid response and there was concern for altered mentation once more. She was seen and evaluated by the ICU team and she appeared to have a GCS of around 8. Decision was made to transfer to the ICU for intubation and airway protection. The ADRIÁN could also be performed. However on arrival to the ICU she was awake and talking therefore plans for intubation were aborted. 09/23-no acute overnight events, patient's mentation continues to fluctuate. A bedside LP was attempted yesterday at around noon was unsuccessful. Neurology came by in the evening and successfully completed an LP for the patient. A ADRIÁN was also performed without any evidence of vegetations or perivalvular abscess noted. The patient received a liter bolus of fluids overnight. She has a good urinary output. 09/24- pt coded overnight and ROSC was achieved, she was started on fent/prop, she was febrile to 104, net pos overnight, she was hypotensive and started on vasopressors, she was given IVF and volume status was rechecked throughout the night. I discussed the case several times over the night with the resident team and adjustments made to vent and management. She was started on hydrocortisone for refractory septic shock when vasopressin was added 09/25 -overnight patient received hypertonic saline, 2 ampoules of bicarb and vasopressin and saline. This a.m. patient intubated, and mechanically ventilated. GCS 3 T. pH 6.98, CO2 32, PO290, bicarb 8, NA 146, BUN 24, CR 2.6, glucose 562, Hb 8.7 and WBC 35. Lactic acid decreased to 1.7 from 2.3. Sedation stopped at 7:30 AM and no sign of brainstem reflexes. Patient to be assessed by neurologist at 6 PM today to confirm brain . Exam Vital Signs Temp Pulse Resp BP Pulse Ox O2 Del Method O2 Flow Rate 97.6 F 129 H 36 H 115/69 93 L Mechanical Ventilation 1 09/25/24 08:00 09/25/24 10:25 09/25/24 10:25 09/25/24 10:25 09/25/24 10:25 09/25/24 08:00 09/23/24 16:01 FiO2 50 09/25/24 10:18 Narrative Exam Constitutional Intubated and mechanically ventilated. Obese female Neurological GCS E1, V1T, M1. Pupils fixed, mid dilated, absent corneal reflexes. Unresponsive to noxious stimuli. Babinski not present HEENT ETT and OG tube in situ, minimal secretions in ETT and OG clamped. Neck Short and fat, trachea midline. No signs of subcutaneous emphysema Respiratory Chest normal on inspection and mechanical ventilated breath sounds auscultated Cardiovascular S1 and S2 audible, RRR. No murmurs carotid bruit. No gross JVD. Abdominal Soft, obese and nontender in all quadrants. Abdominal striae present. Bowel sounds not auscultated Genitourinary No bladder tenderness, no flank pain. Normal to palpation Musculoskeletal Extremities tone within normal limits. 2+ lower extremity edema up to knees bilaterally Skin Warm, dry and intact. Multiple ecchymosis on bilateral upper limbs. Left foot wrapped in bandage, clean and dry. 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 Objective Labs 09/25/24 05:04 09/25/24 16:19 Labs: Laboratory Results - last 24 hr 09/24/24 09/24/24 09/25/24 12:05 13:50 04:00 WBC RBC Hgb Hct MCV MCH MCHC RDW Std Deviation Plt Count Neut % (Auto) Lymph % (Auto) [place] % (Auto) Eos % (Auto) Baso % (Auto) Neut # (Auto) Lymph # (Auto) [place] # (Auto) Eos # (Auto) Baso # (Auto) Immature Gran # (Auto) Absolute Nucleated RBC Immature Gran % Nucleated RBC % Smear Path Review Puncture Site Arterial Line ABG pH 7.02 L* D ABG pCO2 37 ABG pO2 93 ABG HCO3 9 L* ABG O2 Saturation 97 ABG Base Excess -20 L FiO2 65 Sodium 140 141 Potassium Chloride Carbon Dioxide Anion Gap BUN Creatinine Estim Creat Clear Calc eGFR BUN/Creatinine Ratio Glucose Calculated Osmolality Calcium Corrected Calcium Total Bilirubin ALT Alkaline Phosphatase Total Protein Albumin Globulin Albumin/Globulin Ratio 09/25/24 09/25/24 05:04 09:01 WBC 35.0 H RBC 2.99 L Hgb 8.7 L Hct 29.3 L MCV 98 MCH 29.1 MCHC 29.7 L RDW Std Deviation 60.4 H Plt Count 338 Neut % (Auto) 79 Lymph % (Auto) 8 L [place] % (Auto) 5 Eos % (Auto) 0 Baso % (Auto) 0 Neut # (Auto) 27.8 H Lymph # (Auto) 2.7 [place] # (Auto) 1.8 H Eos # (Auto) 0.0 Baso # (Auto) 0.0 Immature Gran # (Auto) 2.72 H Absolute Nucleated RBC 0.28 H Immature Gran % 8 H Nucleated RBC % 1 H Smear Path Review Sent to Pathologist Puncture Site Arterial Line ABG pH 7.02 L* ABG pCO2 32 ABG pO2 80 L ABG HCO3 8 L* ABG O2 Saturation 95 ABG Base Excess -21 L FiO2 50 Sodium 147 H Potassium 5.1 D Chloride 107 Carbon Dioxide < 10.0 L* Anion Gap 30 H BUN 24 H Creatinine 2.6 H Estim Creat Clear Calc 30.1 L eGFR 21 L BUN/Creatinine Ratio 9 L Glucose 562 H* D Calculated Osmolality 322 H Calcium 10.2 Corrected Calcium 11.1 H Total Bilirubin 0.3 ALT 27 Alkaline Phosphatase 182 H Total Protein 5.6 L Albumin 2.9 L Globulin 2.7 Albumin/Globulin Ratio 1.1 L ABG Interpretation ABG results: 09/17/24 09/21/24 09/21/24 19:57 11:23 13:15 ABG pH 7.33 L 7.37 7.37 ABG pCO2 46 32 31 L ABG pO2 87 72 L 89 ABG HCO3 24 18 L 18 L ABG O2 Saturation 98 96 95 ABG Base Excess -2 -6 L -6 L 09/22/24 09/23/24 09/23/24 08:05 15:40 21:04 ABG pH 7.35 7.40 7.35 ABG pCO2 31 L 35 38 ABG pO2 90 68 L D 206 H D ABG HCO3 17 L 22 21 ABG O2 Saturation 98 96 100 H ABG Base Excess -7 L -3 -4 L 09/24/24 09/24/24 09/25/24 04:35 06:33 04:00 ABG pH 7.19 L* D 7.24 L 7.02 L* D ABG pCO2 47 39 37 ABG pO2 74 L D 100 D 93 ABG HCO3 18 L 17 L 9 L* ABG O2 Saturation 93 98 97 ABG Base Excess -10 L -10 L -20 L 09/25/24 09:01 ABG pH 7.02 L* ABG pCO2 32 ABG pO2 80 L ABG HCO3 8 L* ABG O2 Saturation 95 ABG Base Excess -21 L Quality Measures Quality Measures none Assessment & Plan Assessment Current Active Medications: Generic Name Dose Route Start Last Admin Trade Name Freq PRN Reason Stop Dose Admin Acetaminophen 975 mg 09/24/24 08:42 09/24/24 13:23 Acetaminophen Elise 325 Mg/10 Ml Udc PO 10/23/24 18:50 975 mg Q6HR PRN Administration Pain Or Fever > 99.9 Atorvastatin Calcium 40 mg 09/17/24 21:00 09/24/24 21:37 Atorvastatin Calcium 20 Mg Tablet PO 10/17/24 20:59 40 mg HS SHUBHAM Administration Bisacodyl 10 mg 09/23/24 08:22 09/23/24 09:25 Bisacodyl 10 Mg Supp HI 10/23/24 08:21 10 mg QDAY PRN Administration CONSTIPATION Protocol Dextrose 25 ml 09/17/24 18:07 Dextrose 50%-Water Inj 50 Ml Syringe IV 10/17/24 18:06 Q15MIN PRN BG 50-70 responsive npo pt Dextrose 50 ml 09/17/24 18:07 Dextrose 50%-Water Inj 50 Ml Syringe IV 10/17/24 18:06 Q15MIN PRN BG <50 OR BG <70 & pt unresponsive Enoxaparin Sodium 40 mg 09/23/24 13:15 09/25/24 09:09 Enoxaparin Sod Inj 40 Mg/0.4 Ml Syringe SC 10/07/24 13:14 40 mg BID SHUBHAM Administration Glucagon 1 mg 09/17/24 18:07 Glucagon Inj 1 Mg Vial IM Q15MIN PRN BG <70, and no IV access Daptomycin 500 mg/ Sodium 60 mls @ 120 mls/hr 09/21/24 17:45 09/25/24 09:09 Chloride 10 ml/ Sodium IV 09/28/24 17:44 120 mls/hr Chloride QDAY SHUBHAM Administration Ceftaroline Fosamil 600 mg/ 120 mls @ 120 mls/hr 09/21/24 22:00 09/25/24 05:54 Sodium Chloride 20 ml/ Sodium IV 09/28/24 21:59 120 mls/hr Chloride Q8HR SHUBHAM Administration Propofol 1,000 mg in 100 mls @ 3.624 mls/hr 09/23/24 19:20 09/24/24 00:15 Diprivan Ivpb IV 10/23/24 19:19 0 mcg/kg/min .Q24H PRN 0 mls/hr PER PROTOCOL Titration Protocol 5 MCG/KG/MIN Fentanyl Citrate 2,500 mcg in 250 mls @ 2.5 mls/hr 09/23/24 19:20 09/24/24 07:36 Sublimaze Inj 2,500 Mcg/250 Ml Bag IV 09/28/24 19:19 0 mcg/hr .Q24H PRN 0 mls/hr PER PROTOCOL Titration Protocol 25 MCG/HR Vasopressin/Sodium Chloride 20 unit in 100 mls @ 9 mls/hr 09/23/24 23:22 09/25/24 07:54 Vasostrict/Ns Ivpb IV 10/23/24 23:21 0.03 unit/min .Q11H7M PRN 9 mls/hr PER PROTOCOL Administration Protocol 0.03 UNIT/MIN Norepinephrine Bitartrate 16 mg in 250 mls @ 5.663 mls/hr 09/24/24 02:14 09/25/24 09:53 Levophed In Ns 16mg/250ml IV 10/24/24 02:13 0.52 mcg/kg/min .Q24H PRN 58.89 mls/hr PER PROTOCOL Titration Protocol 0.05 MCG/KG/MIN Acyclovir Sodium 780 mg/ 115.6 mls @ 115.6 mls/hr 09/24/24 21:00 09/25/24 09:06 Sodium Chloride IV 10/01/24 20:59 115.6 mls/hr Q12HR SHUBHAM Administration Protocol Sodium Chloride 500 mls @ 40 mls/hr 09/25/24 10:15 Hypertonic Saline 3% IV 09/26/24 10:14 .[id number] SHUBHAM Sodium Chloride 1,000 mls @ 999 mls/hr 09/25/24 10:26 Ns IV 09/25/24 11:26 .Q1H1M ONE Insulin Glargine 40 unit 09/21/24 09:00 09/25/24 09:11 Insulin Glargine (Lantus) 5 Unit/0.05 Ml (Per 5 Units) SC 10/21/24 08:59 40 unit BID SHUBHAM Administration Insulin Human Lispro 10 unit 09/20/24 12:00 09/25/24 08:17 Insulin Lispro (Admelog) 1 Unit/0.01 Ml Unit SC 10/20/24 11:59 Not Given TIDWM SHUBHAM Insulin Human Lispro 0 unit 09/21/24 12:00 09/25/24 05:59 Insulin Lispro (Admelog) 1 Unit/0.01 Ml Unit SC 10/21/24 11:59 4 unit Q6HR SHUBHAM Administration Protocol Lactulose 20 gm 09/23/24 15:15 09/25/24 05:54 Lactulose Syrup 20 Gm/30 Ml Udc NG 10/23/24 15:14 20 gm TID SHUBHAM Administration Protocol Ondansetron HCl 4 mg 09/17/24 13:44 Ondansetron Inj 2 Mg/Ml Inj 2 Ml IVP 10/17/24 13:43 Q6H PRN NAUSEA OR VOMITING Protocol Sodium Chloride 1 spray 09/19/24 18:34 Saline Nasal 45 Ml Btl NASAL 10/19/24 18:33 PRN PRN CONGESTION Plan Patient is a 59-year-old female with MRSA bacteremia and sepsis admitted to the ICU for encephalopathy and concern for airway protection requiring 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 secondary to sepsis now progressed to brain - EEG done on 09/23 shows diffuse slowing - LP done 09/22 and CSF shows abundant WBCs - today pt is unresponsive to noxious stimuli with a GCS of 3 and a prelim clinical exam suggestive of brain - Head CT checked this AM shows diffuse global cerebral edema however official read is still pending - started on HTS 250cc bolus with 40cc/hr gtt - Na checks q4hr - HTS fell off overnight and is restarted - EEG from 09/24 shows an isoelectric line - brain exam performed at 0812hr today Likely bacterial meningitis - CSF shows 1200 WBC and 1000 RBC with an elevated total protein - gram stain was neg - seen by neuro - on abx - viral studies sent on CSF Acute stroke-MRI performed on September 21 showed a 7 mm right cerebral infarct - ? embolic and related to her MRSA bacteremia CVS Septic shock - pt developed septic shock after code 09/23 , given IVF and started on vasopressors along with hydrocortisone. a central line and a line were placed overnight. bedside US showed collapsable IVC. she remains on abx. LA now trending back down - today her requirements are increasing once more - PPV 3, patient not volume responsive Resp Acute hypoxic resp failure secondary to cardiac arrest, post ROSC - intubated and on MV, fu with ABG and CXR - mixed acidosis noted on ABG - vent adjusted Renal HyperNa - cont HTS ALLA- worsening post code - cont with good UOP Mixed AGMA and respiratory acidosis - check a LA and beta hydroxy -> AG up to 30 today HyperCa- IVF GI Nutrition- NPO Endo DM- on SSI and lantus - uncontrolled - increased lispro and lantus - steroids stopped Heme Anemia- no active bleeding, h/h stable - small decrease, given IVF overnight ? dilutional Leukocytosis- 2/2 MRSA bacteremia - increasing ID MRSA bacteremia -this has been persistent with multiple positive blood cultures. Patient's blood cultures from yesterday continued to show GPC's in both bottles. Patient had a ADRIÁN performed on September 22 which was negative for any vegetations or perivalvular abscess. Unclear where patient's primary sources. - CT chest/abd/pelvis did not show source of bacteremia - Bcx remain positive ICU Health maintenance: Dispo: Admit to ICU for mechanical ventilation. For 2 physician confirmation of braindeath and comfort care after Diet: NPO DVT ppx: None GI ppx: Protonix 40mg qD Mechanical ventilattion: Yes, Mode: ACVC Sedation: Yes, Fentanyl (RAAS - 1) IV lines: 2 pIV, Central line: RIJ Arterial line: Yes Kirby: Yes Code status: DNR, Comfort Plan of care discussed with Attending Dr. Gallardo and PGY 3 Dr. Kenji Mcclain MD PGY 1 Disclaimer: This note was dictated by speech recognition. Minor errors in technical training coordinator may be present due to voice recognition software.
[2024-09-25] MEDS: SODIUM CHLORIDE 0.9% 1000 ML 1,000 ML 999 ML IV (10:44)
[2024-09-25] MEDS: INSULIN GLARGINE (Lantus) 5 UNIT/0.05 ML (PER 5 UNITS) 20 UNIT SC (11:06)
[2024-09-25 11:12] LABS: Base Excess -23 (-3-3); HCO3 8 mEq/L (20-26); O2 Saturation 95 % (91-98); PCO2 32 mmHg (32.0-48.0); PO2 90 mmHg (83-108)
[2024-09-25 11:13] LABS: Inspired Oxygen, FIO2 50 %; Lactate (Lactic Acid) 1.7 mMol/L (0.4-2.0)
[2024-09-25 11:15] LABS: Allen Test Not Performed; Puncture Site Arterial Line; pH, Arterial 6.98 (7.35-7.45)
[2024-09-25] MEDS: Norepinephrine/NS 16mg/250ml 16 MG/250 ML BAG 61.155 MG IV (11:16)
[2024-09-25 11:20] LABS: Beta Hydroxybutyrate 5.5 mmol/L (<0.6)
[2024-09-25] MEDS: INSULIN LISPRO (AdmeLOG) 1 UNIT/0.01 ML UNIT 10 UNIT SC (11:23)
--- NOTE | 2024-09-25 11:26 | EVENTNT_ITS ---
<Statement entered by Navid Phillip MD - 09/27/24 12:07> Event note open on error. Please discard. -Navid Phillip MD
[2024-09-25] MEDS: Sodium Bicarb Inj 8.4% SYR 50 ML SYRINGE 100 ML IV (11:37)
[2024-09-25 11:56] LABS: Sodium 146 mMol/L (136-145)
--- NOTE | 2024-09-25 13:02 | PC.NURSE ---
at 1000, Dr. Gallardo notified of ART line waveform, per Dr. Gallardo utilize manual BP cuff
[2024-09-25 14:39] LABS: Sodium 150 mMol/L (136-145)
[2024-09-25] MEDS: Norepinephrine/NS 16mg/250ml 16 MG/250 ML BAG 65.685 MG IV (14:52)
[2024-09-25 16:39] LABS: Sodium 150 mMol/L (136-145)
--- NOTE | 2024-09-25 16:51 | PC.NURSE ---
at 1000, Dr. Raya speaking with family about goals of care, code status changed to DNR
--- NOTE | 2024-09-25 17:00 | PC.NURSE ---
at 1206, DNW called, spoke with Suzie, patient not a candidate for organ donation at this time, OPA#
--- NOTE | 2024-09-25 18:29 | DES_ITS ---
Documentation for date of: 09/25/24 Summary Date and Time Date of admission: 09/17/24 13:44 Date of : 09/25/24 Time of : 18:28 Summary Hospital Course: This is a 59-year-old female admitted to the hospital 17 September. She has had MRSA bacteremia with multiple positive blood cultures. She has had a mental status that waxes and wanes. On 21 September she had a rapid response called and Credit Control Manager for altered mentation. She was being evaluated for endocarditis but due to the rep response was unable to get her ADRIÁN done at that moment in time. An MRI was obtained she was found to have an acute stroke. On the fifth in the morning she had another rapid response and there was concern for altered mentation once more. She was seen and evaluated by the ICU team and she appeared to have a GCS of around 8. Decision was made to transfer to the ICU for intubation and airway protection. The ADRIÁN could also be performed. However on arrival to the ICU she was awake and talking therefore plans for intubation were aborted. Patient was being treated with acyclovir, ceftriaxone, ceftaroline and daptomycin for bacteremia and meningitis. Patient's condition improved and she was downgraded to the floor on 09/23, however GCS declined and patient was unable to protect her airway and subsequently went into cardiac arrest. ROSC was achieved and patient was intubated and placed on mechanical ventilation. Subsequently CT brain showed diffuse cerebral edema and EEG showed flatline confirming brain . Neurologist, Dr. Winchester also examined the patient and confirmed diagnosis of brain . Mechanical ventilator was disconnected and patient's family was at bedside to say final goodbyes. Patient's time of was 1827. Discharge diagnoses: 1. Metabolic encephalopathy secondary to sepsis now progressed to brain 2. Meningitis 3. Septic shock 4. Acute hypoxic respiratory failure secondary to cardiac arrest, post ROSC, 5. Hypernatremia 6. Diffuse cerebral edema 7. Mixed anion gap metabolic acidosis and respiratory acidosis 8. Insulin-dependent diabetes mellitus type 2 9. Normocytic anemia 10. Leukocytosis 11. MRSA bacteremia Discharge plan: ? Informed family ? Informed attending Plan of care discussed with Attending Dr. Gallardo and PGY 3 Dr. Kenji Mcclain MD PGY 1 Disclaimer: This note was dictated by speech recognition. Minor errors in senior receptionist may be present due to voice recognition software. Additional Data Confirmation of as documented by pronouncing clinician: no pulse, no respirations, no heart sounds and pupils fixed and dilated Family: at bedside Additional persons at bedside: other (Nurse) Attending/PCP notified?: Yes Attending physician: Stephania Gallardo MD Was code activated?: No Autopsy requested?: No cloth colors examiner notified?: No Organ bank notified?: No Advance directives: No Hospice patient?: No Visit Providers Provider Primary care physician: ZOË Muñoz Consults: 09/17/24 18:31 Consult to General Surgery Routine Comment: gangrenous 2nd left toe Consulting Provider: Margaux Saldana 09/18/24 10:12 Consult to Infectious Diseases Routine Comment: Consulting Provider: Alex Olguin 09/21/24 10:40 Consult to Cardiology Routine Comment: MRSA bacteremia, consulting for ADRIÁN Consulting Provider: Philip Viramontes 09/21/24 13:46 Consult to Neurology / Tele-Neurology Stat Comment: Consulting Provider: Wilton Winchester 09/21/24 14:54 Referral Wound Care Routine Comment: Diagnosis PCOD Cause of : Brain Contributing Factors (1) Cardiac arrest: (2) Septic shock: (3) MRSA bacteremia: (4) Sepsis: (5) Altered mental status: (6) Diabetes mellitus: (7) ALLA (acute kidney injury): Discharge Plan Plan Patient Disposition: Prescriptions/Referrals Referrals: Marga Jeter FNP [Primary Care Provider] - Patient/Caregiver Discharge Instructions Print Language: Kyrgyz
[2024-09-25 18:37] LABS: Sodium 152 mMol/L (136-145)
--- NOTE | 2024-09-25 21:35 | DES_ITS ---
Documentation for date of: 09/25/24 Pronouncement Note Date and Time of Date of : 09/25/24 Time of : 18:28 Contributing Factors (1) Cardiac arrest: (2) Septic shock: (3) MRSA bacteremia: (4) Sepsis: (5) Altered mental status: (6) Diabetes mellitus: (7) ALLA (acute kidney injury): Summary Additional details: 59 year old admitted to ICU due to septic shock secondary to MRSA bacteremia from L foot ostemyelitis had a cardiac arrest on Thursday09/23/2024 likely secondary to bacterial mengitis causing respiratory arrest leading to cardiac arrest, we were able to establish rosc. However, the following day patient was off sedation and had not corneal, gag or pupillary response. We ordered a CT head which showed severe cerebral edema. EEG performed yesterday showed no sign of brain activity. After physical examination of ICU attending and attending neurologist, also the patient has been of sedation for more than 24 hours the patient had no reflexes such as corneal, gag, or vesiculo ocular reflex. We turned out the ventilator to see if the patient spontenous breaths, the patient did not. Further on today patient's become more hemodynamically unstalbe with levophed and vasopressin, patietn abg continued to worsen. Neurologist had a conversation regarding the findings, stating breath is very likely. We explained this to the family. They had verbal understanding. We recommended comfort care. They agreed. Time of was at 1828. Patient was surrounded by loving members of her family. Additional Data Confirmation of : no pulse, no respirations, no heart sounds and pupils fixed and dilated Family: at bedside Additional persons at bedside: grey stock recorder Attending/PCP notified?: Yes Attending physician: Stephania Gallardo MD Was code activated?: No Autopsy requested?: No cigarette making examiner notified?: No Organ bank notified?: Yes Advance directives: No
--- NOTE | 2024-09-25 23:55 | ESPR_ITS ---
Documentation for date of: 09/25/24 Subjective Subjective Interval history: Patient was seen in [facility] with family at the bedside, noted she had a cardiorespiratory arrest, quickly [facility] intub[facility]. Patient has been nonresponsive with no brainstem function since midmorning. No sz or myoclonic jerks reported. She had a repeat CT head that showed cerebral edema yesterday, and is being managed appropriately. Exam - Neurology Vital Signs Temp Pulse Resp BP Pulse Ox O2 Del Method O2 Flow Rate 98.8 F 126 H 26 H 96/49 L 95 Mechanical Ventilation 1 09/25/24 16:00 09/25/24 18:16 09/25/24 18:16 09/25/24 18:16 09/25/24 18:16 09/25/24 16:00 09/23/24 16:01 FiO2 50 09/25/24 16:00 Narrative Exam GENERAL APPEARANCE: Well-developed, obese built female intubated and [facility] HEENT: Normocephalic, atraumatic, Pupils: dilated and fixed, not reactive NECK: Supple, no JVD or bruits. CARDIOVASULAR: Heart: S1, S2 heard, regular without S3-S4 or murmur no rubs or gallops. LUNGS/CHEST: Bilateral Rales and rhonchi heard ABDOMEN: Soft, nontender, with normal bowel sounds. No pulsatile masses. No rebound, rigidity, or guarding. Normal inspection and palpation. EXTREMITIES: Normal inspection and palpation. 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 SKIN: Warm and dry without rashes. Normal inspection. MUSCULOSKELETAL: No cervical, thoracic, lumbar or midline bony tenderness. Normal inspection. NEURO: GCS: 3t, absent corneal, pupillary reaction, dolls eye, gag and cough reflex. No additional respiration beyond vent set up rate. PSYCHIATRIC: Limited Objective Labs 09/25/24 05:04 09/25/24 17:41 Labs: Laboratory Results - last 24 hr 09/25/24 09/25/24 09/25/24 04:00 05:04 09:01 WBC 35.0 H RBC 2.99 L Hgb 8.7 L Hct 29.3 L MCV 98 MCH 29.1 MCHC 29.7 L RDW Std Deviation 60.4 H Plt Count 338 Neut % (Auto) 79 Lymph % (Auto) 8 L Edmunds % (Auto) 5 Eos % (Auto) 0 Baso % (Auto) 0 Neut # (Auto) 27.8 H Lymph # (Auto) 2.7 Edmunds # (Auto) 1.8 H Eos # (Auto) 0.0 Baso # (Auto) 0.0 Immature Gran # (Auto) 2.72 H Absolute Nucleated RBC 0.28 H Immature Gran % 8 H Nucleated RBC % 1 H Smear Path Review Sent to Pathologist Puncture Site Arterial Line Arterial Line ABG pH 7.02 L* D 7.02 L* ABG pCO2 37 32 ABG pO2 93 80 L ABG HCO3 9 L* 8 L* ABG O2 Saturation 97 95 ABG Base Excess -20 L -21 L FiO2 65 50 Sodium 147 H Potassium 5.1 D Chloride 107 Carbon Dioxide < 10.0 L* Anion Gap 30 H BUN 24 H Creatinine 2.6 H Estim Creat Clear Calc 30.1 L eGFR 21 L BUN/Creatinine Ratio 9 L Glucose 562 H* D Calculated Osmolality 322 H Lactic Acid Calcium 10.2 Corrected Calcium 11.1 H Total Bilirubin 0.3 ALT 27 Alkaline Phosphatase 182 H Total Protein 5.6 L Albumin 2.9 L Globulin 2.7 Albumin/Globulin Ratio 1.1 L Beta-Hydroxybutyrate/Acetoacetate 09/25/24 09/25/24 09/25/24 10:56 12:00 14:15 WBC RBC Hgb Hct MCV MCH MCHC RDW Std Deviation Plt Count Neut % (Auto) Lymph % (Auto) Edmunds % (Auto) Eos % (Auto) Baso % (Auto) Neut # (Auto) Lymph # (Auto) Edmunds # (Auto) Eos # (Auto) Baso # (Auto) Immature Gran # (Auto) Absolute Nucleated RBC Immature Gran % Nucleated RBC % Smear Path Review Puncture Site Arterial Line ABG pH 6.98 L* ABG pCO2 32 ABG pO2 90 ABG HCO3 8 L* ABG O2 Saturation 95 ABG Base Excess -23 L FiO2 50 Sodium 146 H 150 H Potassium Chloride Carbon Dioxide Anion Gap BUN Creatinine Estim Creat Clear Calc eGFR BUN/Creatinine Ratio Glucose Calculated Osmolality Lactic Acid 1.7 Calcium Corrected Calcium Total Bilirubin ALT Alkaline Phosphatase Total Protein Albumin Globulin Albumin/Globulin Ratio Beta-Hydroxybutyrate/Acetoacetate 5.5 H 09/25/24 09/25/24 16:19 17:41 WBC RBC Hgb Hct MCV MCH MCHC RDW Std Deviation Plt Count Neut % (Auto) Lymph % (Auto) Edmunds % (Auto) Eos % (Auto) Baso % (Auto) Neut # (Auto) Lymph # (Auto) Edmunds # (Auto) Eos # (Auto) Baso # (Auto) Immature Gran # (Auto) Absolute Nucleated RBC Immature Gran % Nucleated RBC % Smear Path Review Puncture Site ABG pH ABG pCO2 ABG pO2 ABG HCO3 ABG O2 Saturation ABG Base Excess FiO2 Sodium 150 H 152 H Potassium Chloride Carbon Dioxide Anion Gap BUN Creatinine Estim Creat Clear Calc eGFR BUN/Creatinine Ratio Glucose Calculated Osmolality Lactic Acid Calcium Corrected Calcium Total Bilirubin ALT Alkaline Phosphatase Total Protein Albumin Globulin Albumin/Globulin Ratio Beta-Hydroxybutyrate/Acetoacetate ABG Interpretation ABG results: 09/17/24 09/21/24 09/21/24 19:57 11:23 13:15 ABG pH 7.33 L 7.37 7.37 ABG pCO2 46 32 31 L ABG pO2 87 72 L 89 ABG HCO3 24 18 L 18 L ABG O2 Saturation 98 96 95 ABG Base Excess -2 -6 L -6 L 09/22/24 09/23/24 09/23/24 08:05 15:40 21:04 ABG pH 7.35 7.40 7.35 ABG pCO2 31 L 35 38 ABG pO2 90 68 L D 206 H D ABG HCO3 17 L 22 21 ABG O2 Saturation 98 96 100 H ABG Base Excess -7 L -3 -4 L 09/24/24 09/24/24 09/25/24 04:35 06:33 04:00 ABG pH 7.19 L* D 7.24 L 7.02 L* D ABG pCO2 47 39 37 ABG pO2 74 L D 100 D 93 ABG HCO3 18 L 17 L 9 L* ABG O2 Saturation 93 98 97 ABG Base Excess -10 L -10 L -20 L 09/25/24 09/25/24 09:01 10:56 ABG pH 7.02 L* 6.98 L* ABG pCO2 32 32 ABG pO2 80 L 90 ABG HCO3 8 L* 8 L* ABG O2 Saturation 95 95 ABG Base Excess -21 L -23 L Assessment & Plan Assessment and plan (1) Cardiac arrest: Status: Acute Assessment and plan: CT head showed diffuse cerebral edema. EEG showed isoelectric rhythm consistent with absent cerebral function Prognosis is poor for meaningful neuro recovery. patient was pronounced brain at 6.10 pm. Discussed with family at the bedside, will proceed with removal of life support. (2) Septic shock: Status: Acute (3) MRSA bacteremia: Status: Acute Assessment and plan: treated with antibiotics and contract precautions (4) Sepsis: Status: Acute Assessment and plan: ID on board continued with current antibiotics (5) Altered mental status: Status: Acute Assessment and plan: secondary to metaolic encephalopathy EEG showed diffuse slowing CSF analysis: showed leucocytosis, PMN, with RBCs. Gram stain negative. Added Acyclovir and check HSV serology and PCR (6) Diabetes mellitus: Status: Chronic Assessment and plan: continued with FSG Checking and follow sliding scale insulin per protocol (7) ALLA (acute kidney injury): Status: Acute Assessment and plan: with underlying chronic renal failure on dialysis
[2024-10-01 17:47] LABS: Enterovirus Source CSF; HSV-1 DNA, CSF NOT DETECTED copies/mL; HSV-1 DNA, CSF Source CEREBROSPINAL FLUID; West Nile Virus (IgG), CSF 2.84
[2024-10-03 07:10] LABS: Enterovirus RNA, PCR CSF NOT DETECTED; HSV-2 DNA, CSF NOT DETECTED copies/mL; VDRL, CSF Qual* NON-REACTIVE; West Nile Virus (IgM), CSF 1.56
== END 2024-09-25 18:28 | disposition expired | DRG 710 ==
LOC: SERX 12:15 → SERHOLD 14:14 → S3NX 09-18 00:36 → S2NX 09-21 13:58 → S2SX 09-22 09:53
PROVIDERS: Internal Medicine Cardiovascular Disease; Internal Medicine Infectious Disease; Nurse Practitioner Family; Student in an Organized Health Care Education/Training Program; Surgery; Admitting Provider Internal Medicine; Emergency Provider Emergency Medicine; PCP Nurse Practitioner Family; Visit Provider Internal Medicine
PROC: (CPT 28820; principal; 2024-09-18 14:00)
DX: A41.02 Sepsis due to Methicillin resistant Staphylococcus aureus (principal); E78.5 Hyperlipidemia, unspecified; E66.01 Morbid (severe) obesity due to excess calories; Z68.43 Body mass index [BMI] 50.0-59.9, adult; E03.9 Hypothyroidism, unspecified; E11.40 Type 2 diabetes mellitus with diabetic neuropathy, unspecified; E11.52 Type 2 diabetes mellitus with diabetic peripheral angiopathy with gangrene; J96.01 Acute respiratory failure with hypoxia; G93.40 Encephalopathy, unspecified; N17.9 Acute kidney failure, unspecified; L03.032 Cellulitis of left toe; E11.65 Type 2 diabetes mellitus with hyperglycemia; L02.612 Cutaneous abscess of left foot; E11.10 Type 2 diabetes mellitus with ketoacidosis without coma; E11.42 Type 2 diabetes mellitus with diabetic polyneuropathy; E83.52 Hypercalcemia; E87.0 Hyperosmolality and hypernatremia; E87.1 Hypo-osmolality and hyponatremia; E87.4 Mixed disorder of acid-base balance; E87.6 Hypokalemia; G93.41 Metabolic encephalopathy; G93.6 Cerebral edema; R65.21 Severe sepsis with septic shock; Z66 Do not resuscitate; Z79.4 Long term (current) use of insulin; Z79.84 Long term (current) use of oral hypoglycemic drugs; Z79.890 Hormone replacement therapy; Z79.899 Other long term (current) drug therapy; Z87.440 Personal history of urinary (tract) infections; Z86.14 Personal history of Methicillin resistant Staphylococcus aureus infection; I76 Septic arterial embolism; D63.1 Anemia in chronic kidney disease; K59.00 Constipation, unspecified; I46.8 Cardiac arrest due to other underlying condition; N18.9 Chronic kidney disease, unspecified; I12.9 Hypertensive chronic kidney disease with stage 1 through stage 4 chronic kidney disease, or unspecified chronic kidney disease; E11.22 Type 2 diabetes mellitus with diabetic chronic kidney disease; I35.8 Other nonrheumatic aortic valve disorders; I47.20 Ventricular tachycardia, unspecified
CPT/HCPCS: 36415; 36600; 70450; 70544; 70551; 71045; 71260; 73620; 73630; 74177; 80053; 80069; 80202; 80307; 81001; 82010; 82140; 82550; 82803; 82945; 83036; 83605; 83735; 83880; 83970; 84100; 84145; 84157; 84295; 84439; 84443; 84484; 85025; 85652; 86140; 86171; 86403; 86592; 86780; 86788; 86789; 87040; 87070; 87075; 87077; 87086; 87186; 87205; 87498; 87530; 89051; 93005; 93225; 93306; 93312; 94002; 94003; 95816; 96361; 96365; 96366; 96367; 96372; 99291; A4216; A4217; A4649; J0131; J0133; J0712; J0872; J1200; J1644; J1650; J1720; J1815; J1885; J2250; J2270; J2543; J2598; J2704; J3010; J3370; J3372; J3475; J3480; J3490; J7030; J7040; J7050; J7120; J7131; Q9967; A9270; J1920